=== PATIENT | female | born 1965 | race Caucasian/White ===

== ENCOUNTER 2021-04-26 20:39 | Emergency (ER) | payer OTHER, SELFPAY ==
--- NOTE | ~2021-04-26 | XR_ITS ---
EXAMINATION: XR knee LT 3V EXAM DATE: 04/26/2021 21:14 INDICATION: LT Knee Pain, [place] Snap On Lt Knee, No Known Injury . TECHNIQUE: Three projections of the left knee. There is no prior study for comparison. FINDINGS: No evidence osteochondral defect or joint body in the left knee joint. There are no acute fractures or dislocations identified. There is no subcutaneous gas. The soft tissue is unremarkabl e. There are no radiopaque foreign bodies. There is mild to moderate tricompartmental primary oste oarthritis. IMPRESSION: Mild to moderate left knee osteoarthritis. Reviewed, dictated and finalized at location G.
[2021-04-26 20:43] VITALS: BP 151/97; PULSE 95; RESP 19; TEMP 36.4; O2SAT 97
[2021-04-26] MEDS: MORPHINE SULFATE INJ (*CRX) 10 MG/ML AMP 6 MG IM (22:17)
[2021-04-26] MEDS: ONDANSETRON HCL ODT 4 MG TABLET PO (22:17)
--- NOTE | 2021-04-26 22:20 | ED.EXTPRO ---
HPI - Extremity Problem General Chief complaint: Extremity Problem,Nontraumatic Stated complaint: knee pain x 2 - sees pain mgmt Time Seen by Provider: 04/26/21 21:03 Source: patient Mode of arrival: ambulatory Limitations: no limitations History of Present Illness HPI Narrative: Patient is 55 years old white female been having knee pain bilaterally for over 2 years. Also fibromyalgia. Patient been seen by pain management physician with numerous knee injections. Patient felt a pop distal left knee 5 days ago, been hurting since. Patient denies any fever, chills, nausea, vomiting, fall or injuries. Related Data Home Medications Medication Instructions Recorded Confirmed baclofen mg 04/26/21 hydrocodone-acetaminophen 04/26/21 Allergies Allergy/AdvReac Type Severity Reaction Status Date / Time No Known Allergies Allergy Mild Verified 04/26/21 20:48 Review of Systems Review of Systems: CONSTITUTIONAL: Denies fever, chills, or sweats. EYES: Denies visual changes, redness, or discharge. ENT: Denies rhinorrhea, congestion, sore throat, or otalgia. CARDIOVASCULAR: Denies chest pain, palpitations, or edema. RESPIRATORY: Denies cough or dyspnea. GASTROINTESTINAL: Denies abdominal pain, nausea, vomiting, or diarrhea. GENITOURINARY: Denies dysuria or hematuria. SKIN: Denies rash or itching. MUSCULOSKELETAL: Denies back pain, joint pain, or myalgia. NEUROLOGIC: Denies headache, numbness, or weakness. PSYCHIATRIC: Denies anxiety or depression. Exam Narrative: General appearance: Well-developed, well-nourished Skin: Normal color Vascular: Normal peripheral pulses, normal capillary refill. Musculoskeletal: Knee exam bilaterally showed no swelling, no bruises, no deformity. Left knee showed moderate tenderness at the pes anserine bursa. Neurologic: Alert and oriented ?3, [employer] [employer] [employer] is normal as tested, no gross motor deficit Course Course Emergency Course: Stable Vital Signs Vital signs: Vital Signs Temperature 36.4 C 04/26/21 20:43 Pulse Rate 95 04/26/21 20:43 Respiratory Rate 19 04/26/21 20:43 Blood Pressure 151/97 H 04/26/21 20:43 Pulse Oximetry 97 04/26/21 20:43 Temperature 36.4 C 04/26/21 20:43 Pulse Rate 95 04/26/21 20:43 Respiratory Rate 19 04/26/21 20:43 Blood Pressure 151/97 H 04/26/21 20:43 Pulse Oximetry 97 04/26/21 20:43 MDM - Extremity (Nontraumatic) Imaging Data Radiologist's impression: Impressions Knee X-Ray 04/26/21 21:31 IMPRESSION: Mild to moderate left knee osteoarthritis. Critical Care Time Critical Care Time Critical Care Time: No Discharge Plan Discharge Clinical Impression: Pes anserine bursitis Patient Disposition: Home, Self-Care Condition: Stable Instructions: Antibiotic Form, Knee Bursitis (ED) Additional Instructions: Return if symptoms are worsening , call Dr. Wynne for appointment, take Tylenol as as needed for aches and pain, continue home medications. Ice, rest, elevate, sometimes steroid injection. Prescriptions: New naproxen [Naprosyn] 500 mg tablet 500 mg PO BID PRN (Reason: pain) Qty: 10 RF: 0 No Action hydrocodone-acetaminophen 5-325 mg tablet RF: 0 baclofen 10 mg tablet RF: 0 Follow-up/Referrals: Ramesh,Makenzie Peña APRN [Primary Care Provider] - Kai Davis MD [Physician] - 04/27/21
[2021-04-26 22:51] VITALS: RESP 20; O2SAT 98
== END 2021-04-26 22:52 | disposition home or self-care (01) ==
LOC: ANHED 22:29
PROVIDERS: Emergency Provider Emergency Medicine; PCP Nurse Practitioner Family
DX: M70.52 Other bursitis of knee, left knee (principal); M79.7 Fibromyalgia
CPT/HCPCS: 73562; 96372; 99283; A9270; J2270

== ENCOUNTER 2022-05-03 16:47 | Observation (INO) | payer OTHER, SELFPAY ==
[2022-05-03] VITALS (17 sets, daily range): BP systolic 108–134; BP diastolic 65–92; PULSE 78–81; RESP 13–20; TEMP 35.8–36.6; O2SAT 92–100; BMI 41.9
--- NOTE | ~2022-05-03 | XR_ITS ---
EXAMINATION: XR chest 2V DATE: 05/03/2022 17:39 INDICATION: Weakness TECHNIQUE: AP and lateral views of the chest are obtained. COMPARISON: None available FINDINGS: There are minimal airspace opacities of the left midlung zone. No pleural effusion or pneum othorax. Cardiomegaly is noted. A triple lead cardiac pacemaker of the left chest wall ends with lead s in expected locations. There is mild thoracic spondylosis. IMPRESSION: 1. Minimal airspace opacities of the left midlung zone, consistent with atelectasis versus pneumonia. Reviewed, dictated and finalized at location F. IMPRESSION: 1. Minimal airspace opacities of the left midlung zone, consistent with atelect asis versus pneumonia.
--- NOTE | ~2022-05-03 | NM_ITS ---
EXAMINATION: NM rancho stress w perfusion DATE: 05/04/2022 13:53 INDICATION: Chest pain. Coronary atherosclerosis. TECHNIQUE: Rest images were obtained following intravenous administration of 9.4 mCi Tc99m tetrofosmi n (Myoview). The patient was infused intravenously with Lexiscan (regadenoson). Then, 28.3 mCi Tc99m tetrofosmin (Myoview) was administered intravenously, and stress images were obtained. Data was recon structed into short axis and horizontal and vertical long axis SPECT images. Gated SPECT images were also obtained. COMPARISON: CT abdomen 07/05/2005 FINDINGS: There is no definite reversible or fixed perfusion abnormality to suggest ischemia or infar ction. There is no segmental wall motion abnormality. Left ventricular ejection fraction measures > 70%. IMPRESSION: 1. No definite ischemia or infarct. 2. Normal left ventricular ejection fraction measuring > 70%. Reviewed, dictated and finalized at location A.
--- NOTE | 2022-05-03 16:50 | ECG_ITS ---
Measurements Intervals [place] Rate: 80 P: 167 MA: 142 QRS: -57 QRSD: 167 T: 78 QT: 468 QTc: 541 Interpretive Statements ELECTRONIC ATRIAL PACEMAKER ELECTRONIC VENTRICULAR PACEMAKER BASELINE ARTIFACT- I, II, AVR, AVL NO FURTHER INTERPRETATION IS POSSIBLE ATYPICAL ECG NO PREVIOUS ECG AVAILABLE FOR COMPARISON Electronically Signed On 05-03-2022 21:48:05 CDT by Luis E Sauceda D.O.
--- NOTE | 2022-05-03 17:13 | ED.WEAKNESS ---
HPI - Weakness General Chief complaint: Weakness <Gogo Chaparro PA-C - Last Filed: 05/03/22 20:31> Stated complaint: weakness <Gogo Chaparro PA-C - Last Filed: 05/03/22 20:31> Time Seen by Provider: 05/03/22 16:53 <Gogo Chaparro PA-C - Last Filed: 05/03/22 20:31> History of Present Illness HPI Narrative: Patient is a 56-year-old female with a history of CAD status post stenting, diabetes, hyperlipidemia, hypertension, anxiety and depression, here for evaluation of chest pain earlier today. Patient states that she was at rest eating lunch today when she noticed discomfort in the left side of her chest. She states that the discomfort was not followed by an uneasy sensation, with numbness in the left arm, breathlessness, and intensifying of the pain. She states that the pain felt like a pressure in her chest. She has never experienced pain like this before. She had a stent place in 2019 after she failed a stress test that was done preoperatively for risk stratification at [facility]. Patient states that her symptoms have since improved and she is asymptomatic. This morning she was in her usual state of health and denies any chest pain, shortness of breath, leg swelling, fevers or chills, cough or congestion. <Gogo Chaparro PA-C - Last Filed: 05/03/22 20:31> Related Data Home medications: Home Medications Medication Instructions Recorded Confirmed baclofen 10 mg tablet 5 mg PO TID PRN Spasms 04/26/21 05/03/22 hydrocodone 5 mg-acetaminophen 325 1 tablet PO Q6H PRN Moderate Pain 04/26/21 05/03/22 mg tablet (Scale Score 5-6) atorvastatin 40 mg tablet 40 mg PO HS 05/03/22 05/03/22 clopidogrel 75 mg tablet 75 mg PO DAILY 05/03/22 05/03/22 hydrocodone bitartrate 20 mg 1 mg PO DAILY 05/03/22 05/03/22 tablet,crush resist,extended rel. 24hr ([facility] ER) levothyroxine 137 mcg tablet 137 mcg PO DAILY 05/03/22 05/03/22 (Synthroid) magnesium oxide 400 mg (241.3 mg 400 mg PO DAILY 05/03/22 05/03/22 magnesium) tablet metformin 500 mg tablet 500 mg PO BID 05/03/22 05/03/22 metoprolol tartrate 50 mg tablet 25 mg PO BID 05/03/22 05/03/22 pantoprazole 40 mg tablet,delayed 40 mg PO DAILY 05/03/22 05/03/22 release pregabalin 150 mg capsule 150 mg PO BID 05/03/22 05/03/22 ramipril 2.5 mg capsule 2.5 mg PO DAILY 05/03/22 05/03/22 spironolactone 25 mg tablet 25 mg PO DAILY 05/03/22 05/03/22 tizanidine 4 mg tablet 4 mg PO Q12H PRN Spasms 05/03/22 05/03/22 topiramate 100 mg tablet 100 mg PO BID 05/03/22 05/03/22 trazodone 100 mg tablet 200 mg PO HS 05/03/22 05/03/22 vilazodone 40 mg tablet 40 mg PO DAILY 05/03/22 05/03/22 <Gogo Chaparro PA-C - Last Filed: 05/03/22 20:31> Allergies/Adverse reactions: Allergies Allergy/AdvReac Type Severity Reaction Status Date / Time No Known Allergies Allergy Mild Verified 05/03/22 17:17 <Gogo Chaparro PA-C - Last Filed: 05/03/22 20:31> Review of Systems Review of Systems: Gen.: Denies fevers or chills Eyes: Denies eye pain or visual change ENT: Denies congestion Respiratory: Reports shortness of breath CV: Reports chest pain GI: Denies abdominal pain nausea, emesis or diarrhea denies burning, urgency, frequency or hematuria Musculoskeletal: Denies back pain or muscle pain Neuro: Denies numbness, tingling, weakness or focal weakness Skin: Denies rash Except as documented, all other systems reviewed and negative <Gogo Chaparro PA-C - Last Filed: 05/03/22 20:31> Exam Narrative: APPEARANCE: Well appearing, no pain in distress, well-nourished. Head: Normocephalic and atraumatic. EYES: PERRLA/EOMI, conjunctivae clear NOSE: No nasal drainage EARS: External ear normal in appearance THROAT: Oropharynx is clear. Mucous membranes are moist. NECK: Supple. No adenopathy, no masses. RESPIRATORY: Airway patent, respirations nonlabored. Clear to auscultation bilaterally, no rales, rhonchi, wheezing. CARDIOVA
--- NOTE | 2022-05-03 17:29 | PC.NURSE ---
Call placed to [employer] for pacemaker interrogation.
[2022-05-03 18:27] LABS: Basophils Absolute Auto 0.1 K/mm3 (0.0-0.1); Basophils Percent Auto 1.2 % (0.2-1.2); Eosinophils Absolute Auto 0.8 K/mm3 (0-0.3); Eosinophils Percent Auto 7.9 % (0-4.4); Hematocrit 40.5 % (37.0-47.0); Immature Granulocyte Absolute 0.08 K/mm3 (0.00-0.031); Immature Granulocyte Percent A 0.8 % (0-0.5); Lymphocytes Absolute Auto 2.45 K/mm3 (0.9-3.2); Lymphocytes Percent Auto 25.8 % (18.3-44.2); Mean Corpuscular HGB Conc 29.6 g/dl (32-36); Mean Corpuscular Hemoglobin 22.9 pg (26-34); Mean Corpuscular Volume 77.1 fl (80-100); Mean Platelet Volume 10.3 fl (7.4-10.4); Monocytes Absolute Auto 0.9 K/mm3 (0.1-0.6); Monocytes Percent Auto 9.1 % (2.6-8.5); Neutrophils Absolute Auto 5.3 K/mm3 (1.3-6.7); Neutrophils Percent Auto 55.2 % (45.5-73.1); Platelet Count Result 345 k/mm3 (150-375); Red Blood Count 5.25 M/mm3 (4.2-5.4); Red Cell Distribution Width 18.5 % (11.5-14.5); White Blood Count 9.5 K/mm3 (4.5-10.0)
[2022-05-03 18:39] LABS: Alanine Aminotransferase 22 U/L (6-35); Albumin Level 4.6 g/dL (3.5-5.1); Alkaline Phosphatase 115 U/L (38-126); Anion Gap 7 mmol/L (8-16); Aspartate Amino Transferase 28 U/L (14-36); Bilirubin,Total 0.4 mg/dL (0.2-1.3); Blood Urea Nitrogen 13 mg/dL (7-17); Calcium 9.2 mg/dL (8.4-10.2); Carbon Dioxide 34 mmol/L (22-30); Chloride 93 mmol/L (98-107); Estimated CRCL calculation 73 ml/min; Estimated Glomerular Filt Rate > 60; Glucose 98 mg/dL (65-110); Lipase 74 U/L (23-300); Potassium 3.1 mmol/L (3.4-5.0); Sodium 134 mmol/L (137-145)
[2022-05-03 18:42] LABS: Hypochromasia 1+ (NORMAL); Platelet Estimate Adequate (Adequate); Schistocytes None Seen (NORMAL)
[2022-05-03 18:43] LABS: INR 0.9; Partial Thromboplastin Time 21.5 SECONDS (22.3-36.8); Prothrombin Time 11.6 Seconds (11.1-14.7)
[2022-05-03] MEDS: ASPIRIN 81 MG CHEWABLE TABLET 324 MG PO (18:48)
[2022-05-03 18:50] LABS: Troponin I < 0.012 ng/mL (0.000-0.034)
[2022-05-03 19:16] LABS: Appearance Urine Clear (Clear); Bacteria Urine None Seen /hpf; Bilirubin Urine Negative (Negative); Blood Urine Negative (Negative); Color Urine Yellow (Yellow); Glucose Urine UA Negative (Negative); Ketones Urine Negative (Negative); Leukocyte Esterase Ur Trace LEU/UL (Negative); Nitrate Urine Negative (Negative); Non Pathogenic Casts 0-2; Protein Urine Negative (Negative); RBC Urine 0-2 /hpf (0-2); Specific Grav Ur 1.011 (1.001-1.035); Squamous Epithelial Cell Urine None seen /hpf (Few); Urobilinogen Urine 0.2 mg/dL (<2.0); WBC Urine 0-5 /hpf; pH Urine 6.5 (5.0-9.0)
[2022-05-03 19:23] LABS: Add Urine Microscopic? YES
[2022-05-03 20:35] LABS: SARS-CoV-2 RNA PCR Negative
[2022-05-03 21:03] LABS: Troponin I < 0.012 ng/mL (0.000-0.034)
--- NOTE | 2022-05-03 22:12 | ADMGEN ---
This patient, Anjana Ramos, was admitted to IMU Room 206-01. Patient/family oriented to hospital policies and general routines including ID bracelet, bed and alarms, visiting hours, pain management, procedures, bathroom and other care routines, personal items, smoking policy, room service/diet, and visiting hours. Information on how to activate the Rapid Response Team has been discussed. Patient/Family are encouraged to report perceived risks to care and to ask questions if they do not understand what they are told or what they should do.
[2022-05-04] VITALS (11 sets, daily range): BP systolic 97–131; BP diastolic 61–77; PULSE 62–83; RESP 16–18; TEMP 36.1–36.4; O2SAT 97–100
--- NOTE | 2022-05-04 | EST_ITS ---
Patient Info Name: Anjana Ramos Age: 56 years : 1965 Gender: Female Ht: 65 in Wt: 251 lbs BSA: 2.34 m2 HR: 80 bpm BP: 118 / 86 mmHg Heart Rhythm: Sinus Rhythm Exam Date: 05/04/2022 12:34 PM Exam Location: [facility] Stress Patient Status: Inpatient Admit Date: 05/03/2022 Staff Ordering Physician: Ethel Aldridge MD Attending Provider: Ethel Aldridge MD Exercise Technologist: Kyleigh Morgan CT Exercise Physician: Ha Way MD Exam Type: CA stress rancho w NM Study Info Indications R07.89 - Other chest pain A regadenoson stress test was performed. Summary 1. Stress ECG is uninterpretable for ischemia due to ventricular paced rhythm. 2. Please correlate with nuclear medicine images, reported separately. Protocol: Lexiscan Stress ECG Details Stage: REST Duration (min): 1 min : 15 sec HR (bpm): 80 SBP (mmHg): 118 DBP (mmHg): 86 Stage: REST Duration (min): 14 min : 2 sec HR (bpm): 80 SBP (mmHg): 118 DBP (mmHg): 86 Stage: STAGE 1 Duration (min): 1 min : 0 sec HR (bpm): 84 SBP (mmHg): 118 DBP (mmHg): 86 Stage: RECOVERY Duration (min): 1 min : 0 sec HR (bpm): 86 SBP (mmHg): 138 DBP (mmHg): 69 Stage: RECOVERY Duration (min): 2 min : 0 sec HR (bpm): 85 SBP (mmHg): 138 DBP (mmHg): 69 Stage: RECOVERY Duration (min): 3 min : 0 sec HR (bpm): 82 SBP (mmHg): 110 DBP (mmHg): 69 Stage: RECOVERY Duration (min): 3 min : 2 sec HR (bpm): 82 SBP (mmHg): 110 DBP (mmHg): 69 Rest HR: 80 bpm Peak HR: 88 bpm Rest Sys BP: 118 mmHg Peak Sys BP: 138 mmHg Max Pred HR: 163 bpm % Max Pred HR: 54 % Target HR: 139 bpm Max RPP: 12,144 bpm*mmHg Total Time: 1 min : 0 sec Rest [place] BP: 86 mmHg Peak [place] BP: 69 mmHg Total Dose: 0.4 mg Resting ECG Ventricular pacing. Stress ECG Ventricular paced rhythm. Uninterpretable for ischemia due to paced rhythm. Report Signatures
--- NOTE | 2022-05-04 00:59 | PM.IMHP ---
H&P: HPI History of Present Illness Date/Time: 05/04/22 00:59 Chief Complaint: Chest pain Narrative: Patient is a 56-year-old female with past medical history of diabetes, hyperlipidemia, coronary artery disease status post stenting x1 coming in for substernal chest pain since noon. Patient said that 2 years ago she had a positive stress test for which she underwent cardiac catheterization with placement of 1 stent during that time she also had some unknown arrhythmia for which she had a pacemaker placed she has been doing well since with good exercise tolerance up until lunchtime today. She just finished lunch with her friend when she noted some substernal chest pain radiating to her left side as well as her arm she said it was an uncomfortable feeling with some heaviness associated. Her friend said she was a little bit pale and diaphoretic, prompting visit to the ER. On arrival patient had an EKG done which did not show any acute changes. She also had troponins which were negative. Patient denies any fever, loss of consciousness or syncope. She denies any nausea or vomiting. No abdominal pain, dysuria or diarrhea. She denies any leg swelling. Patient's grappler is from [place] however when ER doctor recommended transfer she refused and said that she would prefer to see a grappler here. Review of Systems Review of Systems: no fever or weight loss no vision changes, no eye discharge no throat pain, no hoarseness, no lymphadenopathy Minimal chest pain, no palpitations no coughing, no wheezing no abdominal pain, no diarrhea, no nausea, no vomiting no dysuria, no vaginal discharge no leg swelling, no edema no suicidal or homicidal ideation PMFSH Social History Social History Smoking status: Former smoker Alcohol intake: never Substance use: never Substance use type: does not use Lack of Transportation: No Lack of Food: Never True Current Housing: I Have Housing Concerned About Future Housing: No Difficulty Paying Gas/Electric Bills: No Difficulty Paying for Meds: No Currently Unemployed: No Education: High School Diploma/GED Difficulty w/ Childcare or Family Care: No Spiritual care concerns: No Meds Home Medications and Allergies Home Medications Medication Instructions Recorded Confirmed Type baclofen 10 mg tablet 5 mg PO TID PRN Spasms 04/26/21 05/03/22 History hydrocodone 5 mg-acetaminophen 325 1 tablet PO Q6H PRN Moderate Pain 04/26/21 05/03/22 History mg tablet (Scale Score 5-6) atorvastatin 40 mg tablet 40 mg PO HS 05/03/22 05/03/22 History clopidogrel 75 mg tablet 75 mg PO DAILY 05/03/22 05/03/22 History hydrocodone bitartrate 20 mg 1 mg PO DAILY 05/03/22 05/03/22 History tablet,crush resist,extended rel. 24hr ([facility] ER) levothyroxine 137 mcg tablet 137 mcg PO DAILY 05/03/22 05/03/22 History (Synthroid) magnesium oxide 400 mg (241.3 mg 400 mg PO DAILY 05/03/22 05/03/22 History magnesium) tablet metformin 500 mg tablet 500 mg PO BID 05/03/22 05/03/22 History metoprolol tartrate 50 mg tablet 25 mg PO BID 05/03/22 05/03/22 History pantoprazole 40 mg tablet,delayed 40 mg PO DAILY 05/03/22 05/03/22 History release pregabalin 150 mg capsule 150 mg PO BID 05/03/22 05/03/22 History ramipril 2.5 mg capsule 2.5 mg PO DAILY 05/03/22 05/03/22 History spironolactone 25 mg tablet 25 mg PO DAILY 05/03/22 05/03/22 History tizanidine 4 mg tablet 4 mg PO Q12H PRN Spasms 05/03/22 05/03/22 History topiramate 100 mg tablet 100 mg PO BID 05/03/22 05/03/22 History trazodone 100 mg tablet 200 mg PO HS 05/03/22 05/03/22 History vilazodone 40 mg tablet 40 mg PO DAILY 05/03/22 05/03/22 History Allergies Allergy/AdvReac Type Severity Reaction Status Date / Time No Known Allergies Allergy Mild Verified 05/03/22 17:17 Vital Signs Vital Signs - 24 hr 05/03/22 17:06 05/03/22 18:48 05/03/22 19:00 Temperature 98 F Pulse
[2022-05-04 01:01] LABS: Troponin I < 0.012 ng/mL (0.000-0.034)
[2022-05-04] MEDS: PREGABALIN (*CRX) 75 MG CAPSULE 150 MG PO ×2 (01:46→14:51)
[2022-05-04] MEDS: traZODone HCL 50 MG TABLET 200 MG PO (01:47)
[2022-05-04] MEDS: TIZANIDINE HCL 4 MG TABLET PO (01:48)
[2022-05-04] MEDS: METOPROLOL TARTRATE 25 MG TABLET PO ×2 (01:49→08:57)
[2022-05-04] MEDS: TOPIRAMATE 100 MG TABLET PO ×2 (01:49→14:51)
[2022-05-04] MEDS: ATORVASTATIN 40 MG TABLET PO (01:49)
[2022-05-04] MEDS: LEVOTHYROXINE SODIUM 25 MCG TABLET PO (05:59)
[2022-05-04] MEDS: LEVOTHYROXINE SODIUM 112 MCG TABLET PO (05:59)
[2022-05-04] MEDS: CLOPIDOGREL BISULFATE 75 MG TABLET PO (08:58)
--- NOTE | 2022-05-04 10:58 | PM.CNCAR ---
Assessment and Plan Assessment and plan (1) Chest pain: Qualifiers: Chest pain type: unspecified Qualified Code(s): R07.9 - Chest pain, unspecified Code(s): R07.9 - Chest pain, unspecified Status: Acute Assessment and Plan: Troponins are negative. EKG with paced rhythm. CXR negative for acute findings. Patient's symptoms resolved without recurrence. Agree with Lexiscan stress testing, which has already been ordered. If stress test is negative, then okay to discharge home from my standpoint. 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 Feldman, after discharge. History of Present Illness History of Present Illness Consult date/time: 05/04/22 10:58 Requesting physician: Ethel Aldridge MD Consult reason: chest pain Reason For Visit: Chest Pain Narrative: We are consulted for chest pain. This is a 56-year-old female who presented to [facility] for chest pain. 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 Feldman with [facility]. She has a history of coronary artery disease s/p PCI in 2019, symptomatic bradycardia s/p Biotronik pacemaker in 2019, diabetes, hyperlipidemia, obesity who presented with an episode of chest pain. Patient states she was at lunch with her friend, and about an hour after lunch, they were still at the restaurant talking. She developed left upper chest pain that lasted for about 20 seconds. [place] a lump in her throat. [place] like her stomach was flopping over. Then had left arm numbness that lasted for about 20 minutes. Patient then return to normal and the symptoms were completely resolved. She has not had recurrence in her symptoms. ER evaluation showed EKG with paced rhythm. Troponins are negative. CXR without acute cardiopulmonary findings. Review of Systems Review of Systems: All systems reviewed & are unremarkable except as noted in HPI and below (HPI) [facility] Social History Social History Smoking status: Former smoker Alcohol intake: never Substance use: never Substance use type: does not use Lack of Transportation: No Lack of Food: Never True Current Housing: I Have Housing Concerned About Future Housing: No Difficulty Paying Gas/Electric Bills: No Difficulty Paying for Meds: No Currently Unemployed: No Education: High School Diploma/GED Difficulty w/ Childcare or Family Care: No Spiritual care concerns: No Comments Past medical history: Coronary artery disease s/p PCI in 2019, symptomatic bradycardia s/p Biotronik pacemaker in 2019, diabetes, hyperlipidemia, obesity Past surgical history: Coronary stent, permanent pacemaker Family history: Reviewed, non contributory Meds Home Medications and Allergies Home Medications Medication Instructions Recorded Confirmed Type baclofen 10 mg tablet 5 mg PO TID PRN Spasms 04/26/21 05/03/22 History hydrocodone 5 mg-acetaminophen 325 1 tablet PO Q6H PRN Moderate Pain 04/26/21 05/03/22 History mg tablet (Scale Score 5-6) atorvastatin 40 mg tablet 40 mg PO HS 05/03/22 05/03/22 History clopidogrel 75 mg tablet 75 mg PO DAILY 05/03/22 05/03/22 History hydrocodone bitartrate 20 mg 1 mg PO DAILY 05/03/22 05/03/22 History tablet,crush resist,extended rel. 24hr ([place] ER) levothyroxine 137 mcg tablet 137 mcg PO DAILY 05/03/22 05/03/22 History (Synthroid) magnesium oxide 400 mg (241.3 mg 400 mg PO DAILY 05/03/22 05/03/22 History magnesium) tablet metformin 500 mg tablet 500 mg PO BID 05/03/22 05/03/22 History metoprolol tartrate 50 mg tablet 25 mg PO BID 05/03/22 05/03/22 History pantoprazole 40 mg tablet,delayed 40 mg PO DAILY 05/03/22 05/03/22 History release pregabalin 150 mg capsule 150 mg PO BID 05/03/22 05/03/22 History ramipril 2.5 mg capsule 2.5 mg PO DAILY 05/03/22 05/03/22 History spironolactone 25 mg tablet 25 mg PO DAILY 05/03/22 05/03/22 History tizanidine 4 mg tablet 4 mg PO Q12H PRN
--- NOTE | 2022-05-04 14:04 | PCCCNOTE ---
On 05/04/22, the student, [Antonietta Terrell], provided care and completed [facility] documentation on this patient. I have reviewed the student's documentation and agree with the findings.
[2022-05-04] MEDS: PANTOPRAZOLE 40 MG TABLET PO (14:51)
[2022-05-04] MEDS: MAGNESIUM OXIDE 400 MG TABLET PO (14:51)
--- NOTE | 2022-05-04 16:57 | PM.DS ---
DS: Admitting Diagnosis Discharge Date 05/04/22 Admitting Diagnosis Chest pain DS: Discharge Diagnosis Discharge Diagnosis (1) Chest pain: Qualifiers: Chest pain type: unspecified Qualified Code(s): R07.9 - Chest pain, unspecified Code(s): R07.9 - Chest pain, unspecified Status: Acute (2) Diabetes: Code(s): E11.9 - Type 2 diabetes mellitus without complications Status: Acute (3) Hypertension: Code(s): I10 - Essential (primary) hypertension Status: Acute (4) Coronary artery disease: Code(s): I25.10 - Atherosclerotic heart disease of [place] coronary artery without angina pectoris Status: Acute DS: Summary Hospital Course Reason for hospitalization: 56yo female with CAD and DM here for chest pain. Please see H&P for details. Hospital Course: Patient with history of coronary artery disease status post stenting, coming in with chest pain.? Initial EKG shows paced rhythm with no acute ST or T-wave changes.? Troponins were negative. Cardiology consulted. Chest x-ray shows minimal airspace opacity in left mid lung zone consistent with atelectasis versus pneumonia. Patient underwent Lexiscan stress test. The stress EKG was uninterpretable for ischemia due to ventricular paced rhythm. Lexiscan showed no definitive ischemia infarct. Her EF was greater than 70%. She describes the pain as lasting few seconds. It was in her left upper chest has a squeezing sensation. Her left arm was heavy. The pain was not pleuritic, palpable or positional. Cardiology felt patient could be discharged home since the stress test was negative. Patient feels well. No recurrence of the chest pain. Patient overall did well to be discharged home on 05/04/2022. Status at Discharge Cognitive/behavioral status at discharge: Stable Time Spent with Patient Time attestation: Total time spent providing and/or coordinating discharge services: 34 minutes Time spent: Greater than 30 minutes Exam Narrative: AF 97.3 131/77 80 18 100% ra Gen - NARD Chest - CTA bilaterally, nml RR CV - RRR S1/S2 Abd - Soft, NT/ND, Positive BS Ext - No pedal edema Neuro - Alert and oriented. Nonfocal exam. Psych - Nml mood and affect Skin - Warm and dry DS: Data Data Completed and Pending Labs on day of discharge: Labs from last 24 hours 05/04/22 05/03/22 05/03/22 00:20 20:33 18:47 WBC RBC Hgb Hct MCV MCH MCHC RDW Plt Count MPV Immature Gran % (Auto) Neut % (Auto) Lymph % (Auto) [place] % (Auto) Eos % (Auto) Baso % (Auto) Lymph # (Auto) [place] # (Auto) Eos # (Auto) Baso # (Auto) Abs Immat Gran (auto) Absolute Neuts (auto) Absolute Nucleated RBC Nucleated RBC % Platelet Estimate Hypochromasia Schistocytes PT INR APTT Sodium Potassium Chloride Carbon Dioxide Anion Gap BUN Creatinine Estim Creat Clear Calc Estimated GFR Glucose Calcium Total Bilirubin AST ALT Alkaline Phosphatase Troponin I < 0.012 < 0.012 Total Protein Albumin Lipase Urine Color Yellow Urine Appearance Clear Urine pH 6.5 Ur Specific [place] 1.011 Urine Protein Negative Urine Glucose (UA) Negative Urine Ketones Negative Ur Blood (Man) Negative Urine Nitrate Negative Urine Bilirubin Negative Urine Urobilinogen 0.2 Leukocyte Esterase Rfl Trace H Urine RBC 0-2 Urine WBC 0-5 Ur Squamous Epith Cells None seen Urine Bacteria None seen Urine Casts 0-2 SARS-CoV-2 RNA (RT-PCR) 05/03/22 05/03/22 05/03/22 18:20 18:20 18:19 WBC RBC Hgb Hct MCV MCH MCHC RDW Plt Count MPV Immature Gran % (Auto) Neut % (Auto) Lymph % (Auto) [place] % (Auto) Eos % (Auto) Baso % (Auto) Lymph # (Auto) [place] # (Auto) Eos # (Auto) Baso #
[2022-05-04 17:25] LABS: Glucose Point of Care 144 mg/dl (65-105)
== END 2022-05-04 17:52 | disposition home or self-care (01) ==
LOC: ANHED 20:31 → ANHIMU 05-04 00:39
PROVIDERS: Emergency Medicine; Admitting Provider Internal Medicine; Emergency Provider Physician Assistant; PCP Nurse Practitioner Family; Visit Provider Internal Medicine
DX: R07.9 Chest pain, unspecified (principal); I25.10 Atherosclerotic heart disease of native coronary artery without angina pectoris; E11.9 Type 2 diabetes mellitus without complications; I10 Essential (primary) hypertension; Z95.0 Presence of cardiac pacemaker; Z20.822 Contact with and (suspected) exposure to COVID-19
CPT/HCPCS: 36415; 71046; 78452; 80053; 81001; 82948; 83690; 84484; 85025; 85610; 85730; 93005; 93017; 99285; A9270; A9502; G0378; G0379; J2785; U0003; U0005

== ENCOUNTER 2022-06-16 00:32 | Day surgery (SDC) | payer OTHER, SELFPAY ==
[2022-06-02 14:32] VITALS: BMI 39.9
[2022-06-16 12:23] VITALS: BP 118/91; PULSE 102; RESP 20; TEMP 36.5; O2SAT 97; BMI 40.0
--- NOTE | 2022-06-16 12:24 | PM.HPGS ---
History of Present Illness History of Present Illness Consent: Risks, benefits, and alternatives have been discussed and questions answered. Patient agrees to proceed with procedure. Chief complaint: neoplasm screening, esophageal thickening Narrative: Anjana Ramos is a 56 year old female was referred for EGD because of abnormal findings on CT scan. Recent CT scan showed a thickening of the esophagus. She has a history of Aranda's esophagus. She denies dysphagia. She is also due for colon cancer screening. Review of Systems Review of Systems: All systems reviewed & are unremarkable except as noted in HPI and below PMFSH Social History Social History Smoking status: Former smoker Alcohol intake: never Substance use: never Substance use type: does not use Lack of Transportation: No Lack of Food: Never True Current Housing: I Have Housing Concerned About Future Housing: No Difficulty Paying Gas/Electric Bills: No Difficulty Paying for Meds: No Currently Unemployed: No Education: High School Diploma/GED Difficulty w/ Childcare or Family Care: No Living arrangements: with family Spiritual care concerns: No Meds Home Medications and Allergies Home Medications Medication Instructions Recorded Confirmed Type atorvastatin 40 mg tablet 40 mg PO HS 05/03/22 06/16/22 History clopidogrel 75 mg tablet 75 mg PO HS 05/03/22 06/16/22 History levothyroxine 137 mcg tablet 137 mcg PO DAILY 05/03/22 06/16/22 History (Synthroid) metformin 500 mg tablet 500 mg PO BID 05/03/22 06/16/22 History metoprolol tartrate 50 mg tablet 50 mg PO DAILY 05/03/22 06/16/22 History pantoprazole 40 mg tablet,delayed 40 mg PO DAILY 05/03/22 06/16/22 History release pregabalin 150 mg capsule 150 mg PO BID 05/03/22 06/16/22 History ramipril 2.5 mg capsule 2.5 mg PO DAILY 05/03/22 06/16/22 History topiramate 100 mg tablet 100 mg PO BID 05/03/22 06/16/22 History trazodone 100 mg tablet 200 mg PO HS 05/03/22 06/16/22 History vilazodone 40 mg tablet 40 mg PO DAILY 05/03/22 06/02/22 History baclofen 10 mg tablet 10 mg PO TID 06/02/22 06/16/22 History chlorthalidone 25 mg tablet 25 mg PO DAILY 06/02/22 06/16/22 History cholecalciferol (vitamin D3) 50 100 mcg PO DAILY 06/02/22 06/16/22 History mcg (2,000 unit) capsule hydrocodone bitartrate 20 mg 20 mg PO DAILY 06/02/22 06/16/22 History tablet,crush resist,extended rel. 24hr ([facility]) Allergies Allergy/AdvReac Type Severity Reaction Status Date / Time adhesive tape Allergy Rash Verified 06/16/22 12:20 Exam Const: General: alert Orientation/consciousness: patient oriented x3 Resp: Auscultation: clear to auscultation bilaterally Cardio: Rhythm: regular rhythm GI: GI Palp: Yes Soft to palpation and No Tenderness to palpation present (GI) Neuro: General: patient oriented x3 Assessment and Plan Assessment and plan (1) Abnormal CT scan, gastrointestinal tract: Code(s): R93.3 - Abnormal findings on diagnostic imaging of other parts of digestive tract Status: Acute Assessment and Plan: EGD with possible biopsy or dilatation or cautery. (2) Colon cancer screening: Code(s): Z12.11 - Encounter for screening for malignant neoplasm of colon Status: Acute Assessment and Plan: Colonoscopy with possible biopsy or polypectomy or cautery or injection of substances.
[2022-06-16] MEDS: LACTATED RINGERS 1,000 ML 150 ML IV CONT (12:28)
--- NOTE | 2022-06-16 12:36 | WPDANESEPPF ---
Anes - Initial Pre Proc Eval Procedure: Operation Date: 06/16/22 13:30 Proposed Procedures p Esophagogastroduodenoscopy & Screening Colonoscopy - Matt Brock MD Date/Time: 06/16/22 12:36 Surgeon: Matt rBock MD Pre Op Diagnosis: neoplasm screening, esophageal thickening Patient Data Age: 56 Gender: F Height: 1.65 m Weight: 109.2 kg Last Vital Signs Temp 97.7 F 06/16/22 12:23 Pulse 102 H 06/16/22 12:23 Resp 20 06/16/22 12:23 BP 118/91 H 06/16/22 12:23 Pulse Ox 97 06/16/22 12:23 O2 Del Method Room Air 06/16/22 12:23 Allergies Allergy/AdvReac Type Severity Reaction Status Date / Time adhesive tape Allergy Rash Verified 06/16/22 12:20 Home Medications Medication Instructions Recorded Confirmed Type atorvastatin 40 mg tablet 40 mg PO HS 05/03/22 06/16/22 History clopidogrel 75 mg tablet 75 mg PO HS 05/03/22 06/16/22 History levothyroxine 137 mcg tablet 137 mcg PO DAILY 05/03/22 06/16/22 History (Synthroid) metformin 500 mg tablet 500 mg PO BID 05/03/22 06/16/22 History metoprolol tartrate 50 mg tablet 50 mg PO DAILY 05/03/22 06/16/22 History pantoprazole 40 mg tablet,delayed 40 mg PO DAILY 05/03/22 06/16/22 History release pregabalin 150 mg capsule 150 mg PO BID 05/03/22 06/16/22 History ramipril 2.5 mg capsule 2.5 mg PO DAILY 05/03/22 06/16/22 History topiramate 100 mg tablet 100 mg PO BID 05/03/22 06/16/22 History trazodone 100 mg tablet 200 mg PO HS 05/03/22 06/16/22 History vilazodone 40 mg tablet 40 mg PO DAILY 05/03/22 06/02/22 History baclofen 10 mg tablet 10 mg PO TID 06/02/22 06/16/22 History chlorthalidone 25 mg tablet 25 mg PO DAILY 06/02/22 06/16/22 History cholecalciferol (vitamin D3) 50 100 mcg PO DAILY 06/02/22 06/16/22 History mcg (2,000 unit) capsule hydrocodone bitartrate 20 mg 20 mg PO DAILY 06/02/22 06/16/22 History tablet,crush resist,extended rel. 24hr ([facility]) Patient hx anesthesia problems: none Family hx anesthesia problems: none Results Review: All pre-operative results and documents have been reviewed as part of the pre-operative evaluation. [facility] Social History Social History Smoking status: Former smoker Alcohol intake: never Substance use: never Substance use type: does not use Lack of Transportation: No Lack of Food: Never True Current Housing: I Have Housing Concerned About Future Housing: No Difficulty Paying Gas/Electric Bills: No Difficulty Paying for Meds: No Currently Unemployed: No Education: High School Diploma/GED Difficulty w/ Childcare or Family Care: No Living arrangements: with family Spiritual care concerns: No Anes - Eval Final PreProcedure Day of Procedure 06/16/22 12:36 Patient weight: morbidly obese Heart: regular rate and rhythm Lungs: clear to auscultation Airway: Mallampati scale class III Neurological: alert and oriented Last oral intake: >/= 8 hours ASA classification: IV Emergent: no Anesthetic plan: proceed Anesthesia type and monitoring: general GIVS and standard monitoring Results Review: All pre-operative results and documents have been reviewed as part of the pre-operative evaluation. Informed Consent: The patient's anesthetic plan and its attendant risks and benefits were discussed with the patient/family/POA. Questions were solicited and answers provided to the satisfaction of the patient/family/POA.
[2022-06-16 12:45] LABS: Glucose Point of Care 104 mg/dl (65-105)
--- NOTE | 2022-06-16 13:30 | SUR.OPER ---
EGD START: 1303; END: 1309. COLONOSCOPY START: 1316; END: 1330.
[2022-06-16 13:33] VITALS: BP 111/67; PULSE 90; RESP 21; O2SAT 97
[2022-06-16 13:43] VITALS: BP 120/73; PULSE 90; RESP 22; O2SAT 94
[2022-06-16 13:53] VITALS: BP 126/83; PULSE 84; RESP 24; O2SAT 96
== END 2022-06-16 14:00 | disposition home or self-care (01) ==
PROVIDERS: PCP Nurse Practitioner Family; Visit Provider Internal Medicine Gastroenterology
PROC: 0DJ08ZZ Inspection of Upper Intestinal Tract, Via Natural or Artificial Opening Endoscopic (ICD-10-PCS; CPT 43235; principal; 2022-06-16 13:30)
DX: Z12.11 Encounter for screening for malignant neoplasm of colon (principal); K64.4 Residual hemorrhoidal skin tags; K57.30 Diverticulosis of large intestine without perforation or abscess without bleeding; K22.70 Barrett's esophagus without dysplasia; K44.9 Diaphragmatic hernia without obstruction or gangrene; Z79.02 Long term (current) use of antithrombotics/antiplatelets; Z79.84 Long term (current) use of oral hypoglycemic drugs; Z87.891 Personal history of nicotine dependence; E66.01 Morbid (severe) obesity due to excess calories; Z68.41 Body mass index [BMI] 40.0-44.9, adult
CPT/HCPCS: 45378; 43239; 82948; 88305; J2704; J7120

== ENCOUNTER 2024-04-04 11:59 | Outpatient (CLI) | payer OTHER, SELFPAY ==
[2024-04-04 12:39] LABS: Basophils Absolute Auto 0.1 K/mm3 (0.0-0.1); Basophils Percent Auto 0.8 % (0.2-1.2); Eosinophils Absolute Auto 0.6 K/mm3 (0-0.3); Eosinophils Percent Auto 6.5 % (0-4.4); Hematocrit 41.5 % (37.0-47.0); Hemoglobin 12.6 g/dL (12.0-15.0); Immature Granulocyte Absolute 0.05 K/mm3 (0.00-0.031); Immature Granulocyte Percent A 0.5 % (0-0.5); Lymphocytes Absolute Auto 2.13 K/mm3 (0.9-3.2); Lymphocytes Percent Auto 23.3 % (18.3-44.2); Mean Corpuscular HGB Conc 30.4 g/dl (32-36); Mean Corpuscular Hemoglobin 26.1 pg (26-34); Mean Corpuscular Volume 85.9 fl (80-100); Mean Platelet Volume 10.5 fl (7.4-10.4); Monocytes Absolute Auto 0.7 K/mm3 (0.1-0.6); Monocytes Percent Auto 7.9 % (2.6-8.5); Neutrophils Absolute Auto 5.6 K/mm3 (1.3-6.7); Platelet Count Result 253 k/mm3 (150-375); Red Blood Count 4.83 M/mm3 (4.2-5.4); Red Cell Distribution Width 15.9 % (11.5-14.5); White Blood Count 9.1 K/mm3 (4.5-10.0)
[2024-04-04 12:53] LABS: Alanine Aminotransferase 23 U/L (6-35); Alkaline Phosphatase 111 U/L (38-126); Anion Gap 8 mmol/L (4-12); Aspartate Amino Transferase 28 U/L (14-36); Bilirubin,Total 0.5 mg/dL (0.2-1.3); Blood Urea Nitrogen 6 mg/dL (7-17); Calcium 9.2 mg/dL (8.4-10.2); Carbon Dioxide 31 mmol/L (22-30); Chloride 103 mmol/L (98-107); Estimated Glomerular Filt Rate > 60; Glucose 96 mg/dL (65-110); Potassium 3.9 mmol/L (3.4-5.0); Sodium 142 mmol/L (137-145)
== END 2024-04-04 12:00 | disposition home or self-care (01) ==
LOC: ANHLAB 12:01
PROVIDERS: PCP Internal Medicine; Visit Provider Internal Medicine Cardiovascular Disease
DX: I10 Essential (primary) hypertension (principal)
CPT/HCPCS: 36415; 80053; 85025

== ENCOUNTER 2024-04-11 14:08 | Outpatient (CLI) | payer OTHER, SELFPAY ==
[2024-04-11 15:22] LABS: Anion Gap 12 mmol/L (4-12); Blood Urea Nitrogen 7 mg/dL (7-17); Calcium 9.4 mg/dL (8.4-10.2); Carbon Dioxide 25 mmol/L (22-30); Chloride 105 mmol/L (98-107); Estimated Glomerular Filt Rate > 60; Glucose 88 mg/dL (65-110); Potassium 3.9 mmol/L (3.4-5.0); Sodium 142 mmol/L (137-145)
--- OUTSIDE RECORDS SUMMARY | 2024-04-11 15:28 | XMS_ITS | Clinical Summary ---
Author Organization [facility] Facility Address [address] [place] [id number] Care Team Providers Care [employer] Name Role Phone Reshma Escalera MD Primary Care Provider Medications magnesium oxide 400 (240 Mg) MG tablet TAKE 1 TABLET BY MOUTH IN THE MORNING AND 1 IN THE EVENING 180 tablet 04/22/2022 Active losartan-hydroC HLOROthiazide (HYZAAR) 50-12.5 MG per tablet TAKE 1/2 (ONE-HALF) TABLET BY MOUTH IN THE MORNING 90 tablet 12/13/2023 Active Social History Tobacco Use Types Packs/Day Years Used Date Smoking Tobacco: Never Alcohol Use Standard Drinks/Week Comments No 0 (1 standard drink = 0.6 oz pur e alcohol) Comments Unknown Sex and Gender Information Value Date Recorded Sex Assigned at Not on file Legal Sex Female 2:50 PM EDT Gender Identity Not on file Sexual Orientation Not on file Last Filed Vital Signs Vital Sign Reading Time Taken Comments Blood Pressure 126/80 07/11/2023 12:42 PM CDT Pulse 68 07/11/2023 12:42 PM CDT Temperature 36.1 C (97 F) 07/11/2023 12:42 PM CDT Respiratory Rate 18 07/11/2023 12:42 PM CDT Oxygen Saturation 99% 07/11/2023 12:42 PM CDT Inhaled Oxygen Concentration - - Weight 103 kg (227 lb) 07/11/2023 12:42 PM CDT Height 165.1 cm (5' 5 ) 06/29/2021 12:31 PM CDT Body Mass Index 37.77 06/29/2021 12:31 PM CDT Plan of Treatment Upcoming Encounters Date Type Department Care Team (Late st Contact Info) Description 07/16/2024 12:30 PM CDT Office Visit [facility], [facility] [address] [facility] [address] [place] [id number] Steven Krishnan DO [address] [facility] [address] [place] [address] Health Maintenance Due Date Last Done Comments Breast Cancer Screening 1965 Pneumococcal Vaccine: Pediat rics (0 to 5 Years) and At-Risk Patients (6 to 64 Years) (1 of 2 - PCV) 1970 Hepatitis B Vaccine (1 of 3 - 19+ 3-dose series) 10/08 Colorectal Cancer Screening: Annual FOBT 2013 Colorectal Cancer Screening: Colonoscopy 2013 Colorectal Cancer Screening: Sigmoidoscopy 2013 Diabetes: Hemoglobin A1C 07/02/2020 Diabetes: Ophthalmology Exam 07/02/2020 Diabetes: Pedal Pulse Checked 07/02/2020 Diabetes: Sensory Foot Exam 07/02/2020 Diabetes: Visual Foot Exam 07/02/2020 Influenza Vaccine (#1) 2023 Insurance [employer] Care Teams [employer] Relationship Specialty Start Date End Date Reshma Escalera MD [address] [place] [id number] PCP - General Internal Medicine 07/11/23
--- OUTSIDE RECORDS SUMMARY | 2024-04-11 15:28 | XMS_ITS | Encounter Summary ---
Author Organization [facility] Healthcare Address [address] [place] [address] Care Team Providers Care Tailor Garment Fitter Name Role Phone Lolly Wilson MD Unavailable Reason for Referral * Cardiology (Routine) - Pending Review Specialty Diagnoses / Procedures Referred By Geronimo clark Referred To Contact Diagnoses Essential hypertension Cardiac pacemaker Procedures Transthoracic Echo (TTE) Complete W Doppler/CF Mayco Casey MD [address] [address] Phone: tel: fax: [facility] Medical Group Cardiology [address] [place] [phone] Phone: tel: fax: Referral ID Status Reason Start Date Expiration Date V isits Requested Visits Authorized [id number] Pending Review 03/18/2024 04/17/2025 1 1 OR BEAUTY SALON MANAGER Reason for Visit * Reason Comments Follow-up Transferring from [facility]. Previously saw RP for consult at 05/04/[address] Encounter Details Date Type Department Care Team (Latest Contact Info) Description 03/18/2024 1:30 PM HAIR OR BEAUTY SALON MANAGER Office Visit [facility] Medical Group Cardiology [address] [place] [phone] Mayco Casey MD [address] [facility] [id number] [place] [address] Pure hypercholesterolemia (Primary Dx); Essential hypertension; Cardiac pacemaker; Severe obesity (HCC); Coronary artery disease involving st[place] river coronary artery of [place] river heart without angina pectoris Social History Tobacco Use Types Packs/Day Years Used Date Smoking Tobacco: Former Cigarettes Q uit: 2018 Smokeless Tobacco: Never Alcohol Use Standard Drinks/Week Comments No 0 (1 standard drink = 0.6 oz pur e alcohol) Comments Unknown Sex and Gender Information Value Date Recorded Sex Assigned at Not on file Legal Sex Female 4:58 PM HAIR OR BEAUTY SALON MANAGER Gender Identity Female 09/23/2020 12:41 PM CDT Sexual Orientation Not on file documented as of this encounter Last Filed Vital Signs Vital Sign Reading Time Taken Comments Blood Pressure 130/74 03/18/2024 1:30 PM HAIR OR BEAUTY SALON MANAGER Pulse 102 03/18/2024 1:30 PM HAIR OR BEAUTY SALON MANAGER Temperature - - Respiratory Rate - - Oxygen Saturation 96% 03/18/2024 1:30 PM HAIR OR BEAUTY SALON MANAGER Inhaled Oxygen Concentration - - Weight 105.6 kg (232 lb 11.2 oz) 03/18/2024 1:30 PM HAIR OR BEAUTY SALON MANAGER Height 165.1 cm (5' 5 ) 03/18/2024 1:30 PM HAIR OR BEAUTY SALON MANAGER Body Mass Index 38.72 03/18/2024 1:30 PM HAIR OR BEAUTY SALON MANAGER documented in this encounter Progress Notes * Mayco Casey MD - 03/18/2024 1:30 PM CST [facility] MEDICAL GROUP CARDIOLOGY DATE OF VISIT: 03/18/2024 CHIEF COMPLAINT Chief Complaint Patient presents with Follow-up Transferring from [facility]. Previously saw RP for consult at 05/04/[address] HPI Anjana Ramos is a 58 y.o. female. She used to follow up with but switching care becauseof change in insurance. Past history of coronary stent in the AV groove, bi V Biotronik pacemaker 2019, hypertension, hyperlipidemia, Kwabena's thyroiditis, sleep apnea not on CPAP. She smoked for 30 years but quit, Last catheterization 2019 patent stent AV groove. Overall she is doing well. Denies chest pain, shortness breath, lower extremity edema, dizziness, syncope, palpitations. She noticed lately that her blood pressures are running high and she takes half of the pill of the losartan-HCTZ. MEDICAL HISTORY Past Medical History: Diagnosis Date Anemia anemia Arthritis Back pain Cardiomyopathy (HCC) Chronic kidney disease abnormal gfr Coronary artery disease Disorder of thyroid Thyroid disease GERD (gastroesophageal reflux disease) Hiatal hernia HX OTHER MEDICAL metabolic syndrome Hyperlipidemia Hyperlipidemia Irregular heartbeat Type 2 diabetes mellitus (HCC) Past Surgical History: Procedure Laterality Date APPENDECTOMY Appendectomy CHOLECYSTECTOMY gallbladder removed FOOT SURGERY Left HYSTERECTOMY Hysterectomy Social History Tobacco Use Smoking status: Former Current packs/day: 0.00 Types: Cigarettes Quit date: 2017 Years since quittin.1 Smokeless tobacco: Never Substance and Sexual Activity Drug use: Not Currently Sexual activity: None Alcohol Use: Not on file Family History Problem Relation Age of Onset Heart disease Mother Heart disease Father Coronary artery disease Other Family history of Coronary artery disease; Diabetes type II Other Family history of Diabetes -Type II; Hyperlipidemia Other Family history of Hyperlipidemia; MEDICATIONS Current Outpatient Medications Medication Sig Dispense Refill acetaminophen (TYLENOL) 325 mg tablet Take 2 tablets (650 mg total) by mouth every 6 (six) hours asneeded for pain 120 tablet 0 atorvastatin (LIPITOR) 40 mg tablet Take 1 tablet (40 mg total) by mouth nightly baclofen (LIORESAL) 10 mg tablet Take 1 tablet (10 mg total) by mouth 3 (three) times a day cholecalciferol (VITAMIN D-3) 2000 unit capsule clopidogreL (PLAVIX) 75 mg tablet Take 1 tablet (75 mg total) by mouth daily dulaglutide (Trulicity) 1.5 mg/0.5 mL pen injector INJECT 1 SYRINGE SUBCUTANEOUSLY ONCE A WEEK HYDROcodone bitartrate (Hysingla ER) 20 mg tablet,oral only,ext.rel.24 hr Take by mouth losartan-hydroCHLOROthiazide (HYZAAR) 50-12.5 mg per tablet Take 1 tablet by mouth daily 0.5 tabletdaily metFORMIN (GLUCOPHAGE) 500 mg tablet Take 1 tablet (500 mg total) by mouth 2 (two) times a day withmeals metoprolol tartrate (LOPRESSOR) 50 mg immediate release tablet Take 1 tablet (50 mg total) by mouth2 (two) times a day naproxen (NAPROSYN) 500 mg tablet TAKE 1 TABLET BY MOUTH TWICE DAILY WITH MEALS 60 tablet 0 OneTouch Delica Plus Lancet 33 gauge misc USE 1 LANCET TO CHECK GLUCOSE TWICE DAILY BEFORE MEALS OneTouch Ultra Test strip USE 1 STRIP TO CHECK GLUCOSE TWICE DAILY BEFORE MEAL(S) pregabalin (LYRICA) 150 mg capsule Take 1 capsule (150 mg total) by mouth 2 (two) times a day topiramate (TOPAMAX) 100 mg tablet Take 1 tablet (100 mg total) by mouth 2 (two) times a day traZODone (DESYREL) 100 mg tablet Take 2 tablets (200 mg total) by mouth nightly vilazodone (Viibryd) 40 mg tablet Take 1 tablet (40 mg total) by mouth daily acyclovir (ZOVIRAX) 800 mg tablet Take 1 tablet 5 times a day by oral route for 10 days. (Patient not taking: Reported on 03/18/2024) cephalexin (KEFLEX) 500 mg capsule Take 1 capsule (500 mg total) by mouth 3 (three) times a day (Patient not taking: Reported on 03/18/2024) cyanocobalamin (Vitamin B-12) 1,000 mcg/mL injection INJECT 1 ML SUBCUTANEOUSLY ONCE A WEEK IN THE MORNING (Patient not taking: Reported on 03/18/2024) estradioL (ESTRACE) 0.01 % (0.1 mg/gram) vaginal cream APPLY 2 GRAMS VAGINALLY ONCE DAILY FOR 1 TO 2 WEEKS THEN 1 GRAM VAGINALLY 1 TO 3 TIMES PER WEEK TREAMENT IS CYCLIC (3 WEEKS ON THEN 1 WEEK OFF) (Patient not taking: Reported on 03/18/2024) fluticasone propionate (FLONASE) 50 mcg/actuation nasal spray [place] 2 sprays every day by intranasal route PRN (Patient not taking: Reported on 03/18/2024) hydrocortisone-pramoxine (ANALPRAM-HC) 2.5-1 % rectal cream INSERT 1 APPLICATION OF CREAM RECTALLY TWICE DAILY AROUND THE CLOCK (Patient not taking: Reported on 03/18/2024) hydrOXYchloroQUINE (PLAQUENIL) 200 mg tablet (Patient not taking: Reported on 03/18/2024) hydrOXYzine (VISTARIL) 25 mg capsule TK 1 C PO TID PRF ANXIETY/INSOMNIA (Patient not taking: Reported on 03/18/2024) magnesium oxide (MAG-OX) 400 mg (241.3 mg elemental magnesium) tablet TAKE 1 TABLET BY MOUTH ONCE DAILY IN THE MORNING AND 1 ONCE DAILY IN THE EVENING (Patient not taking: Reported on 03/18/2024) melatonin 10 mg capsule Take 10 mg by mouth nightly (Patient not taking: Reported on 03/18/2024) metoprolol XL (TOPROL-XL) 50 mg extended release tablet Take 1 tablet (50 mg total) by mouth daily (Patient not taking: Reported on 03/18/2024) spironolactone (ALDACTONE) 25 mg tablet Take 1 tablet (25 mg total) by mouth daily (Patient not taking: Reported on 03/18/2024) thyroid (ARMOUR THYROID) 120 mg tablet Take 1.375 tablets (165 mg total) by mouth daily (Patient not taking: Reported on 03/18/2024) valerian root 100 mg capsule Take 1 tablet by mouth nightly (Patient not taking: Reported on 03/18/2024) No current facility-administered medications for this visit. ALLERGIES Allergies Allergen Reactions Adhesive Unknown Adhesive Tape-Silicones Unknown REVIEW OF SYSTEMS Review of Systems Constitutional: Negative for chills, fever and malaise/fatigue. HENT: Negative for congestion and sore throat. Eyes: Negative for blurred vision and double vision. Cardiovascular: Negative for chest pain, claudication, dyspnea on exertion, leg swelling, near-syncope, orthopnea, palpitations, paroxysmal nocturnal dyspnea and syncope. Respiratory: Positive for snoring. Negative for cough, hemoptysis, shortness of breath, sputum production and wheezing. Endocrine: Negative for cold intolerance and polyuria. Hematologic/Lymphatic: Negative for bleeding problem. Does not bruise/bleed easily. Skin: Negative for itching and rash. Musculoskeletal: Negative for back pain, joint pain and joint swelling. Gastrointestinal: Negative for abdominal pain, diarrhea, nausea and vomiting. Genitourinary: Negative for dysuria, frequency and hematuria. Neurological: Negative for focal weakness, headaches and light-headedness. Psychiatric/Behavioral: Negative for depression. The patient is not nervous/anxious. Allergic/Immunologic: Negative for environmental allergies and hives. PHYSICAL EXAM Vitals BP 130/74 (BP Location: Right arm, Patient Position: Sitting) Pulse 102 Ht 165.1 cm (5' 5 ) Wt 105.6 kg (232 lb 11.2 oz) SpO2 96% BMI 38.72 kg/m?? Body mass index is 38.72 kg/m??. Physical Exam Constitutional: General: She is not in acute distress. Appearance: She is well-developed. HENT: Head: Normocephalic and atraumatic. Right Ear: External ear normal. Left Ear: External ear normal. Eyes: General: No scleral icterus. Left eye: No discharge. Conjunctiva/sclera: Conjunctivae normal. Neck: Thyroid: No thyromegaly. Cardiovascular: Rate and Rhythm: Normal rate and regular rhythm. Heart sounds: Normal heart sounds. No murmur heard. No friction rub. No gallop. Pulmonary: Effort: Pulmonary effort is normal. No respiratory distress. Breath sounds: Normal breath sounds. No wheezing or rales. Chest: Chest wall: No tenderness. Abdominal: General: There is no distension. Palpations: Abdomen is soft. Tenderness: There is no abdominal tenderness. Musculoskeletal: General: No tenderness or deformity. Cervical back: Normal range of motion and neck supple. Right lower leg: No edema. Left lower leg: No edema. Skin: General: Skin is warm. Findings: No erythema or rash. Neurological: Mental Status: She is alert and oriented to person, place, and time. Motor: No abnormal muscle tone. Psychiatric: Mood and Affect: Mood normal. LABS AND OTHER DIAGNOSTIC TESTS Lab Results Component Value Date WBC 10.9 (H) 04/11/2019 HGB 12.8 04/11/2019 HCT 42.7 04/11/2019 MCV 89.0 04/11/2019 Chemistry Component Value Date/Time SODIUM 141 04/12/2019 0448 POTASSIUM 4.0 04/12/2019 0448 CHLORIDE 106 04/12/2019 0448 CO2 24 04/12/2019 0448 BUNSER 11 04/12/2019 0448 CREATININE 0.83 04/12/2019 0448 GLUCOSE 118 04/12/2019 0448 Component Value Date/Time CALCIUM 8.5 04/12/2019 0448 EKG March 18, 2024 sinus rhythm and ventricular pacing ASSESSMENT Diagnoses and all orders for this visit: Pure hypercholesterolemia (Primary) - POCT lipid panel Essential hypertension - Transthoracic Echo (TTE) Complete W Doppler/CF; Future - Comprehensive metabolic panel; Future - CBC with auto differential; Future Cardiac pacemaker - Transthoracic Echo (TTE) Complete W Doppler/CF; Future Severe obesity (HCC) Coronary artery disease involving st[place] coronary artery of [place] heart without angina pectoris PLAN/RECOMMENDATIONS In regards to hypertension, patient stated lately that her blood pressure has been running high. Continue Toprol-XL 50 mg daily, she takes half of the pill of losartan 12.5 mg-HCTZ 50 mg. Instructed the patient take 1 pill daily and we will check basic metabolic panel to be done in 2 weeks after that. In regards to pacemaker, she has a Biotronik Bi V pacemaker with possible underlying left bundle branch block. Arrange for pacemaker interrogation. Check echocardiogram In regards to history of coronary artery stent in the AV groove, continue Plavix and atorvastatin. Check echocardiogram In regards to dyslipidemia, lipid panel done today March 18, 2024 LDL 60, HDL 53 and triglycerides 161. Continue atorvastatin. Follow up in the office in in 3 months. Mayco Casey MD OR BEAUTY SALON MANAGER documented in this encounter Miscellaneous Notes * Addendum Note - Johana Vergara MA - 03/18/2024 1:30 PM CSTAddended by: JOHANA VERGARA on: 04/11/2024 08:23 AM Modules accepted: Orders OR BEAUTY SALON MANAGER documented in this encounter Plan of Treatment Scheduled Orders Name Type Priority Associated Diagnoses Orde r Schedule Transthoracic Echo (TTE) Complete W Doppler/CF Echocardiography Routine Essential hypertension Cardiac pacemaker Expected: 03/18/2024, Expires: 06/15/2025 Comprehensive metabolic panel Lab Routine Essential hypertension Expected: 03/21/2024, Expires: 03/18/2025 CBC with auto differential Lab Routine Essential hypertension Expected: 03/21/2024, Expires: 03/18/2025 documented as of this encounter Procedures Procedure Name Priority Date/Time Associated Diagnosis Comments POCT LIPID PANEL Routine 03/18/2024 2:47 PM HAIR OR BEAUTY SALON MANAGER Pure hypercholesterolemia ELECTROCARDIOGRAM REPORT Routine 03/18/2024 8:22 AM HAIR OR BEAUTY SALON MANAGER Cardiac pacemaker documented in this encounter Results * POCT lipid panel (03/18/2024 2:47 PM HAIR OR BEAUTY SALON MANAGER) Cholesterol, POC 146 mg/dL Comment:GLU = 98 HDL, POC 53 mg/dL Triglycerides, POC 161 mg/dL LDL Cholesterol POC 60 mg/dL Chol/HDL Ratio, POC 1.1 Non-HDL Cholesterol, POC 92 mg/dL Cholesterol Total, POC 146 mg/dL Capillary blood 03/18/2024 2 :47 PM HAIR OR BEAUTY SALON MANAGER us Mayco Casey MD POINT OF CARE TEST O RDERABLES Final Result * Electrocardiogram Report (03/18/2024 8:22 AM HAIR OR BEAUTY SALON MANAGER) us Mayco Casey MD ECG ORDERABLES Yu l Result documented in this encounter Visit Diagnoses Diagnosis Pure hypercholesterolemia- Primary Essential hypertension Unspecified essential hypertension Cardiac pacemaker Cardiac pacemaker in situ Severe obesity (HCC) Morbid obesity Coronary artery disease involving st[place] coronary artery of [place] heart without angina pectoris documented in this encounter Historical Medications * This list may reflect changes made after this encounter. levothyroxine (SYNTHROID) 200 mcg tablet Take 1 tablet (200 mcg total) by mouth supervisor transferring and boxing before breakfast HYDROcodone bitartrate (Hysingla ER) 20 mg tablet,oral only,ext.rel.24 hr Take by mouth losartan-hydroC HLOROthiazide (HYZAAR) 50-12.5 mg per tablet Take 1 tablet by mouth daily 0.5 tablet daily pregabalin (LYRICA) 150 mg capsule Take 1 capsule (150 mg total) by mouth 2 (two) times a day metoprolol tartrate (LOPRESSOR) 50 mg immediate release tablet Take 1 tablet (50 mg total) by mouth 2 (two) times a day dulaglutide (Trulicity) 1.5 mg/0.5 mL pen injector INJECT 1 SYRINGE SUBCUTANEOUSLY ONCE A WEEK added in this encounter Care Teams Tailor Garment Fitter Relationship Specialty Start Date End Date Lolly Wilson MD [address] [place] [address] Consulting Physician Cardiology 04/12/19 documented as of this encounter
--- OUTSIDE RECORDS SUMMARY | 2024-04-11 15:28 | XMS_ITS | Referral Summary ---
Author Organization [facility] MyPermissions Address [address] [place] [address] Care Team Providers Care Entry Examiner Name Role Phone Makenzie Chandler ALAINA-SARA Primary Care Provider [phone] Aris Cowan MD Unavailable [phone] Source Comments [facility],non-owned Affiliates and Associated Physician Practices is amultiple site organization consisting of ambulatory clinics and hospital sitesin [place], [place], [place] and [place]. This disclosure is being madepursuant to the Care Everywhere program and may not contain all information available regarding this patient. Last updated 17.[facility] [employer]issions Allergies No known active allergies Medications * Be aware that medications may not be up to date on this document. Alwaysverify current medications with the patient. Medication Sig Dispensed Refills Start Date End Date Status atorvastatin (LIPITOR) 40 MG tablet Take 40 mg by mouth at bedtime Active clopidogrel (PLAVIX) 75 MG tablet Take 75 mg by mouth once daily Active metFORMIN (GLUCOPHAGE) 500 MG tablet Take 1,000 mg by mouth 2 times daily with morning and evening meal Active pantoprazole EC (PROTONIX) 40 MG tablet Take 40 mg by mouth once daily Active ramipril (ALTACE) 2.5 MG capsule Take 2.5 mg by mouth once daily Active vilazodone (VIIBRYD) 40 MG tablet Take 40 mg by mouth daily with breakfast Active traZODone (DESYREL) 100 MG tablet Take 200 mg by mouth at bedtime Active diphenhydrAMINE-APA P, sleep, 50-1000 MG/30ML Active VALERIAN ROOT PLUS CAPS Active melatonin 10 MG capsule Take 20-30 mg by mouth at bedtime Active baclofen (LIORESAL) 10 MG tablet Take 10 mg by mouth 3 times daily May cause drowsiness. Active thyroid (ARMOUR THYROID) 120 MG tablet Take 165 mg by mouth once daily 105 in AM and 60 mg in PM Active chlorthalidone (HYGROTON) 25 MG tablet Take 25 mg by mouth once daily Active VITAMIN D PO Active MAGNESIUM PO Active HYDROcodone-acetami nophen (NORCO) 5-325 MG tablet 11/17/2020 Active metoprolol tartrate (LOPRESSOR) 50 MG tablet 11/17/2020 Active pregabalin (LYRICA) 150 MG capsuleIndications: Fibromyalgia,Primar y osteoarthritis of both knees Take 1 (one) capsule by mouth 2 times daily as needed (Knee osteoarthritis and fibromyalgia related pain) 60 capsule 05/25/2021 Active Active Problems Problem Noted Date Diagnosed Date Fibromyalgia 05/25/2021 Primary osteoarthritis of both knees 05/25/2021 Social History Tobacco Use Types Packs/Day Years Used Date Smoking Tobacco: Former Cigarettes Q uit: 09/10/2018 Smokeless Tobacco: Never Sex and Gender Information Value Date Recorded Sex Assigned at Not on file Gender Identity Female 05/20/2021 8:55 PM CDT Sexual Orientation Not on file Last Filed Vital Signs Vital Sign Reading Time Taken Comments Blood Pressure 120/80 05/25/2021 3:08 PM CDT Pulse 84 05/25/2021 3:08 PM CDT Temperature 36.1 C (97 F) 05/25/2021 3:08 PM CDT Respiratory Rate 16 05/25/2021 3:08 PM CDT Oxygen Saturation 96% 11/24/2020 11:21 AM CDT Inhaled Oxygen Concentration - - Weight 115.2 kg (254 lb) 05/25/2021 3:08 PM CDT Height 165.1 cm (5' 5 ) 05/25/2021 3:08 PM CDT Body Mass Index 42.27 05/25/2021 3:08 PM CDT Plan of Treatment Not on file Procedures Procedure Name Priority Date/Time Associated Diagnosis Comments COMPREHENSIVE METABOLIC PANEL Routine 10/13/2020 1:17 PM CDT Rheumatoid arthritis, seropositive, multiple sites (HCC) High risk medications (not anticoagulants) long-term use from Last 3 Months or Most Recently Relevant to Health Maintenance Results * COMPREHENSIVE METABOLIC PANEL (10/13/2020 1:17 PM CDT) Glucose 93 65 - 99 mg/dL [facility] INSURANCE BILL BUN 8 6 - 24 mg/dL [facility] INSURANCE BILL Creatinine 0.85 0.57 - 1.00 mg/dL [facility] INSURANCE BILL eGFR by MDRD 77 >59 mL/min/1.7 3 [facility] INSURANCE BILL eGFR by MDRD 89 >59 mL/min/1.7 3 [facility] INSURANCE BILL Comment: [facility] currently reports eGFR in compliance with the current recommendations of the National Kidney Foundation. [facility] will update reporting as new guidelines are published from the NKF-ASN Task force. BUN/Creatinine Ratio 9 9 - 23 [facility] INSURANCE BILL Sodium 141 134 - 144 mmol/L [facility] INSURANCE BILL Potassium 3.7 3.5 - 5.2 mmol/L [facility] INSURANCE BILL Chloride 99 96 - 106 mmol/L [facility] INSURANCE BILL CO2 26 20 - 29 mmol/L [facility] INSURANCE BILL Calcium 9.5 8.7 - 10.2 mg/dL [facility] INSURANCE BILL Protein Total 7.2 6.0 - 8.5 g/dL [facility] INSURANCE BILL Albumin 4.2 3.8 - 4.9 g/dL [facility] INSURANCE BILL Globulin Total 3.0 1.5 - 4.5 g/dL [facility] INSURANCE BILL Albumin/Globulin Ratio 1.4 1.2 - 2.2 [facility] INSURANCE BILL Bilirubin Total <0.2 0.0 - 1.2 mg/dL [facility] INSURANCE BILL Alkaline Phosphatase 120 48 - 121 IU/L [facility] INSURANCE BILL Comment: Effective October 19, 2020 Alkaline Phosphatase reference interval will be changing to: Age Male Female 0 - 5 days 47 - 127 47 - 127 6 - 10 days 29 - 242 29 - 242 11 - 20 days 109 - 357 109 - 357 21 - 30 days 94 - 494 94 - 494 1 - 2 months 149 - 539 149 - 539 3 - 6 months 131 - 452 131 - 452 7 - 11 months 117 - 401 117 - 401 12 months - 6 years 158 - 369 158 - 369 7 - 12 years 150 - 409 150 - 409 13 years 156 - 435 78 - 227 14 years 114 - 375 64 - 161 15 years 88 - 279 56 - 134 16 years 74 - 207 51 - 121 17 years 63 - 161 47 - 113 18 - 20 years 51 - 125 42 - 106 >20 years 44 - 121 44 - 121 AST 31 0 - 40 IU/L [facility] INSURANCE BILL ALT 30 0 - 32 IU/L [facility] INSURANCE BILL Blood BLOOD SPECIMEN / Unknown 10/13/2020 1:17 PM CDT 10/13/2020 Narrative Resulting Agency Comment Lab Testing performed at: [facility] [place] [address] [facility] [id number] Aris Cowan MD LAB - CHEMISTRY OR DERABLES [facility] INSURANCE BILL [address] [place] [address] from Last 3 Months or Most Recently Relevant to Health Maintenance Care Teams Entry Examiner Relationship Specialty Start Date End Date Makenzie Chandler APRN-HIRED HELP [address] [place] [address] [address] [place] [address] PCP - General 11/07/18 Aris Cowan MD [address] [facility] [place] [address] Rheumatology 07/18/19
--- OUTSIDE RECORDS SUMMARY | 2024-04-11 15:28 | XMS_ITS | CONTINUITY OF CARE DOCUMENT ---
Author Name kevan mathur Address Unknown Organization [facility] Address [address] [address] [address] [place] [address] Phone [phone] Care Team Providers Care Cota Name Role Phone Gaston RODGERS, Kamille Morales Unavailable [phone] DIEGO RODGERS, ANTONIO Unavailable Jw Justice MD Unavailable PROBLEMS Condition Status Date Provider Notes Glomerulo nephritis active Nathan temple BiV Pacemaker - Biotronik (MRI safe) active Debi Garcia Shortness of breath (SOB) active Torres Herrera Abnormal electrocardiogram active Sasha colónd LBBB active Tramaine Correa MD Hypokalemia active Tramaine Correa MD Iron deficiency active Tramaine Correa MD Kwabena's thyroiditis active Nathan kumar Tobacco abuse active Tramaine Correa MD Fatigue active Tramaine Correa MD Palpitations active Tramaine Correa MD Hypertension active Tramaine Correa MD Obesity active Tramaine Correa MD Hyperlipidemia active Tramaine Correa MD Back Pain active Tramaine Correa MD CAD S/P RCA SORIN 07/2017 active Nathan kumar Acid reflux active Kamille Feldman MD Anxiety situational active Kamille Feldman MD DM - type 2 active Kamille Feldman MD Joint pain, B/L Knee active Kamille ma MD Preop cardiovasc. examination active Aly Feldman MD Lung nodules active Kamille Feldman MD Sleep apnea active Gulshan Potts MD Cardiology examination active Kamille rosado MD Cold feet active Kamille Feldman MD Diabetes Mellitus, Type II, controlled w/vascular complications active Kamille Feldman MD ENCOUNTERS Date Type Provider Location Encounter Diag nosis 01/18 - 01/29 In-person encounter Office Visit Kamille Feldman MD [facility] Diabetes Mellitus, Type II, controlled w /vascular complications 06/27 - 06/28 In-person encounter Office Visit Kamille Feldman MD [facility] Cardiology examinationCold feet 12/23 - 12/26 In-person encounter Office Visit Kamille Feldman MD [facility] Sleep apnea 09/28 - 10/01 In-person encounter Office Visit Kamille Feldman MD [facility] 05/27 - 05/31 In-person encounter Office Visit Kamille Feldman MD [facility] 03/18 - 03/24 In-person encounter Office Visit Kamille Feldman MD [facility] Lung nodules 09/17 - 09/20 In-person encounter Office Visit Kamille Feldman MD [facility] 03/24 - 03/24 In-person encounter Office Visit Kamille Feldman MD [facility] 12/23 - 12/28 In-person encounter Office Visit Kamille Feldman MD [facility] 06/24 - 06/25 In-person encounter Office Visit Kamille Feldman MD [facility] Preop cardiovasc. examination 11/26 - 12/02 In-person encounter Office Visit Kamille Feldman MD [facility] 08/15 - 08/15 In-person encounter Office Visit Lolly Wilson MD [facility] 07/18 - 07/18 In-person encounter Office Visit Kamille Feldman MD [facility] Joint pain, B/L Knee 05/30 - 05/30 In-person encounter Office Visit Kamille Feldman MD [facility] 04/25 - 04/25 In-person encounter Office Visit Lolly Wilson MD [facility] 04/18 - 04/20 In-person encounter Office Visit Lolly Wilson MD [facility] 03/15 - 03/15 In-person encounter Office Visit Lolly Wilson MD [facility] 02/15 - 02/24 In-person encounter Office Visit Kamille Feldman MD [facility] 12/05 - 12/14 In-person encounter Office Visit Kamille Feldman MD [facility] DM - type 2 05/25 - 05/25 In-person encounter Office Visit Kamille Feldman MD [facility] Anxiety situational 10/25 - 10/25 In-person encounter Office Visit Kamille Feldman MD [facility] Acid reflux 08/23 - 08/23 In-person encounter Office Visit Kamille Feldman MD [facility] 07/25 - 07/25 In-person encounter Office Visit Nitin Fletcher DO [facility] CAD S/P RCA SORIN 07/2017 - 06/30 In-person encounter Office Visit Tramaine Correa MD [facility] LBBBHypokalemiaIron deficiencyHashimoto' s thyroiditisTobacco abuseFatiguePalpitationsHypertensionObesityHyperli pidemiaBack Pain VITAL SIGNS Date Observation Value Provider Body Mass Index (Ratio) 39.99 kg/m2 Moe Copeland NP blood pressure, diastolic 102 mm[Hg] Sharon Barkley blood pressure, systolic 139 mm[Hg] Roxanne Barkley oxygen saturation, oximetry 98 % [facility]min [facility] respiratory rate E&M 12 /min Светлана Leander weight E&M 233 [lb_av] Светлана Leander height E&M 64 [in_i] [facility] blood pressure, cuff size regular An chichi Leander Body Mass Index (Ratio) 38.89 kg/m2 Dejuan Feldman MD blood pressure, diastolic 98 mm[Hg] Sarai nkLog blood pressure, systolic 134 mm[Hg] Danay og blood pressure, cuff size large Ta tyler Arco blood pressure, diastolic 98 mm[Hg] Ta tyler Arco blood pressure, systolic 134 mm[Hg] Tab jasiela Arco oxygen saturation, oximetry 100 % Dipika Arco respiratory rate E&M 12 /min Dipika Arco pulse rate 93 /min Dipika Arco weight E&M 226.6 [lb_av] Dipika Arco height E&M 64 [in_i] Dipika Arco Body Mass Index (Ratio) 41.71 kg/m2 Dejuan Feldman MD blood pressure, diastolic 89 mm[Hg] Li nkLog blood pressure, systolic 119 mm[Hg] Danay og pulse rate 93 /min Rachel Arco blood pressure, cuff size regular Fa [facility] blood pressure, diastolic 89 mm[Hg] Fa [facility] blood pressure, systolic 119 mm[Hg] [facility], [facility] 96 % Rachel Arco respiratory rate E&M 16 /min Rachel M iller weight E&M 243 [lb_av] Rachel Arco height E&M 64 [in_i] Rachel Browne Body Mass Index (Ratio) 41.88 kg/m2 Dejuan Feldman MD blood pressure, diastolic 86 mm[Hg] Li nkLogic blood pressure, systolic 121 mm[Hg] Danay kLogic blood pressure, cuff size regular Ja rret blood pressure, diastolic 86 mm[Hg] Ja rret blood pressure, systolic 121 mm[Hg] Jar ret pulse rate 82 /min Fritz respiratory rate E&M 12 /min Fritz oxygen saturation, oximetry 95 % weight E&M 244 [lb_av] Fritz y height E&M 64 [in_i] Fritz y Body Mass Index (Ratio) 42.05 kg/m2 Kalpana Paredes blood pressure, cuff size large Armando rri Gruenenfelder blood pressure, diastolic 80 mm[Hg] Ke rri Gruenenfelder blood pressure, systolic 124 mm[Hg] Ker ri Marynenfelder oxygen saturation, oximetry 96 % Samantha Edmondson respiratory rate E&M 16 /min Samantha cooperelder pulse rate 81 /min Samantha Marynekandie lder weight E&M 245 [lb_av] Samantha Marynekandie lder height E&M 64 [in_i] Samantha Hernandeznenfe lder pulse rate 80 /min Kamille ma MD blood pressure, diastolic 67 mm[Hg] Sa moiz Feldman MD blood pressure, systolic 109 mm[Hg] Ike Feldman MD Body Mass Index (Ratio) 43.94 kg/m2 Dejuan Feldman MD blood pressure, diastolic 72 mm[Hg] Li nkLogic blood pressure, systolic 116 mm[Hg] Danay kLogic blood pressure, diastolic 72 mm[Hg] Sa ra Duenas blood pressure, systolic 116 mm[Hg] Kayla a Duenas respiratory rate E&M 17 /min Myriam Si ms oxygen saturation, oximetry 90 % Myriam Duenas pulse rate 71 /min Myriam Duenas weight E&M 256 [lb_av] Myriam Duenas blood pressure, cuff size regular Sa ra Duenas height E&M 64 [in_i] Myriam Duenas Body Mass Index (Ratio) 42.74 kg/m2 Dejuan Feldman MD blood pressure, diastolic 75 mm[Hg] Sarai flavioLogbrigitte blood pressure, systolic 140 mm[Hg] Danay Coleogic blood pressure, cuff size regular Breanna Jhaly Adelso blood pressure, diastolic 75 mm[Hg] Breanna MalikJolanta Adelso blood pressure, systolic 140 mm[Hg] Khoa christine Adelso oxygen saturation, oximetry 95 % Jasmeet Darden respiratory rate E&M 16 /min Tanya Darden pulse rate 81 /min Jasmeet gonzalez weight E&M 249 [lb_av] Jasmeet gonzalez height E&M 64 [in_i] Jasmeet gonzalez Body Mass Index (Ratio) 41.71 kg/m2 Dejuan Feldman MD pulse rate 91 /min Gurpreet Hickman respiratory rate E&M 18 /min Gurpreet Hickman oxygen saturation, oximetry 98 % Gurpreet Hickman blood pressure, cuff size regular Tr claude Hickman blood pressure, diastolic 83 mm[Hg] Tr claude Hickman blood pressure, systolic 144 mm[Hg] Sandy Hickman weight E&M 243 [lb_av] Gurpreet Hickman height E&M 64 [in_i] Gurpreet Hickman Body Mass Index (Ratio) 42.15 kg/m2 Dejuan Feldman MD blood pressure, diastolic 84 mm[Hg] Vel Keatingneftali Elliott blood pressure, systolic 124 mm[Hg] Lizzie Banegas Earl oxygen saturation, oximetry 92 % Jocelyne Elliott respiratory rate E&M 16 /min Lux pollo MilesElliott pulse rate 93 /min Jocelyne Espinoza samreen weight E&M 245.6 [lb_av] Jocelyne Miles herlinda height E&M 64 [in_i] Jocelyne Espinoza samreen Body Mass Index (Ratio) 44.28 kg/m2 Dejuan Feldman MD blood pressure, cuff size large Ke rri Macouenenicolas blood pressure, diastolic 98 mm[Hg] Ke rri Macouenenfeldjayme blood pressure, systolic 132 mm[Hg] Emma ri Delvis oxygen saturation, oximetry 98 % Samantha Delvis respiratory rate E&M 16 /min Samantha G юлияenekandielder pulse rate 84 /min Samantha Gruenenfe lder weight E&M 258 [lb_av] Samantha Macouenenfe lder height E&M 64 [in_i] Samantha Gruenenfe lder Body Mass Index (Ratio) 43.08 kg/m2 Jayesh Mota pulse rate 81 /min Stephanie kline respiratory rate E&M 16 /min Stephanie Saleh oxygen saturation, oximetry 94 % Stephanie Saleh blood pressure, cuff size regular Cy alfonso Saleh blood pressure, diastolic 96 mm[Hg] Cy alfonso Saleh blood pressure, systolic 151 mm[Hg] Eleanor ida Saleh weight E&M 251 [lb_av] Stephanieida kline height E&M 64 [in_i] Stephanieida Alfredbel l blood pressure, diastolic 72 mm[Hg] Sa moiz Feldman MD blood pressure, systolic 120 mm[Hg] Ike Feldman MD Body Mass Index (Ratio) 40.50 kg/m2 Jord pollo Nakul blood pressure, cuff size regular Cy alfonso Saleh blood pressure, diastolic 80 mm[Hg] Cy alfonso Saleh blood pressure, systolic 140 mm[Hg] Eleanor ida Saleh oxygen saturation, oximetry 97 % Stephanie Saleh pulse rate 80 /min Stephanie kline respiratory rate E&M 16 /min Stephanie Saleh weight E&M 236 [lb_av] Stephanie Montero l height E&M 64 [in_i] Stephanie Montero l Body Mass Index (Ratio) 40.33 kg/m2 Jord en Nakul pulse rate 130 /min Stephanieida Montero l respiratory rate E&M 18 /min Stephanie Saleh oxygen saturation, oximetry 94 % Stephanie Saleh blood pressure, cuff size regular Cy alfonso Saleh blood pressure, diastolic 82 mm[Hg] Cy sulemana Saleh blood pressure, systolic 130 mm[Hg] Eleanor ida Saleh weight E&M 235 [lb_av] Stephanie Timabel l height E&M 64 [in_i] Stephanie Timabel l Body Mass Index (Ratio) 40.95 kg/m2 Jayesh Mota blood pressure, diastolic 90 mm[Hg] Vel Elliott blood pressure, systolic 137 mm[Hg] Lizzie Elliott oxygen saturation, oximetry 96 % Jocelyne Elliott respiratory rate E&M 20 /min Lux Elliott pulse rate 131 /min Jocelyne jolley weight E&M 238.6 [lb_av] Jocelyne Miles enson height E&M 64 [in_i] Jocelyne Espinoza nsmary Body Mass Index (Ratio) 41.02 kg/m2 Dejuan Feldman MD respiratory rate E&M 18 /min Tonsha Lennon blood pressure, diastolic 88 mm[Hg] To nsha Lennon blood pressure, systolic 116 mm[Hg] Ton [facility] Lennon pulse rate 98 /min Tonsha Lennon oxygen saturation, oximetry 97 % Tonsha Lennon weight E&M 239 [lb_av] Tonsha Lennon height E&M 64 [in_i] Tonsha Lennon Body Mass Index (Ratio) 39.99 kg/m2 Dejuan Feldman MD blood pressure, diastolic 84 mm[Hg] Jayme Garrett blood pressure, systolic 110 mm[Hg] Ly Garrett oxygen saturation, oximetry 98 % Oma Garrett pulse rate 94 /min Oma Hernandez weight E&M 233 [lb_av] Oma Hernandez height E&M 64 [in_i] Oma Hernandez Body Mass Index (Ratio) 38.27 kg/m2 Dejuan Feldman MD blood pressure, diastolic 80 mm[Hg] Ki lleen Morel blood pressure, systolic 110 mm[Hg] Kil venice Morel oxygen saturation, oximetry 98 % Jonn Morel respiratory rate E&M 16 /min Jonn Morel pulse rate 108 /min Jonn Morel weight E&M 223 [lb_av] Jonn Morel height E&M 64 [in_i] Ashuelot Morel Body Mass Index (Ratio) 38.27 kg/m2 Nakul Plurad blood pressure, diastolic 80 mm[Hg] Ki lleen Morel blood pressure, systolic 122 mm[Hg] Lucila millard Morel oxygen saturation, oximetry 98 % Jonn Morel respiratory rate E&M 16 /min Ashuelot Morel pulse rate 92 /min Jonn Morel weight E&M 223 [lb_av] Ashuelot Morel height E&M 64 [in_i] Jonn Morel Body Mass Index (Ratio) 37.24 kg/m2 Nakul Plurad blood pressure, diastolic 70 mm[Hg] Da archana Sera blood pressure, systolic 106 mm[Hg] Dac ia Sera oxygen saturation, oximetry 96 % Carolynn Sera respiratory rate E&M 18 /min Carolynn V oss pulse rate 105 /min Carolynn Sera weight E&M 217 [lb_av] Carolynn Sera height E&M 64 [in_i] Carolynn Sera Body Mass Index (Ratio) 37.83 kg/m2 Susy Fletcher DO blood pressure, diastolic 70 mm[Hg] Kr isty Rumson blood pressure, systolic 110 mm[Hg] Kri sty Doug oxygen saturation, oximetry 98 % Molly Rumson respiratory rate E&M 16 /min Molly Rumson pulse rate 89 /min Molly Rumson weight E&M 220.4 [lb_av] Molly Rumson blood pressure, cuff size regular Micah Camacho height E&M 64 [in_i] Molly Camacho Body Mass Index (Ratio) 37.04 kg/m2 Nakul Menjivar blood pressure, resting Yes Milana Elliott blood pressure, diastolic 87 mm[Hg] Vel Elliott blood pressure, systolic 120 mm[Hg] Lizzie Elliott oxygen saturation, oximetry 98 % Jocelyne Elliott respiratory rate E&M 18 /min Lux Elliott pulse rate 113 /min Jocelyne jolley weight E&M 215.8 [lb_av] Jocelyne pate height E&M 64 [in_i] Jocelyne jolley ALLERGIES Allergy Name Onset Date Reaction Criticality Status TAPE High Criticality active RESULTS Date Observation Value Provider Reference Range Interpretation Location hemoglobin A1C, blood, as % of total hemoglobin 5.9 % Nathan [facility] LDL cholesterol, serum 57 mg/dL [facility] bacteria, urine microscopy Few LinkLogic None seen/Few epithelial cells, urine 0-10 LinkLogic 0 - 10 RBC, Urine 0-2 /hpf LinkLogic 0 - 2 WBC urine on microscopy 6-10 /hpf LinkLogic 0 - 5 Abnormal urinalysis, microscopic examination See below: LinkLogic nitrate, urine Negative LinkLogic Negative urobilinogen, urine, semiquantitative (dipstick) 0.2 LinkLogic 0.2-1.0 bilirubin, urine Negative LinkLogic Negative hemoglobin, urine, by dipstick Negative LinkLogic Negative ketones, urine, by test strip Negative LinkLogic Negative glucose, urine Negative LinkLogic Negative protein, urine, semiquantitative (dipstick) Negative LinkLogic Negative/Tr nirmal leukocyte esterase, urine, by dipstick 1+ LinkLogic Negative Abnormal appearance, urine Clear LinkLogic Clear urine color Yellow LinkLogic Yellow pH, urine, semiquantitative 5.5 LinkLogic 5.0-7.5 specific gravity, body fluid 1.012 LinkLogic 1.005-1.030 coagulation managed by Wilian Sol RN prothrombin time (patient) 11.1 s April Block international normalized ratio (INR) 0.9 April Valorie Normal B-type natriuretic peptide 27.6 pg/mL LinkLogic 0.0-100.0 activated partial thromboplastin time (aPTT) 29 s LinkLogic 24-33 free thyroxine index 2.8 LinkLogic 1.2-4.9 triiodothyronine resin uptake 29 % LinkLogic 24-39 thyroxine, serum, total 9.7 ug/dL LinkLogic 4.5-12.0 thyroid stimulating hormone, serum 5.730 u[IU]/mL LinkLogic 0.450-4.500 High lipoprotein, beta, serum, point, quantitative, calculated 66 mg/dL LinkLogic 0-99 very low density lipoproteins 32 mg/dL LinkLogic 5-40 HDL cholesterol, serum 67 mg/dL LinkLogic >39 triglyceride, serum, random 159 mg/dL LinkLogic 0-149 High cholesterol, serum 165 mg/dL LinkLogic [phone]/01 /11 basophil count, absolute 0.1 x10E3/uL LinkLogic 0.0-0.2 Eosinophil Absolute Count 0.5 X10E3/UL LinkLogic 0.0-0.4 High monocyte count, blood, automated 0.7 X10E3/UL LinkLogic 0.1-0.9 lymphocyte count, blood, automated 2.5 X10E3/UL LinkLogic 0.7-3.1 Absolute Neutrophils 5.5 X10E3/UL LinkLogic 1.4-7.0 basophils as percent of blood leukocytes 1 % LinkLogic Not Estab. eosinophils as percent of blood leukocytes 5 % LinkLogic Not Estab. monocytes as percent of blood leukocytes 7 % LinkLogic Not Estab. lymphocytes as percent of blood leukocytes 27 % LinkLogic Not Estab. neutrophils as percent of blood leukocytes 60 % LinkLogic Not Estab. platelet count 323 X10E3/UL LinkLogic [phone]/01 /11 red blood cell distribution width 15.5 % LinkLogic 11.7-15.4 High mean corpuscular hemoglobin concentration, RBC 32.1 G/DL LinkLogic 31.5-35.7 mean corpuscular hemoglobin, RBC 27.2 pg LinkLogic 26.6-33.0 mean corpuscular volume, RBC 85 fL LinkLogic 79-97 hematocrit, blood 38.0 % LinkLogic 34.0-46.6 hemoglobin, blood 12.2 g/dL LinkLogic 11.1-15.9 erythrocyte (RBC) count 4.49 X10E6/UL LinkLogic 3.77-5.28 leukocyte count, blood 9.3 X10E3/UL LinkLogic 3.4-10.8 alanine aminotransferase (SGPT), serum 20 1/L LinkLogic 0-32 aspartate aminotransferase (SGOT), serum 16 1/L LinkLogic 0-40 alkaline phosphatase, serum 106 1/L LinkLogic 39-117 bilirubin, serum, total 0.2 mg/dL LinkLogic 0.0-1.2 albumin/globulin ratio, serum 1.8 LinkLogic 1.2-2.2 globulin, serum 2.6 LinkLogic 1.5-4.5 albumin, serum 4.6 g/dL LinkLogic 3.5-5.5 protein, total, serum 7.2 g/dL LinkLogic 6.0-8.5 calcium, serum 9.0 mg/dL LinkLogic 8.7-10.2 carbon dioxide, venous blood 22 mmol/L LinkLogic 20-29 chloride, serum 105 mmol/L LinkLogic 96-106 potassium, serum 4.3 mmol/L LinkLogic 3.5-5.2 sodium, serum 143 mmol/L LinkLogic 335-340 7183/01 /11 urea nitrogen/creatinine ratio, serum 9 LinkLogic 9-23 eGFR if 78 mL/min/{1.73_ m2} LinkLogic >59 eGFR if not 67 mL/min/{1.73_ m2} LinkLogic >59 creatinine, serum 0.96 mg/dL LinkLogic 0.57-1.00 urea nitrogen, blood 9 mg/dL LinkLogic 6-24 blood glucose, random 102 mg/dL LinkLogic 65-99 High urine culture Final report LinkLogic Abnormal bacteria, urine microscopy Few LinkLogic None seen/Few epithelial cells, urine 0-10 LinkLogic 0 - 10 RBC, Urine 0-2 /hpf LinkLogic 0 - 2 WBC urine on microscopy >30 /hpf LinkLogic 0 - 5 Abnormal urinalysis, microscopic examination See below: LinkLogic nitrate, urine Negative LinkLogic Negative urobilinogen, urine, semiquantitative (dipstick) 0.2 LinkLogic 0.2-1.0 bilirubin, urine Negative LinkLogic Negative hemoglobin, urine, by dipstick 1+ LinkLogic Negative Abnormal ketones, urine, by test strip Negative LinkLogic Negative glucose, urine Negative LinkLogic Negative protein, urine, semiquantitative (dipstick) Trace LinkLogic Negative/Tr nirmal leukocyte esterase, urine, by dipstick 3+ LinkLogic Negative Abnormal appearance, urine Cloudy LinkLogic Clear Abnormal urine color Yellow LinkLogic Yellow pH, urine, semiquantitative 5.5 LinkLogic 5.0-7.5 specific gravity, body fluid 1.010 LinkLogic 1.005-1.030 urine culture Preliminary report LinkLogic Abnormal microalbumin/creati nine ratio, urine 75.9 MG/G CREAT LinkLogic 0.0-30.0 High microalbumin, random, urine 2.36 mg/dL LinkLogic Units converted. See lab report for original value. creatinine, random, urine 31.1 mg/dL LinkLogic Not Estab. hemoglobin A1C, blood, as % of total hemoglobin 5.7 % LinkLogic 4.8-5.6 High pro brain natriuretic peptide 220 pg/mL LinkLogic 0-249 lipoprotein, beta, serum, point, quantitative, calculated 105 mg/dL LinkLogic 0-99 High very low density lipoproteins 25 mg/dL LinkLogic 5-40 HDL cholesterol, serum 58 mg/dL LinkLogic >39 triglyceride, serum, random 127 mg/dL LinkLogic 0-149 cholesterol, serum 188 mg/dL LinkLogic [phone]/07 /19 alanine aminotransferase (SGPT), serum 15 1/L Link[facility]ic 0-32 aspartate aminotransferase (SGOT), serum 19 1/L Link[facility]ic 0-40 alkaline phosphatase, serum 102 1/L Link[facility]ic 39-117 bilirubin, serum, total 0.3 mg/dL LinkLogic 0.0-1.2 albumin/globulin ratio, serum 1.7 LinkLogic 1.2-2.2 globulin, serum 2.7 LinkLogic 1.5-4.5 albumin, serum 4.6 g/dL LinkLogic 3.5-5.5 protein, total, serum 7.3 g/dL LinkLogic 6.0-8.5 calcium, serum 9.3 mg/dL LinkLogic 8.7-10.2 carbon dioxide, venous blood 20 mmol/L LinkLogic 20-29 chloride, serum 104 mmol/L LinkLogic 96-106 potassium, serum 3.4 mmol/L LinkLogic 3.5-5.2 Low sodium, serum 142 mmol/L LinkLogic [phone]/07 /19 urea nitrogen/creatinine ratio, serum 11 LinkLogic 9-23 eGFR if 59 mL/min/{1.73_ m2} LinkLogic >59 Low eGFR if not 51 mL/min/{1.73_ m2} LinkLogic >59 Low creatinine, serum 1.22 mg/dL LinkLogic 0.57-1.00 High urea nitrogen, blood 13 mg/dL LinkLogic 6-24 blood glucose, random 100 mg/dL LinkLogic 65-99 High prothrombin time (patient) 9.9 s LinkLogic 9.1-12.0 international normalized ratio (INR) 1.0 LinkLogic 0.8-1.2 lipoprotein, beta, serum, point, quantitative, calculated 79 mg/dL LinkLogic 0-99 very low density lipoproteins 35 mg/dL LinkLogic 5-40 HDL cholesterol, serum 54 mg/dL LinkLogic >39 triglyceride, serum, random 176 mg/dL Link[facility]ic 0-149 High cholesterol, serum 168 mg/dL Link[facility] [phone]/06 /20 calcium, serum 9.3 mg/dL LinkLogic 8.7-10.2 carbon dioxide, venous blood 22 mmol/L LinkLogic 20-29 chloride, serum 106 mmol/L LinkLogic 96-106 potassium, serum 4.2 mmol/L LinkLogic 3.5-5.2 sodium, serum 143 mmol/L Link[facility]ic 171-523 2752/06 /20 urea nitrogen/creatinine ratio, serum 13 Link[facility]ic 9-23 eGFR if 65 mL/min/{1.73_ m2} LinkLogic >59 eGFR if not 56 mL/min/{1.73_ m2} LinkLogic >59 Low creatinine, serum 1.13 mg/dL LinkLogic 0.57-1.00 High urea nitrogen, blood 15 mg/dL LinkLogic 6-24 blood glucose, random 101 mg/dL LinkLogic 65-99 High basophil count, absolute 0.1 x10E3/uL LinkLogic 0.0-0.2 Eosinophil Absolute Count 0.4 X10E3/UL LinkLogic 0.0-0.4 monocyte count, blood, automated 0.7 X10E3/UL LinkLogic 0.1-0.9 lymphocyte count, blood, automated 3.1 X10E3/UL LinkLogic 0.7-3.1 Absolute Neutrophils 4.6 X10E3/UL LinkLogic 1.4-7.0 basophils as percent of blood leukocytes 1 % LinkLogic Not Estab. eosinophils as percent of blood leukocytes 5 % LinkLogic Not Estab. monocytes as percent of blood leukocytes 8 % LinkLogic Not Estab. lymphocytes as percent of blood leukocytes 34 % LinkLogic Not Estab. neutrophils as percent of blood leukocytes 52 % LinkLogic Not Estab. platelet count 308 X10E3/UL [facility] [phone]/06 /20 red blood cell distribution width 14.2 % [facility] 12.3-15.4 mean corpuscular hemoglobin concentration, RBC 32.8 G/DL [facility] 31.5-35.7 mean corpuscular hemoglobin, RBC 28.7 pg [facility]Logic 26.6-33.0 mean corpuscular volume, RBC 88 fL LinkLogic 79-97 hematocrit, blood 39.9 % [facility] 34.0-46.6 hemoglobin, blood 13.1 g/dL [facility]ic 11.1-15.9 erythrocyte (RBC) count 4.56 X10E6/UL Link[facility] 3.77-5.28 leukocyte count, blood 8.9 X10E3/UL LinkLog[facility] 3.4-10.8 HISTORY OF MEDICATION USE Medication Status Instructions Dates Provider Indications Com ments atorvastatin 40 mg tablet active TAKE 1 TABLET BY MOUTH EVERY DAY Malena Nalluri ONLINE CONTENT EDITOR clopidogrel 75 mg tablet active TAKE 1 TABLET BY MOUTH EVERY DAY Malena Nalluri ONLINE CONTENT EDITOR chlorthalidone 25 mg tablet completed TAKE 1 TABLET DAILY - Malena Nalluri ONLINE CONTENT EDITOR losartan-hydroch lorothiazide 50-12.5 mg tablet active TAKE 1 TABLET BY MOUTH EVERY DAY Malena Nalluri ONLINE CONTENT EDITOR losartan-hydroch lorothiazide 50-12.5 mg tablet completed - Malena Nalluri ONLINE CONTENT EDITOR Toprol XL 50 mg tablet extended release 24 hr active TAKE 1 TABLET BY MOUTH EVERY DAY Malena Nalluri ONLINE CONTENT EDITOR Toprol XL 50 mg tablet extended release 24 hr completed TAKE 1 TABLET BY MOUTH ONCE DAILY - Malena Nalluri ONLINE CONTENT EDITOR metoprolol tartrate 25 mg tablet completed TAKE ONE FULL TABLET BY MOUTH TWICE A DAY - Kamille Feldman MD pantoprazole 40 mg tablet,delayed release (DR/EC) active Take 1 tablet by mouth once a day Samantha Edmondson magnesium oxide 400 mg magnesium tablet active Take 1 tablet by mouth twice a day Malena Nalluri ONLINE CONTENT EDITOR Linzess 145 mcg capsule active Dipika Browne clopidogrel 75 mg tablet completed Take 1 tablet by mouth once daily - Malena Nalluri ONLINE CONTENT EDITOR losartan-hydroch lorothiazide 50-12.5 mg tablet completed - Marlyn Guru atorvastatin 40 mg tablet completed - Malena Copeland NP clopidogrel 75 mg tablet completed Take 1 tablet by mouth once a day Take 1 tablet by mouth once daily - Isa Higginbotham ramipril 2.5 mg capsule completed Take 1 capsule by mouth once daily - Marlyn Garvey metoprolol tartrate 50 mg tablet completed - Baljit Bergmanvenkata BAJWA Synthroid 137 mcg tablet active Baljit Bergmanvenkata BAJWA topiramate 100 mg tablet active Take 1 tablet by mouth twice a day Baljit Hollis BAJWA Viibryd 40 mg tablet completed - Baljit Hollis BAJWA pregabalin 150 mg capsule completed - Baljit Hollis BAJWA spironolactone 25 mg tablet completed TAKE 1 TABLET DAILY - Baljit Hollis BAJWA pantoprazole 40 mg tablet,delayed release (DR/EC) completed Take 1 tablet by mouth once daily - Samantha Edmondson Lopressor 50 mg tablet completed 1/2 tablet by mouth twice a day - Alvin Henry metoprolol succinate 50 mg tablet extended release 24 hr completed TAKE 1 TABLET BY MOUTH ONCE DAILY AT BEDTIME - Erik Abreu metoprolol succinate 50 mg tablet extended release 24 hr completed TAKE 1 TABLET BY MOUTH EVERY DAY AT BEDTIME - Kamille Feldman MD hydrocodone-acet aminophen 5-325 mg tablet active TAKE ONE TABLET BY MOUTH EVERY 6 HOURS NEEDED Jasmeet Darden clopidogrel 75 mg tablet completed Take 1 tablet by mouth once daily - Dory León pantoprazole 40 mg tablet,delayed release (DR/EC) completed Take 1 tablet by mouth once a day - Erik Abreu pantoprazole 40 mg tablet,delayed release (DR/EC) completed TAKE 1 TABLET BY MOUTH ONCE DAILY DIRECTED - Lisha Forman pantoprazole 40 mg tablet,delayed release (/EC) completed Take 1 tablet by mouth once a day as directed - Mario Chiang chlorthalidone 25 mg tablet completed TAKE 1 TABLET BY MOUTH DAILY - Malena Copeland NP Vitamin D3 50 mcg (2,000 unit) tablet active 1 tablet by mouth once a day Jocelyne Elliott Lyrica 150 mg capsule active Take 1 twice a day Baljit Shafer NP metoprolol tartrate 50 mg tablet completed Take 1 tablet once a day - Stephanie Saleh PERCOCET 5-325 MG ORAL TABLET completed one tablet every 6 hours for pain, do not drive or operate heavy machinery within 24hrs. - Samantha Edmondson melatonin 10 mg capsule active Take 1 capsule every night Stephanie Saleh TYLENOL PM EXTRA STRENGTH 500-25 MG TABS active Take 1 tablet once a day Stephanie Saleh baclofen 10 mg tablet active Take 1 tablet three times a day as needed Stephanie Saleh CITALOPRAM HYDROBROMIDE 10 MG ORAL TABLET completed take 1 tab once a day - Jocelyne Elliott pantoprazole 40 mg tablet,delayed release (/EC) completed Take 1 tablet by mouth once a day - Mario Chiang atorvastatin 40 mg tablet completed Take 1 tablet by mouth once a day - Kamille Feldman MD TOPROL XL 50 MG ORAL TABLET EXTENDED RELEASE 24 HOUR completed One tab daily - Aracely Walsh RN CIPRO 250 MG ORAL TABLET completed one tablet twice daily for 7 days - Stephanie Saleh SPIRONOLACTONE 25 MG ORAL TABLET completed Take 1 tablet by mouth once daily - Jocelyne Elliott SYNTHROID 200 MCG ORAL TABLET completed TAKE 1 TABLET BY MOUTH ONCE DAILY IN THE MORNING - Samantha Edmondson #30, 30 days supply, Prescribed by ERICA GONZÁLES, Filled 01/20/2019 SYNTHROID 25 MCG ORAL TABLET completed TAKE 1 TABLET BY MOUTH ONCE DAILY IN THE MORNING FOR A TOTAL OF 225MCG PER DAY - Samantha Edmondson #30, 30 days supply, Prescribed by ERICA GONZÁLES, Filled 01/31/2019 PEPCID 40 MG ORAL TABLET completed 1 tab daily - Samantha Edmondson tramadol 50 mg tablet completed 4-6 tablet three times a day as needed - Jocelyne Elliott PROTONIX 40 MG ORAL TABLET DELAYED RELEASE completed one tab daily - Debi Golden BACTRIM 400-80 MG ORAL TABLET completed one twice a day - Jonn Morel PANTOPRAZOLE SODIUM 40 MG ORAL TABLET DELAYED RELEASE completed Take 1 tab by mouth daily - Jonn Morel PROTONIX 40 MG ORAL TABLET DELAYED RELEASE completed ONE TAB. DAILY, TAKE IN AM - Milana Stevens RN clopidogrel 75 mg tablet completed Take 1 tablet by mouth once a day - Erik Abreu ramipril 2.5 mg capsule completed Take 1 capsule by mouth once a day - Gricel Benitez METOPROLOL TARTRATE 25 MG ORAL TABLET completed one tab. twice daily - Carolynn Zamora ASPIRIN 325 MG ORAL TABLET completed take one tablet daily - Stephanie Saleh Viibryd 40 mg tablet active 1 tablet once a day Nitin Fletcher DO metformin 1,000 mg tablet active 1 tablet twice a day Jocelyne Elliott TOPAMAX 150 MG ORAL TABLET completed Medicine [facility] [address] [place] [address] ~28 ct - Baljit Shafer NP trazodone 100 mg tablet active 2 tablet once a day Luciano Hull SYNTHROID 175 MCG ORAL TABLET completed ONE TAB. DAILY - Lebron Lennon PRAVASTATIN SODIUM 40 MG ORAL TABLET completed 1 tab once daily - Stephanie Saleh ALPRAZOLAM 2 MG ORAL TABLET completed 1 tab at bedtime - Jocelyne Elliott LISINOPRIL-HYDRO CHLOROTHIAZIDE 20-25 MG ORAL TABLET completed ONE TAB. DAILY - Nitin Fletcher DO OMEPRAZOLE 40 MG ORAL CAPSULE DELAYED RELEASE completed 1 tab twice daily - Milana Stevens RN FUROSEMIDE 40 MG ORAL TABLET completed one tablet per day - Oma Garrett POTASSIUM CHLORIDE DEREK ER 10 MEQ ORAL TABLET EXTENDED RELEASE completed ONE TAB. DAILY - Molly Camacho SOCIAL HISTORY Date Observation Value Provider smoking status Never smoker Malena kitchen NP smoking status Never smoker Kamille rosado MD social history reviewed E&M revi ewed - no changes required Kamille Feldman MD social history E&M S moking History: Millicent chapman has never smoked. Kamille Feldman MD smoking status Never smoker Rachel Browne social history reviewed E&M revi ewed - no changes required Kamille Feldman MD social history E&M S moking History: Millicent chapman is a former smoker. Baljit Shafer NP smoking, year quit 2017 Kamille Feldman MD number of years as a smoker 25 a Kamille Feldman MD smoking history, tot al pack/day 0.5 Kamille Feldman MD cigarette use yes Kamille carrillo MD smoking status Former smoker Kamille barton MD social history reviewed E&M revi ewed - no changes required Kamille Feldman MD social history reviewed E&M revi ewed - no changes required Kamille Feldman MD social history reviewed E&M revi ewed - no changes required Kamille Feldman MD social history E&M S moking History: Millicent chapman is a former smoker. Kamille Feldman MD smoking status Former smoker Kamille barton MD social history reviewed E&M revi ewed - no changes required Kamille Feldman MD social history E&M S moking History: Millicent chapman is a former smoker. Kamille Feldman MD social history reviewed E&M revi ewed - no changes required Kamille Feldman MD cigarette use yes Trynett Edward s smoking status Former smoker Tryotto Edwa rds smoking status Former smoker Kamille barton MD social history E&M S moking History: Millicent chapman is a former smoker. Kamille Feldman MD social history reviewed E&M revi ewed - no changes required Kamille Feldman MD smoking, year quit 2017 Jocelyne Elliott number of years as a smoker 25 a Jocelyne Elliott smoking history, tot al pack/day 0.5 Jocelyne Elliott cigarette use yes Jocelyne Miles on smoking status Former smoker Kamille barton MD social history E&M S moking History: Millicent chapman is a former smoker. Kamille Feldman MD social history reviewed E&M revi ewed - no changes required Kamille Feldman MD smoking, year quit 2017 Samantha cruz number of years as a smoker 25 a Samantha Edmondson smoking history, tot al pack/day 0.5 Samantha Edmondson cigarette use yes Samantha llanos social history reviewed E&M revi ewed - no changes required Alexis Nakul smoking, year quit 2018 Stephanie Jeannie soares number of years as a smoker 25 a Stephanie Saleh smoking history, tot al pack/day 0.5 Stephanie Saleh cigarette use yes Stephanie Alfredjess carter smoking status Former smoker Stephanie Alfred arsh smoking, year quit 2017 Kamille Feldman MD number of years as a smoker 25 a Kamille Feldman MD smoking history, tot al pack/day 0.5 Kamille Feldman MD cigarette use yes Kamille carrillo MD smoking status Former smoker Kamille barton MD social history E&M S moking History: Millicent chapman is a former smoker. Kamille Feldman MD social history reviewed E&M revi ewed - no changes required Kamille Feldman MD social history E&M S moking History: Millicent chapman is a former smoker. Kamille Feldman MD smoking, year quit 2017 Kamille Feldman MD number of years as a smoker 25 a Kamille Feldman MD smoking history, tot al pack/day 0.5 Kamille Feldman MD cigarette use yes Kamille carrillo MD smoking status Former smoker Kamille barton MD social history reviewed E&M revi ewed - no changes required Kamille Feldman MD number of grandchildren Kamille Feldman MD social history reviewed E&M revi ewed - no changes required Alexis Nakul smoking, year quit 2017 Stephanie Jeannie soares number of years as a smoker 25 a Stephanie Delfino smoking history, tot al pack/day 0.5 Stephanie Saleh cigarette use yes Stephanie Castano emma smoking status Former smoker Stephanie caban social history reviewed E&M revi ewed - no changes required Alexis Mota smoking, year quit 2018 Stephanie soares number of years as a smoker 25 a Stephanie Saleh smoking history, tot al pack/day 0.5 Stephanie Saleh cigarette use yes Stephanie Castano emma smoking status Former smoker Stephanie Alfred caban number of grandchildren Lolly Wilson MD [facility] social history reviewed E&M revi ewed - no changes required lAexis Mota smoking, year quit 2018 Jocelyne Elliott number of years as a smoker 25 a Jocelyne Elliott smoking history, tot al pack/day 0.5 Jocelyne Elliott cigarette use yes Jocelyne pate smoking status Former smoker Jocelyne Trent smoking, year quit 2017 Kamille Feldman MD number of years as a smoker 25 a Kamille Feldman MD smoking history, tot al pack/day 0.5 Kamille Feldman MD cigarette use yes Kamille carrillo MD smoking status Former smoker Kamille barton MD social history E&M Smoking Histo ry: Millicent chapman is a former smoker. Kamille Feldman MD social history reviewed E&M revi ewed - no changes required Kamille Feldman MD social history E&M S moking History: Millicent chapman is a former smoker. Kamille Feldman MD smoking, year quit 2018 Oma Calix number of years as a smoker 25 a Oma Garrett smoking history, tot al pack/day 0.5 Oma Aponte-David cigarette use yes Oma Aponte -David smoking status Former smoker Oma Reza on-David social history reviewed E&M revi ewed - no changes required Omaelena Garrett social history reviewed E&M revi ewed - no changes required Kamille Feldman MD social history E&M S moking History: Millicent chapman is a former smoker. Kamille Feldman MD smoking, year quit 2017 Jonn I ngram number of years as a smoker 25 a Jonn Morel smoking history, tot al pack/day 0.5 Jonn Morel cigarette use yes Jonn Morel smoking status Former smoker Jonn Andersen am quit smoking, stage quit Kamille Feldman MD social history reviewed E&M revi ewed - no changes required Kamille Feldman MD social history E&M S moking History: Millicent chapman is a former smoker. Kamille Feldman MD smoking, year quit 2017 Jonn I ngram number of years as a smoker 25 a Jonn Morel smoking history, tot al pack/day 0.5 Ashuelot Morel cigarette use yes Jonn Morel smoking status Former smoker Jonn Andersen am number of grandchildren Kamille Feldman MD Nakul Plurad social history E&M S moking History: Millicent chapman is a former smoker. Kamille Feldman MD social history reviewed E&M revi ewed - no changes required Kamille Feldman MD smoking, year quit 2018 Carolynn Elmo s number of years as a smoker 25 a Carolynn Sera smoking history, tot al pack/day 0.5 Carolynn Sera cigarette use yes Carolynn Sera smoking status Former smoker Carolynn Sera smoking/tobacco cess ation, patient education and counseling yes Molly Camacho number of years as a smoker 25 a Molly Camacho smoking history, tot al pack/day 0.5 Molly Camacho cigarette use yes Molly Camacho smoking status Current every day smoker Nico Camacho social history reviewed E&M revi ewed - no changes required Tramaine Correa MD social history E&M Smoking Histo ry: P atient currently smokes every day. P atient has been counseled to quit. Tramaine Correa MD smoking/tobacco cess ation, patient education and counseling yes Tramaine Correa MD number of years as a smoker 25 a Jocelyne Elliott smoking history, tot al pack/day 0.5 Tramaine Correa MD cigarette use yes Jocelyne pate smoking status Current every day smoker Whitney Jenni Elliott FUNCTIONAL STATUS Date Observation Value Provider HRA, CV Assess/Plan, Angina (inactive) Management Plan continue current therapy Malena Copeland NP HRA, CV Assess/Plan, Angina (inactive) Management Plan continue current therapy Kamille Feldman MD HRA, CV Assess/Plan, Angina (inactive) Management Plan continue current therapy Baljit Shafer NP HRA, CV Assess/Plan, Angina (inactive) Management Plan continue current therapy Kamille Feldman MD HRA, CV Assess/Plan, Angina (inactive) Management Plan continue current therapy Kamille Feldman MD HRA, CV Assess/Plan, Angina (inactive) Management Plan continue current therapy Kamille Feldman MD HRA, CV Assess/Plan, Angina (inactive) Management Plan continue current therapy Kamille Feldman MD HRA, CV Assess/Plan, Angina (inactive) Management Plan continue current therapy Kamille Feldman MD HRA, CV Assess/Plan, Angina (inactive) Management Plan continue current therapy Kamille Feldman MD HRA, CV Assess/Plan, Angina (inactive) Management Plan continue current therapy Alexis Nakul HRA, CV Assess/Plan, Angina (inactive) Management Plan continue current therapy Kamille Feldman MD HRA, CV Assess/Plan, Angina (inactive) Management Plan continue current therapy Kamille Feldman MD FAMILY HISTORY Family Member Condition Father Family History of Hy pertension: Father Family History of Di abetes: Father Family History of Co ronary Artery Disease: Mother Family History of Co ronary Artery Disease: INSURANCE PROVIDERS Payer name Policy type / Coverage type [place] [employer] party ID [employer] [employer] Medicaid [id number] ADVANCE DIRECTIVES Name Date DISCUSSED - NO DECISION MADE TREATMENT PLAN Date Name Performer [id number],S, n onsmoker Kamille Feldman MD [id number],S,OPHELIA Feldman MD [id number],C, S ees Gogo Jasso, lung nodules decreased in size. Kamille Feldman MD [id number],C, H er updated medication list for this problem includes: Chlorthalidone 25 Mg Tablet (Chlorthalidone) ..... Take 1 tablet by mouth daily Ramipril 2.5 Mg Capsule (Ramipril) ..... Take 1 capsule by mouth once daily Lopressor 50 Mg Tablet (Metoprolol tartrate) ..... 1/2 tablet by mouth twice a day BP today: 119/89 P rior BP: 121/86 (09/28/2022) & #13;Prior 10 Yr Risk Heart Disease: Not enough information (04/26/2019) Labs Reviewed: C reat: 0.96 (02/16/2019) C hol: 165 (02/16/2019) HDL: 67 (02/16/2019) LDL: 57 (04/23/2019) Kamille Feldman MD [id number],C, s /p BIV pacer,, pacer check 07/14. Have her f/u with Steve in so she can potentially get cleared for orthopedic procedure. C oronary angiogram: 1. Left main trunk was large, widely patent, appeared to be grossly normal. 2 . LAD is a large size vessel. It has a high rising small first diagonal and a small second diagonal. 3rd d iagonal is a medium size vessel. This has roughly a 50% stenosis. When compared to prior a ngiogram, it is grossly unchanged. The second diagonal has a 30% stenosis, which is grossly u nchanged. The LAD wraps around to the apex and provides flow to the apex. 3 . The left circumflex is a nondominant vessel with a large AV groove extending to a large obtuse m arginal 1 and then continues on, has roughly a 30% stenosis and then bifurcates into a medium-sized O M2 and OM3, which is smallish, all of which appear to be widely patent otherwise. 4 . The right coronary artery is a dominant vessel. The AV groove has a stent. The stent is noted to be w idely patent without evidence of in-stent restenosis. The PDA and the PLV branches are medium size a nd are noted to be patent. S elective injection of bilateral renals was performed in the setting of systemic hypertension as well as s hortness of breath symptoms. This demonstrated single renal artery to each kidney. Each renal artery w as selectively injected with a JR4 catheter. There was no evidence of renal artery stenosis noted b ilaterally. L eft ventriculogram was performed. Ejection fraction is estimated roughly 45% to 50%. This appears to b e roughly the same as what was noted on the prior left ventriculogram from the prior catheterization. 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 Take 1 capsule by mouth once daily Metformin 1,000 Mg Tablet (Metformin) ..... 1 tablet twice a day Kamille Feldman MD [id number],C, C oronary angiogram: 1 . Left main trunk was large, widely patent, appeared to be grossly normal. 2 . LAD is a large size vessel. It has a high rising small first diagonal and a small second diagonal. 3rd d iagonal is a medium size vessel. This has roughly a 50% stenosis. When compared to prior a ngiogram, it is grossly unchanged. The second diagonal has a 30% stenosis, which is grossly u nchanged. The LAD wraps around to the apex and provides flow to the apex. 3 . The left circumflex is a nondominant vessel with a large AV groove extending to a large obtuse m arginal 1 and then continues on, has roughly a 30% stenosis and then bifurcates into a medium-sized O M2 and OM3, which is smallish, all of which appear to be widely patent otherwise. 4. The right coronary artery is a dominant vessel. The AV groove has a stent. The stent is noted to be w idely patent without evidence of in-stent restenosis. The PDA and the PLV branches are medium size a nd are noted to be patent. Kamille Feldman MD [id number],C,S evere obstrucfive sleep apnea-hypopnea syndrome, AHI = 34, worse in supine sleep and worst in R EM sleep, with oxygen desaturation. Severe obstructive sleep apnea-hypopnea syndrome may s till be an unde estimate due to reduced supine and REM sleep in this study. O2 sat dropped down to 79%, she will either need titration study or autopap Kamille Feldman MD [id number],C, B iV CRTP Biotronik. MRI Compatible S evere MISAEL Kamille Feldman MD [id number],S,N o HNH on recent blood work, will give her ascript Kamille Feldman MD [id number],C,H ypothroid TSH is high. needs her thyroid adjusted. COncerned also with Sleep apnea H as mild MISAEL from prior test, will repeat and see if it has gotten worse Kmaille Feldman MD [id number],C, C oronary angiogram: 1 . Left main trunk was large, widely patent, appeared to be grossly normal. 2 . LAD is a large size vessel. It has a high rising small first diagonal and a small second diagonal. 3rd d iagonal is a medium size vessel. This has roughly a 50% stenosis. When compared to prior a ngiogram, it is grossly unchanged. The second diagonal has a 30% stenosis, which is grossly u nchanged. The LAD wraps around to the apex and provides flow to the apex. 3 . The left circumflex is a nondominant vessel with a large AV groove extending to a large obtuse m arginal 1 and then continues on, has roughly a 30% stenosis and then bifurcates into a medium-sized O M2 and OM3, which is smallish, all of which appear to be widely patent otherwise. 4. The right coronary artery is a dominant vessel. The AV groove has a stent. The stent is noted to be w idely patent without evidence of in-stent restenosis. The PDA and the PLV branches are medium size a nd are noted to be patent. Kamille Feldman MD [id number],C, H er updated medication list for this problem includes: Atorvastatin 40 Mg Tablet (Atorvastatin) ..... Take 1 tablet by mouth once a day Kamille Feldman MD [id number],C, A T/AF Dewy Rose: 0.0% % Pacing: RA - 53.0% RV - 98.0% LV - 100.0% B attery 50% Kamille Feldman MD [id number],C, s /p BIV pacer,, pacer check 07/14. Have her f/u with [facility] in so she can potentially get cleared for orthopedic procedure. C oronary angiogram: 1. Left main trunk was large, widely patent, appeared to be grossly normal. 2 . LAD is a large size vessel. It has a high rising small first diagonal and a small second diagonal. 3rd d iagonal is a medium size vessel. This has roughly a 50% stenosis. When compared to prior a ngiogram, it is grossly unchanged. The second diagonal has a 30% stenosis, which is grossly u nchanged. The LAD wraps around to the apex and provides flow to the apex. 3 . The left circumflex is a nondominant vessel with a large AV groove extending to a large obtuse m arginal 1 and then continues on, has roughly a 30% stenosis and then bifurcates into a medium-sized O M2 and OM3, which is smallish, all of which appear to be widely patent otherwise. 4 . The right coronary artery is a dominant vessel. The AV groove has a stent. The stent is noted to be w idely patent without evidence of in-stent restenosis. The PDA and the PLV branches are medium size a nd are noted to be patent. S elective injection of bilateral renals was performed in the setting of systemic hypertension as well as s hortness of breath symptoms. This demonstrated single renal artery to each kidney. Each renal artery w as selectively injected with a JR4 catheter. There was no evidence of renal artery stenosis noted b ilaterally. L eft ventriculogram was performed. Ejection fraction is estimated roughly 45% to 50%. This appears to b e roughly the same as what was noted on the prior left ventriculogram from the prior catheterization. Kamille Feldman MD [id number],C,S DENISSE FIGUEROA HER ORTHO DOC N EED TO GET A REPEAT EVAL FOR KNEE PAIN LEFT > RIGHT N EEDS REPEAT IMAGING TO DETERIMINE IF THERE IS WORSENING OF THE JOINT PROMPTING SURGERY AT THIS TIME Baljit Shafer NP [id number],C, T he following medications were removed from the medication list: Metoprolol Tartrate 50 Mg Tablet (Metoprolol tartrate) Spironolactone 25 Mg Tablet (Spironolactone) ..... Take 1 tablet daily Her updated medication list for this problem includes: Chlorthalidone 25 Mg Tablet (Chlorthalidone) ..... Take 1 tablet by mouth daily Ramipril 2.5 Mg Capsule (Ramipril) ..... Take 1 capsule by mouth once daily Lopressor 50 Mg Tablet (Metoprolol tartrate) ..... 1/2 tablet by mouth twice a day BP today: 124/80 P rior BP: 109/67 (03/18/2022) Prior 10 Yr Risk Heart Disease: Not enough information (04/26/2019) Labs Reviewed: C reat: 0.96 (02/16/2019) C hol: 165 (02/16/2019) HDL: 67 (02/16/2019) LDL: 57 (04/23/2019) Baljit Shafer NP [id number],C,L ast A1c 6.1 H er updated medication list for this problem includes: Ramipril 2.5 Mg Capsule (Ramipril) ..... Take 1 capsule by mouth once daily Metformin 1,000 Mg Tablet (Metformin) ..... 1 tablet twice a day Baljit Shafer ONLINE CONTENT EDITOR [id number],C,A T/AF Dewy Rose: 0.0% % Pacing: RA - 53.0% RV - 98.0% LV - 100.0% B attery 50% Baljit Shafer ONLINE CONTENT EDITOR [id number],C, S ees Gogo Jasso, lung nodules decreased in size. Baljit Shafer ONLINE CONTENT EDITOR [id number],W, s /p BIV pacer,, pacer check 07/14. Have her f/u with Steve in so she can potentially get cleared for orthopedic procedure. C oronary angiogram: 1. Left main trunk was large, widely patent, appeared to be grossly normal. 2 . LAD is a large size vessel. It has a high rising small first diagonal and a small second diagonal. 3rd d iagonal is a medium size vessel. This has roughly a 50% stenosis. When compared to prior a ngiogram, it is grossly unchanged. The second diagonal has a 30% stenosis, which is grossly u nchanged. The LAD wraps around to the apex and provides flow to the apex. 3 . The left circumflex is a nondominant vessel with a large AV groove extending to a large obtuse m arginal 1 and then continues on, has roughly a 30% stenosis and then bifurcates into a medium-sized O M2 and OM3, which is smallish, all of which appear to be widely patent otherwise. 4 . The right coronary artery is a dominant vessel. The AV groove has a stent. The stent is noted to be w idely patent without evidence of in-stent restenosis. The PDA and the PLV branches are medium size a nd are noted to be patent. S elective injection of bilateral renals was performed in the setting of systemic hypertension as well as s hortness of breath symptoms. This demonstrated single renal artery to each kidney. Each renal artery w as selectively injected with a JR4 catheter. There was no evidence of renal artery stenosis noted b ilaterally. L eft ventriculogram was performed. Ejection fraction is estimated roughly 45% to 50%. This appears to b e roughly the same as what was noted on the prior left ventriculogram from the prior catheterization. Kamille Feldman MD [id number],C, B P today: 109/67 P rior BP: 116/72 (09/17/2021) Prior 10 Yr Risk Heart Disease: Not enough information (04/26/2019) Labs Reviewed: C reat: 0.96 (02/16/2019) C hol: 165 (02/16/2019) HDL: 67 (02/16/2019) LDL: 57 (04/23/2019) Her updated medication list for this problem includes: Ramipril 2.5 Mg Capsule (Ramipril) ..... Take 1 capsule by mouth once daily Metoprolol Tartrate 50 Mg Tablet (Metoprolol tartrate) Spironolactone 25 Mg Tablet (Spironolactone) Lopressor 50 Mg Tablet (Metoprolol tartrate) ..... 1/2 tablet by mouth twice a day Chlorthalidone 25 Mg Tablet (Chlorthalidone) ..... 1 tablet once a day Kamille Feldman MD [id number],C, C oronary angiogram: 1 . Left main trunk was large, widely patent, appeared to be grossly normal. 2 . LAD is a large size vessel. It has a high rising small first diagonal and a small second diagonal. 3rd d iagonal is a medium size vessel. This has roughly a 50% stenosis. When compared to prior a ngiogram, it is grossly unchanged. The second diagonal has a 30% stenosis, which is grossly u nchanged. The LAD wraps around to the apex and provides flow to the apex. 3 . The left circumflex is a nondominant vessel with a large AV groove extending to a large obtuse m arginal 1 and then continues on, has roughly a 30% stenosis and then bifurcates into a medium-sized O M2 and OM3, which is smallish, all of which appear to be widely patent otherwise. 4. The right coronary artery is a dominant vessel. The AV groove has a stent. The stent is noted to be w idely patent without evidence of in-stent restenosis. The PDA and the PLV branches are medium size a nd are noted to be patent. Kamille Feldman MD [id number],BS denisse endorcin H er updated medication list for this problem includes: Ramipril 2.5 Mg Oral Capsule (Ramipril) ..... Take 1 capsule by mouth once daily Metformin Hcl 1000 Mg Oral Tablet (Metformin hcl) ..... 1 tab twice daily Kamille Feldman MD [id number],C,S denisse Jasso, currently working up for lung nodules Kamille Feldman MD [id number],C, M RI compatible. She is planning on getting MRI of head, should be fine Kamille Feldmna MD [id number],C, s /p BIV pacer,, pacer check 07/14. Have her f/u with [facility] in so she can potentially get cleared for orthopedic procedure. C oronary angiogram: 1. Left main trunk was large, widely patent, appeared to be grossly normal. 2 . LAD is a large size vessel. It has a high rising small first diagonal and a small second diagonal. 3rd d iagonal is a medium size vessel. This has roughly a 50% stenosis. When compared to prior a ngiogram, it is grossly unchanged. The second diagonal has a 30% stenosis, which is grossly u nchanged. The LAD wraps around to the apex and provides flow to the apex. 3 . The left circumflex is a nondominant vessel with a large AV groove extending to a large obtuse m arginal 1 and then continues on, has roughly a 30% stenosis and then bifurcates into a medium-sized O M2 and OM3, which is smallish, all of which appear to be widely patent otherwise. 4 . The right coronary artery is a dominant vessel. The AV groove has a stent. The stent is noted to be w idely patent without evidence of in-stent restenosis. The PDA and the PLV branches are medium size a nd are noted to be patent. S elective injection of bilateral renals was performed in the setting of systemic hypertension as well as s hortness of breath symptoms. This demonstrated single renal artery to each kidney. Each renal artery w as selectively injected with a JR4 catheter. There was no evidence of renal artery stenosis noted b ilaterally. L eft ventriculogram was performed. Ejection fraction is estimated roughly 45% to 50%. This appears to b e roughly the same as what was noted on the prior left ventriculogram from the prior catheterization. Kamille Feldman MD [id number],C, B P today: 144/83 P rior BP: 124/84 (06/24/2020) Prior 10 Yr Risk Heart Disease: Not enough information (04/26/2019) Labs Reviewed: C reat: 0.96 (02/16/2019) C hol: 165 (02/16/2019) HDL: 67 (02/16/2019) LDL: 57 (04/23/2019) Kamille Feldman MD [id number],C, C oronary angiogram: 1 . Left main trunk was large, widely patent, appeared to be grossly normal. 2 . LAD is a large size vessel. It has a high rising small first diagonal and a small second diagonal. 3rd d iagonal is a medium size vessel. This has roughly a 50% stenosis. When compared to prior a ngiogram, it is grossly unchanged. The second diagonal has a 30% stenosis, which is grossly u nchanged. The LAD wraps around to the apex and provides flow to the apex. 3 . The left circumflex is a nondominant vessel with a large AV groove extending to a large obtuse m arginal 1 and then continues on, has roughly a 30% stenosis and then bifurcates into a medium-sized O M2 and OM3, which is smallish, all of which appear to be widely patent otherwise. 4. The right coronary artery is a dominant vessel. The AV groove has a stent. The stent is noted to be w idely patent without evidence of in-stent restenosis. The PDA and the PLV branches are medium size a nd are noted to be patent. Kamille Feldman MD [id number],C, o k to receive pain managment Kamille Feldman MD [id number],C,S ees Dr. Wray in pain clinic. Sees Dr. Olson in [place] S he is unable to ambulate, can't exercise. Had knee pain/ Needs to be treated in order to ambulate for cardiac health. Can't do rehab and hence this procedure may be a medical necessity. Kamille Feldman MD [id number],C, M RI compatible. She is planning on getting MRI of head, should be fine Kamille Feldman MD [id number],S,A lso on metoprolol 50 once daily H er updated medication list for this problem includes: Clopidogrel 75mg Tab (Clopidogrel bisulfate) ..... Take 1 tablet by mouth once daily Ramipril 2.5mg Cap (Ramipril) ..... Take 1 capsule by mouth once daily Aspirin 325 Mg Oral Tablet (Aspirin) ..... Take one tablet daily Kamille Feldman MD [id number],C, s /p BIV pacer,, pacer check 07/14. Have her f/u with Steve in so she can potentially get cleared for orthopedic procedure. C oronary angiogram: 1. Left main trunk was large, widely patent, appeared to be grossly normal. 2 . LAD is a large size vessel. It has a high rising small first diagonal and a small second diagonal. 3rd d iagonal is a medium size vessel. This has roughly a 50% stenosis. When compared to prior a ngiogram, it is grossly unchanged. The second diagonal has a 30% stenosis, which is grossly u nchanged. The LAD wraps around to the apex and provides flow to the apex. 3 . The left circumflex is a nondominant vessel with a large AV groove extending to a large obtuse m arginal 1 and then continues on, has roughly a 30% stenosis and then bifurcates into a medium-sized O M2 and OM3, which is smallish, all of which appear to be widely patent otherwise. 4 . The right coronary artery is a dominant vessel. The AV groove has a stent. The stent is noted to be w idely patent without evidence of in-stent restenosis. The PDA and the PLV branches are medium size a nd are noted to be patent. S elective injection of bilateral renals was performed in the setting of systemic hypertension as well as s hortness of breath symptoms. This demonstrated single renal artery to each kidney. Each renal artery w as selectively injected with a JR4 catheter. There was no evidence of renal artery stenosis noted b ilaterally. L eft ventriculogram was performed. Ejection fraction is estimated roughly 45% to 50%. This appears to b e roughly the same as what was noted on the prior left ventriculogram from the prior catheterization. 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 Left main trunk was large, widely patent, appeared to be grossly normal. 2 . LAD is a large size vessel. It has a high rising small first diagonal and a small second diagonal. 3rd d iagonal is a medium size vessel. This has roughly a 50% stenosis. When compared to prior a ngiogram, it is grossly unchanged. The second diagonal has a 30% stenosis, which is grossly u nchanged. The LAD wraps around to the apex and provides flow to the apex. 3 . The left circumflex is a nondominant vessel with a large AV groove extending to a large obtuse m arginal 1 and then continues on, has roughly a 30% stenosis and then bifurcates into a medium-sized O M2 and OM3, which is smallish, all of which appear to be widely patent otherwise. 4. The right coronary artery is a dominant vessel. The AV groove has a stent. The stent is noted to be w idely patent without evidence of in-stent restenosis. The PDA and the PLV branches are medium size a nd are noted to be patent. Kamille Feldman MD [id number],C, M RI compatible. She is planning on getting MRI of head, should be fine Kamille Feldman MD [id number],C, B iV CRTP Biotronik. MRI Compatible Kamille Feldman MD [id number],C, B P today: 144/83 P rior BP: 124/84 (06/24/2020) Prior 10 Yr Risk Heart Disease: Not enough information (04/26/2019) Labs Reviewed: C reat: 0.96 (02/16/2019) C hol: 165 (02/16/2019) HDL: 67 (02/16/2019) LDL: 57 (04/23/2019) Kamille Feldman MD [id number],S, H er updated medication list for this problem includes: Protonix 40 Mg Oral Tablet Delayed Release (Pantoprazole sodium) ..... One tab daily Kamille Feldman MD [id number],S,C oronary angiogram: 1 . Left main trunk was large, widely patent, appeared to be grossly normal. 2 . LAD is a large size vessel. It has a high rising small first diagonal and a small second diagonal. 3rd d iagonal is a medium size vessel. This has roughly a 50% stenosis. When compared to prior a ngiogram, it is grossly unchanged. The second diagonal has a 30% stenosis, which is grossly u nchanged. The LAD wraps around to the apex and provides flow to the apex. 3 . The left circumflex is a nondominant vessel with a large AV groove extending to a large obtuse m arginal 1 and then continues on, has roughly a 30% stenosis and then bifurcates into a medium-sized O M2 and OM3, which is smallish, all of which appear to be widely patent otherwise. 4 . The right coronary artery is a dominant vessel. The AV groove has a stent. The stent is noted to be w idely patent without evidence of in-stent restenosis. The PDA and the PLV branches are medium size a nd are noted to be patent. Kamille Feldman MD [id number],S, M RI compatible. She is planning on getting MRI of head, should be fine Kamille Feldman MD [id number],S, B iV CRTP Biotronik. MRI Compatible Kamille Feldman MD Cardiology:Quit years ago Sharon Copeland NP Cardiology:Follows w [facility] educational program assistant Malena Copeland NP Cardiology:Denies SOB Malena jacinto NP Cardiology: S denisse Jasso, lung nodules decreased in size d oenst follow with lung doc anymore Malena Copeland NP Cardiology:A1c 6% Her updated medication list for this problem includes: Losartan-hydrochlorothiazide 50-12.5 Mg Tablet (Losartan-hydrochlorothiazide) ..... 1/2 once a day please confirm if pt is taking, she says she is not but it was picked up in dec 30. rxd by dr deanne Hewitt 5 Mg Tablet (Dapagliflozin propanediol) Metformin 1,000 Mg Tablet (Metformin) ..... 1 tablet twice a day This visit has been a part of the consistent, comprehensive, and ongoing management of the chronic medical condition(s) listed above for the patient. Malena Copeland NP Cardiology:Normal de vice function R A 20%, RV 100%, LV 100% N oa fib This visit has been a part of the consistent, comprehensive, and ongoing management of the chronic medical condition(s) listed above for the patient. Malena oCpeland NP Cardiology: C oronary angiogram: 1 . Left main trunk was large, widely patent, appeared to be grossly normal. 2 . LAD is a large size vessel. It has a high rising small first diagonal and a small second diagonal. 3rd d iagonal is a medium size vessel. This has roughly a 50% stenosis. When compared to prior a ngiogram, it is grossly unchanged. The second diagonal has a 30% stenosis, which is grossly u nchanged. The LAD wraps around to the apex and provides flow to the apex. 3 . The left circumflex is a nondominant vessel with a large AV groove extending to a large obtuse marginal 1 and then continues on, has roughly a 30% stenosis and then bifurcates into a medium-sized O M2 and OM3, which is smallish, all of which appear to be widely patent otherwise. 4 . The right coronary artery is a dominant vessel. The AV groove has a stent. The stent is noted to be w idely patent without evidence of in-stent restenosis. The PDA and the PLV branches are medium size a nd are noted to be patent. January S table with no angina This visit has been a part of the consistent, comprehensive, and ongoing management of the chronic medical condition(s) listed above for the patient. Malena Copeland NP Cardiology:CHOL: 165 (02/16/2019) LDL: 57 (04/23/2019) HDL: 67 (02/16/2019) T (02/16/2019) Her updated medication list for this problem includes: Atorvastatin 40 Mg Tablet (Atorvastatin) This visit has been a part of the consistent, comprehensive, and ongoing management of the chronic medical condition(s) listed above for the patient. Malena Copeland NP Cardiology: B P today: 139/102 P rior BP: 134/98 (06/28/2023) Prior 10 Yr Risk Heart Disease: Not enough information (04/26/2019) Labs Reviewed: C reat: 0.96 (02/16/2019) Chol: 165 (02/16/2019) HDL: 67 (02/16/2019) LDL: 57 (04/23/2019) T (02/16/2019) Better controlled at home T his visit has been a part of the consistent, comprehensive, and ongoing management of the chronic medical condition(s) listed above for the patient. Malena Copeland NP Cardiology:doesn't u se CPAP This visit has been a part of the consistent, comprehensive, and ongoing management of the chronic medical condition(s) listed above for the patient. Malena Graykylee BAJWA Cardiology: S DENISSE FIGUEROA HER ORTHO DOC N EED TO GET A REPEAT EVAL FOR KNEE PAIN LEFT > RIGHT N EEDS REPEAT IMAGING TO DETERIMINE IF THERE IS WORSENING OF THE JOINT PROMPTING SURGERY AT THIS TIME June 28, 2023 h as leg discomfrot and cold ness in the left leg Kamille Feldman MD Cardiology:paced on ekg today Sa moiz Feldman MD Cardiology: s /p BIV pacer,, pacer check 07/14. Have her f/u with [facility] in so she can potentially get cleared for orthopedic procedure. C oronary angiogram: 1 . Left main trunk was large, widely patent, appeared to be grossly normal. 2 . LAD is a large size vessel. It has a high rising small first diagonal and a small second diagonal. 3rd d iagonal is a medium size vessel. This has roughly a 50% stenosis. When compared to prior a ngiogram, it is grossly unchanged. The second diagonal has a 30% stenosis, which is grossly u nchanged. The LAD wraps around to the apex and provides flow to the apex. 3 . The left circumflex is a nondominant vessel with a large AV groove extending to a large obtuse m arginal 1 and then continues on, has roughly a 30% stenosis and then bifurcates into a medium-sized O M2 and OM3, which is smallish, all of which appear to be widely patent otherwise. 4 . The right coronary artery is a dominant vessel. The AV groove has a stent. The stent is noted to be w idely patent without evidence of in-stent restenosis. The PDA and the PLV branches are medium size a nd are noted to be patent. S elective injection of bilateral renals was performed in the setting of systemic hypertension as well as s hortness of breath symptoms. This demonstrated single renal artery to each kidney. Each renal artery w as selectively injected with a JR4 catheter. There was no evidence of renal artery stenosis noted b ilaterally. L eft ventriculogram was performed. Ejection fraction is estimated roughly 45% to 50%. This appears to b e roughly the same as what was noted on the prior left ventriculogram from the prior catheterization. Kamille Feldman MD Cardiology:CONCLUSIO NS: 1 . Technically difficult study due to cardiac arrhythmia. Abnormal septal motion consistent with Left Bundle Branch Block. M ild global left ventricular systolic hypokinesis. There is akinesis in the inferior wall. Left ventricular dyssynchrony is present. L eft ventricular ejection fraction is measured at 45 %. 2 . Normal right ventricular size. Normal right ventricular systolic function. 3 . There is trace physiologic mitral valve regurgitation. 4 . There is trace physiologic tricuspid valve regurgitation. E lectronically signed by Kamille Feldman MD on 05/02/2019 at 11:44 AM Summary 1 . Abnormal myocardial perfusion imaging after vasodilator stress with Regadenoson. 2 . Preserved left ventricular systolic function with a calculated ejection fraction of 54%. Apical aikinesis and inferior wall hypokinesis 3 . Myocardial scintigraphy demonstrates inferior wall ischemia. . ................................................. .................Kamille Feldman MD January 07, 2019 8:48 AM Kamille Feldman MD Cardiology: S evere obstrucfive sleep apnea-hypopnea syndrome, AHI = 34, worse in supine sleep and worst in R EM sleep, with oxygen desaturation. Severe obstructive sleep apnea-hypopnea syndrome may s till be an unde estimate due to reduced supine and REM sleep in this study. O2 sat dropped down to 79%, she will either need titration study or autopap June 28, 2023 d oesnotwanttodo cpap does not want to hav eanything on her face Kamille Feldman MD Cardiology: n aguilamoemma Feldman MD Cardiology:STABLE Kamille carrillo MD Cardiology: S denisse Jasso, lung nodules decreased in size. Kamille Feldman MD Cardiology: H er updated medication list for this problem includes: Chlorthalidone 25 Mg Tablet (Chlorthalidone) ..... Take 1 tablet by mouth daily Ramipril 2.5 Mg Capsule (Ramipril) ..... Take 1 capsule by mouth once daily Lopressor 50 Mg Tablet (Metoprolol tartrate) ..... 1/2 tablet by mouth twice a day BP today: 119/89 P rior BP: 121/86 (09/28/2022) Prior 10 Yr Risk Heart Disease: Not enough information (04/26/2019) Labs Reviewed: C reat: 0.96 (02/16/2019) C hol: 165 (02/16/2019) HDL: 67 (02/16/2019) LDL: 57 (04/23/2019) Kamille Feldman MD Cardiology: s /p BIV pacer,, pacer check 07/14. Have her f/u with Steve in so she can potentially get cleared for orthopedic procedure. C oronary angiogram: 1 . Left main trunk was large, widely patent, appeared to be grossly normal. 2 . LAD is a large size vessel. It has a high rising small first diagonal and a small second diagonal. 3rd d iagonal is a medium size vessel. This has roughly a 50% stenosis. When compared to prior a ngiogram, it is grossly unchanged. The second diagonal has a 30% stenosis, which is grossly u nchanged. The LAD wraps around to the apex and provides flow to the apex. 3 . The left circumflex is a nondominant vessel with a large AV groove extending to a large obtuse m arginal 1 and then continues on, has roughly a 30% stenosis and then bifurcates into a medium-sized O M2 and OM3, which is smallish, all of which appear to be widely patent otherwise. 4 . The right coronary artery is a dominant vessel. The AV groove has a stent. The stent is noted to be w idely patent without evidence of in-stent restenosis. The PDA and the PLV branches are medium size a nd are noted to be patent. S elective injection of bilateral renals was performed in the setting of systemic hypertension as well as s hortness of breath symptoms. This demonstrated single renal artery to each kidney. Each renal artery w as selectively injected with a JR4 catheter. There was no evidence of renal artery stenosis noted b ilaterally. L eft ventriculogram was performed. Ejection fraction is estimated roughly 45% to 50%. This appears to b e roughly the same as what was noted on the prior left ventriculogram from the prior catheterization. 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 Take 1 capsule by mouth once daily Metformin 1,000 Mg Tablet (Metformin) ..... 1 tablet twice a day Kamille Feldman MD Cardiology: C oronary angiogram: 1 . Left main trunk was large, widely patent, appeared to be grossly normal. 2 . LAD is a large size vessel. It has a high rising small first diagonal and a small second diagonal. 3rd d iagonal is a medium size vessel. This has roughly a 50% stenosis. When compared to prior a ngiogram, it is grossly unchanged. The second diagonal has a 30% stenosis, which is grossly u nchanged. The LAD wraps around to the apex and provides flow to the apex. 3 . The left circumflex is a nondominant vessel with a large AV groove extending to a large obtuse marginal 1 and then continues on, has roughly a 30% stenosis and then bifurcates into a medium-sized O M2 and OM3, which is smallish, all of which appear to be widely patent otherwise. 4 . The right coronary artery is a dominant vessel. The AV groove has a stent. The stent is noted to be w idely patent without evidence of in-stent restenosis. The PDA and the PLV branches are medium size a nd are noted to be patent. Kamille Feldman MD Cardiology:Severe ob strucfive sleep apnea-hypopnea syndrome, AHI = 34, worse in supine sleep and worst in R EM sleep, with oxygen desaturation. Severe obstructive sleep apnea-hypopnea syndrome may still be an unde estimate due to reduced supine and REM sleep in this study. O2 sat dropped down to 79%, she will either need titration study or autopap Kamille Feldman MD Cardiology: B iV CRTP Biotronik. MRI Compatible S yaima MISAEL Kamille Feldman MD Cardiology:No HNH on recent blood work, will give her ascript Kamille Feldman MD Cardiology:Hypothroi d TSH is high. needs her thyroid adjusted. COncerned also with Sleep apnea H as mild MISAEL from prior test, will repeat and see if it has gotten worse Kamille Feldman MD Cardiology: C oronary angiogram: 1 . Left main trunk was large, widely patent, appeared to be grossly normal. 2 . LAD is a large size vessel. It has a high rising small first diagonal and a small second diagonal. 3rd d iagonal is a medium size vessel. This has roughly a 50% stenosis. When compared to prior a ngiogram, it is grossly unchanged. The second diagonal has a 30% stenosis, which is grossly u nchanged. The LAD wraps around to the apex and provides flow to the apex. 3 . The left circumflex is a nondominant vessel with a large AV groove extending to a large obtuse marginal 1 and then continues on, has roughly a 30% stenosis and then bifurcates into a medium-sized O M2 and OM3, which is smallish, all of which appear to be widely patent otherwise. 4 . The right coronary artery is a dominant vessel. The AV groove has a stent. The stent is noted to be w idely patent without evidence of in-stent restenosis. The PDA and the PLV branches are medium size a nd are noted to be patent. Kamille Feldman MD Cardiology: H er updated medication list for this problem includes: Atorvastatin 40 Mg Tablet (Atorvastatin) ..... Take 1 tablet by mouth once a day Kamille Feldman MD Cardiology: A T/AF Dewy Rose: 0.0% % Pacing: RA - 53.0% RV - 98.0% LV - 100.0% B attery 50% Kamille Feldman MD Cardiology: s /p BIV pacer,, pacer check 07/14. Have her f/u with Steve in so she can potentially get cleared for orthopedic procedure. C oronary angiogram: 1 . Left main trunk was large, widely patent, appeared to be grossly normal. 2 . LAD is a large size vessel. It has a high rising small first diagonal and a small second diagonal. 3rd d iagonal is a medium size vessel. This has roughly a 50% stenosis. When compared to prior a ngiogram, it is grossly unchanged. The second diagonal has a 30% stenosis, which is grossly u nchanged. The LAD wraps around to the apex and provides flow to the apex. 3 . The left circumflex is a nondominant vessel with a large AV groove extending to a large obtuse m arginal 1 and then continues on, has roughly a 30% stenosis and then bifurcates into a medium-sized O M2 and OM3, which is smallish, all of which appear to be widely patent otherwise. 4 . The right coronary artery is a dominant vessel. The AV groove has a stent. The stent is noted to be w idely patent without evidence of in-stent restenosis. The PDA and the PLV branches are medium size a nd are noted to be patent. S elective injection of bilateral renals was performed in the setting of systemic hypertension as well as s hortness of breath symptoms. This demonstrated single renal artery to each kidney. Each renal artery w as selectively injected with a JR4 catheter. There was no evidence of renal artery stenosis noted b ilaterally. L eft ventriculogram was performed. Ejection fraction is estimated roughly 45% to 50%. This appears to b e roughly the same as what was noted on the prior left ventriculogram from the prior catheterization. Kamille Feldman MD Cardiology:SEES MARTHA FIERRO HER ORTHO DOC N EED TO GET A REPEAT EVAL FOR KNEE PAIN LEFT > RIGHT N EEDS REPEAT IMAGING TO DETERIMINE IF THERE IS WORSENING OF THE JOINT PROMPTING SURGERY AT THIS TIME Baljit Shafer NP Cardiology: T he following medications were removed from the medication list: Metoprolol Tartrate 50 Mg Tablet (Metoprolol tartrate) Spironolactone 25 Mg Tablet (Spironolactone) ..... Take 1 tablet daily Her updated medication list for this problem includes: Chlorthalidone 25 Mg Tablet (Chlorthalidone) ..... Take 1 tablet by mouth daily Ramipril 2.5 Mg Capsule (Ramipril) ..... Take 1 capsule by mouth once daily Lopressor 50 Mg Tablet (Metoprolol tartrate) ..... 1/2 tablet by mouth twice a day BP today: 124/80 P rior BP: 109/67 (03/18/2022) & #13;Prior 10 Yr Risk Heart Disease: Not enough information (04/26/2019) Labs Reviewed: C reat: 0.96 (02/16/2019) C hol: 165 (02/16/2019) HDL: 67 (02/16/2019) LDL: 57 (04/23/2019) Baljit Mondragonimtiaz BAJWA Cardiology:Last A1c 6.1 H er updated medication list for this problem includes: Ramipril 2.5 Mg Capsule (Ramipril) ..... Take 1 capsule by mouth once daily Metformin 1,000 Mg Tablet (Metformin) ..... 1 tablet twice a day Baljit Mondragonimtiaz BAJWA Cardiology:AT/AF Bur den: 0.0% % Pacing: RA - 53.0% RV - 98.0% LV - 100.0% B attery 50% Baljit Mondragonimtiaz BAJWA Cardiology: S ees Gogo Jasso, lung nodules decreased in size. Baljit Mondragonimtiaz BAJWA Cardiology: s /p BIV pacer,, pacer check 07/14. Have her f/u with Steve in -10/2019 so she can potentially get cleared for orthopedic procedure. C oronary angiogram: 1 . Left main trunk was large, widely patent, appeared to be grossly normal. 2 . LAD is a large size vessel. It has a high rising small first diagonal and a small second diagonal. 3rd d iagonal is a medium size vessel. This has roughly a 50% stenosis. When compared to prior a ngiogram, it is grossly unchanged. The second diagonal has a 30% stenosis, which is grossly u nchanged. The LAD wraps around to the apex and provides flow to the apex. 3 . The left circumflex is a nondominant vessel with a large AV groove extending to a large obtuse m arginal 1 and then continues on, has roughly a 30% stenosis and then bifurcates into a medium-sized O M2 and OM3, which is smallish, all of which appear to be widely patent otherwise. 4 . The right coronary artery is a dominant vessel. The AV groove has a stent. The stent is noted to be w idely patent without evidence of in-stent restenosis. The PDA and the PLV branches are medium size a nd are noted to be patent. S elective injection of bilateral renals was performed in the setting of systemic hypertension as well as s hortness of breath symptoms. This demonstrated single renal artery to each kidney. Each renal artery w as selectively injected with a JR4 catheter. There was no evidence of renal artery stenosis noted b ilaterally. L eft ventriculogram was performed. Ejection fraction is estimated roughly 45% to 50%. This appears to b e roughly the same as what was noted on the prior left ventriculogram from the prior catheterization. Kamille Feldman MD Cardiology: B P today: 109/67 P rior BP: 116/72 (09/17/2021) Prior 10 Yr Risk Heart Disease: Not enough information (04/26/2019) Labs Reviewed: C reat: 0.96 (02/16/2019) Chol: 165 (02/16/2019) HDL: 67 (02/16/2019) LDL: 57 (04/23/2019) Her updated medication list for this problem includes: Ramipril 2.5 Mg Capsule (Ramipril) ..... Take 1 capsule by mouth once daily Metoprolol Tartrate 50 Mg Tablet (Metoprolol tartrate) Spironolactone 25 Mg Tablet (Spironolactone) Lopressor 50 Mg Tablet (Metoprolol tartrate) ..... 1/2 tablet by mouth twice a day Chlorthalidone 25 Mg Tablet (Chlorthalidone) ..... 1 tablet once a day Kamille Feldman MD Cardiology: C oronary angiogram: 1 . Left main trunk was large, widely patent, appeared to be grossly normal. 2 . LAD is a large size vessel. It has a high rising small first diagonal and a small second diagonal. 3rd d iagonal is a medium size vessel. This has roughly a 50% stenosis. When compared to prior a ngiogram, it is grossly unchanged. The second diagonal has a 30% stenosis, which is grossly u nchanged. The LAD wraps around to the apex and provides flow to the apex. 3 . The left circumflex is a nondominant vessel with a large AV groove extending to a large obtuse marginal 1 and then continues on, has roughly a 30% stenosis and then bifurcates into a medium-sized O M2 and OM3, which is smallish, all of which appear to be widely patent otherwise. 4 . The right coronary artery is a dominant vessel. The AV groove has a stent. The stent is noted to be w idely patent without evidence of in-stent restenosis. The PDA and the PLV branches are medium size a nd are noted to be patent. Kamille Feldman MD Cardiology:Yael hutchinson rcin H er updated medication list for this problem includes: Ramipril 2.5 Mg Oral Capsule (Ramipril) ..... Take 1 capsule by mouth once daily Metformin Hcl 1000 Mg Oral Tablet (Metformin hcl) ..... 1 tab twice daily Kamille Feldman MD Cardiology:Yael Courtney, currently working up for lung nodules Kamille Feldman MD Cardiology: Whitney KITCHEN compatible. She is planning on getting MRI of head, should be fine Kamille Feldman MD Cardiology: s /p BIV pacer,, pacer check 07/14. Have her f/u with [facility] in so she can potentially get cleared for orthopedic procedure. C oronary angiogram: 1 . Left main trunk was large, widely patent, appeared to be grossly normal. 2 . LAD is a large size vessel. It has a high rising small first diagonal and a small second diagonal. 3rd d iagonal is a medium size vessel. This has roughly a 50% stenosis. When compared to prior a ngiogram, it is grossly unchanged. The second diagonal has a 30% stenosis, which is grossly u nchanged. The LAD wraps around to the apex and provides flow to the apex. 3 . The left circumflex is a nondominant vessel with a large AV groove extending to a large obtuse m arginal 1 and then continues on, has roughly a 30% stenosis and then bifurcates into a medium-sized O M2 and OM3, which is smallish, all of which appear to be widely patent otherwise. 4 . The right coronary artery is a dominant vessel. The AV groove has a stent. The stent is noted to be w idely patent without evidence of in-stent restenosis. The PDA and the PLV branches are medium size a nd are noted to be patent. S elective injection of bilateral renals was performed in the setting of systemic hypertension as well as s hortness of breath symptoms. This demonstrated single renal artery to each kidney. Each renal artery w as selectively injected with a JR4 catheter. There was no evidence of renal artery stenosis noted b ilaterally. L eft ventriculogram was performed. Ejection fraction is estimated roughly 45% to 50%. This appears to b e roughly the same as what was noted on the prior left ventriculogram from the prior catheterization. Kamille Feldman MD Cardiology: B P today: 144/83 P rior BP: 124/84 (06/24/2020) Prior 10 Yr Risk Heart Disease: Not enough information (04/26/2019) Labs Reviewed: C reat: 0.96 (02/16/2019) C hol: 165 (02/16/2019) HDL: 67 (02/16/2019) LDL: 57 (04/23/2019) Kamille Feldman MD Cardiology: C oronary angiogram: 1 . Left main trunk was large, widely patent, appeared to be grossly normal. 2 . LAD is a large size vessel. It has a high rising small first diagonal and a small second diagonal. 3rd d iagonal is a medium size vessel. This has roughly a 50% stenosis. When compared to prior a ngiogram, it is grossly unchanged. The second diagonal has a 30% stenosis, which is grossly u nchanged. The LAD wraps around to the apex and provides flow to the apex. 3 . The left circumflex is a nondominant vessel with a large AV groove extending to a large obtuse marginal 1 and then continues on, has roughly a 30% stenosis and then bifurcates into a medium-sized O M2 and OM3, which is smallish, all of which appear to be widely patent otherwise. 4 . The right coronary artery is a dominant vessel. The AV groove has a stent. The stent is noted to be w idely patent without evidence of in-stent restenosis. The PDA and the PLV branches are medium size a nd are noted to be patent. Kamille Feldman MD Cardiology: o k to receive pain managment Kamille Feldman MD Cardiology:Sees Dr. Wray in pain clinic. Sees Dr. Olson in [place] S he is unable to ambulate, can't exercise. Had knee pain/ Needs to be treated in order to ambulate for cardiac health. Can't do rehab and hence this procedure may be a medical necessity. Kamille Feldman MD Cardiology: M RI compatible. She is planning on getting MRI of head, should be fine Kamille Feldman MD Cardiology:Also on m etoprolol 50 once daily H er updated medication list for this problem includes: Clopidogrel 75mg Tab (Clopidogrel bisulfate) ..... Take 1 tablet by mouth once daily Ramipril 2.5mg Cap (Ramipril) ..... Take 1 capsule by mouth once daily Aspirin 325 Mg Oral Tablet (Aspirin) ..... Take one tablet daily Kamille Feldman MD Cardiology: s /p BIV pacer,, pacer check 07/14. Have her f/u with Steve in so she can potentially get cleared for orthopedic procedure. C oronary angiogram: 1 . Left main trunk was large, widely patent, appeared to be grossly normal. 2 . LAD is a large size vessel. It has a high rising small first diagonal and a small second diagonal. 3rd d iagonal is a medium size vessel. This has roughly a 50% stenosis. When compared to prior a ngiogram, it is grossly unchanged. The second diagonal has a 30% stenosis, which is grossly u nchanged. The LAD wraps around to the apex and provides flow to the apex. 3 . The left circumflex is a nondominant vessel with a large AV groove extending to a large obtuse m arginal 1 and then continues on, has roughly a 30% stenosis and then bifurcates into a medium-sized O M2 and OM3, which is smallish, all of which appear to be widely patent otherwise. 4 . The right coronary artery is a dominant vessel. The AV groove has a stent. The stent is noted to be w idely patent without evidence of in-stent restenosis. The PDA and the PLV branches are medium size a nd are noted to be patent. S elective injection of bilateral renals was performed in the setting of systemic hypertension as well as s hortness of breath symptoms. This demonstrated single renal artery to each kidney. Each renal artery w as selectively injected with a JR4 catheter. There was no evidence of renal artery stenosis noted b ilaterally. L eft ventriculogram was performed. Ejection fraction is estimated roughly 45% to 50%. This appears to b e roughly the same as what was noted on the prior left ventriculogram from the prior catheterization. Kamille Feldman MD Cardiology:nonsmoker Kamille mtz MD Cardiology:Sees endo crinologist has had issues since having COVID Kamille Feldman MD Cardiology: C oronary angiogram: 1 . Left main trunk was large, widely patent, appeared to be grossly normal. 2 . LAD is a large size vessel. It has a high rising small first diagonal and a small second diagonal. 3rd d iagonal is a medium size vessel. This has roughly a 50% stenosis. When compared to prior a ngiogram, it is grossly unchanged. The second diagonal has a 30% stenosis, which is grossly u nchanged. The LAD wraps around to the apex and provides flow to the apex. 3 . The left circumflex is a nondominant vessel with a large AV groove extending to a large obtuse marginal 1 and then continues on, has roughly a 30% stenosis and then bifurcates into a medium-sized O M2 and OM3, which is smallish, all of which appear to be widely patent otherwise. 4 . The right coronary artery is a dominant vessel. The AV groove has a stent. The stent is noted to be w idely patent without evidence of in-stent restenosis. The PDA and the PLV branches are medium size a nd are noted to be patent. Kamille Feldman MD Cardiology: M RI compatible. She is planning on getting MRI of head, should be fine Kamille Feldman MD Cardiology: B iV CRTP Biotronik. MRI Compatible Kamille Feldman MD Cardiology: B P today: 144/83 P rior BP: 124/84 (06/24/2020) Prior 10 Yr Risk Heart Disease: Not enough information (04/26/2019) Labs Reviewed: C reat: 0.96 (02/16/2019) C hol: 165 (02/16/2019) HDL: 67 (02/16/2019) LDL: 57 (04/23/2019) Kamille Feldman MD Cardiology: H er updated medication list for this problem includes: Protonix 40 Mg Oral Tablet Delayed Release (Pantoprazole sodium) ..... One tab daily Kamille Feldman MD Cardiology:Coronary angiogram: 1 . Left main trunk was large, widely patent, appeared to be grossly normal. 2 . LAD is a large size vessel. It has a high rising small first diagonal and a small second diagonal. 3rd d iagonal is a medium size vessel. This has roughly a 50% stenosis. When compared to prior a ngiogram, it is grossly unchanged. The second diagonal has a 30% stenosis, which is grossly u nchanged. The LAD wraps around to the apex and provides flow to the apex. 3 . The left circumflex is a nondominant vessel with a large AV groove extending to a large obtuse m arginal 1 and then continues on, has roughly a 30% stenosis and then bifurcates into a medium-sized O M2 and OM3, which is smallish, all of which appear to be widely patent otherwise. 4 . The right coronary artery is a dominant vessel. The AV groove has a stent. The stent is noted to be w idely patent without evidence of in-stent restenosis. The PDA and the PLV branches are medium size a nd are noted to be patent. Kamille Feldman MD Cardiology: M RI compatible. She is planning on getting MRI of head, should be fine Kamille Feldman MD Cardiology: B iV CRTP Biotronik. MRI Compatible Kamille Feldman MD Cardiology:ok to receive colonos copy Kamille Feldman MD Cardiology:after adj usting thyroid medications, symptoms have improved Kamille Feldman MD Cardiology: T he following medications were removed from the medication list: Spironolactone 25 Mg Oral Tablet (Spironolactone) ..... Take 1 tablet by mouth once daily Her updated medication list for this problem includes: Chlorthalidone 25 Mg Oral Tablet (Chlorthalidone) ..... 1 tab once daily Metoprolol Tartrate 50 Mg Oral Tablet (Metoprolol tartrate) ..... Take one tab once a day Ramipril 2.5 Mg Oral Capsule (Ramipril) ..... Take 1 capsule by mouth once daily Kamille Feldman MD Cardiology: H er updated medication list for this problem includes: Ramipril 2.5 Mg Oral Capsule (Ramipril) ..... Take 1 capsule by mouth once daily Metformin Hcl 1000 Mg Oral Tablet (Metformin hcl) ..... 1 tab twice daily Kamille Feldman MD Cardiology: H ypothyroid, TSH in 150s, will be getting Amour Thyroid for supplementation instead of synthroid. I beleive that many of her current sx such as fatigue and weaknes are most likely related to this Kamille Feldman MD Cardiology: M IMTIAZ compatible. She is planning on getting MRI of head, should be fine Kamille Feldman MD Cardiology: s /p BIV pacer,, pacer check 07/14. Have her f/u with [facility] in so she can potentially get cleared for orthopedic procedure. C oronary angiogram: 1 . Left main trunk was large, widely patent, appeared to be grossly normal. 2 . LAD is a large size vessel. It has a high rising small first diagonal and a small second diagonal. 3rd d iagonal is a medium size vessel. This has roughly a 50% stenosis. When compared to prior a ngiogram, it is grossly unchanged. The second diagonal has a 30% stenosis, which is grossly u nchanged. The LAD wraps around to the apex and provides flow to the apex. 3 . The left circumflex is a nondominant vessel with a large AV groove extending to a large obtuse m arginal 1 and then continues on, has roughly a 30% stenosis and then bifurcates into a medium-sized O M2 and OM3, which is smallish, all of which appear to be widely patent otherwise. 4 . The right coronary artery is a dominant vessel. The AV groove has a stent. The stent is noted to be w idely patent without evidence of in-stent restenosis. The PDA and the PLV branches are medium size a nd are noted to be patent. S elective injection of bilateral renals was performed in the setting of systemic hypertension as well as s hortness of breath symptoms. This demonstrated single renal artery to each kidney. Each renal artery w as selectively injected with a JR4 catheter. There was no evidence of renal artery stenosis noted b ilaterally. L eft ventriculogram was performed. Ejection fraction is estimated roughly 45% to 50%. This appears to b e roughly the same as what was noted on the prior left ventriculogram from the prior catheterization. Kamille Feldman MD Cardiology Follow up :A1c was 6.6 H er updated medication list for this problem includes: Ramipril 2.5 Mg Oral Capsule (Ramipril) ..... Take 1 capsule by mouth once daily Metformin Hcl 500 Mg Oral Tablet (Metformin hcl) ..... 250-500 mg as needed Kamille Feldman MD Cardiology Follow up : s /p BIV pacer,, pacer check 07/14. Have her f/u with Steve in so she can potentially get cleared for orthopedic procedure. C oronary angiogram: 1. Left main trunk was large, widely patent, appeared to be grossly normal. 2 . LAD is a large size vessel. It has a high rising small first diagonal and a small second diagonal. 3rd d iagonal is a medium size vessel. This has roughly a 50% stenosis. When compared to prior a ngiogram, it is grossly unchanged. The second diagonal has a 30% stenosis, which is grossly u nchanged. The LAD wraps around to the apex and provides flow to the apex. 3 . The left circumflex is a nondominant vessel with a large AV groove extending to a large obtuse m arginal 1 and then continues on, has roughly a 30% stenosis and then bifurcates into a medium-sized O M2 and OM3, which is smallish, all of which appear to be widely patent otherwise. 4 . The right coronary artery is a dominant vessel. The AV groove has a stent. The stent is noted to be w idely patent without evidence of in-stent restenosis. The PDA and the PLV branches are medium size a nd are noted to be patent. Selective injection of bilateral renals was performed in the setting of systemic hypertension as well as s hortness of breath symptoms. This demonstrated single renal artery to each kidney. Each renal artery w as selectively injected with a JR4 catheter. There was no evidence of renal artery stenosis noted b ilaterally. L eft ventriculogram was performed. Ejection fraction is estimated roughly 45% to 50%. This appears to b e roughly the same as what was noted on the prior left ventriculogram from the prior catheterization. Kamille Feldman MD Cardiology Follow up : H er updated medication list for this problem includes: Metoprolol Tartrate 50 Mg Oral Tablet (Metoprolol tartrate) ..... Take one tab once a day Clopidogrel 75mg Tab (Clopidogrel bisulfate) ..... Take 1 tablet by mouth once daily Ramipril 2.5 Mg Oral Capsule (Ramipril) ..... Take 1 capsule by mouth once daily Kamille Feldman MD Cardiology Follow up :BiV CRTP Biotronik. MRI Compatible Kamille Feldman MD Cardiology Follow up :Hypothyroid, TSH in 150s, will be getting Amour Thyroid for supplementation instead of synthroid. I beleive that many of her current sx such as fatigue and weaknes are most likely related to this Kamille Feldman MD Cardiology Follow up :MRI compatible. She is planning on getting MRI of head, should be fine Kamille Feldman MD Cardiology follow up : H er updated medication list for this problem includes: Metoprolol Tartrate 50 Mg Oral Tablet (Metoprolol tartrate) ..... Take one tab once a day Clopidogrel 75mg Tab (Clopidogrel bisulfate) ..... Take 1 tablet by mouth once daily Ramipril 2.5 Mg Oral Capsule (Ramipril) ..... 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 Take one tab once a day Aldactone 25 Mg Oral Tablet (Spironolactone) ..... One tab. daily Ramipril 2.5 Mg Oral Capsule (Ramipril) ..... Take 1 capsule by mouth once daily Alexispollo Mota TeleHealth: Her updated medication list for this problem includes: Metoprolol Tartrate 50 Mg Oral Tablet (Metoprolol tartrate) ..... One tab. twice daily, all other medications reviewed Aldactone 25 Mg Oral Tablet (Spironolactone) ..... One tab. daily Ramipril 2.5mg Cap (Ramipril) ..... Take 1 capsule by mouth once daily Aspirin 325 Mg Oral Tablet (Aspirin) ..... Take one tablet daily Kamille Feldman MD TeleHealth: W Ill get cardiac cath done., check labs first. The risks and benefits of the procedure, including but not limited the risk of heart attack, , stroke, bleeding, kidney failure, and loss of limb as well as the alternative of continued medical therapy, stress testing or bypass surgery were discussed with the patient and any present family members and the patient wishes to proceed with cardiac cath and stenting. The patient and family had opportunity to discuss this with us. Written material including informed consent was given out. Barbara vasquez 1 . Abnormal myocardial imaging after vasodilator stress with Regadenoson. 2 . There is a partially reversible defect involving the inferior wall consistent with infarct with deidre-infarct ischemia. Wall motion is normal in these segments, and the finding may be due to potential artifact from nearby bowel. 3 . Normal left ventricular systolic function with a calculated ejection fraction of 69%. D ES RCA. Coronary angiogram: 1 . Left main trunk was large, widely patent, appeared to be grossly normal. 2 . LAD is a large size vessel. It has a high rising small first diagonal and a small second diagonal. 3rd d iagonal is a medium size vessel. This has roughly a 50% stenosis. When compared to prior a ngiogram, it is grossly unchanged. The second diagonal has a 30% stenosis, which is grossly unchanged. The LAD wraps around to the apex and provides flow to the apex. 3 . The left circumflex is a nondominant vessel with a large AV groove extending to a large obtuse m arginal 1 and then continues on, has roughly a 30% stenosis and then bifurcates into a medium-sized O M2 and OM3, which is smallish, all of which appear to be widely patent otherwise. 4 . The right coronary artery is a dominant vessel. The AV groove has a stent. The stent is noted to be w idely patent without evidence of in-stent restenosis. The PDA and the PLV branches are medium size a nd are noted to be patent. Kamille Feldman MD TeleHealth: H er updated medication list for this problem includes: Atorvastatin Calcium 40 Mg Oral Tablet (Atorvastatin calcium) ..... Take 1 tab daily Kamille Feldman MD TeleHealth: s /p BIV pacer,, pacer check 07/14. Have her f/u with Alvinabhishek in so she can potentially get cleared for orthopedic procedure. C oronary angiogram: 1 . Left main trunk was large, widely patent, appeared to be grossly normal. 2 . LAD is a large size vessel. It has a high rising small first diagonal and a small second diagonal. 3rd d iagonal is a medium size vessel. This has roughly a 50% stenosis. When compared to prior a ngiogram, it is grossly unchanged. The second diagonal has a 30% stenosis, which is grossly u nchanged. The LAD wraps around to the apex and provides flow to the apex. 3 . The left circumflex is a nondominant vessel with a large AV groove extending to a large obtuse m arginal 1 and then continues on, has roughly a 30% stenosis and then bifurcates into a medium-sized O M2 and OM3, which is smallish, all of which appear to be widely patent otherwise. 4 . The right coronary artery is a dominant vessel. The AV groove has a stent. The stent is noted to be w idely patent without evidence of in-stent restenosis. The PDA and the PLV branches are medium size a nd are noted to be patent. S elective injection of bilateral renals was performed in the setting of systemic hypertension as well as s hortness of breath symptoms. This demonstrated single renal artery to each kidney. Each renal artery w as selectively injected with a JR4 catheter. There was no evidence of renal artery stenosis noted b ilaterally. L eft ventriculogram was performed. Ejection fraction is estimated roughly 45% to 50%. This appears to b e roughly the same as what was noted on the prior left ventriculogram from the prior catheterization. Kamille Feldman MD TeleHealth: R ecommend pain specialists. Try heating pad Kamille Feldman MD TeleHealth: H er updated medication list for this problem includes: Protonix 40 Mg Oral Tablet Delayed Release (Pantoprazole sodium) ..... One tab daily Kamille Feldman MD TeleHealth Kamille Feldman MD TeleHealth:s/p BIV p acer C oronary angiogram: 1 . Left main trunk was large, widely patent, appeared to be grossly normal. 2 . LAD is a large size vessel. It has a high rising small first diagonal and a small second diagonal. 3rd d iagonal is a medium size vessel. This has roughly a 50% stenosis. When compared to prior a ngiogram, it is grossly unchanged. The second diagonal has a 30% stenosis, which is grossly u nchanged. The LAD wraps around to the apex and provides flow to the apex. 3 . The left circumflex is a nondominant vessel with a large AV groove extending to a large obtuse m arginal 1 and then continues on, has roughly a 30% stenosis and then bifurcates into a medium-sized O M2 and OM3, which is smallish, all of which appear to be widely patent otherwise. 4 . The right coronary artery is a dominant vessel. The AV groove has a stent. The stent is noted to be w idely patent without evidence of in-stent restenosis. The PDA and the PLV branches are medium size a nd are noted to be patent. S elective injection of bilateral renals was performed in the setting of systemic hypertension as well as s hortness of breath symptoms. This demonstrated single renal artery to each kidney. Each renal artery w as selectively injected with a JR4 catheter. There was no evidence of renal artery stenosis noted b ilaterally. L eft ventriculogram was performed. Ejection fraction is estimated roughly 45% to 50%. This appears to b e roughly the same as what was noted on the prior left ventriculogram from the prior catheterization. Kamille Feldman MD TeleHealth:Improved overall. Less SOB at rest. Says incision has healed well. Kamille Feldman MD TeleHealth: W Ill get cardiac cath done., check labs first. The risks and benefits of the procedure, including but not limited the risk of heart attack, , stroke, bleeding, kidney failure, and loss of limb as well as the alternative of continued medical therapy, stress testing or bypass surgery were discussed with the patient and any present family members and the patient wishes to proceed with cardiac cath and stenting. The patient and family had opportunity to discuss this with us. Written material including informed consent was given out. Barbara vasquez 1 . Abnormal myocardial imaging after vasodilator stress with Regadenoson. 2 . There is a partially reversible defect involving the inferior wall consistent with infarct with deidre-infarct ischemia. Wall motion is normal in these segments, and the finding may be due to potential artifact from nearby bowel. 3 . Normal left ventricular systolic function with a calculated ejection fraction of 69%. D ES RCA. Coronary angiogram: 1 . Left main trunk was large, widely patent, appeared to be grossly normal. 2 . LAD is a large size vessel. It has a high rising small first diagonal and a small second diagonal. 3rd d iagonal is a medium size vessel. This has roughly a 50% stenosis. When compared to prior a ngiogram, it is grossly unchanged. The second diagonal has a 30% stenosis, which is grossly unchanged. The LAD wraps around to the apex and provides flow to the apex. 3 . The left circumflex is a nondominant vessel with a large AV groove extending to a large obtuse m arginal 1 and then continues on, has roughly a 30% stenosis and then bifurcates into a medium-sized O M2 and OM3, which is smallish, all of which appear to be widely patent otherwise. 4 . The right coronary artery is a dominant vessel. The AV groove has a stent. The stent is noted to be w idely patent without evidence of in-stent restenosis. The PDA and the PLV branches are medium size a nd are noted to be patent. Kamille Feldman MD Electrophysiology fo llow up :NORMAL DEVICE FUNCTION W ELL HEALING SCAR [facility] Electrophysiology ho spital follow up : B P today: 130/82 P rior BP: 137/90 (03/15/2019) Labs Reviewed: C reat: 0.96 (02/16/2019) C hol: 165 (02/16/2019) HDL: 67 (02/16/2019) Her updated medication list for this problem includes: Metoprolol Tartrate 50 Mg Oral Tablet (Metoprolol tartrate) ..... One tab. twice daily, all other medications reviewed Aldactone 25 Mg Oral Tablet (Spironolactone) ..... One tab. daily Ramipril 2.5mg Cap (Ramipril) ..... Take 1 capsule by mouth once daily Aspirin 325 Mg Oral Tablet (Aspirin) ..... Take one tablet daily [facility] Electrophysiology [facility] w up [facility] Electrophysiology ho spital follow up : H er updated medication list for this problem includes: Metoprolol Tartrate 50 Mg Oral Tablet (Metoprolol tartrate) ..... One tab. twice daily, all other medications reviewed Aldactone 25 Mg Oral Tablet (Spironolactone) ..... One tab. daily Ramipril 2.5mg Cap (Ramipril) ..... Take 1 capsule by mouth once daily Aspirin 325 Mg Oral Tablet (Aspirin) ..... Take one tablet daily [facility] Electrophysiology ho spital follow up :NORMAL device function w ell healing scar p t anxious causing SOB [facility] Electrophysiology: H er updated medication list for this problem includes: Clopidogrel 75mg Tab (Clopidogrel bisulfate) ..... Take 1 tablet by mouth once daily Ramipril 2.5mg Cap (Ramipril) ..... Take 1 capsule by mouth once daily Aspirin 325 Mg Oral Tablet (Aspirin) ..... Take one tablet daily [facility] Electrophysiology [facility] Electrophysiology: H er updated medication list for this problem includes: Aldactone 25 Mg Oral Tablet (Spironolactone) ..... One tab. daily Ramipril 2.5mg Cap (Ramipril) ..... Take 1 capsule by mouth once daily Aspirin 325 Mg Oral Tablet (Aspirin) ..... Take one tablet daily Alexis Mota Electrophysiology:Se wendy SOB and fatigue. LBBB present severe LV disynchrony D iscussed need for biv pacemaker implantation. Pt agrees with this plan n o need for ICD E cho from today reviewed EF 45% Alexis Mota Cardiology: B P today: 116/88 P rior BP: 110/84 (12/05/2018) Labs Reviewed: C reat: 1.22 (08/24/2017) C hol: 188 (08/24/2017) HDL: 58 (08/24/2017) Kamille Feldman MD Cardiology:Thyroid issues, sees educational program assistant Kamille Feldman MD Cardiology:WIll get cardiac cath done., check labs first. The risks and benefits of the procedure, including but not limited the risk of heart attack, , stroke, bleeding, kidney failure, and loss of limb as well as the alternative of continued medical therapy, stress testing or bypass surgery were discussed with the patient and any present family members and the patient wishes to proceed with cardiac cath and stenting. The patient and family had opportunity to discuss this with us. Written material including informed consent was given out. Barbara vasquez 1 . Abnormal myocardial imaging after vasodilator stress with Regadenoson. 2 . There is a partially reversible defect involving the inferior wall consistent with infarct with deidre-infarct ischemia. Wall motion is normal in these segments, and the finding may be due to potential artifact from nearby bowel. 3 . Normal left ventricular systolic function with a calculated ejection fraction of 69%. D ES RCA. Kamille Feldman MD Cardiology: D ES RCA, 4x12. DAPT 12 mo. Needed until 07/28/18. P t had complaints of fatigue. EKG at PCP's office showed a new LBBB. February 15, 2019 E cho EF 20%. Start aldactone 25 q day, check labs. Have her see SK, suspect BIV ICD. f/u in 1 mo. Have to be concerned about kidney issues. Kamille Feldman MD Cardiology:Sees endo . Most likely has diabetic nephropathy. Sees Krishnan. Kamille Feldman MD Cardiology: D ES RCA, 4x12. DAPT 12 mo. Needed until 07/28/18. P t had complaints of fatigue. EKG at PCP's office showed a new LBBB. Kamille Feldman MD Cardiology:Summary 1 . Abnormal myocardial imaging after vasodilator stress with Regadenoson. 2 . There is a partially reversible defect involving the inferior wall consistent with infarct with deidre-infarct ischemia. Wall motion is normal in these segments, and the finding may be due to potential artifact from nearby bowel. 3 . Normal left ventricular systolic function with a calculated ejection fraction of 69%. D ES RCA. Kamille Feldman MD Cardiology:Echo 2018 Conclusions: 1 . Technically difficult study due to frequent PVC`s. Normal left ventricular size. Normal left v entricular wall thickness. Unable to determine diastolic function due to cardiac arrhythmia. Normal E /E` 9.7. Left ventricular ejection fraction is estimated at 60 %. 2 . No significant valvular abnormalities. Kamille Feldman MD Cardiology: H er updated medication list for this problem includes: Altace 2.5 Mg Oral Capsule (Ramipril) ..... One tab. daily Aspirin 325 Mg Oral Tablet (Aspirin) ..... Take one tablet daily Furosemide 40 Mg Oral Tablet (Furosemide) ..... One tablet per day BP today: 110/80 P rior BP: 122/80 (10/25/2017) Labs Reviewed: C reat: 1.22 (08/24/2017) C hol: 188 (08/24/2017) HDL: 58 (08/24/2017) Kamille Feldman MD Cardiology: R ecommend pain specialists. Kamille Feldman MD Cardiology: D ES RCA, 4x12. DAPT 12 mo. Needed until 07/28/18. P t had complaints of fatigue. EKG at PCP's office showed a new LBBB. Kamille Feldman MD Cardiology: H er updated medication list for this problem includes: Protonix 40 Mg Oral Tablet Delayed Release (Pantoprazole sodium) ..... One tab daily Kamille Feldman MD Cardiology Kamille Feldman MD Cardiology: H er updated medication list for this problem includes: Plavix 75 Mg Oral Tablet (Clopidogrel bisulfate) ..... Take one tablet daily Altace 2.5 Mg Oral Capsule (Ramipril) ..... One tab. daily Aspirin 325 Mg Oral Tablet (Aspirin) ..... Take one tablet daily Orders: E KG ([id number]) Kamille Feldman MD Cardiology: H er updated medication list for this problem includes: Synthroid 175 Mcg Oral Tablet (Levothyroxine sodium) ..... One tab. daily Kamille Feldman MD Cardiology:Has been on Xanax for ~20 years and stopped abruptly by PCP. Pt. is having withdrawal symptoms. Has tried substituting alcohol and minor margharitas and noticed these have not helped with her anxiety symptoms. Needs to be reevaluated and assessed. S chris 2012 when , she has been more dependent. Kamille Feldman MD Cardiology: H er updated medication list for this problem includes: Altace 2.5 Mg Oral Capsule (Ramipril) ..... One tab. daily Aspirin 325 Mg Oral Tablet (Aspirin) ..... Take one tablet daily Furosemide 40 Mg Oral Tablet (Furosemide) ..... One tablet per day BP today: 122/80 P rior BP: 106/70 (08/23/2017) Labs Reviewed: C reat: 1.22 (08/24/2017) C hol: 188 (08/24/2017) HDL: 58 (08/24/2017) Kamille Feldman MD Cardiology:Quit smoking July 8. Kamille Feldman MD Cardiology:SORIN RCA, 4x12. DAPT 12 mo. Needed until 07/28/18. P t had complaints of fatigue. EKG at PCP's office showed a new LBBB. Kamille Feldman MD Cardiology: H er updated medication list for this problem includes: Pravastatin Sodium 40 Mg Oral Tablet (Pravastatin sodium) ..... 1 tab once daily Kamille Feldman MD Cardiology:Currently on Pepcid. T he following medications were removed from the medication list: Pantoprazole Sodium 40 Mg Oral Tablet Delayed Release (Pantoprazole sodium) ..... Take 1 tab by mouth daily Kamille Feldman MD Cardiology:Seeing th yroid specialist. H er updated medication list for this problem includes: Synthroid 175 Mcg Oral Tablet (Levothyroxine sodium) ..... One tab. daily Kamille Feldman MD Cardiology hospital follow up:Recommend pain specialists. Kamille Feldman MD Cardiology hospital follow up:Check lipid and LFTs H er updated medication list for this problem includes: Pravastatin Sodium 40 Mg Oral Tablet (Pravastatin sodium) ..... 1 tab once daily Kamille Feldman MD Cardiology hospital follow up Sa moiz Feldman MD Cardiology hospital follow up:DE S RCA. Kamille Fledman MD Cardiology: H er updated medication list for this problem includes: Pravastatin Sodium 40 Mg Oral Tablet (Pravastatin sodium) ..... 1 tab once daily Nitin Fletcher DO Cardiology: P t had complaints of fatigue. EKG at PCP's office showed a new LBBB. Nitin Fletcher DO Cardiology:has risk factors for cad (age, metabolic syndrome, htn, hld, famliy hx, smoker) inferior ischemia rec cath as she continues to have symptoms. will start baby aspirin. start low dose bb. no strenuous activity. Nitin Fletcher DO Cardiology:Her updat ed medication list for this problem includes: Pravastatin Sodium 40 Mg Oral Tablet (Pravastatin sodium) ..... 1 tab once daily Nathan Menjivar Cardiology:BP today: 120/87 Her updated medication list for this problem includes: Lisinopril-hydrochlorothiazide 20-25 Mg Oral Tablet (Lisinopril-hydrochlorothiazide) ..... One tab. daily Furosemide 20 Mg Oral Tablet (Furosemide) ..... One tab once daily Nathan Menjivar Cardiology:She has l ow ferritin without anemia. She states colonoscopy was normal and she does not have excessive bleedings. Nathan Menjivar Cardiology:Pt had co mplaints of fatigue. EKG at PCP's office showed a new LBBB. No chest pain or SOB. Will obtain regadenosine myoview and echo. Nathan Menjivar Date Name Complete Echo Pacemaker Check MAGNESIUM TSH, free T4, total T3 HEMOGLOBIN A1c LIPID PANEL COMPREHENSIVE METABO LIC PANEL, W/EGFR Arterial Duplex Bi-L ower EX Venous Doppler Bilat eral LE - Reflux Sleep Study Titratio n CRP, high sensitivit y HEMOGLOBIN A1c LIPID PANEL COMPREHENSIVE METABO LIC PANEL, W/EGFR EKG Sleep Study - split night Sleep Study Lipoprotein (a) CRP, high sensitivit y IRON AND TOTAL IRON BINDING CAPACITY FERRITIN CBC (INCLUDES DIFF/P LT) Sleep Study Home Complete Echo BASIC METABOLIC PANE L W/EGFR COMPREHENSIVE METABO LIC PANEL, W/EGFR Other Test THYROID PANEL WITH T SH, 3RD GENERATION X-Ray, Chest - Routi ne CBC (INCLUDES DIFF/P LT) COMPREHENSIVE METABO LIC PANEL W/EGFR PARTIAL THROMBOPLAST IN TIME, ACTIVATED URINALYSIS, COMPLETE W/REFLEX TO CULTURE Pacemaker Bi-V - SLH V PARTIAL THROMBOPLAST IN TIME, ACTIVATED LIPID PANEL CBC (INCLUDES DIFF/P LT) B TYPE NATRIURETIC P EPTIDE (BNP) THYROID PANEL WITH T SH, 3RD GENERATION COMPREHENSIVE METABO LIC PANEL, W/EGFR Cardiac Cath - L/R - GC Complete Echo Stress Regadenoson Complete Echo UA, complete w/refle x to culture URINALYSIS, RANDOM, MICROALB/CREATININE HEMOGLOBIN A1c BASIC METABOLIC PANE L W/EGFR PROBNP, N TERMINAL COMPREHENSIVE METABO LIC PANEL, W/EGFR LIPID PANEL Sleep Study Home Carotid Duplex Bilat eral Sleep Study Home PROTHROMBIN TIME WIT H INR CBC (INCLUDES DIFF/P LT) LIPID PANEL BASIC METABOLIC PANE L W/EGFR STR - Adenosine Complete Echo HISTORY OF PROCEDURES Procedure Date Procedure Name Provider Procedure Notes S tatus Complex e/m visit add on Kamille Feldman MD completed EKG Kamille Feldman MD compl eted EKG Kamille Feldman MD compl eted EKG Kamille Feldman MD compl eted EKG Kamille Feldman MD compl eted EKG Kamille Feldman MD compl eted EKG Kamille Feldman MD compl eted EKG Kamille Feldman MD compl eted Schedule Pacer Check Kamille Feldman MD schedu le at next OV completed EKG Kamille Feldman MD compl eted EKG Kamille Feldman MD compl eted EKG Lolly Wilson MD comp leted Protime Lolly Wilson MD comp leted EKG Lolly Wilson MD comp leted FVC / MVV - 17030 Lolly Wilson MD completed FRC - 29724 Lolly Wilson MD com pleted SpO2 w/o 6min walk/titration Lolly Wilson MD completed DLCO - [id number] Lolly Wilson MD co mpleted Schedule Followup Kamille Feldman MD TO SEE DR. WILSON completed EKG Lebron Lennon completed Regadenoson, 4 units Bartolome Ellis MD completed Cardiolite, 2 units Bartolome Ellis MD completed SPECT Images Bartolome Ellis MD comple mayito Stress EKG Bartolome Ellis MD complete d EKG Kamille Feldman MD compl eted EKG Kamille Feldman MD compl eted EKG Kamille Feldman MD compl eted Ultrasound, retroperitoneal, complete Kamille Feldman MD completed EKG Kamille Feldman MD compl eted EKG Nitin ray DO completed Stress EKG Asher Zafar MD completed Regadenoson, 4 units Asher Zafar MD completed Cardiolite, 2 units Asher Zafar MD completed SPECT Images Asher Zafar MD completed EKG Tramaine Correa MD completed
--- OUTSIDE RECORDS SUMMARY | 2024-04-11 15:28 | XMS_ITS | Encounter Summary ---
Author Organization [facility] Healthcare Address [address] [place] [address] Care Team Providers Care Silver Recovery Operator Name Role Phone Lolly Wilson MD Unavailable Encounter Details Date Type Department Care Team (Late st Contact Info) Description 04/02/2024 Telephone [facility] Cardiology [address] [place] [address] Mayco Casey MD [address] [place] [id number] Social History Tobacco Use Types Packs/Day Years Used Date Smoking Tobacco: Former Cigarettes Q uit: 2018 Smokeless Tobacco: Never Alcohol Use Standard Drinks/Week Comments No 0 (1 standard drink = 0.6 oz pur e alcohol) Comments Unknown Sex and Gender Information Value Date Recorded Sex Assigned at Not on file Legal Sex Female 4:58 PM EDGE BLACKER Gender Identity Female 09/23/2020 12:41 PM CDT Sexual Orientation Not on file documented as of this encounter Miscellaneous Notes * Telephone Encounter - Mayco Casey MD - 04/02/2024 12:54 PM EDGE BLACKER Thank you for letting me know. Will follow-up on the results BLACKER * Telephone Encounter - Roselia Barlow RN - 04/02/2024 12:47 PM EDGE BLACKER MOHIT Spoke with pt, she was planning to go get her labs drawn today at [facility] but she was trying to verify that they took her insurance first. She has a call out to them and is waiting to hear back and then she will go. Advised pt to callback if she needs an order sent to a different lab-she appreciated the call. BLACKER * Telephone Encounter - Mayco Casey MD - 04/02/2024 12:14 PM EDGE BLACKER Hello, This patient is supposed to get blood work done. I saw this patient March 18 and I ordered bloodwork to be done in 2 weeks. Can you please call the patient and follow up on the lab results. Thankyou BLACKER documented in this encounter Plan of Treatment Not on file documented as of this encounter Visit Diagnoses Not on filedocumented in this encounter Care Teams Silver Recovery Operator Relationship Specialty Start Date End Date Lolly Wilson MD [address] [place] [address] Consulting Physician Cardiology 04/12/19 documented as of this encounter
--- OUTSIDE RECORDS SUMMARY | 2024-04-11 15:28 | XMS_ITS | Clinical Summary ---
Author Organization [facility] Rashi Owens Address [address] [place] [address] Care Team Providers Care Drum Drier Name Role Phone Provider, Abstract Primary Care Provider Unavail able Allergies Active Allergy Reactions Criticality Noted Date Comments Pregabalin Anaphylaxis High 04/11/2019 Tongue swelling Medications diphenhydrAMIN E-acetaminophe n (Tylenol PM Extra Strength) 25-500 mg Tablet Take by mouth. 0 Active acetaminophen (TYLENOL) 325 mg tablet Take 650 mg by mouth. 0 Active acyclovir (ZOVIRAX) 800 mg tablet acyclovir 800 mg tablet TK 1 T PO 5 TIMES PER DAY FOR 7 DAYS Active atorvastatin (LIPITOR) 40 mg tablet atorvastatin 40 mg tablet 0 Active baclofen (LIORESAL) 10 mg tablet baclofen 10 mg tablet TAKE 1 2 TO 1 (ONE HALF TO ONE) TABLET BY MOUTH THREE TIMES DAILY NEEDED 0 Active cephALEXin (KEFLEX) 500 mg capsule cephalexin 500 mg capsule TAKE 1 CAPSULE BY MOUTH THREE TIMES DAILY Active chlorthalidone (HYGROTON) 25 mg tablet chlorthalidone 25 mg tablet Active Cholecalcifero l, Vitamin D3, 50 mcg (2,000 unit) Capsule Vitamin D3 50 mcg (2,000 unit) capsule Take 1 capsule every day by oral route in the morning for 90 days. Active thyroid, pork, (ARMOUR THYROID) 90 mg tablet Take 90 mg by mouth daily. Active thyroid, pork, (ARMOUR THYROID) 60 mg tablet Take 60 mg by mouth daily. Active vilazodone (Viibryd) 40 mg Tablet Take 40 mg by mouth daily. Active Active Problems Problem Noted Date Diagnosed Date Iron deficiency anemia 05/12/2020 Family History Medical History Relation Name Comments Diabetes Daughter Anemia Father Diabetes Father Heart Disease Father Heart Disease Mother Relation Name Status Comments Daughter Alive Father Alive Mother Social History Tobacco Use Types Packs/Day Years Used Date Smoking Tobacco: Never Smokeless Tobacco: Never Alcohol Use Standard Drinks/Week Comments Never 0 (1 standard drink = 0.6 oz pur e alcohol) Comments No Sex and Gender Information Value Date Recorded Sex Assigned at Not on file Legal Sex Female 12:50 PM SUPERINTENDENT TRACK Gender Identity Not on file Sexual Orientation Not on file Last Filed Vital Signs Vital Sign Reading Time Taken Comments Blood Pressure 105/76 05/12/2020 3:12 PM CDT Pulse 91 05/12/2020 3:12 PM CDT Temperature 36.8 C (98.3 F) 05/12/2020 3:12 PM CDT Respiratory Rate - - Oxygen Saturation 96% 05/12/2020 3:12 PM CDT Inhaled Oxygen Concentration - - Weight 110.7 kg (244 lb 1.6 oz) 05/12/2020 3:12 PM CDT Height 165.1 cm (5' 5 ) 05/12/2020 3:12 PM CDT Body Mass Index 40.62 05/12/2020 3:12 PM CDT Plan of Treatment Health Maintenance Due Date Last Done Comments DIABETES ANNUAL FOOT EXAM 1982 DIABETES ANNUAL RETINAL EXAM 1982 DIABETES HBA1C Q 6 MONTHS 1982 DIABETES MICROALBUMIN ANNUAL SCREEN 1982 LDL CHOLESTEROL ANNUAL 1982 DTAP/TDAP/TD VACCINES (1 - Tdap) 10/09/1983 HEPATITIS B VACCINES (1 of 3 - 19+ 3-dose series) 03/1983 CERVICAL CANCER SCREENING 1994 BREAST CANCER SCREENING 2004 COLORECTAL SCREENING 2009 Colorectal Cancer Screening 2009 FIT-DNA Q 3 years 2009 FIT/FOBT Q 1 year 2009 Flex Sig/CT Colonography Q 5 years 2009 ZOSTER VACCINE (1 of 2) 2014 INFLUENZA VACCINE (#1) 2023 Care Teams Drum Drier Relationship Specialty Start Date End Date Provider, Abstract NO ADDRESS ON FILE PCP - General 05/12/20
--- OUTSIDE RECORDS SUMMARY | 2024-04-11 15:28 | XMS_ITS | Clinical Summary ---
Author Organization [facility] Address [address] [place] [address] Phone Care Team Providers Care Rug Touch Up Painter Name Role Phone GENARO ASAD-MIKELERIKA Unavailable [phone] VIDA TSANG Primary Care Provider [phone] Reason for Visit and Chief Complaint The Chief Complaint is: 3 month follow up Plan of Treatment Pending Tests Order Diagnosis Results Due Ordering P rovider Pain Management CPT - Epidural Steroid Inj Transforaminal, Lumbar or Sacral 1st level Radiculopathy, lumbar region 08/17/23 TJ SIDHU DIRECTOR PHARMACOLOGY-FPA, MUSIC PROFESSOR-BC Last Documented On 4 1:55PM ; [facility] Pain Management CPT - Joints and Bursa Inj Major joint/bursa injection w/ U/S Osteoarthritis of knee, unspecified 08/17/23 TJ SIDHU DIRECTOR PHARMACOLOGY-FPA, MUSIC PROFESSOR-BC Last Documented On 4 9:43AM ; [facility] Education and Decision Aids were provided during visit for: Pill Count: HYSINGLA Last Documented On 4 1:49PM ; [facility] Assessments Includes: Assessments from this encounter Findings - [M17.11 - Unilateral primary osteoarthritis, right knee] Localized osteoarthritis of right knee - Last Documented On 07/18/2023 2:55PM ; [facility] - [M17.12 - Unilateral primary osteoarthritis, left knee] Localized osteoarthritis of left knee - Last Documented On 07/18/2023 2:55PM ; [facility] - [M46.1 - Sacroiliitis, not elsewhere classified] Sacroiliitis - Last Documented On 07/18/2023 2:55PM ; [facility] - [M47.816 - Spondylosis without myelopathy or radiculopathy, lumbar region] Lumbar spondylosis without myelopathy or radiculopathy - Last Documented On 07/18/2023 2:55PM ; [facility] - [M48.07 - Spinal stenosis, lumbosacral region] Lumbosacral spinal stenosis - Last Documented On 07/18/2023 2:55PM ; [facility] - [M79.18 - Myalgia, other site] Myalgia - Last Documented On 07/18/2023 2:55PM ; [facility] - [G89.4 - Chronic pain syndrome] Chronic pain syndrome - Last Documented On 07/18/2023 2:55PM ; [facility] - [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] 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 - Last Documented On 07/18/2023 2:55PM ; [facility] Instructions Includes: Instructions from this encounter Education and Decision Aids were provided during visit for: Pill Count: HYSINGLA Last Documented On 4 1:49PM ; [facility] Medical Equipment - Implanted Devices Includes: Current Devices No Medical Equipment Recorded Medications Includes: Medications discussed during this encounter and other current Medications Discontinued / Stopped on this date SIA RAYO on 06/01/2023 Valium 2 MG Oral Tablet Provider: ANDREY DEVIBC Diagnosis: Last Documented On 4 2:30PM By TJ STOVALL ; [facility] New / Renewed during this visit SIA RAYO on 07/18/2023 Hysingla ER 20 MG Oral Tablet ER 24 Hour Abuse-Deterrent Provider: SIA RAYO 30 day supply: 30 tablet, 0 refills 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, lumbar region One tablet daily Pharmacy: [facility] [address], [address] - Last Documented On 4 2:34PM By TJ STOVALL ; [facility] Current Medications (continue as prescribed) Baclofen 10 MG Oral Tablet 07/12/2023 Provider: SIA SCHMITT Diagnosis: Spinal stenosis, lumbosacral region TAKE 1/2 TO 1 (ONE-HALF TO O NE) TABLET BY MOUTH THREE TIMES DAILY NEEDED Last Documented On 4 2:34PM By TJ STOVALL ; [facility] Synthroid 200 MCG Oral Tablet 12/07/2022 Provider: Diagnosis: Last Documented On 4 2:34PM By TJ STOVALL ; [facility] Trulicity 1.5 MG/0.5ML Subcutaneous Solution Pen-injec tor 11/28/2022 Provider: Diagnosis: Last Documented On 4 2:34PM By TJ STOVALL ; [facility] Vitamin D3 50 MCG (1999 [place]) Oral Capsule 08/24/2021 Provider: Diagnosis: Last Documented On 2 10:55AM By TJ STOVALL ; [facility] Valerian Root 450 MG Oral Capsule 08/24/2021 Provide r: Diagnosis: Last Documented On 2 10:55AM By TJ STOVALL ; [facility] Tylenol PM Extra Strength 500-25 MG Oral Tablet 2021 Provider: Diagnosis: Last Documented On 2 10:55AM By TJ STOVALL ; [facility] Melatonin 10 MG Oral Capsule 08/24/2021 Provider : Diagnosis: Last Documented On 2 10:55AM By TJ STOVALL ; [facility] Vilazodone HCl 40 MG Oral Tablet 08/18/2021 Provider : Diagnosis: Last Documented On 2 10:55AM By TJ STOVALL ; [facility] Pregabalin 150 MG Oral Capsule 08/18/2021 Provider: Diagnosis: Last Documented On 2 10:55AM By TJ STOVALL ; [facility] Metoprolol Tartrate 50 MG Oral Tablet 08/04/2021 Pro vider: Diagnosis: Last Documented On 2 10:55AM [facility] ; [facility] Magnesium Oxide 400 (240 Mg) MG Oral Tablet 07/27/2021 Provider: Diagnosis: Last Documented On 2 10:55AM By TJ PASTORMIKEL ; [facility] Chlorthalidone 25 MG Oral Tablet 06/07/2021 Provider : Diagnosis: Last Documented On 2 10:55AM By TJ SIDHU MUSIC PROFESSORMIKEL ; [facility] One Touch Ultra 2 Device 07/05/2018 Provider: Diagnosis: Last Documented On 2 10:55AM By [facility]HU [facility] one touch ultra strips Topical Strip 07/05/2018 Prov ider: Diagnosis: Last Documented On 2 10:55AM By TJ SIDHU [facility] ; [facility] Topiramate 100MG Oral Tablet 07/05/2018 Provider: Diagnosis: Last Documented On 2 10:55AM By TJ FITCHMIKEL ; [facility] traZODone HCl 100MG Oral Tablet 07/05/2018 Provider: Diagnosis: 2 @ night Last Documented On 2 10:55AM By TJ SIDHU [facility] ; [facility] Pantoprazole Sodium 40MG Oral Tablet Delayed Release 0 07/05/2018 Provider: Diagnosis: Last Documented On 2 10:55AM By TJ SIDHU [facility] ; [facility] metFORMIN HCl 500MG Oral Tablet 07/05/2018 Provider: Diagnosis: Last Documented On 2 10:55AM By TJ SIDHU [facility] ; [facility] Atorvastatin Calcium 40MG Oral Tablet 07/05/2018 Pro vider: Diagnosis: Last Documented On 2 10:55AM By TJ SIDHU [facility] ; [facility] Clopidogrel Bisulfate 75MG Oral Tablet 07/05/2018 Pr ovider: Diagnosis: Last Documented On 2 10:55AM By TJ SIDHU [facility] ; [facility] Past Medications on file tiZANidine HCl 2 MG Oral Tablet 04/14/2022 - 05/14/2022 Provider: ERIKA LAM ANP- Diagnosis: Myalgia, other s ite 1-2 bid prn Last Documented On 04/14/2022 1:51PM By JERICA Starks LPN ; [facility] Medications Administered Includes: Administered Medications from this encounter No Administered Medications Recorded Vital Signs Includes: Vital Signs from this encounter Vital Name 07/18/2023 01:54P Blood Pressure Sitting R 114/72 BP Cuff Size Large Pulse Rate-Sitting (bpm) 91 Temp-Temporal 96.9 Height (in) 65 Weight (lb) 225 Body Mass Index 37.4 Body Surface Area 2.1 Pain Level 6 Oxygen Saturation (%) 95 Last Documented: On 07/18/2023 1:56PM ; [facility] Results Includes: Results discussed during this encounter No Results Recorded For Specified Dates History of Present Illness Includes: History of Present Illness from this encounter MIREYA MEYERS is a 57 year old female. - Allergy list reviewed - Problem list reviewed - Medication reconciliation performed - Medication list reviewed with patient - Prescription Drug Monitoring Program website checked. 06/20/2023 - How much of the medication are you taking a day? ONCE A DAY - Last dose of medication? LAST NIGHT - Last drug screen appropriate 04/19/2023 Discussion: Patient of NINAIban: Here for FU after CT lumbar spine which showed likely spinal stenosis at L4-5 and DDD at L5-S1. A MRI could not be done because of a pacemaker. She is having back pain that goes down both legs in a L4 and L5 dermatomal pattern with numbness and tingling when she stands for very long. No loss of bowel or bladder control. She has a hard time standing upright. She has to lean on a cart when in stores. She can stand maybe 15 minutes before she has to sit down. She has had epidural steroid injections in the past that were helpful. Her last one was almost 5 years ago and provided at least 50% relief for at least 6 months. She also had lumbar ablation that was helpful 2 years ago. Since she is having radicular symptoms currently, I would recommend epidural injection at this time. If this takes care of her radicular symptoms then we can consider repeating ablation if needed. PT has never been helpful and made her pain worse. She attempts her home stretches and exercises when she can but they are painful for her. Her condition is complicated by Fibro. Also having a lot of knee pain. Previously Euflexxa was very beneficial for her giving her at least 80% pain relief for 4 months then over the last 3 months pain has started to slowly return. She had at least 50% improvement for at least 6 months. Knee ablation may be helpful but limited by insurance. Steroid injection for knees not helpful. Past note: Patient presents in follow up. She suffers from chronic pain. Knee pain has been more severe. She has a pending CT scan just recently approved. I encouraged her to call and schedule this with facility. MRI could not be done r/t pacemaker. She reports levothyroxine dosage has been increased and she notes feeling a little better in regards myalgia and overall pain. She had labs done by national investigative producer including rheumatologic labs, which were abnormal. She is being referred to a speech language pathologist prn, but this has been difficult. Past note: Patient presents in follow up for multiple complaints. She reports not doing well overall. Complains of pain everywhere; her knees, low back, hips and myalgia. History of fibromyalgia that does not appear to be well controlled. She is also anxious regarding recent pulmonary nodules found on imaging. Statistical Financial Analyst has not been seen, has f/u soon. She had thought labs were off at one point. She questions going back to short acting medication. She doesn't feel hysingla and tizanidine are working. However, she didn't feel hydrocodone 5/325mg tid was working well either. I question if she experienced a degree of energy from short acting medication that made her feel somewhat better than current medication. With everything she has going on, I don't recommend changing medication at this time. I don't believe med changes will make a difference. She is anxious and we need to get fibromyalgia symptoms controlled. Also need to ensure thyroid levels are appropriate. This has been an issue in the past. She continues home exercises for the back and knees. Left knee has bee swelling when she is on it for any amount of time. It feels unstable at times. We discussed an MRI, but she would like to hold off or now. We will go back to baclofen as she felt it was more effective and didn't cause her blood pressure to bottom out and leave her at current dose of hysingla. Past note: Patient presents in follow up for medication. She was switched to tizanidine in place of baclofen. She does not feel this is helpful and would like to change this medication. Patient complains of constant stiffness. She has also learned of lung nodules since last seen. She is undergoing more testing and seeing a machine turner. Her knee pain is increased some, but tolerable at this point. These were completed December 22, 2021 90% relief and improved mobility. Hydrocodone 5/325mg is not helping as much, not lasting. Her polyarthralgia and back pain still limit her. We discussed switching to a long acting medication. We will prescribe hysingla at lowest dose, 20mg. This is a 5 mg increase in dosage. Morphine ER is not appropriate, no dosage available to accommodate current dosage. Amendment: Patient was prescribed duloxetine June- July 2021. This was discontinued due somnolence and she describes exacerbation of thyroid symptoms. She is currently taking pregabalin, vyybrid and trazadone. Nsaids avoided due to cardiac risks. Past note: Here for routine follow up and medication refills. She has been a little frustrated lately due to some new findings/other health concerns. She seems a bit overwhelmed and down today. She states she just lost a 7 year relationship due to all of her health issues. The Hydrocodone continues to offer her good relief of her pain so she maintain function levels. She is frustrated because she always has to use a wheelchair for any extended periods where she has to walk or stand such as grocery shopping. She is too young for knee replacements she tells me. She was interested in a pain pump but we are likely limited by insurance on this. She reports an increase in muscle stiffness and spasms. Much of this is likely due to her extremely sedentary lifestyle and lack of exercise. She would likely benefit from some intensive therapy but in the past this has always increased her pain. She has been on Baclofen for awhile so we can consider changing this to see if it helps with her muscle symptoms. The only other muscle relaxer she has tried that I can see from previous notes is Cyclobenzaprine. She stopped this due to dizziness and somnolence. She would like to try this. She still feels like she is benefitting from the lumbar ablation and the Euflexxa injections. Aleve helps but she is supposed to avoid NSAIDs due to her CAD and she is on Plavix. I warned her about the increased risks of NSAID use in this setting and she verbalizes understanding. She states she only takes it on days when she knows she has to go out and do something. Past note: Patient is a follow up after a series of three Euflexxa injections for bilateral knee pain related to osteoarthritis. She reports 90% overall symptom relief. She is able to walk further with less pain. There is a degree of polyarthralgia and low back pain. She does feel the RF ablation is still helping. Patient in on hydrocodone as needed. This provides good symptom relief and allows her to maintain function levels. She does not need a refill at this time. She will follow up in office within the next month related to chronic opioid therapy. Past note: Patient presents in follow up to bilateral L3, L4, L5 radiofrequency ablation done 3-4 weeks ago. She reports 80-90% relief ongoing. She would be more active, but the knee pain is limiting her ability to do much of anything. She has continued home exercises on the knees as tolerated, but often this is too painful. She attempted about a year ago, but stopped due to pain. Viscosupplementation injections provided 60-70% relief and definite improved mobility. Overall, she was functioning about 80% better for the past 6 months. A series of 3 Euflexxa injections were done in April/May 2021. She failed steroid injections. She is on chronic opioid therapy. She is trying to avoid total knee replacement and is likely not a candidate due to bmi and degree of OA. Recommend repeating Euflexxa injections at this time. Addendum: Patient has attempted therapy multiple times in the past for chronic knee, but stopped due to increased knee pain as well as increased pain related to fibromyalgia. She does not utilize nsaids due to anticoagulant therapy. Tylenol used as needed, in additional to hydrocodone. Ice used as tolerated. She is having some increased myalgia likely related to thyroid. She reports hypothyroidism, level about 29, about 4 weeks ago. She had medication slightly adjusted, but still is not feeling better. She is being tested for Cushings' disease. FIRST VISIT: Patient presents in follow-up for chronic pain, specifically ongoing low back pain. This has progressively worsened for years. Pain is limiting her ability to perform simple ADL's. She is not sleeping well. Pain is axial in nature and worsens with flexion/extension, standing and walking. She gets short term relief with medication and rest. She has attempted physical therapy multiple times for low back complaints, but this has caused more pain and and mobility each time. I do not recommend further therapy at this point. She does mild lumbar stretches as tolerated. We have obtained cardiac clearance to proceed with lumbar procedures. Knee pain is still doing relatively well following Visco supplementation completed in May. She continues hydrocodone as needed with benefit. This does allow her to do simple activities with a degree of less pain. We discussed a series of medial branch blocks with progression to RF ablation to treat symptoms related to facet arthropathy. She is willing to proceed at this time. Imaging: All relevant imaging available was personally reviewed with the patient today with the following tests and results noted: MRI L spine 08/13/2018: mild to moderate facet joint disease, worse at L3-4 and L4-5. Mild bilateral neural foraminal stenosis at L4-5 with mild central canal stenosis. At L5-S1 moderate left neural foraminal stenosis and mild central canal stenosis. X-ray L spine 06/13/2016: lumbar DDD and facet arthropathy. Bilateral SI joint degenerative changes. MRI Brain : Posterior fossa unremakable. Partially empty sella. Brainstem and craniocervical junction unremarkable. No evidence of cerebral infarction. No hydrocephalus. Mild thickening of right frontal, both posteiro ethmoid air celss and both maxillary sinuses. Normal arterial flow. C spine MRI 08/05/20: Multilevel cervical spondylosis with disc bulging. Multilevel facet hypertrophy. T spine MRI 08/05/20: Multilevel disc bulges, most advanced at T7-8 with mild canal stenosis. MIld multilevel bilateral facet arthropathy. L spine MRI 08/05/20: Multilevel spondylosis and facet osteoarthropathy, greatest and moderate to severe at L3-S1 resulting in mild, bilateral L4-5 and L5-S1 neuroforaminal stenosis. Xray L Knee 04/26/21 Mild to moderate tricompartmental osteoarthritis Xray Knees Bilat 08/25/2020 Tricompartnental degenerative changes of both knees, greatest in the medial compartments CT Left knee 07/18/22: Severe medial compartment osteoarthritis with tricompartmental residual. Social History Description Last Updated Smoking status : Never smoker 01/16/2019 Last Documented On 4 1:49PM ; [facility] Procedures and Surgical History Includes: Procedures from this encounter Procedures Code Diagnosis Performing Provider Service Location Service Date CLINIC VISIT [id number] 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 myelopathy or radiculopathy, lumbar region, Spinal stenosis, lumbosacral region, Bilateral primary osteoarthritis of knee TJ HICKSLP DIRECTOR PHARMACOLOGY-FPA, MUSIC PROFESSOR-BC [facility] 07/18/2023 Last Documented On 4 4:02PM ; [facility] use of tobacco assessment performed 1000F Last Documented On 4 1:49PM ; [facility] review of medications documented 1160F Last Documented On 4 1:49PM ; [facility] assessment of suicide risk performed Last Documented On 4 1:49PM ; [facility] screening for adult depression: impressi on and score five Last Documented On 4 1:49PM ; [facility] standardized depression screening: posit fernando for symptoms Last Documented On 4 1:49PM ; [facility] SOAPP-R: total score 12 Last Documented On 4 1:49PM ; [facility] Surgical History Last Updated Prior surgery Pacemaker 10/28/2021 Last Documented On 4 1:49PM ; [facility] Medical History Includes: Medical History addressed during this encounter Description Last Updated Denies a fear of falling. 04/19/2023 Last Documented On 4 1:49PM ; [facility] Has had no fall in the last 12 months. 0 04/19/2023 Last Documented On 4 1:49PM ; [facility] Reviewed and Unchanged 04/23/2019 Last Documented On 4 1:49PM ; [facility] Currently wearing eyeglasses 07/05/2018 Last Documented On 4 1:49PM ; [facility] Wearing contact lenses 07/05/2018 Last Documented On 4 1:49PM ; [facility] History of arthritis 07/05/2018 Last Documented On 4 1:49PM ; [facility] History of diabetes mellitus 07/05/2018 Last Documented On 4 1:49PM ; [facility] History of hypertension 07/05/2018 Last Documented On 4 1:49PM ; [facility] Reported cardiovascular symptoms 019 Last Documented On 4 1:49PM ; [facility] Family History Includes: Family History addressed during this encounter No Family History Recorded Review of Systems Includes: Review of Systems from this encounter Systemic: No systemic symptoms other than noted, no fever, and no chills. Head: No head symptoms other then noted. Neck: No neck pain. Cardiovascular: No chest pain or discomfort. Pulmonary: No dyspnea. Gastrointestinal: No constipation. Endocrine: No endocrine symptoms other than noted. Hematologic: No easy bleeding and no tendency for easy bruising. Musculoskeletal: Lower back pain, hip joint pain, knee pain,, hip joint stiffness, and lower leg pain. Neurological: No fainting passing out with needles or medical procedures, no motor disturbances, and no sensory disturbances. Psychological: No psychological symptoms other than noted, no anxiety, and no depression. Skin: No skin symptoms other than noted and no rash. Mental Status Includes: Mental Status from this encounter Description No anxiety Functional Status Includes: Functional Status from this encounter No Functional Status Recorded Physical Exam Includes: Physical Exam from this encounter Allergies Includes: Active Allergies Substance Type Reaction Onset Date Resolved Date Statu s Surgical Tape Allergy Skin Rashes / Eruption of skin 05/12 Active Last Documented On 4 1:54PM ; [facility] Encounters Encounter Provider Location Date Check-In Time Check-Out Time Diagnosis PAIN MANAGEMENT FOLLOW UP TJ SIDHU DIRECTOR PHARMACOLOGY-FPA, MUSIC PROFESSOR-BC [facility] 07/18/19 24 1:20PM 2:39PM Chronic Pain Syndrome,Sacroil iitis,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 Region,Spinal Stenosis Lumbosacral,Oste oarthritis Localized Knee Right,Osteoarthr itis Localized Knee Left,Myalgia,Khari g Term Use of Opiate Analgesic Insurance Includes: Active Insurance Policies Plan Name Member ID Group # Subscriber Relationship Effect fernando Dates 1 - [facility] [id number] ADRIANA MEYERS Self Clinical Notes Includes: Clinical Notes from this encounter * Progress note Date Encounter Last Documented by 07/18/2023 PAIN MANAGEMENT FOLLOW UP Last d ocumented on 07/18/2023; 2:55 PM, TJ SIDHU DIRECTOR PHARMACOLOGY-FPA, MUSIC PROFESSOR-BC; [facility] Chief Complaint The Chief Complaint is: 3 month follow up. History of Present Illness ADRIANA MEYERS is a 57 year old female. - Allergy list reviewed - Problem list reviewed - Medication reconciliation performed - Medication list reviewed with patient - Prescription Drug Monitoring Program website checked. 06/20/2023 - How much of the medication are you taking a day? ONCE A DAY - Last dose of medication? LAST NIGHT - Last drug screen appropriate 04/19/2023 Discussion: Patient of Ernie: Here for FU after CT lumbar spine which showed likely spinal stenosis at L4-5 and DDD at L5-S1. A MRI could not be done because of a pacemaker. She is having back pain that goes down both legs in a L4 and L5 dermatomal pattern with numbness and tingling when she stands for very long. No loss of bowel or bladder control. She has a hard time standing upright. She has to lean on a cart when in stores. She can stand maybe 15 minutes before she has to sit down. She has had epidural steroid injections in the past that were helpful. Her last one was almost 5 years ago and provided at least 50% relief for at least 6 months. She also had lumbar ablation that was helpful 2 years ago. Since she is having radicular symptoms currently, I would recommend epidural injection at this time. If this takes care of her radicular symptoms then we can consider repeating ablation if needed. PT has never been helpful and made her pain worse. She attempts her home stretches and exercises when she can but they are painful for her. Her condition is complicated by Fibro. Also having a lot of knee pain. Previously Euflexxa was very beneficial for her giving her at least 80% pain relief for 4 months then over the last 3 months pain has started to slowly return. She had at least 50% improvement for at least 6 months. Knee ablation may be helpful but limited by insurance. Steroid injection for knees not helpful. Past note: Patient presents in follow up. She suffers from chronic pain. Knee pain has been more severe. She has a pending CT scan just recently approved. I encouraged her to call and schedule this with facility. MRI could not be done r/t pacemaker. She reports levothyroxine dosage has been increased and she notes feeling a little better in regards myalgia and overall pain. She had labs done by national investigative producer including rheumatologic labs, which were abnormal. She is being referred to a speech language pathologist prn, but this has been difficult. Past note: Patient presents in follow up for multiple complaints. She reports not doing well overall. Complains of pain everywhere; her knees, low back, hips and myalgia. History of fibromyalgia that does not appear to be well controlled. She is also anxious regarding recent pulmonary nodules found on imaging. Statistical Financial Analyst has not been seen, has f/u soon. She had thought labs were off at one point. She questions going back to short acting medication. She doesn't feel hysingla and tizanidine are working. However, she didn't feel hydrocodone 5/325mg tid was working well either. I question if she experienced a degree of energy from short acting medication that made her feel somewhat better than current medication. With everything she has going on, I don't recommend changing medication at this time. I don't believe med changes will make a difference. She is anxious and we need to get fibromyalgia symptoms controlled. Also need to ensure thyroid levels are appropriate. This has been an issue in the past. She continues home exercises for the back and knees. Left knee has bee swelling when she is on it for any amount of time. It feels unstable at times. We discussed an MRI, but she would like to hold off or now. We will go back to baclofen as she felt it was more effective and didn't cause her blood pressure to bottom out and leave her at current dose of hysingla. Past note: Patient presents in follow up for medication. She was switched to tizanidine in place of baclofen. She does not feel this is helpful and would like to change this medication. Patient complains of constant stiffness. She has also learned of lung nodules since last seen. She is undergoing more testing and seeing a machine turner. Her knee pain is increased some, but tolerable at this point. These were completed December 22, 2021 90% relief and improved mobility. Hydrocodone 5/325mg is not helping as much, not lasting. Her polyarthralgia and back pain still limit her. We discussed switching to a long acting medication. We will prescribe hysingla at lowest dose, 20mg. This is a 5 mg increase in dosage. Morphine ER is not appropriate, no dosage available to accommodate current dosage. Amendment: Patient was prescribed duloxetine June- July 2021. This was discontinued due somnolence and she describes exacerbation of thyroid symptoms. She is currently taking pregabalin, vyybrid and trazadone. Nsaids avoided due to cardiac risks. Past note: Here for routine follow up and medication refills. She has been a little frustrated lately due to some new findings/other health concerns. She seems a bit overwhelmed and down today. She states she just lost a 7 year relationship due to all of her health issues. The Hydrocodone continues to offer her good relief of her pain so she maintain function levels. She is frustrated because she always has to use a wheelchair for any extended periods where she has to walk or stand such as grocery shopping. She is too young for knee replacements she tells me. She was interested in a pain pump but we are likely limited by insurance on this. She reports an increase in muscle stiffness and spasms. Much of this is likely due to her extremely sedentary lifestyle and lack of exercise. She would likely benefit from some intensive therapy but in the past this has always increased her pain. She has been on Baclofen for awhile so we can consider changing this to see if it helps with her muscle symptoms. The only other muscle relaxer she has tried that I can see from previous notes is Cyclobenzaprine. She stopped this due to dizziness and somnolence. She would like to try this. She still feels like she is benefitting from the lumbar ablation and the Euflexxa injections. Fabiola helps but she is supposed to avoid NSAIDs due to her CAD and she is on Plavix. I warned her about the increased risks of NSAID use in this setting and she verbalizes understanding. She states she only takes it on days when she knows she has to go out and do something. Past note: Patient is a follow up after a series of three Euflexxa injections for bilateral knee pain related to osteoarthritis. She reports 90% overall symptom relief. She is able to walk further with less pain. There is a degree of polyarthralgia and low back pain. She does feel the RF ablation is still helping. Patient in on hydrocodone as needed. This provides good symptom relief and allows her to maintain function levels. She does not need a refill at this time. She will follow up in office within the next month related to chronic opioid therapy. Past note: Patient presents in follow up to bilateral L3, L4, L5 radiofrequency ablation done 3-4 weeks ago. She reports 80-90% relief ongoing. She would be more active, but the knee pain is limiting her ability to do much of anything. She has continued home exercises on the knees as tolerated, but often this is too painful. She attempted about a year ago, but stopped due to pain. Viscosupplementation injections provided 60-70% relief and definite improved mobility. Overall, she was functioning about 80% better for the past 6 months. A series of 3 Euflexxa injections were done in April/May 2021. She failed steroid injections. She is on chronic opioid therapy. She is trying to avoid total knee replacement and is likely not a candidate due to bmi and degree of OA. Recommend repeating Euflexxa injections at this time. Addendum: Patient has attempted therapy multiple times in the past for chronic knee, but stopped due to increased knee pain as well as increased pain related to fibromyalgia. She does not utilize nsaids due to anticoagulant therapy. Tylenol used as needed, in additional to hydrocodone. Ice used as tolerated. She is having some increased myalgia likely related to thyroid. She reports hypothyroidism, level about 29, about 4 weeks ago. She had medication slightly adjusted, but still is not feeling better. She is being tested for Cushings' disease. FIRST VISIT: Patient presents in follow-up for chronic pain, specifically ongoing low back pain. This has progressively worsened for years. Pain is limiting her ability to perform simple ADL's. She is not sleeping well. Pain is axial in nature and worsens with flexion/extension, standing and walking. She gets short term relief with medication and rest. She has attempted physical therapy multiple times for low back complaints, but this has caused more pain and and mobility each time. I do not recommend further therapy at this point. She does mild lumbar stretches as tolerated. We have obtained cardiac clearance to proceed with lumbar procedures. Knee pain is still doing relatively well following Visco supplementation completed in May. She continues hydrocodone as needed with benefit. This does allow her to do simple activities with a degree of less pain. We discussed a series of medial branch blocks with progression to RF ablation to treat symptoms related to facet arthropathy. She is willing to proceed at this time. Imaging: All relevant imaging available was personally reviewed with the patient today with the following tests and results noted: MRI L spine 08/13/2018: mild to moderate facet joint disease, worse at L3-4 and L4-5. Mild bilateral neural foraminal stenosis at L4-5 with mild central canal stenosis. At L5-S1 moderate left neural foraminal stenosis and mild central canal stenosis. X-ray L spine 06/13/2016: lumbar DDD and facet arthropathy. Bilateral SI joint degenerative changes. MRI Brain : Posterior fossa unremakable. Partially empty sella. Brainstem and craniocervical junction unremarkable. No evidence of cerebral infarction. No hydrocephalus. Mild thickening of right frontal, both posteiro ethmoid air celss and both maxillary sinuses. Normal arterial flow. C spine MRI 08/05/20: Multilevel cervical spondylosis with disc bulging. Multilevel facet hypertrophy. T spine MRI 08/05/20: Multilevel disc bulges, most advanced at T7-8 with mild canal stenosis. MIld multilevel bilateral facet arthropathy. L spine MRI 08/05/20: Multilevel spondylosis and facet osteoarthropathy, greatest and moderate to severe at L3-S1 resulting in mild, bilateral L4-5 and L5-S1 neuroforaminal stenosis. Xray L Knee 04/26/21 Mild to moderate tricompartmental osteoarthritis Xray Knees Bilat 08/25/2020 Tricompartnental degenerative changes of both knees, greatest in the medial compartments CT Left knee 07/18/22: Severe medial compartment osteoarthritis with tricompartmental residual. Current Medication - Atorvastatin Calcium 40MG Oral Tablet 40 MG One tablet daily 0 days, 0 refills - Baclofen 10 MG Oral Tablet TAKE 1/2 TO 1 (ONE-HALF TO ONE) TABLET BY MOUTH THREE TIMES DAILY NEEDED, 30 days, 0 refills - Chlorthalidone 25 MG Oral Tablet One tablet daily 90 days, 0 refills - Clopidogrel Bisulfate 75MG Oral Tablet 75 MG One tablet daily 0 days, 0 refills - [facility] Melatonin 10 MG Oral Capsule One tablet at bed time 0 days, 0 refills - Hysingla ER 20 MG Oral Tablet ER 24 Hour Abuse-Deterrent One tablet daily, 30 days, 0 refills - Magnesium Oxide 400 (240 Mg) MG Oral Tablet One tablet daily 30 days, 0 refills - metFORMIN HCl 500MG Oral Tablet 500 MG as needed 0 days, 0 refills - Metoprolol Tartrate 50 MG Oral Tablet One tablet daily 90 days, 0 refills - One Touch Ultra 2 Device 0 days, 0 refills - one touch ultra strips Topical Strip 0 days, 0 refills - Pantoprazole Sodium 40MG Oral Tablet Delayed Release 40 MG One tablet daily 0 days, 0 refills - Pregabalin 150 MG Oral Capsule One tablet twice a day 90 days, 0 refills - Synthroid 200 MCG Oral Tablet One tablet daily 90 days, 0 refills - Topiramate 100MG Oral Tablet 100 MG One tablet twice a day 0 days, 0 refills - traZODone HCl 100MG Oral Tablet 100 MG as directed 2 @ night, 0 days, 0 refills - Trulicity 1.5 MG/0.5ML Subcutaneous Solution Pen-injector as directed 84 days, 0 refills - Tylenol PM Extra Strength 500-25 MG Oral Tablet One tablet at bed time 0 days, 0 refills - Valerian Root 450 MG Oral Capsule One tablet at bed time 0 days, 0 refills - Vilazodone HCl 40 MG Oral Tablet One tablet daily 30 days, 0 refills - Vitamin D3 50 MCG (2000 UT) Oral Capsule One tablet three times a day 0 days, 0 refills Past Medical/Surgical History Reported: Medical: Currently wearing eyeglasses, currently wearing contact lenses, and cardiovascular symptoms. Surgical / Procedural: Prior surgery Pacemaker. Physical Trauma: Has had no fall in the last 12 months. and Denies a fear of falling. Diagnoses: Systemic hypertension. Diabetes mellitus. Arthritis Reviewed and Unchanged. Social History Tobacco use: Smoking status: Never smoker. Allergies - Surgical Tape Reaction: Skin Rashes / Eruption of skin Review Of Systems Systemic: No systemic symptoms other than noted, no fever, and no chills. Head: No head symptoms other then noted. Neck: No neck pain. Cardiovascular: No chest pain or discomfort. Pulmonary: No dyspnea. Gastrointestinal: No constipation. Endocrine: No endocrine symptoms other than noted. Hematologic: No easy bleeding and no tendency for easy bruising. Musculoskeletal: Lower back pain, hip joint pain, knee pain,, hip joint stiffness, and lower leg pain. Neurological: No fainting passing out with needles or medical procedures, no motor disturbances, and no sensory disturbances. Psychological: No psychological symptoms other than noted, no anxiety, and no depression. Skin: No skin symptoms other than noted and no rash. Physical Findings - Vitals taken 07/18/2023 01:54 pm BP-Sitting R 114/72 mmHg BP Cuff Size Large Pulse Rate-Sitting 91 bpm Temp-Temporal 96.9 F Height 65 in Weight 225 lbs Body Mass Index 37.4 kg/m2 Body Surface Area 2.1 m2 Pain Level 6 Pain Level Note Lumbar and BLT knee Oxygen Saturation 95 % Musculoskeletal System: General/bilateral: Musculoskeletal Scales: Value Lumbar oswestry score 56 Psychiatric: Psychiatric: Value PHQ9 score: 5 Constitutional: Well developed. Well nourished. In no acute distress. HEENT: NC/AT. Anicteric. Clear Conjunctiva. PERRLA. MM's pink/moist. No lesions of nasal mucosa. CVS: No peripheral edema. Peripheral pulses palpable in all extremities. Spine/MSK: Mild tenderness mid to lower lumbar facet joints. Decrease lumbar range of motion in all planes. Multiple positive trigger points. Negative facet loading bilaterally. Negative SLR bilaterally. Tenderness bilateral knee joint, mild on lft Gait: Mildly antalgic and somewhat stiff gait. No steppage gait. Neuro: Awake. Alert. Oriented x3. DTR's intact in all extremities. Psych: No apparent distress. Mood normal. Affect normal. No pain behaviors. Skin: No rash. Normal pigmentation. Normal temperature Tests Educational Testing: Questionnaires PHQ-9: Value SOAPP-R: total score 12 Assessment - [M17.11 - Unilateral primary osteoarthritis, right knee] Localized osteoarthritis of right knee - [M17.12 - Unilateral primary osteoarthritis, left knee] Localized osteoarthritis of left knee - [M46.1 - Sacroiliitis, not elsewhere classified] Sacroiliitis - [M47.816 - Spondylosis without myelopathy or radiculopathy, lumbar region] Lumbar spondylosis without myelopathy or radiculopathy - [M48.07 - Spinal stenosis, lumbosacral region] Lumbosacral spinal stenosis - [M79.18 - Myalgia, other site] Myalgia - [G89.4 - Chronic pain syndrome] Chronic pain syndrome - [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 Reports improvement in pain. Patient is able to maintain function levels with use of medication management. Reports no adverse side effects. Patient advised of risks and benefits of medication- including tolerance, dependence, addiction, constipation, itching, allergic reactions, sedation, impairment, respiratory depression or failure, development of hyperalgesia Patient was instructed on taking medication correctly; storing medication securely; disposing of medication properly and to never share medication. Continue current medication. Continue HEP as tolerated. Schedule to repeat Euflexxa injections. Schedule lumbar epidural. F/U w/ [facility] after procedures. Plan StartCited - Osteoarthritis of knee, unspecified Pain Management CPT/Joints and Bursa Inj: Major joint/bursa injection w/ U/S Instructions: consent for series of 3 euflexxa injections to bilateral knees under ultrasound guidance EndCited StartCited - Radiculopathy, lumbar region Pain Management CPT/Epidural Steroid Inj: Transforaminal, Lumbar or Sacral 1st level Instructions: bilateral L4-5 transforaminal epidural steroid injection under fluoro EndCited StartCited - 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 myelopathy or radiculopathy, lumbar region Hysingla ER 20 MG tablet One tablet daily, 30 days, 0 refills EndCited Practice Management Use of tobacco assessment performed Review of medications documented; Standardized depression screening: positive for symptoms and for adult impression and score five; [24393] Established outpatient, medically appropriate H&P, moderate level decision making, 30+ minutes. Results of this interaction were communicated directly to the patient's referring and/or primary care provider. All imaging studies and test results discussed in the above document were personally reviewed and evaluated by the performing provider. For all patients on acute or chronic opioids, ongoing need for opioid analgesia is assessed at each visit with consideration of discontinuation or wean to lowest effective dose when possible and appropriate. Contents of this document have been edited for correctness, but may be subject to typographical or forest law and policy professor errors. Verify all diagnoses, medications, dosages, and patient instructions with patient and/or the originator of this document. Care Team - ASAD ROLDAN- - Pain Management Health Reminders - Assess BMI satisfied 07/18/2023. - Assess Tobacco Use satisfied 07/18/2023. - Depression Screening satisfied 07/18/2023. - Follow up plan for Depression Screening satisfied 07/18/2023. User Defined 7 Moderate risk
--- OUTSIDE RECORDS SUMMARY | 2024-04-11 15:28 | XMS_ITS | Patient Health Record ---
Author Organization [facility] Address [address] [place] [address] Care Team Providers Care Pulp Grinder And Blender Name Role Phone Charles Saleh Primary Care Provider [phone] [employer] Rabia Unavailable [phone] Allergies No Known Allergies Reason For Referral Reason Help with disability paperwork (please see notes). Diagnosis 1 MDD (major depressiv e disorder), recurrent episode, moderate (F33.1) Diagnosis 2 JOSR (generalized anx iety disorder) (F41.1) Diagnosis 3 Fibromyalgia (M79.7) Referral Organization [facility] Referring Provider First Name Charles Referring Provider Last Name Delfino Referring Provider Speciality Psychiatry Referred Provider Specialty [facility] General Notes Charles Saleh 07:55:31 PM > Client's father a few months ago and client very overwhelmed. She lived with him and has never filed disability for herself despite multitude of medical problems causing her to not be able to work. She was power of regulatory attorney for her father but he did not list her on deed to house or have a will and she does not know what to do. I suggested her file for disability given her limited income and illnesses but she needs guidance. I wasn't sure about the other issues with her father aside from directing her to senior paralegal. Any help or resources for her would be much appreciated. Clinical Notes [facility] [place] 11/07/2023 01:32:25 PM >HN contacted client to discuss the referral for disability paperwork. Client stated that Nov 15 at 1pm would be a good time to work on the paperwork over the phone. HN needs to get the paperwork printed, and a release for disability signed to work on the paperwork with the client., Naya Venegas 11/10/2023 08:31:49 AM >HN called the client and left a VM inquiring if the client received the release that was mailed to the client on the Nov. Waiting on client to return the call.Theo Kristina L 11/14/2023 10:31:10 AM >Client called HN VM after hours and explained she has too much going on at home and with the recent passing of her father to take on another major task right now. She was really grateful for the offer, but at this time she would like to cancel the appointment. HN closing the referral out. See TE encounter that accompanied this referral for extra supporting documentation. Referral Priority Routine Medications Medication SIG (Take, Route, Frequency, Duration) Notes Start Date End Date Status traZODone HCl 100 MG 2 tablet at bedtime Orally Once a day for 90 days Routine refills. Active Viibryd 40 MG 1 tablet with food Orally Once a day for 90 days Routine refills. Active metFORMIN HCl 1000 MG 1 tablet with a meal Orally Once a day Active Trulicity 4.5 MG/0.5ML as directed Subcutaneous Active Pregabalin 150 MG 1 capsule Twice a da y for 90 days Routine refills. 02/27/2024 Active Synthroid 200 MCG 1 tablet in the morning on an empty stomach Orally Once a day for 30 days Active HYDROcodone-Acetamin ophen 5-325 MG 1 tablet as needed Orally every 6 hrs Active Topiramate 100 MG 1 tablet Orally Twic e a day for 90 days Routine refills. Active Social History Tobacco Use: Social History Observation Description Date Details (start date - stop date) Former Smoker NA - NA Sex Assigned At : Social History Observation Description Sex Assigned At Female Dont use, Tobacco Use/Smoking Question Answer Notes Are you a nonsmoker Tobacco Control (Standard) Question Answer Notes Tobacco use: Former smoker Problems Problem Type SNOMED Code ICD Code Onset Dates Problem Status W/U Status Risk Notes Problem Fibromyalgia (755303750) Fibromyalgia (M79.7) Active confirmed Problem Generalized anxiety disorder (50859272) JOSR (generalized anxiety disorder) (F41.1) Active confirmed Problem Moderate recurrent major depression (07407989) MDD (major depressive disorder), recurrent episode, moderate (F33.1) Active confirmed Encounters Encounter Location Date Provider Diagnosis [address] [place] [address] 04/12/2023 Charles Saleh JOSR (generalized anxiety disorder) F41.1 ; MDD (major depressive disorder), recurrent episode, moderate F33.1 and Fibromyalgia M79.[address] [address] 05/10/2023 Charles Saleh Fibromyalgia M79.7 ; MDD (major depressive disorder), recurrent episode, moderate F33.1 and JOSR (generalized anxiety disorder) F41.[address] [place] [address] 08/07/2023 Charles Saleh JOSR (generalized anxiety disorder) F41.1 ; MDD (major depressive disorder), recurrent episode, moderate F33.1 and Fibromyalgia M79.[address] [address] 10/18/2023 Charles Saleh MDD (major depressive disorder), recurrent episode, moderate F33.1 ; Fibromyalgia M79.7 and JOSR (generalized anxiety disorder) F41.[address] [place] [address] 11/01/2023 Charles Saleh MDD (major depressive disorder), recurrent episode, moderate F33.1 ; JOSR (generalized anxiety disorder) F41.1 and Fibromyalgia M79.[address] [place] [address] 12/04/2023 Charles Saleh JOSR (generalized anxiety disorder) F41.1 ; MDD (major depressive disorder), recurrent episode, moderate F33.1 and Fibromyalgia M79.[address] [place] [address] 01/01/2024 Charles Saleh MDD (major depressive disorder), recurrent episode, moderate F33.1 ; JOSR (generalized anxiety disorder) F41.1 and Fibromyalgia M79.[address] [place] [address] 02/27/2024 Charles Saleh MDD (major depressive disorder), recurrent episode, moderate F33.1 ; JOSR (generalized anxiety disorder) F41.1 and Fibromyalgia M79.[address] [place] [address] 07/24/2023 Charles Saleh MDD (major depressive disorder), recurrent episode, moderate F33.1 [facility] [address] [place] [address] 11/07/2023 Rabia Rowley Assessments Encounter Date Diagnosis (ICD Code) Assessment Notes Treatment Notes Treatment Clinical Notes Section Notes 04/12/2023 JOSR (generalized anxiety disorder) (ICD-10 - F41.1) Client offered therapy but does not want to engage at this point (did for 2 years in past with little help). Discussed possible addition of very low dose SGA (possibly 2 mg of Abilify or 10 mg of Latuda) for anger/irritabi lity in future if does not improve with time. Client is already on Lyrica (maxed out at 300 mg daily total) and topamax daily. Discussed different coping mechanisms for anger/stress. 04/12/2023 MDD (major depressive disorder), recurrent episode, moderate (ICD-10 - F33.1) Client offered therapy but does not want to engage at this point (did for 2 years in past with little help). Discussed possible addition of very low dose SGA (possibly 2 mg of Abilify or 10 mg of Latuda) for anger/irritabi lity in future if does not improve with time. Client is already on Lyrica (maxed out at 300 mg daily total) and topamax daily. Discussed different coping mechanisms for anger/stress. 05/10/2023 Fibromyalgia (ICD-10 - M79.7) 08/07/2023 JOSR (generalized anxiety disorder) (ICD-10 - F41.1) Client stable and doing well, no changes to treatment plan needed at this time. 08/07/2023 MDD (major depressive disorder), recurrent episode, moderate (ICD-10 - F33.1) Client stable and doing well, no changes to treatment plan needed at this time. 05/10/2023 MDD (major depressive disorder), recurrent episode, moderate (ICD-10 - F33.1) 07/24/2023 MDD (major depressive disorder), recurrent episode, moderate (ICD-10 - F33.1) 10/18/2023 MDD (major depressive disorder), recurrent episode, moderate (ICD-10 - F33.1) Client referred to health navigation for help with signing up for disability and other guidance in relation to current situation. Discussed with client problem solving strategies in relation to her current issues. Will f/u in 2 weeks to reassess how she is doing. 11/01/2023 MDD (major depressive disorder), recurrent episode, moderate (ICD-10 - F33.1) Client doing better after breaking problems into steps and starting work on her father's estate. 12/04/2023 JOSR (generalized anxiety disorder) (ICD-10 - F41.1) 12/04/2023 MDD (major depressive disorder), recurrent episode, moderate (ICD-10 - F33.1) 01/01/2024 MDD (major depressive disorder), recurrent episode, moderate (ICD-10 - F33.1) 02/27/2024 MDD (major depressive disorder), recurrent episode, moderate (ICD-10 - F33.1) Client c/o increase in appetite and weight gain. Discussed [facility] program offered by [employer] and how it can be tailored even if client has mobility limitations and what the program entails. Client declines at this time but states she will think about it. She does not want changes to her treatment plan at this time. 02/27/2024 JOSR (generalized anxiety disorder) (ICD-10 - F41.1) Client c/o increase in appetite and weight gain. Discussed [facility] program offered by [facility] and how it can be tailored even if client has mobility limitations and what the program entails. Client declines at this time but states she will think about it. She does not want changes to her treatment plan at this time. 11/01/2023 JOSR (generalized anxiety disorder) (ICD-10 - F41.1) Client doing better after breaking problems into steps and starting work on her father's estate. 01/01/2024 JOSR (generalized anxiety disorder) (ICD-10 - F41.1) 12/04/2023 Fibromyalgia (ICD-10 - M79.7) 08/07/2023 Fibromyalgia (ICD-10 - M79.7) Client stable and doing well, no changes to treatment plan needed at this time. 10/18/2023 Fibromyalgia (ICD-10 - M79.7) Client referred to health navigation for help with signing up for disability and other guidance in relation to current situation. Discussed with client problem solving strategies in relation to her current issues. Will f/u in 2 weeks to reassess how she is doing. 05/10/2023 JOSR (generalized anxiety disorder) (ICD-10 - F41.1) 04/12/2023 Fibromyalgia (ICD-10 - M79.7) Client offered therapy but does not want to engage at this point (did for 2 years in past with little help). Discussed possible addition of very low dose SGA (possibly 2 mg of Abilify or 10 mg of Latuda) for anger/irritabi lity in future if does not improve with time. Client is already on Lyrica (maxed out at 300 mg daily total) and topamax daily. Discussed different coping mechanisms for anger/stress. 10/18/2023 JOSR (generalized anxiety disorder) (ICD-10 - F41.1) Client referred to health navigation for help with signing up for disability and other guidance in relation to current situation. Discussed with client problem solving strategies in relation to her current issues. Will f/u in 2 weeks to reassess how she is doing. 11/01/2023 Fibromyalgia (ICD-10 - M79.7) Client doing better after breaking problems into steps and starting work on her father's estate. 01/01/2024 Fibromyalgia (ICD-10 - M79.7) 02/27/2024 Fibromyalgia (ICD-10 - M79.7) Client c/o increase in appetite and weight gain. Discussed [facility] program offered by [facility] and how it can be tailored even if client has mobility limitations and what the program entails. Client declines at this time but states she will think about it. She does not want changes to her treatment plan at this time. [place]12[place]2023 [place] additionally on hysingla ER and baclofen. Client aware to stagger dose sedative medications for safety to lessen respiratory depression and verbalizes understanding regarding this. Discussed sleep hygiene and caffeine intake with encouragement to limit electronic devices an hour before bed and to limit caffeine after 3:00pm. Exercise benefits for mood and health discussed. Psychoeducation regarding psychiatric illness provided. Client was educated about risks and benefits of medication, alternatives to medication, off label uses of medication, suicidal ideation with SSRIs, self-administratio n and compliance with medication along with how to safely store medication. Verbal informed consent obtained. Client agrees to return sooner if symptoms worsen or if suicidal or homicidal ideations occur. Client has the phone number to the 24-hour crisis line at [facility]. Questions addressed. Client verbalized understanding of all information and is agreeable to treatment plan. Client offered therapy but does not want to engage at this point (did for 2 years in past with little help). Discussed possible addition of very low dose SGA (possibly 2 mg of Abilify or 10 mg of Latuda) for anger/irritabi lity in future if does not improve with time. Client is already on Lyrica (maxed out at 300 mg daily total) and topamax daily. Discussed different coping mechanisms for anger/stress. 05/10/2023 [place]. Client is on hysingla ER and Baclofen per pain management. Knows to stagger dose these apart from Lyrica for safety to limit sedation. Discussed sleep hygiene and caffeine intake with encouragement to limit electronic devices an hour before bed and to limit caffeine after 3:00pm. Exercise benefits for mood and health discussed. Psychoeducation regarding psychiatric illness provided. Client was educated about risks and benefits of medication, alternatives to medication, off label uses of medication, suicidal ideation with SSRIs, self-administratio n and compliance with medication along with how to safely store medication. Verbal informed consent obtained. Client agrees to return sooner if symptoms worsen or if suicidal or homicidal ideations occur. Client has the phone number to the 24-hour crisis line at [facility]. Questions addressed. Client verbalized understanding of all information and is agreeable to treatment plan. 08/07/2023 [place] issues [place]. Discussed sleep hygiene and caffeine intake with encouragement to limit electronic devices an hour before bed and to limit caffeine after 3:00pm. Exercise benefits for mood and health discussed. Psychoeducation regarding psychiatric illness provided. Client was educated about risks and benefits of medication, alternatives to medication, off label uses of medication, suicidal ideation with SSRIs, self-administratio n and compliance with medication along with how to safely store medication. Verbal informed consent obtained. Client agrees to return sooner if symptoms worsen or if suicidal or homicidal ideations occur. Client has the phone number to the 24-hour crisis line at [facility]. Questions addressed. Client verbalized understanding of all information and is agreeable to treatment plan. Client stable and doing well, no changes to treatment plan needed at this time. 10/18/2023 [place]. Discussed sleep hygiene and caffeine intake with encouragement to limit electronic devices an hour before bed and to limit caffeine after 3:00pm. Exercise benefits for mood and health discussed. Psychoeducation regarding psychiatric illness provided. Client was educated about risks and benefits of medication, alternatives to medication, off label uses of medication, suicidal ideation with SSRIs, self-administratio n and compliance with medication along with how to safely store medication. Verbal informed consent obtained. Client agrees to return sooner if symptoms worsen or if suicidal or homicidal ideations occur. Client has the phone number to the 24-hour crisis line at [facility]. Questions addressed. Client verbalized understanding of all information and is agreeable to treatment plan. Client referred to health navigation for help with signing up for disability and other guidance in relation to current situation. Discussed with client problem solving strategies in relation to her current issues. Will f/u in 2 weeks to reassess how she is doing. 11/01/2023 [place] issues [place]. Discussed sleep hygiene and caffeine intake with encouragement to limit electronic devices an hour before bed and to limit caffeine after 3:00pm. Exercise benefits for mood and health discussed. Psychoeducation regarding psychiatric illness provided. Client was educated about risks and benefits of medication, alternatives to medication, off label uses of medication, suicidal ideation with SSRIs, self-administratio n and compliance with medication along with how to safely store medication. Verbal informed consent obtained. Client agrees to return sooner if symptoms worsen or if suicidal or homicidal ideations occur. Client has the phone number to the 24-hour crisis line at [facility]. Questions addressed. Client verbalized understanding of all information and is agreeable to treatment plan. Client doing better after breaking problems into steps and starting work on her father's estate. 12/04/2023 [place]. Client is on baclofen and hydrocodone for pain management per other providers. Discussed sleep hygiene and caffeine intake with encouragement to limit electronic devices an hour before bed and to limit caffeine after 3:00pm. Exercise benefits for mood and health discussed. Psychoeducation regarding psychiatric illness provided. Client was educated about risks and benefits of medication, alternatives to medication, off label uses of medication, suicidal ideation with SSRIs, self-administratio n and compliance with medication along with how to safely store medication. Verbal informed consent obtained. Client agrees to return sooner if symptoms worsen or if suicidal or homicidal ideations occur. Client has the phone number to the 24-hour crisis line at [facility]. Questions addressed. Client verbalized understanding of all information and is agreeable to treatment plan. 01/01/2024 [place] issues noted. Discussed sleep hygiene and caffeine intake with encouragement to limit electronic devices an hour before bed and to limit caffeine after 3:00pm. Exercise benefits for mood and health discussed. Psychoeducation regarding psychiatric illness provided. Client was educated about risks and benefits of medication, alternatives to medication, off label uses of medication, suicidal ideation with SSRIs, self-administratio n and compliance with medication along with how to safely store medication. Verbal informed consent obtained. Client agrees to return sooner if symptoms worsen or if suicidal or homicidal ideations occur. Client has the phone number to the 24-hour crisis line at [facility]. Questions addressed. Client verbalized understanding of all information and is agreeable to treatment plan. 02/27/2024 [place] issues noted. Discussed sleep hygiene and caffeine intake with encouragement to limit electronic devices an hour before bed and to limit caffeine after 3:00pm. Exercise benefits for mood and health discussed. Psychoeducation regarding psychiatric illness provided. Client was educated about risks and benefits of medication, alternatives to medication, off label uses of medication, suicidal ideation with SSRIs, self-administratio n and compliance with medication along with how to safely store medication. Verbal informed consent obtained. Client agrees to return sooner if symptoms worsen or if suicidal or homicidal ideations occur. Client has the phone number to the 24-hour crisis line at [facility]. Questions addressed. Client verbalized understanding of all information and is agreeable to treatment plan. Client c/o increase in appetite and weight gain. Discussed [facility] program offered by [facility] and how it can be tailored even if client has mobility limitations and what the program entails. Client declines at this time but states she will think about it. She does not want changes to her treatment plan at this time. Plan Of Treatment No Information Insurance Providers Payer Name Payer Address Payer Phone Subscriber Number Group Number Insured Name Patient Relationship to Insured Coverage Start Date Coverage End Date [employer] [address] [place] [address] [id number] Anjana Ramos Self - patient is the insured 1 [employer] [address] [place] [address] [id number] Rachel Anjana Self - patient is the insured 1 Medical (General) History Medical History History ICD Code hashimotos lupus artritis DM HLD CAD Surgical History Surgery Date(Month/Year) hysterectomy appendectomy gall bladder removal left foot surgery with pins KNEE INJECTIONS 2021
--- OUTSIDE RECORDS SUMMARY | 2024-04-11 15:28 | XMS_ITS | Continuity of Care Document ---
Author Organization [facility] Address [address] [address] [place] [address] Phone Care Team Providers Care Real Estate Sales Associate Name Role Phone Bailey OD, Huy Unavailable Unavailable Procedures Procedure Date Office/outpatient Visit, Est Eye Exam Established Pt Advance Directives Directive Yes / No Effective Date File Name No Information Encounters Encounter Description Practice Location Reason(s) For Visit Diagnoses Date Provider Providers Copied on Encounter Office/outpat ient Visit, Est [facility], [id number] [place] [address] [address], [place], [place], [id number], tel:[phone] [facility] No Information Sep- 7-200 8 Bailey OD Huy. [address] , [address], [place], [place], [facility] [place], [place]. tel:[phone] [facility], [address] [place] [address] [address], [place], [place], [id number], tel:[phone] [facility] No Information Sep-1 0-200 8 Bailey OD Huy. [address] [facility] [address] , [address], [place], [address], [place]. tel:[phone] Family History Family Member Type Diagnosis Age [...]
--- OUTSIDE RECORDS SUMMARY | 2024-04-11 15:28 | XMS_ITS | Encounter Summary ---
Author Organization [facility] Address [address] [place] [address] Care Team Providers Care Engineering Technical Analyst Name Role Phone Hugo Tovar MD Primary Care Provider [phone] Lolly Wilson MD Unavailable Makenzie Chandler NP Primary Care Provider [phone] Encounter Details Date Type Department Care Team (Late st Contact Info) Description 08/04/2020 Telephone [facility] Radiology [address] [place] [address] Greta Hawkins NP [address] [place] [id number] Social History Tobacco Use Types Packs/Day Years Used Date Smoking Tobacco: Former Cigarettes Q uit: 2018 Smokeless Tobacco: Never Alcohol Use Standard Drinks/Week Comments No 0 (1 standard drink = 0.6 oz pur e alcohol) Comments Unknown Sex and Gender Information Value Date Recorded Sex Assigned at Not on file Legal Sex Female 4:58 PM 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 Gender Identity Female 09/23/2020 12:41 PM CDT Sexual Orientation Not on file documented as of this encounter Plan of Treatment Not on file documented as of this encounter Visit Diagnoses Not on filedocumented in this encounter Care Teams Engineering Technical Analyst Relationship Specialty Start Date End Date Hugo Tovar MD [address] [place] [address] PCP - General 04/11/19 08/04/20 Makenzie Chandler NP [address] [place] [address] PCP - General 08/05/20 03/03/23 Lolly Wilson MD [address] [place] [address] Consulting Physician Cardiology 04/12/19 documented as of this encounter
--- OUTSIDE RECORDS SUMMARY | 2024-04-11 15:28 | XMS_ITS | Patient Health Summary ---
Author Organization [facility] Address [address] [address] Care Team Providers Care Partridge Farmer Name Role Phone Makenzie Chandler ALAINA-SARA Primary Care Provider [phone] Aris Cowan MD Unavailable [phone] Note from [facility],non-owned Affiliates and Associated Physician Practices is amultiple site organization consisting of ambulatory clinics and hospital sitesin [place], [place], [place] and [place]. This disclosure is being madepursuant to the Care Everywhere program and may not contain all information available regarding this patient. Last updated 17.[facility] Allergies No known active allergies* Pregabalin(Anaphylaxis) -High Criticality,Inactive Medications * Be aware that medications may not be up to date on this document. Alwaysverify current medications with the patient. * atorvastatin (LIPITOR) 40 MG tablet Take 40 mg by mouth at bedtime * clopidogrel (PLAVIX) 75 MG tablet Take 75 mg by mouth once daily * metFORMIN (GLUCOPHAGE) 500 MG tablet Take 1,000 mg by mouth 2 times daily with morning and evening meal * pantoprazole EC (PROTONIX) 40 MG tablet Take 40 mg by mouth once daily * ramipril (ALTACE) 2.5 MG capsule Take 2.5 mg by mouth once daily * vilazodone (VIIBRYD) 40 MG tablet Take 40 mg by mouth daily with breakfast * traZODone (DESYREL) 100 MG tablet Take 200 mg by mouth at bedtime * diphenhydrAMINE-APAP, sleep, 50-1000 MG/30ML * VALERIAN ROOT PLUS CAPS * melatonin 10 MG capsule Take 20-30 mg by mouth at bedtime * baclofen (LIORESAL) 10 MG tablet Take 10 mg by mouth 3 times daily May cause drowsiness. * thyroid (ARMOUR THYROID) 120 MG tablet Take 165 mg by mouth once daily 105 in AM and 60 mg in PM * chlorthalidone (HYGROTON) 25 MG tablet Take 25 mg by mouth once daily * VITAMIN D PO * MAGNESIUM PO * HYDROcodone-acetaminophen (NORCO) 5-325 MG tablet(Started 11/17/2020) * metoprolol tartrate (LOPRESSOR) 50 MG tablet(Started 11/17/2020) * pregabalin (LYRICA) 150 MG capsule(Started 05/25/2021) Take 1 (one) capsule by mouth 2 times daily as needed (Knee osteoarthritis and fibromyalgia relatedpain) Active Problems Problem Noted Date Diagnosed Date [...] Mass Index 42.27 05/25/2021 3:08 PM CDT Procedures * ERYTHROCYTE SEDIMENTATION RATE(Performed 10/13/2020) Performed for Rheumatoid arthritis, seropositive, multiple sites (HCC), High risk medications (not anticoagulants) long-term use * C-REACTIVE PROTEIN(Performed 10/13/2020) Performed for Rheumatoid arthritis, seropositive, multiple sites (HCC), High risk medications (not anticoagulants) long-term use * COMPREHENSIVE METABOLIC PANEL(Performed 10/13/2020) Performed for Rheumatoid arthritis, seropositive, multiple sites (HCC), High risk medications (not anticoagulants) long-term use * CBC W AUTO DIFFERENTIAL(Performed 10/13/2020) Performed for Rheumatoid arthritis, seropositive, multiple sites (HCC), High risk medications (not anticoagulants) long-term use * LAB(Performed 09/04/2020) * CYCLIC CITRUL PEPTIDE ANTIBODY IGG/IGA (CCP)(Performed 08/26/2020) Performed for Polyarthralgia, Bilateral hand pain * RHEUMATOID FACTOR BLOOD QUANTITATIVE(Performed 08/26/2020) Performed for Polyarthralgia, Bilateral hand pain * ERYTHROCYTE SEDIMENTATION RATE(Performed 08/26/2020) Performed for Polyarthralgia, Bilateral hand pain * C-REACTIVE PROTEIN(Performed 08/26/2020) Performed for Polyarthralgia, Bilateral hand pain * LAB(Performed 04/01/2020) * ARIE STAINING PATTERNS REFLEXED(Performed 12/11/2018) Performed for Positive MIR (antinuclear antibody), Polyarthralgia, Myalgia * URINALYSIS MICROSCOPIC ONLY REFLEXED(Performed 12/11/2018) Performed for Positive MIR (antinuclear antibody), Polyarthralgia, Myalgia * PROTEIN CREATININE RATIO URINE RANDOM PNL(Performed 12/11/2018) Performed for Positive MIR (antinuclear antibody), Polyarthralgia, Myalgia * URINALYSIS W/MICROSCOPIC NO CULTURE(Performed 12/11/2018) Performed for Positive MIR (antinuclear antibody), Polyarthralgia, Myalgia * VITAMIN D 25-HYDROXY(Performed 12/11/2018) Performed for Positive MIR (antinuclear antibody), Polyarthralgia, Myalgia * CK BLOOD(Performed 12/11/2018) Performed for Positive MIR (antinuclear antibody), Polyarthralgia, Myalgia * MIR BLOOD SCREEN W/REFLEX TITER(Performed 12/11/2018) Performed for Positive MIR (antinuclear antibody), Polyarthralgia, Myalgia * COMPLEMENT C3 C4 PANEL(Performed 12/11/2018) Performed for Positive MIR (antinuclear antibody), Polyarthralgia, Myalgia * MIR PANEL COMPREHENSIVE(Performed 12/11/2018) Performed for Positive MIR (antinuclear antibody), Polyarthralgia, Myalgia * CYCLIC CITRUL PEPTIDE ANTIBODY IGG/IGA (CCP)(Performed 12/11/2018) Performed for Positive MIR (antinuclear antibody), Polyarthralgia, Myalgia * RHEUMATOID FACTOR BLOOD QUANTITATIVE(Performed 12/11/2018) Performed for Positive MIR (antinuclear antibody), Polyarthralgia, Myalgia * ERYTHROCYTE SEDIMENTATION RATE(Performed 12/11/2018) Performed for Positive MIR (antinuclear antibody), Polyarthralgia, Myalgia Results * C-REACTIVE PROTEIN (10/13/2020 1:17 PM CDT) Only the most recent of2 resultswithin the time period is included. C-Reactive Protein 8 0 - 10 mg/L [facility] INSURANCE BILL Blood BLOOD SPECIMEN / Unknown 10/13/2020 1:17 PM CDT 10/13/2020 Narrative Resulting Agency Comment Lab Testing performed at: [address] [id number] Aris Cowan MD LAB - CHEMISTRY OR DERABLES Performing Organization Address [facility] de Phone Number [facility] INSURANCE BILL [address] [place] [address] * ERYTHROCYTE SEDIMENTATION RATE (10/13/2020 1:17 PM CDT) Only the most recent of3 resultswithin the time period is included. Pathologist [facility] Erythrocyte Sedimentation Rate Westergren 19 0 - 40 mm/hr [facility] INSURANCE BILL Blood BLOOD SPECIMEN / Unknown 10/13/2020 1:17 PM CDT 10/13/2020 Narrative Resulting Agency Comment Lab Testing performed at: [address] [id number] Aris Cowan MD LAB - HEMATOLOGY O RDERABLES Performing Organization Address [facility] Co de Phone Number [employer] INSURANCE BILL [address] [place] [address] * (ABNORMAL) CBC WITH DIFFERENTIAL (10/13/2020 1:17 PM CDT) Pathologist [facility] WBC 9.3 3.4 - 10.8 x10E3/uL [facility] INSURANCE BILL RBC 4.75 3.77 - 5.28 x10E6/uL [facility] INSURANCE BILL Hemoglobin 12.3 11.1 - 15.9 g/dL [facility] INSURANCE BILL Hematocrit 38.4 34.0 - 46.6 % [facility] INSURANCE BILL MCV 81 79 - 97 fL [facility] INSURANCE BILL MCH 25.9(L) 26.6 - 33.0 pg [facility] INSURANCE BILL MCHC 32.0 31.5 - 35.7 g/dL [facility] INSURANCE BILL RDW 16.7(H) 11.7 - 15.4 % [facility] INSURANCE BILL Platelet Count 351 150 - 450 x10E3/uL [facility] INSURANCE BILL Granulocytes % 57 Not Estab. % [facility] INSURANCE BILL Lymphocytes % 28 Not Estab. % [facility] INSURANCE BILL Monocytes % 8 Not Estab. % [facility] INSURANCE BILL Eosinophils % 6 Not Estab. % [facility] INSURANCE BILL Basophils % 1 Not Estab. % [facility] INSURANCE BILL Immature Cells NOT NEEDED [facility] INSURANCE BILL Comment:Ancillary determined the test is not needed. Granulocytes Absolute 5.4 1.4 - 7.0 x10E3/uL [facility] INSURANCE BILL Lymphocytes Absolute 2.6 0.7 - 3.1 x10E3/uL [facility] INSURANCE BILL Monocytes Absolute 0.7 0.1 - 0.9 x10E3/uL [facility] INSURANCE BILL Eosinophils Absolute 0.6(H) 0.0 - 0.4 x10E3/uL [facility] INSURANCE BILL Basophils Absolute 0.1 0.0 - 0.2 x10E3/uL [facility] INSURANCE BILL Immature Granulocytes 0 Not Estab. % [facility] INSURANCE BILL Immature Granulocytes Absolute 0.0 0.0 - 0.1 x10E3/uL [facility] INSURANCE BILL nRBC NOT NEEDED [facility] INSURANCE BILL Comment:Ancillary determined the test is not needed. Comment Hematology NOT NEEDED [facility] INSURANCE BILL Comment:Ancillary determined the test is not needed. Blood BLOOD SPECIMEN / Unknown 10/13/2020 1:17 PM CDT 10/13/2020 Narrative Resulting Agency Comment Lab Testing performed at: [facility] [id number] Aris Cowan MD LAB - HEMATOLOGY O RDERABLES [facility] INSURANCE BILL [address] [place] [address] * COMPREHENSIVE METABOLIC PANEL (10/13/2020 1:17 PM [...] Resulting Agency Comment Lab Testing performed at: [facility] [place] [address] [id number] Aris Cowan MD LAB - CHEMISTRY OR DERABLES Performing Organization Address [facility] Co de Phone Number [facility] [address] [place] [address] * LAB (09/04/2020) Only the most recent of2 resultswithin the time period is included. Aris Cowan MD SCANNING ONLY * CYCLIC CITRUL PEPTIDE ANTIBODY IGG/IGA (CCP) (08/26/2020 1:53 PM CDT) Only the most recent of2 resultswithin the time period is included. CCP Antibodies IgG/IgA 6 0 - 19 units [facility] INSURANCE BILL Comment: Negative <20 Weak positive 20 - 39 Moderate positive 40 - 59 Strong positive >59 Blood BLOOD SPECIMEN / Unknown 08/26/2020 1:53 PM CDT 08/26/2020 Narrative Resulting Agency Comment Lab Testing performed at: [address] [id number] Aris Cowan MD LAB - SEROLOGY ORD ERABLES Performing Organization Address [facility] Co de Phone Number [facility] INSURANCE BILL [address] [place] [address] * (ABNORMAL) RHEUMATOID FACTOR BLOOD QUANTITATIVE (08/26/2020 1:53 PM CDT) Only the most recent of2 resultswithin the time period is included. Pathologist [facility] Rheumatoid Factor 61.2(H) 0.0 - 13.9 IU/mL [facility] INSURANCE BILL Blood BLOOD SPECIMEN / Unknown 08/26/2020 1:53 PM CDT 08/26/2020 Narrative Resulting Agency Comment Lab Testing performed at: [facility] [address] [id number] Aris Cowan MD LAB - CHEMISTRY OR DERABLES Performing Organization Address City/[facility] Co de Phone Number [facility] INSURANCE BILL [address] [place] [address] * URINALYSIS MICROSCOPIC ONLY REFLEXED (12/11/2018 11:38 AM RETAIL CUSTOMER SERVICE SPECIALIST) [facility] WBC UA 0-5 0 - 5 /hpf [facility] INSURANCE BILL RBC UA 0-2 0 - 2 /hpf [facility] INSURANCE BILL Epithelial Cells (non renal) 0-10 0 - 10 /hpf [facility] INSURANCE BILL Epithelial Cells (renal) NOT NEEDED [facility] INSURANCE BILL Comment:Ancillary determined the test is not needed. Casts ua NOT NEEDED [facility] INSURANCE BILL Comment:Ancillary determined the test is not needed. Casts UA NOT NEEDED [facility] INSURANCE BILL Comment:Ancillary determined the test is not needed. Crystals UA NOT NEEDED [facility] INSURANCE BILL Comment:Ancillary determined the test is not needed. Crystals UA NOT NEEDED [facility] INSURANCE BILL Comment:Ancillary determined the test is not needed. Mucus UA Present Not Estab. [facility] INSURANCE BILL Bacteria UA Few None seen/Few [facility] INSURANCE BILL Yeast UA NOT NEEDED [facility] INSURANCE BILL Comment:Ancillary determined the test is not needed. Trichomonas UA NOT NEEDED [facility] INSURANCE BILL Comment:Ancillary determined the test is not needed. Comment Urine NOT NEEDED [facility] INSURANCE BILL Comment: FASTING Ancillary determined the test is not needed. 12/11/2018 11:3 8 AM RETAIL CUSTOMER SERVICE SPECIALIST 12/11/2018 Narrative Resulting Agency Comment Lab Testing performed at: [facility] [address] [place] [phone] Aris Cowan MD LAB - URINALYSIS O RDERABLES Performing Organization Address [facility] de Phone Number [facility] INSURANCE BILL [address] [place] [address] * (ABNORMAL) URINALYSIS W/MICROSCOPIC NO CULTURE (12/11/2018 11:38 AM RETAIL CUSTOMER SERVICE SPECIALIST) Pathologist [facility] Specific Showell UA 1.015 1.005 - 1.030 [facility] INSURANCE BILL pH UA 5.5 5.0 - 7.5 [facility] INSURANCE BILL Color UA Yellow Yellow [facility] INSURANCE BILL Appearance Clear Clear [facility] INSURANCE BILL Leukocyte UA 1+(A) Negative [facility] INSURANCE BILL Protein UA Negative Negative/Tra ce [facility] INSURANCE BILL Glucose UA Negative Negative [facility] INSURANCE BILL Ketone UA Negative Negative [facility] INSURANCE BILL Occult Blood Urine Negative Negative [facility] INSURANCE BILL Bilirubin UA Negative Negative [facility] INSURANCE BILL Urobilinogen 0.2 0.2 - 1.0 mg/dL [facility] INSURANCE BILL Nitrite UA Negative Negative [facility] INSURANCE BILL Microscopic Examination Urine See below: [facility] INSURANCE BILL Comment: Microscopic was indicated and was performed. FASTING Microscopic Examination Urine NOT NEEDED [facility] INSURANCE BILL Comment: FASTING Ancillary determined the test is not needed. Urine URINE SPECIMEN OBTAINED BY CLEAN CATCH PROCEDURE / Unknown 12/11/2018 11:38 AM RETAIL CUSTOMER SERVICE SPECIALIST 12/11/2018 Narrative Resulting Agency Comment Lab Testing performed at: [address] [id number] Aris Cowan MD LAB - URINALYSIS O RDERABLES Performing Organization Address [facility] Co de Phone Number [facility] INSURANCE BILL [address] [place] [address] * ARIE STAINING PATTERNS REFLEXED (12/11/2018 11:38 AM RETAIL CUSTOMER SERVICE SPECIALIST) Homogeneous Pattern 1:80 [facility] INSURANCE BILL Nucleolar Pattern NOT NEEDED [facility] INSURANCE BILL Comment:Ancillary determined the test is not needed. Speckled Pattern NOT NEEDED [facility] INSURANCE BILL Comment:Ancillary determined the test is not needed. Centromere Pattern NOT NEEDED [facility] INSURANCE BILL Comment:Ancillary determined the test is not needed. Spindle Apparatus Pattern NOT NEEDED [facility] INSURANCE BILL Comment:Ancillary determined the test is not needed. Nuclear Membrane Pattern NOT NEEDED [facility] INSURANCE BILL Comment:Ancillary determined the test is not needed. Midbody Pattern NOT NEEDED [facility] INSURANCE BILL Comment:Ancillary determined the test is not needed. Nuclear Dot Pattern NOT NEEDED [facility] INSURANCE BILL Comment:Ancillary determined the test is not needed. PCNA Pattern NOT NEEDED [facility] INSURANCE BILL Comment:Ancillary determined the test is not needed. Centriole Pattern NOT NEEDED [facility] INSURANCE BILL Comment:Ancillary determined the test is not needed. Note [facility] INSURANCE BILL Comment: A positive MIR result may occur in healthy individuals (low titer) or be associated with a variety of diseases. See interpretation chart which is not all inclusive: . Pattern Antigen Detected Suggested Disease Association Homogeneous DNA(ds,ss), SLE - High titers Nucleosomes, Histones Drug-induced SLE Speckled Sm, GANG HEAD SAW OPERATOR, SCL-70, SLE,MCTD,PSS (diffuse form), SS-A/SS-B Sjogrens Nucleolar SCL-70, PM-1/SCL High titers Scleroderma, PM/DM Centromere Centromere PSS (limited form) w/Crest syndrome variable Nuclear Dot [id number] Primary Biliary Cirrhosis Nuclear GP210, Primary Biliary Cirrhosis Membrane erik A,B,C FASTING 12/11/2018 11:3 8 AM RETAIL CUSTOMER SERVICE SPECIALIST 12/11/2018 Narrative Resulting Agency Comment Lab Testing performed at: [facility] [address] [id number] Aris Cowan MD LAB - PATHOLOGY/NOHEMI KOHLI ORDERABLES [facility] INSURANCE BILL [address] [place] [address] * MIR PANEL COMPREHENSIVE (12/11/2018 11:38 AM RETAIL CUSTOMER SERVICE SPECIALIST) Anti-dsDNA Quantitative <1 0 - 9 IU/mL [facility] INSURANCE BILL Comment: Negative <5 Equivocal 5 - 9 Positive >9 GANG HEAD SAW OPERATOR Antibody 0.5 0.0 - 0.9 AI [facility] INSURANCE BILL Stevens (ASIM) Antibody <0.2 0.0 - 0.9 AI [facility] INSURANCE BILL Antiscleroderma-70 Antibody <0.2 0.0 - 0.9 AI [facility] INSURANCE BILL Sjogren's Antibodies (SSA) <0.2 0.0 - 0.9 AI [facility] INSURANCE BILL Sjogren's Antibodies (SSB) <0.2 0.0 - 0.9 AI [facility] INSURANCE BILL Antichromatin Antibodies <0.2 0.0 - 0.9 AI [facility] INSURANCE BILL Jeanine-1 Antibody <0.2 0.0 - 0.9 AI [facility] INSURANCE BILL Centromere B Antibody <0.2 0.0 - 0.9 AI [facility] INSURANCE BILL See Below [facility] INSURANCE BILL Comment: Autoantibody Disease Association Condition Frequency --------- Antinuclear Antibody, SLE, mixed connective Direct (MIR-D) tissue diseases --------- dsDNA SLE 40 - 60% --------- Chromatin Drug induced SLE 90% SLE 48 - 97% --------- SSA (Ro) SLE 25 - 35% Sjogren's Syndrome 40 - 70% Lupus 100% --------- SSB (La) SLE 10% Sjogren's Syndrome 30% --------- Sm (anti-Stevens) SLE 15 - 30% --------- GANG HEAD SAW OPERATOR Mixed Connective Tissue Disease 95% (U1 nRNP, SLE 30 - 50% anti-ribonucleoprotein) Polymyositis and/or Dermatomyositis 20% --------- Scl-70 (antiDNA Scleroderma (diffuse) 20 - 35% topoisomerase) Crest 13% --------- Jeanine-1 Polymyositis and/or Dermatomyositis 20 - 40% --------- Centromere B Scleroderma - Crest variant 80% FASTING Blood BLOOD SPECIMEN / Unknown 12/11/2018 11:38 AM RETAIL CUSTOMER SERVICE SPECIALIST 12/11/2018 Narrative Resulting Agency Comment Lab Testing performed at: [facility] [address] [id number] Aris Cowan MD LAB - SEROLOGY ORD ERABLES [facility] INSURANCE BILL [address] [place] [address] * (ABNORMAL) MIR BLOOD SCREEN W/REFLEX TITER (12/11/2018 11:38 AM RETAIL CUSTOMER SERVICE SPECIALIST) MIR Positive(A ) [facility] INSURANCE BILL Comment: Negative <1:80 Borderline 1:80 Positive >1:80 FASTING Blood BLOOD SPECIMEN / Unknown 12/11/2018 11:38 AM RETAIL CUSTOMER SERVICE SPECIALIST 12/11/2018 Narrative Resulting Agency Comment [facility] performed [facility]: [facility] [address] [facility] [address] [facility] [facility] [id number] Aris Cowan MD LAB - CHEMISTRY OR DERABLES Performing Organization Address [facility] de Phone Number [facility] [address] [place] [address] * (ABNORMAL) VITAMIN D 25-HYDROXY (12/11/2018 11:38 AM RETAIL CUSTOMER SERVICE SPECIALIST) Vitamin D, 25 Hydroxy 27.6(L) 30.0 - 100.0 ng/mL [facility] INSURANCE BILL Comment: Vitamin D deficiency has been defined by the [place] of Medicine and an Endocrine Society practice guideline as a level of serum 25-OH vitamin D less than 20 ng/mL (1,2). The Endocrine Society went on to further define vitamin D insufficiency as a level between 21 and 29 ng/mL (2). 1. IOM ([place] of Medicine). 2010. Dietary reference intakes for calcium and D. [place]: The National Academies Press. 2. Hakan MF, Carlos GARRISON, Ladarius MCMAHAN, et al. Evaluation, treatment, and prevention of vitamin D deficiency: an Endocrine Society clinical practice guideline. JCEM. 2010; 96(7):1911-30. FASTING Blood BLOOD SPECIMEN / Unknown 12/11/2018 11:38 AM RETAIL CUSTOMER SERVICE SPECIALIST 12/11/2018 Narrative Resulting Agency Comment Lab Testing performed at: [address] [id number] Aris Cowan MD LAB - CHEMISTRY OR DERABLES Performing Organization Address [facility] de Phone Number [facility] INSURANCE BILL [address] [place] [address] * PROTEIN CREATININE RATIO URINE RANDOM PNL (12/11/2018 11:38 AM RETAIL CUSTOMER SERVICE SPECIALIST) Creatinine Urine 116.7 Not Estab. mg/dL [facility] INSURANCE BILL Protein Urine 9.9 Not Estab. mg/dL [facility] INSURANCE BILL Protein/Creatin ine Ratio 85 0 - 200 mg/g creat [facility] INSURANCE BILL Comment:FASTING Urine URINE SPECIMEN OBTAINED BY CLEAN CATCH PROCEDURE / Unknown 12/11/2018 11:38 AM RETAIL CUSTOMER SERVICE SPECIALIST 12/11/2018 Narrative Resulting Agency Comment Lab Testing performed at: [facility] [address] [facility] [phone] Aris Cowan MD LAB - URINE CHEMIS TRY ORDERABLES Performing Organization Address [facility] Co de Phone Number [facility] INSURANCE BILL [address] [place] [address] * CK BLOOD (12/11/2018 11:38 AM RETAIL CUSTOMER SERVICE SPECIALIST) CK 74 24 - 173 U/L [facility] INSURANCE BILL Comment:FASTING Blood BLOOD SPECIMEN / Unknown 12/11/2018 11:38 AM RETAIL CUSTOMER SERVICE SPECIALIST 12/11/2018 Narrative Resulting Agency Comment Lab Testing performed at: [address] [id number] Aris Cowan MD LAB - CHEMISTRY OR DERABLES Performing Organization Address [facility] Co de Phone Number [facility] INSURANCE BILL [address] [place] [address] * COMPLEMENT C3 C4 PANEL (12/11/2018 11:38 AM RETAIL CUSTOMER SERVICE SPECIALIST) Complement C3 148 82 - 167 mg/dL [facility] INSURANCE BILL Complement C4 38 14 - 44 mg/dL [facility] INSURANCE BILL Comment:FASTING Blood BLOOD SPECIMEN / Unknown 12/11/2018 11:38 AM RETAIL CUSTOMER SERVICE SPECIALIST 12/11/2018 Narrative Resulting Agency Comment Lab Testing performed at: [facility] [address] [place] [id number] Aris Cowan MD LAB - CHEMISTRY OR DERABLES Performing Organization Address [facility] Co de Phone Number [facility] INSURANCE BILL [address] [place] [address] Care Teams Partridge Farmer Relationship Specialty Start Date End Date Makenzie Chandler APRN-SARA [address] [phone] PCP - General 11/07/18 Aris Cowan MD [address] [place] [phone] Rheumatology 07/18/19
--- OUTSIDE RECORDS SUMMARY | 2024-04-11 15:28 | XMS_ITS ---
Author Organization [facility] Address [address] [place] [address] Phone Care Team Providers Care Crts Name Role Phone GENARO ANP-BC, ERIKA Morales Unavailable [phone] VIDA TSANG Primary Care Provider [phone] Plan of Treatment Pending Tests Order Diagnosis Results Due Ordering P rovider Pain Management CPT - Epidural Steroid Inj Transforaminal, Lumbar or Sacral 1st level Radiculopathy, lumbar region 08/17/23 TJ 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, SENIOR TEST ANALYST-BC Last Documented On 4 1:55PM ; [facility] Pain Management CPT - Joints and Bursa Inj Major joint/bursa injection w/ U/S Osteoarthritis of knee, unspecified 08/17/23 TJ 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, SENIOR TEST ANALYST-BC Last Documented On 4 9:43AM ; [facility] Referrals To Diagnosis Pain Management [facility] - [address] [place] [address] - Radiculopathy, lumbar region Note: consent for bilateral L4-5 transforaminal epidural Last Documented On 9 6:58AM ; [facility] Pain Management [facility] - [address] [place] [address] - Radiculopathy, lumbar region Note: consent for bilateral L4-5 transforaminal epidural Last Documented On 9 11:33AM ; [facility] Neurosurgeon [facility] - [facility] [place] [address] Radiculopathy, lumbar region Last Documented On 1 8:30AM ; [facility] Pain Management [facility] - [address] [place] [address] - Other spondylosis with radiculopathy, lumbar region Note: consent for bilateral L4-5 transforaminal epidural Last Documented On 0 2:08PM ; [facility] Pain Management [address] [address] - Bilateral primary osteoarthritis of knee Note: consent for series of 3 euflexxa injections bilateral knees under ultrasound guidance*see last office visit note for approval Last Documented On 2 10:39AM ; [facility] Pain Management [address] [address] - 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 myelopathy or radiculopathy, lumbar region Note: Consent for bilateral L3, L4, L5 medial branch block Last Documented On 2 2:09PM ; [facility] Pain Management [address] [address] - 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 myelopathy or radiculopathy, lumbar region Note: consent for bilateral L3,L4, L5 medial branch blocks Last Documented On 2 4:37PM ; [facility] Pain Management [address] [address] - 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 myelopathy or radiculopathy, lumbar region Note: Consent for#1 right L3 , L4, L5 radiofrequency ablation#2 left L3, L4, L5 radiofrequency ablation Last Documented On 2 3:57PM ; [facility] Pain Management [address] [address] - Unilateral primary osteoarthritis, right knee Note: consent for series of 3 Euflexxa injections bilateral knees Last Documented On 2 9:04AM ; [facility] Orthopedic [facility] - [address] [place] [address] Unilateral primary osteoarthritis, left knee Last Documented On 3 8:27AM ; [facility] Instructions to patient Intervention and counseling on cessation of tobacco use : Patient recieved smoking cessation handout Last Documented On 0 1:32PM ; [facility] Education and Decision Aids were provided during visit for: Pill Count: HYSINGLA Last Documented On 4 1:49PM ; [facility] Pill Count: HYSINGLA Last Documented On 4 1:10PM ; [facility] Pill Count: Patient did not bring pain medication to appointment for pill count, per policy. Advised in order to continue to safely prescribe opioids, medication must be brought to each appointment Last Documented On 4 1:19PM ; [facility] Pill Count: three HYSINGLA Last Documented On 3 1:08PM ; [facility] Pill Count: three HYSINGLA Last Documented On 3 1:09PM ; [facility] Pill Count: HYSINGLA Last Documented On 3 1:16PM ; [facility] Pill Count: Patient did not bring pain medication to appointment for pill count, per policy. Advised in order to continue to safely prescribe opioids, medication must be brought to each appointment Last Documented On 3 1:16PM ; [facility] Pill Count: 0 HYSINGLA-PT IS OUT OF MEDICATION Last Documented On 3 1:12PM ; [facility] Pill Count: twelve HYSINGLA Last Documented On 3 1:16PM ; [facility] Pill Count: five HYDROCODONE Last Documented On 3 3:13PM ; [facility] Pill Count: 0 HYDROCODONE Last Documented On 3 2:19PM ; [facility] Pill Count: one HYDROCODONE Last Documented On 2 3:48PM ; [facility] Pill Count: HYDROCODONE Last Documented On 2 10:19AM ; [facility] Pill Count: Patient did not bring pain medication to appointment for pill count, per policy. Advised in order to continue to safely prescribe opioids, medication must be brought to each appointment Last Documented On 2 10:25AM ; [facility] Pill Count: 83 HYDROCODONE Last Documented On 2 10:46AM ; [facility] Pill Count: HYDROCODONE Last Documented On 2 3:26PM ; [facility] Pill Count: five HYDROCODONE Last Documented On 2 10:02AM ; [facility] Pill Count: HYDROCODONE Last Documented On 2 1:26PM ; [facility] Pill Count: Patient did not bring pain medication to appointment for pill count, per policy. Advised in order to continue to safely prescribe opioids, medication must be brought to each appointment. PT IS OUT OF MEDICATION Last Documented On 2 1:26PM ; [facility] Pill Count: 55 HYDROCODONE Last Documented On 2 1:34PM ; [facility] Pill Count: 18 Appropriate Last Documented On 1 1:15PM ; [facility] Pill Count: 50 TRAMADOL Last Documented On 1 1:23PM ; [facility] Pill Count: 42 Appropriate Last Documented On 1 1:44PM ; [facility] Pill Count: 24 Appropriate Last Documented On 1 1:16PM ; [facility] Pill Count: Patient did not bring pain medication to appointment for pill count, per policy. Advised in order to continue to safely prescribe opioids, medication must be brought to each appointment Last Documented On 1 1:30PM ; [facility] Pill Count: two Appropriate Last Documented On 1 5:35PM ; [facility] Pill Count: 48 Appropriate Last Documented On 0 2:50PM ; [facility] Pill Count: 0 Last Documented On 0 1:10PM ; [facility] Pill Count: ten Appropriate Last Documented On 0 4:12PM ; [facility] Pill Count: Patient did not bring pain medication to appointment for pill count, per policy. Advised in order to continue to safely prescribe opioids, medication must be brought to each appointment Last Documented On 0 2:28PM ; [facility] Assessments Includes: Assessments for all patient encounters Findings Encounter Date Chronic pain syndrome PAIN MANAGEMENT FO LLOW UP with TJ Hodges THEA WIND OPERATIONS MANAGER-FPA, SENIOR TEST ANALYST-BC 07/18/2023 Last Documented On 4 2:55PM ; [facility] Localized osteoarthritis of left knee PA IN MANAGEMENT FOLLOW UP with TJ Hodges THEA WIND OPERATIONS MANAGER-FPA, SENIOR TEST ANALYST-BC 07/18/2023 Last Documented On 4 2:55PM ; [facility] Localized osteoarthritis of right knee P AIN MANAGEMENT FOLLOW UP with TJ Hodges THEA WIND OPERATIONS MANAGER-FPA, SENIOR TEST ANALYST-BC 07/18/2023 Last Documented On 4 2:55PM ; [facility] terminal computer operator use 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 PAIN M ANAGEMENT FOLLOW UP with TJ Hodges THEA WIND OPERATIONS MANAGER-FPA, SENIOR TEST ANALYST-BC 07/18/2023 Last Documented On 4 2:55PM ; [facility] Lumbar spondylosis without m yelopathy or radiculopathy PAIN MANAGEMENT FOLLOW UP with TJ Hodges THEA WIND OPERATIONS MANAGER-FPA, SENIOR TEST ANALYST-BC 07/18/2023 Last Documented On 4 2:55PM ; [facility] Lumbosacral spinal stenosis PAIN MANAGEM ENT FOLLOW UP with TJ Carroll THEA WIND OPERATIONS MANAGER-FPA, SENIOR TEST ANALYST-BC 07/18/2023 Last Documented On 4 2:55PM ; [facility] Myalgia PAIN MANAGEMENT FOLLOW UP with Whitney ANABELA Carroll HICKSLP WIND OPERATIONS MANAGER-FPA, SENIOR TEST ANALYST-BC 07/18/2023 Last Documented On 4 2:55PM ; [facility] Sacroiliitis PAIN MANAGEMENT FOLL OW UP with TJ Carroll THEA WIND OPERATIONS MANAGER-FPA, SENIOR TEST ANALYST-BC 07/18/2023 Last Documented On 4 2:55PM ; [facility] Lumbar stenosis with neuroge samia claudication * PHONE CALL with ERIKA KAMARA-MIKEL 06/05/2023 Last Documented On 4 11:22AM ; [facility] Chronic pain syndrome PAIN MANAGEMENT FO LLOW UP with ERIKA KAMARA-MIKEL 04/19/2023 Last Documented On 4 1:01PM ; [facility] Localized osteoarthritis of left knee PA IN MANAGEMENT FOLLOW UP with ERIKA L GENARO ANP-BC 04/19/2023 Last Documented On 4 1:01PM ; [facility] Localized osteoarthritis of right knee P AIN MANAGEMENT FOLLOW UP with ERIKA L GENAOR ANP-BC 04/19/2023 Last Documented On 4 1:01PM ; [facility] terminal computer operator use 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 PAIN M ANAGEMENT FOLLOW UP with ERIKA L GENARO ANP-BC 04/19/2023 Last Documented On 4 1:01PM ; [facility] Lumbar spondylosis without m yelopathy or radiculopathy PAIN MANAGEMENT FOLLOW UP with ERIKA L GENARO ANP-BC 04/19/2023 Last Documented On 4 1:01PM ; [facility] Lumbosacral spinal stenosis PAIN MANAGEM ENT FOLLOW UP with ERIKA L GENARO ANP-BC 04/19/2023 Last Documented On 4 1:01PM ; [facility] Myalgia PAIN MANAGEMENT FOLLOW UP with T KADIE L GENARO ANP-BC 04/19/2023 Last Documented On 4 1:01PM ; [facility] Sacroiliitis PAIN MANAGEMENT FOLLOW UP with T KADIE L GENARO ANP-BC 04/19/2023 Last Documented On 4 1:01PM ; [facility] Chronic pain syndrome PAIN MANAGEMENT FO LLOW UP with ERIKA L GENARO ANP-BC 01/19/2023 Last Documented On 3 1:38PM ; [facility] Localized osteoarthritis of left knee PA IN MANAGEMENT FOLLOW UP with ERIKA L GENARO ANP-BC 01/19/2023 Last Documented On 3 1:38PM ; [facility] Localized osteoarthritis of right knee P AIN MANAGEMENT FOLLOW UP with ERIKA L GENARO ANP-BC 01/19/2023 Last Documented On 3 1:38PM ; [facility] terminal computer operator use 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 PAIN M ANAGEMENT FOLLOW UP with ERIKA L GENARO ANP-BC 01/19/2023 Last Documented On 3 1:38PM ; [facility] Lumbar spondylosis without m yelopathy or radiculopathy PAIN MANAGEMENT FOLLOW UP with ERIKA L GENARO ANP-BC 01/19/2023 Last Documented On 3 1:38PM ; [facility] Lumbosacral spinal stenosis PAIN MANAGEM ENT FOLLOW UP with ERIKA L GENARO ANP-BC 01/19/2023 Last Documented On 3 1:38PM ; [facility] Myalgia PAIN MANAGEMENT FOLLOW UP with T KADIE L GENARO ANP-BC 01/19/2023 Last Documented On 3 1:38PM ; [facility] Sacroiliitis PAIN MANAGEMENT FOLLOW UP with T KADIE L GENARO ANP-BC 01/19/2023 Last Documented On 3 1:38PM ; [facility] Arthralgia of the left knee/patella/tibia/fibula INJECTION with NANDINI AWAN MD 01/04/2023 Last Documented On 3 1:09PM ; [facility] Arthralgia of the right knee/patella/tibia/fibula INJECTION with NANDINI AWAN MD 01/04/2023 Last Documented On 3 1:09PM ; [facility] Osteoarthritis of both knees INJECTION with WILL LESLI AWAN MD 01/04/2023 Last Documented On 3 1:09PM ; [facility] Arthralgia of the left knee/patella/tibia/fibula INJECTION with NANDINI AWAN MD 12/28/2022 Last Documented On 3 6:18PM ; [facility] Arthralgia of the right knee/patella/tibia/fibula INJECTION with NANDINI AWAN MD 12/28/2022 Last Documented On 3 6:18PM ; [facility] Osteoarthritis of both knees INJECTION with WILL LESLI AWAN MD 12/28/2022 Last Documented On 3 6:18PM ; [facility] Arthralgia of the left knee/patella/tibia/fibula INJECTION with NANDINI AWAN MD 12/21/2022 Last Documented On 3 5:31PM ; [facility] Arthralgia of the right knee/patella/tibia/fibula INJECTION with NANDINI AWAN MD 12/21/2022 Last Documented On 3 5:31PM ; [facility] Osteoarthritis of both knees INJECTION with SUNITA AWAN MD 12/21/2022 Last Documented On 3 5:31PM ; [facility] Chronic pain syndrome * PHONE CALL with ERIKA L GENARO [facility] 12/07/2022 Last Documented On 3 3:36PM ; [facility] Localized osteoarthritis of left knee * PHONE CALL with ERIKA L GENARO [facility] 12/07/2022 Last Documented On 3 3:36PM ; [facility] Localized osteoarthritis of right knee * PHONE CALL with ERIKA L GENARO [facility] 12/07/2022 Last Documented On 3 3:36PM ; [facility] terminal computer operator use 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 * PHON E CALL with ERIKA L GENARO [facility] 12/07/2022 Last Documented On 3 3:36PM ; [facility] Myalgia * PHONE CALL with ERIKA L BLEVI NS [facility] 12/07/2022 Last Documented On 3 3:36PM ; [facility] Chronic pain syndrome PAIN MANAGEMENT FO LLOW UP with ERIKA L GENARO [facility] 10/19/2022 Last Documented On 3 2:27PM ; [facility] Localized osteoarthritis of left knee PA IN MANAGEMENT FOLLOW UP with ERIKA L GENARO [facility] 10/19/2022 Last Documented On 3 2:27PM ; [facility] Localized osteoarthritis of right knee P AIN MANAGEMENT FOLLOW UP with ERIKA L GENARO [facility] 10/19/2022 Last Documented On 3 2:27PM ; [facility] terminal computer operator use 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 PAIN M ANAGEMENT FOLLOW UP with ERIKA L GENARO [facility] 10/19/2022 Last Documented On 3 2:27PM ; [facility] Lumbar spondylosis without m yelopathy or radiculopathy PAIN MANAGEMENT FOLLOW UP with ERIKA L GENARO [facility] 10/19/2022 Last Documented On 3 2:27PM ; [facility] Lumbosacral spinal stenosis PAIN MANAGEM ENT FOLLOW UP with ERIKA L GENARO [facility] 10/19/2022 Last Documented On 3 2:27PM ; [facility] Myalgia PAIN MANAGEMENT FOLLOW UP with T KADIE L GENARO [facility] 10/19/2022 Last Documented On 3 2:27PM ; [facility] Sacroiliitis PAIN MANAGEMENT FOLLOW UP with T KADIE L GENARO [facility] 10/19/2022 Last Documented On 3 2:27PM ; [facility] Chronic pain syndrome PAIN MANAGEMENT FO LLOW UP with ERIKA L GENARO [facility] 08/04/2022 Last Documented On 3 1:34PM ; [facility] Localized osteoarthritis of left knee PA IN MANAGEMENT FOLLOW UP with ERIKA L GENARO [facility] 08/04/2022 Last Documented On 3 1:34PM ; [facility] Localized osteoarthritis of right knee P AIN MANAGEMENT FOLLOW UP with ERIKA L GENARO [facility] 08/04/2022 Last Documented On 3 1:34PM ; [facility] jail use 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 PAIN M ANAGEMENT FOLLOW UP with ERIKA L GENARO [facility] 08/04/2022 Last Documented On 3 1:34PM ; [facility] Lumbar spondylosis without m yelopathy or radiculopathy PAIN MANAGEMENT FOLLOW UP with ERIKA L GENARO [facility] 08/04/2022 Last Documented On 3 1:34PM ; [facility] Lumbosacral spinal stenosis PAIN MANAGEM ENT FOLLOW UP with ERIKA L GENARO [facility] 08/04/2022 Last Documented On 3 1:34PM ; [facility] Myalgia PAIN MANAGEMENT FOLLOW UP with T KADIE L GENARO [facility] 08/04/2022 Last Documented On 3 1:34PM ; [facility] Sacroiliitis PAIN MANAGEMENT FOLLOW UP with T KADIE L GENARO ANP-BC 08/04/2022 Last Documented On 3 1:34PM ; [facility] Chronic pain syndrome PAIN MANAGEMENT FO LLOW UP with ERIKA L GENARO ANP-BC 06/23/2022 Last Documented On 3 1:36PM ; [facility] Localized osteoarthritis of left knee PA IN MANAGEMENT FOLLOW UP with ERIKA L GENARO ANP-BC 06/23/2022 Last Documented On 3 1:36PM ; [facility] Localized osteoarthritis of right knee P AIN MANAGEMENT FOLLOW UP with ERIKA L GENARO ANP-BC 06/23/2022 Last Documented On 3 1:36PM ; [facility] jail use 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 PAIN M ANAGEMENT FOLLOW UP with ERIKA L GENARO ANP- 06/23/2022 Last Documented On 3 1:36PM ; [facility] Lumbar spondylosis without m yelopathy or radiculopathy PAIN MANAGEMENT FOLLOW UP with ERIKA L GENARO ANP- 06/23/2022 Last Documented On 3 1:36PM ; [facility] Lumbosacral spinal stenosis PAIN MANAGEM ENT FOLLOW UP with ERIKA L GENARO ANP- 06/23/2022 Last Documented On 3 1:36PM ; [facility] Myalgia PAIN MANAGEMENT FOLLOW UP with T KADIE L GENARO ANP-BC 06/23/2022 Last Documented On 3 1:36PM ; [facility] Sacroiliitis PAIN MANAGEMENT FOLLOW UP with T KADIE L GENARO ANP- 06/23/2022 Last Documented On 3 1:36PM ; [facility] Chronic pain syndrome * PHONE CALL with ERIKA L GENARO ANP-BC 06/14/2022 Last Documented On 3 4:55PM ; [facility] Localized osteoarthritis of left knee * PHONE CALL with ERIKA L GENARO ANP- 06/14/2022 Last Documented On 3 4:55PM ; [facility] Localized osteoarthritis of right knee * PHONE CALL with ERIKA Morales GENARO [facility] 06/14/2022 Last Documented On 3 4:55PM ; [facility] jail use 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 * PHON E CALL with ERIKA L GENARO [facility] 06/14/2022 Last Documented On 3 4:55PM ; [facility] Lumbar spondylosis without m yelopathy or radiculopathy * PHONE CALL with ERIKA L GENARO [facility] 06/14/2022 Last Documented On 3 4:55PM ; [facility] Lumbosacral spinal stenosis * PHONE CALL with TONYA JERDUNG Carmen HAWKINS [facility] 06/14/2022 Last Documented On 3 4:55PM ; [facility] Myalgia * PHONE CALL with ERIKA L ONOFREVI AMARJIT [facility] 06/14/2022 Last Documented On 3 4:55PM ; [facility] Sacroiliitis * PHONE CALL with ERIKA L BLEVI NS [facility] 06/14/2022 Last Documented On 3 4:55PM ; [facility] LEFT KNEE PAIN * PHONE CALL with ERIKA L BLEVI NS [facility] 05/17/2022 Last Documented On 3 1:13PM ; [facility] Chronic pain syndrome PAIN MANAGEMENT FO LLOW UP with ERIKA L GENARO [facility] 05/12/2022 Last Documented On 3 4:25PM ; [facility] Localized osteoarthritis of left knee PA IN MANAGEMENT FOLLOW UP with ERIKA L GENARO [facility] 05/12/2022 Last Documented On 3 4:25PM ; [facility] Localized osteoarthritis of right knee P AIN MANAGEMENT FOLLOW UP with ERIKA L GENARO [facility] 05/12/2022 Last Documented On 3 4:25PM ; [facility] jail use 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 PAIN M ANAGEMENT FOLLOW UP with ERIKA L GENARO [facility] 05/12/2022 Last Documented On 3 4:25PM ; [facility] Lumbar spondylosis without m yelopathy or radiculopathy PAIN MANAGEMENT FOLLOW UP with ERIKA L GENARO ANP-BC 05/12/2022 Last Documented On 3 4:25PM ; [facility] Lumbosacral spinal stenosis PAIN MANAGEM ENT FOLLOW UP with ERIKA L GENARO ANP-BC 05/12/2022 Last Documented On 3 4:25PM ; [facility] Myalgia PAIN MANAGEMENT FOLLOW UP with T KADIE L GENARO ANP-BC 05/12/2022 Last Documented On 3 4:25PM ; [facility] Sacroiliitis PAIN MANAGEMENT FOLLOW UP with T KADIE L GENARO ANP-BC 05/12/2022 Last Documented On 3 4:25PM ; [facility] Chronic pain syndrome PAIN MANAGEMENT FO LLOW UP with ERIKA L GENARO ANP-BC 04/13/2022 Last Documented On 3 4:54PM ; [facility] Localized osteoarthritis of left knee PA IN MANAGEMENT FOLLOW UP with ERIKA L GENARO ANP-BC 04/13/2022 Last Documented On 3 4:54PM ; [facility] Localized osteoarthritis of right knee P AIN MANAGEMENT FOLLOW UP with ERIKA L GENARO ANP-BC 04/13/2022 Last Documented On 3 4:54PM ; [facility] terminal computer operator use 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 PAIN M ANAGEMENT FOLLOW UP with ERIKA L GENARO ANP-BC 04/13/2022 Last Documented On 3 4:54PM ; [facility] Lumbar spondylosis without m yelopathy or radiculopathy PAIN MANAGEMENT FOLLOW UP with ERIKA L GENARO ANP-BC 04/13/2022 Last Documented On 3 4:54PM ; [facility] Lumbosacral spinal stenosis PAIN MANAGEM ENT FOLLOW UP with ERIKA L GENARO ANP-BC 04/13/2022 Last Documented On 3 4:54PM ; [facility] Myalgia PAIN MANAGEMENT FOLLOW UP with T KADIE L GENARO ANP-BC 04/13/2022 Last Documented On 3 4:54PM ; [facility] Sacroiliitis PAIN MANAGEMENT FOLLOW UP with Patrick HAWKINS ANP-BC 04/13/2022 Last Documented On 3 4:54PM ; [facility] Chronic pain syndrome PAIN MANAGEMENT FO LLOW UP with TJ 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, SENIOR TEST ANALYST-BC 02/15/2022 Last Documented On 3 6:21PM ; [facility] Localized osteoarthritis of left knee PA IN MANAGEMENT FOLLOW UP with TJ Carroll THEA WIND OPERATIONS MANAGER-FPA, SENIOR TEST ANALYST-BC 02/15/2022 Last Documented On 3 6:21PM ; [facility] Localized osteoarthritis of right knee P AIN MANAGEMENT FOLLOW UP with TJ Carroll THEA WIND OPERATIONS MANAGER-FPA, SENIOR TEST ANALYST-BC 02/15/2022 Last Documented On 3 6:21PM ; [facility] jail use 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 PAIN M ANAGEMENT FOLLOW UP with TJ Carroll THEA WIND OPERATIONS MANAGER-FPA, SENIOR TEST ANALYST-BC 02/15/2022 Last Documented On 3 6:21PM ; [facility] Lumbar spondylosis without m yelopathy or radiculopathy PAIN MANAGEMENT FOLLOW UP with TJ Carroll THEA WIND OPERATIONS MANAGER-FPA, SENIOR TEST ANALYST-BC 02/15/2022 Last Documented On 3 6:21PM ; [facility] Lumbosacral spinal stenosis PAIN MANAGEM ENT FOLLOW UP with TJ 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, SENIOR TEST ANALYST-BC 02/15/2022 Last Documented On 3 6:21PM ; [facility] Myalgia PAIN MANAGEMENT FOLLOW UP with Whitney ANABELA Carroll 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, SENIOR TEST ANALYST-BC 02/15/2022 Last Documented On 3 6:21PM ; [facility] Sacroiliitis PAIN MANAGEMENT FOLL OW UP with TJ 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, SENIOR TEST ANALYST-BC 02/15/2022 Last Documented On 3 6:21PM ; [facility] Chronic pain syndrome TELEHEALTH with ERIKA DE LA O ANP- 01/12/2022 Last Documented On 2 11:05AM ; [facility] Localized osteoarthritis of left knee TE LEHEALTH with ERIKA L GENARO ANP-BC 01/12/2022 Last Documented On 2 11:05AM ; [facility] Localized osteoarthritis of right knee T ELEHEALTH with ERIKA L GENARO ANP-BC 01/12/2022 Last Documented On 2 11:05AM ; [facility] jail use 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 TELEHEALTH wit h ERIKA L GENARO ANP-BC 01/12/2022 Last Documented On 2 11:05AM ; [facility] Lumbar spondylosis without m yelopathy or radiculopathy TELEHEALTH with ERIKA L GENARO ANP-BC 01/12/2022 Last Documented On 2 11:05AM ; [facility] Lumbosacral spinal stenosis TELEHEALTH with TAMM IE L GENARO ANP-BC 01/12/2022 Last Documented On 2 11:05AM ; [facility] Myalgia TELEHEALTH with ERIKA L GENARO ANP-BC 01/12/2022 Last Documented On 2 11:05AM ; [facility] Sacroiliitis TELEHEALTH with ERIKA L GENARO ANP-BC 01/12/2022 Last Documented On 2 11:05AM ; [facility] Arthralgia of the left knee/patella/tibia/fibula INJECTION with NANDINI AWAN MD 12/22/2021 Last Documented On 2 4:42PM ; [facility] Arthralgia of the right knee/patella/tibia/fibula INJECTION with NANDINI AWAN MD 12/22/2021 Last Documented On 2 4:42PM ; [facility] Osteoarthritis of both knees INJECTION with SUNITA AWAN MD 12/22/2021 Last Documented On 2 4:42PM ; [facility] Arthralgia of the left knee/patella/tibia/fibula INJECTION with NANDINI AWAN MD 12/15/2021 Last Documented On 2 1:22PM ; [facility] Arthralgia of the right knee/patella/tibia/fibula INJECTION with NANDINI AWAN MD 12/15/2021 Last Documented On 2 1:22PM ; [facility] Osteoarthritis of both knees INJECTION with WILL LESLI AWAN MD 12/15/2021 Last Documented On 2 1:22PM ; [facility] Arthralgia of the left knee/patella/tibia/fibula INJECTION with NANDINI AWAN MD 12/08/2021 Last Documented On 2 5:27PM ; [facility] Arthralgia of the right knee/patella/tibia/fibula INJECTION with NANDINI AWAN MD 12/08/2021 Last Documented On 2 5:27PM ; [facility] Osteoarthritis of both knees INJECTION with WILL LESLI AWAN MD 12/08/2021 Last Documented On 2 5:27PM ; [facility] Chronic pain syndrome PAIN MANAGEMENT FO LLOW UP with ERIKA L GENARO ANP-BC 11/11/2021 Last Documented On 2 1:10PM ; [facility] Localized osteoarthritis of left knee PA IN MANAGEMENT FOLLOW UP with ERIKA L GENARO ANP-BC 11/11/2021 Last Documented On 2 1:10PM ; [facility] Localized osteoarthritis of right knee P AIN MANAGEMENT FOLLOW UP with ERIKA L GENARO ANP-BC 11/11/2021 Last Documented On 2 1:10PM ; [facility] jail use 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 PAIN M ANAGEMENT FOLLOW UP with ERIKA L GENARO ANP-BC 11/11/2021 Last Documented On 2 1:10PM ; [facility] Lumbar spondylosis without m yelopathy or radiculopathy PAIN MANAGEMENT FOLLOW UP with ERIKA L GENARO ANP-BC 11/11/2021 Last Documented On 2 1:10PM ; [facility] Lumbosacral spinal stenosis PAIN MANAGEM ENT FOLLOW UP with ERIKA L GENARO ANP-BC 11/11/2021 Last Documented On 2 1:10PM ; [facility] Myalgia PAIN MANAGEMENT FOLLOW UP with T KADIE L GENARO ANP-BC 11/11/2021 Last Documented On 2 1:10PM ; [facility] Sacroiliitis PAIN MANAGEMENT FOLLOW UP with Patrick HAWKINS ANP-BC 11/11/2021 Last Documented On 2 1:10PM ; [facility] [Z01.818 - Encounter for ot er preprocedural examination] visit for: preoperative exam PAIN MANAGEMENT FOLLOW UP with TJ Carroll THEA WIND OPERATIONS MANAGER-FPA, SENIOR TEST ANALYST-BC 10/28/2021 Last Documented On 2 10:56AM ; [facility] Chronic pain syndrome PAIN MANAGEMENT FO LLOW UP with TJ Carroll THEA WIND OPERATIONS MANAGER-FPA, SENIOR TEST ANALYST-BC 10/28/2021 Last Documented On 2 10:56AM ; [facility] Localized osteoarthritis of left knee PA IN MANAGEMENT FOLLOW UP with TJ Carroll THEA WIND OPERATIONS MANAGER-FPA, SENIOR TEST ANALYST-BC 10/28/2021 Last Documented On 2 10:56AM ; [facility] Localized osteoarthritis of right knee P AIN MANAGEMENT FOLLOW UP with TJ Hodges THEA WIND OPERATIONS MANAGER-FPA, SENIOR TEST ANALYST-BC 10/28/2021 Last Documented On 2 10:56AM ; [facility] jail use 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 PAIN M ANAGEMENT FOLLOW UP with TJ Carroll THEA WIND OPERATIONS MANAGER-FPA, SENIOR TEST ANALYST-BC 10/28/2021 Last Documented On 2 10:56AM ; [facility] Lumbar spondylosis without m yelopathy or radiculopathy PAIN MANAGEMENT FOLLOW UP with TJ Carroll THEA WIND OPERATIONS MANAGER-FPA, SENIOR TEST ANALYST-BC 10/28/2021 Last Documented On 2 10:56AM ; [facility] Lumbosacral spinal stenosis PAIN MANAGEM ENT FOLLOW UP with TJ Carroll THEA WIND OPERATIONS MANAGER-FPA, SENIOR TEST ANALYST-BC 10/28/2021 Last Documented On 2 10:56AM ; [facility] Myalgia PAIN MANAGEMENT FOLLOW UP with Whitney Hodges THEA WIND OPERATIONS MANAGER-FPA, SENIOR TEST ANALYST-BC 10/28/2021 Last Documented On 2 10:56AM ; [facility] Sacroiliitis PAIN MANAGEMENT FOLL OW UP with TJ HICKSLP WIND OPERATIONS MANAGER-FPA, SENIOR TEST ANALYST-BC 10/28/2021 Last Documented On 2 10:56AM ; [facility] Chronic pain syndrome TELEHEALTH with ERIKA L B JAYLYN [facility] 10/15/2021 Last Documented On 2 11:27AM ; [facility] Localized osteoarthritis of left knee TE LEHEALTH with ERIKA L GENARO [facility] 10/15/2021 Last Documented On 2 11:27AM ; [facility] Localized osteoarthritis of right knee T ELEHEALTH with ERIKA L GENARO [facility] 10/15/2021 Last Documented On 2 11:27AM ; [facility] terminal computer operator use 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 TELEHEALTH wit h ERIKA L GENARO [facility] 10/15/2021 Last Documented On 2 11:27AM ; [facility] Lumbar spondylosis without m yelopathy or radiculopathy TELEHEALTH with ERIKA L GENARO [facility] 10/15/2021 Last Documented On 2 11:27AM ; [facility] Lumbosacral spinal stenosis TELEHEALTH with TAMM IE L GENARO [facility] 10/15/2021 Last Documented On 2 11:27AM ; [facility] Myalgia TELEHEALTH with ERIKA L GENARO [facility] 10/15/2021 Last Documented On 2 11:27AM ; [facility] Sacroiliitis TELEHEALTH with ERIKA L GENARO [facility] 10/15/2021 Last Documented On 2 11:27AM ; [facility] Chronic pain syndrome TELEHEALTH with ERIKA L B JAYLYN [facility] 09/22/2021 Last Documented On 2 4:12PM ; [facility] Localized osteoarthritis of left knee TE LEHEALTH with ERIKA L GENARO [facility] 09/22/2021 Last Documented On 2 4:12PM ; [facility] Localized osteoarthritis of right knee T ELEHEALTH with ERIKA L GENARO [facility] 09/22/2021 Last Documented On 2 4:12PM ; [facility] jail use 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 TELEHEALTH wit h ERIKA L GENARO ANP- 09/22/2021 Last Documented On 2 4:12PM ; [facility] Lumbar spondylosis without m yelopathy or radiculopathy TELEHEALTH with ERIKA L GENARO ANP-BC 09/22/2021 Last Documented On 2 4:12PM ; [facility] Lumbosacral spinal stenosis TELEHEALTH with TAMM IE L GENARO ANP-BC 09/22/2021 Last Documented On 2 4:12PM ; [facility] Myalgia TELEHEALTH with ERIKA L GENARO ANP- 09/22/2021 Last Documented On 2 4:12PM ; [facility] Sacroiliitis TELEHEALTH with ERIKA L GENARO ANP-BC 09/22/2021 Last Documented On 2 4:12PM ; [facility] Chronic pain syndrome PAIN MANAGEMENT FO LLOW UP with ERIKA L GENARO ANP-BC 08/24/2021 Last Documented On 2 4:01PM ; [facility] Localized osteoarthritis of left knee PA IN MANAGEMENT FOLLOW UP with ERIKA L GENARO ANP-BC 08/24/2021 Last Documented On 2 4:01PM ; [facility] Localized osteoarthritis of right knee P AIN MANAGEMENT FOLLOW UP with ERIKA L GENARO ANP- 08/24/2021 Last Documented On 2 4:01PM ; [facility] jail use 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 PAIN M ANAGEMENT FOLLOW UP with ERIKA L GENARO ANP-BC 08/24/2021 Last Documented On 2 4:01PM ; [facility] Lumbar spondylosis without m yelopathy or radiculopathy PAIN MANAGEMENT FOLLOW UP with ERIKA L GENARO ANP-BC 08/24/2021 Last Documented On 2 4:01PM ; [facility] Lumbosacral spinal stenosis PAIN MANAGEM ENT FOLLOW UP with ERIKA L GENARO ANP-BC 08/24/2021 Last Documented On 2 4:01PM ; [facility] Myalgia PAIN MANAGEMENT FOLLOW UP with T KADIE L GENARO ANP-BC 08/24/2021 Last Documented On 2 4:01PM ; [facility] Sacroiliitis PAIN MANAGEMENT FOLLOW UP with T KADIE L GENARO ANP-BC 08/24/2021 Last Documented On 2 4:01PM ; [facility] Chronic pain syndrome TELEHEALTH with ERIKA L B JAYLYN ANP-BC 08/11/2021 Last Documented On 2 10:36AM ; [facility] Localized osteoarthritis of knee TELEHEALTH with ERIKA L GENARO ANP-BC 08/11/2021 Last Documented On 2 10:36AM ; [facility] Localized osteoarthritis of left knee TE LEHEALTH with ERIKA L GENARO ANP-BC 08/11/2021 Last Documented On 2 10:36AM ; [facility] Localized osteoarthritis of right knee T ELEHEALTH with ERIKA L GENARO ANP-BC 08/11/2021 Last Documented On 2 10:36AM ; [facility] jail use 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 TELEHEALTH wit h ERIKA L GENARO ANP-BC 08/11/2021 Last Documented On 2 10:36AM ; [facility] Lumbar spondylosis with radiculopathy TE LEHEALTH with ERIKA L GENARO ANP-BC 08/11/2021 Last Documented On 2 10:36AM ; [facility] Lumbosacral spinal stenosis TELEHEALTH with TAMM IE L GENARO ANP-BC 08/11/2021 Last Documented On 2 10:36AM ; [facility] Myalgia TELEHEALTH with ERIKA L GENARO ANP-BC 08/11/2021 Last Documented On 2 10:36AM ; [facility] Sacroiliitis TELEHEALTH with ERIKA L GENARO ANP-BC 08/11/2021 Last Documented On 2 10:36AM ; [facility] Chronic pain syndrome PAIN MANAGEMENT FO LLOW UP with ERIKA L GENARO ANP-BC 06/15/2021 Last Documented On 2 1:43PM ; [facility] Localized osteoarthritis of knee PAIN MA NAGEMENT FOLLOW UP with ERIKA L GENARO ANP- 06/15/2021 Last Documented On 2 1:43PM ; [facility] Localized osteoarthritis of left knee PA IN MANAGEMENT FOLLOW UP with ERIKA L GENARO ANP-BC 06/15/2021 Last Documented On 2 1:43PM ; [facility] Localized osteoarthritis of right knee P AIN MANAGEMENT FOLLOW UP with ERIKA L GENARO [facility] 06/15/2021 Last Documented On 2 1:43PM ; [facility] jail use 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 PAIN M ANAGEMENT FOLLOW UP with ERIKA L GENARO [facility] 06/15/2021 Last Documented On 2 1:43PM ; [facility] Lumbar spondylosis with radiculopathy PA IN MANAGEMENT FOLLOW UP with ERIKA L GENARO [facility] 06/15/2021 Last Documented On 2 1:43PM ; [facility] Lumbosacral spinal stenosis PAIN MANAGEM ENT FOLLOW UP with ERIKA L GENARO [facility] 06/15/2021 Last Documented On 2 1:43PM ; [facility] Myalgia PAIN MANAGEMENT FOLLOW UP with T KADIE L GENARO [facility] 06/15/2021 Last Documented On 2 1:43PM ; [facility] Sacroiliitis PAIN MANAGEMENT FOLLOW UP with T KADIE L GENARO [facility] 06/15/2021 Last Documented On 2 1:43PM ; [facility] Arthralgia of the left knee/patella/tibia/fibula INJECTION with NANDINI AWAN MD 05/26/2021 Last Documented On 2 3:39PM ; [facility] Arthralgia of the right knee/patella/tibia/fibula INJECTION with NANDINI AWAN MD 05/26/2021 Last Documented On 2 3:39PM ; [facility] Osteoarthritis of both knees INJECTION with SUNITA AWAN MD 05/26/2021 Last Documented On 2 3:39PM ; [facility] Arthralgia of the left knee/patella/tibia/fibula INJECTION with NANDINI AWAN MD 05/12/2021 Last Documented On 2 4:40PM ; [facility] Arthralgia of the right knee/patella/tibia/fibula INJECTION with NANDINI AWAN MD 05/12/2021 Last Documented On 2 4:40PM ; [facility] Osteoarthritis of both knees INJECTION with SUNITA AWAN MD 05/12/2021 Last Documented On 2 4:40PM ; [facility] Arthralgia of the left knee/patella/tibia/fibula INJECTION with NANDINI AWAN MD 05/05/2021 Last Documented On 2 7:31AM ; [facility] Arthralgia of the right knee/patella/tibia/fibula INJECTION with NANDINI AWAN MD 05/05/2021 Last Documented On 2 7:31AM ; [facility] Osteoarthritis of both knees INJECTION with SUNITA AWAN MD 05/05/2021 Last Documented On 2 7:31AM ; [facility] Chronic pain syndrome PAIN MANAGEMENT FO LLOW UP with ERIKA L GENARO ANP-BC 04/28/2021 Last Documented On 2 2:11PM ; [facility] Localized osteoarthritis of knee PAIN MA NAGEMENT FOLLOW UP with ERIKA L GENARO ANP-BC 04/28/2021 Last Documented On 2 2:11PM ; [facility] Localized osteoarthritis of left knee PA IN MANAGEMENT FOLLOW UP with ERIKA L GENARO ANP-BC 04/28/2021 Last Documented On 2 2:11PM ; [facility] Localized osteoarthritis of right knee P AIN MANAGEMENT FOLLOW UP with ERIKA L GENARO ANP-BC 04/28/2021 Last Documented On 2 2:11PM ; [facility] terminal computer operator use 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 PAIN M ANAGEMENT FOLLOW UP with ERIKA L GENARO ANP-BC 04/28/2021 Last Documented On 2 2:11PM ; [facility] Lumbar spondylosis with radiculopathy PA IN MANAGEMENT FOLLOW UP with ERIKA L GENARO ANP-BC 04/28/2021 Last Documented On 2 2:11PM ; [facility] Lumbosacral spinal stenosis PAIN MANAGEM ENT FOLLOW UP with ERIKA L GENARO ANP-BC 04/28/2021 Last Documented On 2 2:11PM ; [facility] Myalgia PAIN MANAGEMENT FOLLOW UP with T KADIE L GENARO ANP-BC 04/28/2021 Last Documented On 2 2:11PM ; [facility] Sacroiliitis PAIN MANAGEMENT FOLLOW UP with T KADIE L GENARO ANP-BC 04/28/2021 Last Documented On 2 2:11PM ; [facility] Chronic pain syndrome PAIN MANAGEMENT FO LLOW UP with ERIKA L GENARO ANP-BC 03/16/2021 Last Documented On 2 4:14PM ; [facility] Localized osteoarthritis of knee PAIN MA NAGEMENT FOLLOW UP with ERIKA L GENARO ANP-BC 03/16/2021 Last Documented On 2 4:14PM ; [facility] Localized osteoarthritis of left knee PA IN MANAGEMENT FOLLOW UP with ERIKA L GENARO ANP-BC 03/16/2021 Last Documented On 2 4:14PM ; [facility] Localized osteoarthritis of right knee P AIN MANAGEMENT FOLLOW UP with ERIKA L GENARO ANP-BC 03/16/2021 Last Documented On 2 4:14PM ; [facility] terminal computer operator use 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 PAIN M ANAGEMENT FOLLOW UP with ERIKA L GENARO ANP-BC 03/16/2021 Last Documented On 2 4:14PM ; [facility] Lumbar spondylosis with radiculopathy PA IN MANAGEMENT FOLLOW UP with ERIKA L GENARO ANP-BC 03/16/2021 Last Documented On 2 4:14PM ; [facility] Lumbosacral spinal stenosis PAIN MANAGEM ENT FOLLOW UP with ERIKA L GENARO ANP-BC 03/16/2021 Last Documented On 2 4:14PM ; [facility] Myalgia PAIN MANAGEMENT FOLLOW UP with T KADIE L GENARO ANP- 03/16/2021 Last Documented On 2 4:14PM ; [facility] Sacroiliitis PAIN MANAGEMENT FOLLOW UP with T KADIE L GENARO ANP-BC 03/16/2021 Last Documented On 2 4:14PM ; [facility] Chronic pain syndrome TELEHEALTH with ERIKA L B JAYLYN ANP-BC 02/24/2021 Last Documented On 2 1:29PM ; [facility] Localized osteoarthritis of knee TELEHEALTH with ERIKA L GENARO ANP- 02/24/2021 Last Documented On 2 1:29PM ; [facility] Localized osteoarthritis of left knee TE LEHEALTH with ERIKA L GENARO ANP-BC 02/24/2021 Last Documented On 2 1:29PM ; [facility] Localized osteoarthritis of right knee T ELEHEALTH with ERIKA L GENARO [facility]- 02/24/2021 Last Documented On 2 1:29PM ; [facility] terminal computer operator use 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 TELEHEALTH wit h ERIKA L GENARO ANP- 02/24/2021 Last Documented On 2 1:29PM ; [facility] Lumbar spondylosis with radiculopathy TE LEHEALTH with ERIKA L GENARO [facility] 02/24/2021 Last Documented On 2 1:29PM ; [facility] Lumbosacral spinal stenosis TELEHEALTH with TAMM IE L GENARO ANP- 02/24/2021 Last Documented On 2 1:29PM ; [facility] Myalgia TELEHEALTH with ERIKA L GENARO ANP- 02/24/2021 Last Documented On 2 1:29PM ; [facility] Sacroiliitis TELEHEALTH with ERIKA L GENARO ANP-BC 02/24/2021 Last Documented On 2 1:29PM ; [facility] Chronic pain syndrome PAIN MANAGEMENT FO LLOW UP with ERIKA L GENARO ANP-BC 11/26/2020 Last Documented On 1 2:59PM ; [facility] Localized osteoarthritis of knee PAIN MA NAGEMENT FOLLOW UP with ERIKA L GENARO ANP-BC 11/26/2020 Last Documented On 1 2:59PM ; [facility] Localized osteoarthritis of left knee PA IN MANAGEMENT FOLLOW UP with ERIKA L GENARO ANP-BC 11/26/2020 Last Documented On 1 2:59PM ; [facility] Localized osteoarthritis of right knee P AIN MANAGEMENT FOLLOW UP with ERIKA L GENARO ANP-BC 11/26/2020 Last Documented On 1 2:59PM ; [facility] terminal computer operator use 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 PAIN M ANAGEMENT FOLLOW UP with ERIKA L GENARO ANP-BC 11/26/2020 Last Documented On 1 2:59PM ; [facility] Lumbar spondylosis with radiculopathy PA IN MANAGEMENT FOLLOW UP with ERIKA L GENARO ANP-BC 11/26/2020 Last Documented On 1 2:59PM ; [facility] Lumbosacral spinal stenosis PAIN MANAGEM ENT FOLLOW UP with ERIKA L GENARO ANP-BC 11/26/2020 Last Documented On 1 2:59PM ; [facility] Myalgia PAIN MANAGEMENT FOLLOW UP with T KADIE L GENARO ANP-BC 11/26/2020 Last Documented On 1 2:59PM ; [facility] Sacroiliitis PAIN MANAGEMENT FOLLOW UP with T KADIE L GENARO ANP-BC 11/26/2020 Last Documented On 1 2:59PM ; [facility] Chronic pain syndrome PAIN MANAGEMENT FO LLOW UP with ERIKA L GENARO ANP-BC 11/11/2020 Last Documented On 1 5:51PM ; [facility] Localized osteoarthritis of knee PAIN MA NAGEMENT FOLLOW UP with ERIKA L GENARO ANP-BC 11/11/2020 Last Documented On 1 5:51PM ; [facility] Localized osteoarthritis of left knee PA IN MANAGEMENT FOLLOW UP with ERIKA L GENARO ANP-BC 11/11/2020 Last Documented On 1 5:51PM ; [facility] Localized osteoarthritis of right knee P AIN MANAGEMENT FOLLOW UP with ERIKA L GENARO ANP-BC 11/11/2020 Last Documented On 1 5:51PM ; [facility] jail use 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 PAIN M ANAGEMENT FOLLOW UP with ERIKA L GENARO ANP-BC 11/11/2020 Last Documented On 1 5:51PM ; [facility] Lumbar spondylosis with radiculopathy PA IN MANAGEMENT FOLLOW UP with ERIKA L GENARO ANP-BC 11/11/2020 Last Documented On 1 5:51PM ; [facility] Lumbosacral spinal stenosis PAIN MANAGEM ENT FOLLOW UP with ERIKA L GENARO ANP-BC 11/11/2020 Last Documented On 1 5:51PM ; [facility] Myalgia PAIN MANAGEMENT FOLLOW UP with T KADIE L GENARO ANP-BC 11/11/2020 Last Documented On 1 5:51PM ; [facility] Sacroiliitis PAIN MANAGEMENT FOLLOW UP with T KADIE L GENARO ANP-BC 11/11/2020 Last Documented On 1 5:51PM ; [facility] Chronic pain syndrome PAIN MANAGEMENT FO LLOW UP with ERIKA L GENARO ANP-BC 09/15/2020 Last Documented On 1 8:12AM ; [facility] Localized osteoarthritis of knee PAIN MA NAGEMENT FOLLOW UP with ERIKA L GENARO ANP-BC 09/15/2020 Last Documented On 1 8:12AM ; [facility] Localized osteoarthritis of left knee PA IN MANAGEMENT FOLLOW UP with ERIKA L GENARO ANP-BC 09/15/2020 Last Documented On 1 8:12AM ; [facility] Localized osteoarthritis of right knee P AIN MANAGEMENT FOLLOW UP with ERIKA L GENARO ANP-BC 09/15/2020 Last Documented On 1 8:12AM ; [facility] terminal computer operator use 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 PAIN M ANAGEMENT FOLLOW UP with ERIKA L GENARO ANP-BC 09/15/2020 Last Documented On 1 8:12AM ; [facility] Lumbar spondylosis with radiculopathy PA IN MANAGEMENT FOLLOW UP with ERIKA L GENARO ANP-BC 09/15/2020 Last Documented On 1 8:12AM ; [facility] Lumbosacral spinal stenosis PAIN MANAGEM ENT FOLLOW UP with ERIKA L GENARO ANP-BC 09/15/2020 Last Documented On 1 8:12AM ; [facility] Myalgia PAIN MANAGEMENT FOLLOW UP with T KADIE L GENARO ANP-BC 09/15/2020 Last Documented On 1 8:12AM ; [facility] Sacroiliitis PAIN MANAGEMENT FOLLOW UP with T KADIE L GENARO ANP-BC 09/15/2020 Last Documented On 1 8:12AM ; [facility] Chronic pain syndrome PAIN MANAGEMENT FO LLOW UP with ERIKA L GENARO ANP-BC 08/19/2020 Last Documented On 1 8:56AM ; [facility] Localized osteoarthritis of knee PAIN MA NAGEMENT FOLLOW UP with ERIKA L GENARO ANP-BC 08/19/2020 Last Documented On 1 8:56AM ; [facility] Localized osteoarthritis of left knee PA IN MANAGEMENT FOLLOW UP with ERIKA L GENARO ANP-BC 08/19/2020 Last Documented On 1 8:56AM ; [facility] Localized osteoarthritis of right knee P AIN MANAGEMENT FOLLOW UP with ERIKA L GENARO ANP-BC 08/19/2020 Last Documented On 1 8:56AM ; [facility] terminal computer operator use 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 PAIN M ANAGEMENT FOLLOW UP with ERIKA L GENARO ANP-BC 08/19/2020 Last Documented On 1 8:56AM ; [facility] Lumbar spondylosis with radiculopathy PA IN MANAGEMENT FOLLOW UP with ERIKA L GENARO ANP-BC 08/19/2020 Last Documented On 1 8:56AM ; [facility] Lumbosacral spinal stenosis PAIN MANAGEM ENT FOLLOW UP with ERIKA L GENARO ANP-BC 08/19/2020 Last Documented On 1 8:56AM ; [facility] Myalgia PAIN MANAGEMENT FOLLOW UP with T KADIE L GENARO ANP- 08/19/2020 Last Documented On 1 8:56AM ; [facility] Sacroiliitis PAIN MANAGEMENT FOLLOW UP with T KADIE L GENARO ANP- 08/19/2020 Last Documented On 1 8:56AM ; [facility] Chronic pain syndrome PAIN MANAGEMENT FO LLOW UP with ERIKA L GENARO [facility] 06/17/2020 Last Documented On 1 3:01PM ; [facility] terminal computer operator use 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 PAIN M ANAGEMENT FOLLOW UP with ERIKA L GENARO [facility] 06/17/2020 Last Documented On 1 3:01PM ; [facility] Lumbar spondylosis with radiculopathy PA IN MANAGEMENT FOLLOW UP with ERIKA L GENARO [facility] 06/17/2020 Last Documented On 1 3:01PM ; [facility] Lumbosacral spinal stenosis PAIN MANAGEM ENT FOLLOW UP with ERIKA L GENARO [facility] 06/17/2020 Last Documented On 1 3:01PM ; [facility] Myalgia PAIN MANAGEMENT FOLLOW UP with T KADIE L GENARO [facility] 06/17/2020 Last Documented On 1 3:01PM ; [facility] Sacroiliitis PAIN MANAGEMENT FOLLOW UP with T KADIE L GENARO [facility] 06/17/2020 Last Documented On 1 3:01PM ; [facility] Chronic pain syndrome TELEHEALTH with ERIKA Carmen DE LA O [facility] 03/24/2020 Last Documented On 1 5:38PM ; [facility] jail use 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 TELEHEALTH wit h ERIKA L GENARO [facility] 03/24/2020 Last Documented On 1 5:38PM ; [facility] Lumbar spondylosis with radiculopathy TE LEHEALTH with ERIKA L GENARO [facility] 03/24/2020 Last Documented On 1 5:38PM ; [facility] Lumbosacral spinal stenosis TELEHEALTH with TAMM IE L GENARO [facility]- 03/24/2020 Last Documented On 1 5:38PM ; [facility] Myalgia TELEHEALTH with ERIKA L GENARO [facility]- 03/24/2020 Last Documented On 1 5:38PM ; [facility]2020 Last Documented On 1 5:38PM ; [facility] Ataxic gait PAIN MANAGEMENT FOLLOW UP with T KADIE L GENARO [facility] 12/18/2019 Last Documented On 0 9:38AM ; [facility] Chronic pain syndrome PAIN MANAGEMENT FO LLOW UP with ERIKA L GENARO [facility]- 12/18/2019 Last Documented On 0 9:38AM ; [facility] jail use 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 PAIN M ANAGEMENT FOLLOW UP with ERIKA L GENARO [facility] 12/18/2019 Last Documented On 0 9:38AM ; [facility] Lumbar spondylosis with radiculopathy PA IN MANAGEMENT FOLLOW UP with ERIKA L GENARO [facility]- 12/18/2019 Last Documented On 0 9:38AM ; [facility] Lumbosacral spinal stenosis PAIN MANAGEM ENT FOLLOW UP with ERIKA L GENARO [facility] 12/18/2019 Last Documented On 0 9:38AM ; [facility] Myalgia PAIN MANAGEMENT FOLLOW UP with T KADIE L GENARO [facility]- 12/18/2019 Last Documented On 0 9:38AM ; [facility] Sacroiliitis PAIN MANAGEMENT FOLLOW UP with T KADIE L GENARO [facility]- 12/18/2019 Last Documented On 0 9:38AM ; [facility] Chronic pain syndrome PAIN MANAGEMENT FO LLOW UP with ERIKA L GENARO [facility]- 09/26/2019 Last Documented On 0 4:30PM ; [facility] jail use 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 PAIN M ANAGEMENT FOLLOW UP with ERIKA L GENARO [facility]- 09/26/2019 Last Documented On 0 4:30PM ; [facility] Lumbar spondylosis with radiculopathy PA IN MANAGEMENT FOLLOW UP with ERIKA L GENARO [facility]- 09/26/2019 Last Documented On 0 4:30PM ; [facility] Lumbosacral spinal stenosis PAIN MANAGEM ENT FOLLOW UP with ERIKA L GENARO [facility]- 09/26/2019 Last Documented On 0 4:30PM ; [facility] Myalgia PAIN MANAGEMENT FOLLOW UP with T AKDIE L GENARO [facility]- 09/26/2019 Last Documented On 0 4:30PM ; [facility] Sacroiliitis PAIN MANAGEMENT FOLLOW UP with T KADIE L GENARO [facility]- 09/26/2019 Last Documented On 0 4:30PM ; [facility] Chronic pain syndrome PAIN MANAGEMENT FO LLOW UP with ERIKA L GENARO [facility] 07/24/2019 Last Documented On 0 4:12PM ; [facility] terminal computer operator use 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 PAIN M ANAGEMENT FOLLOW UP with ERIAK L GENARO ANP- 07/24/2019 Last Documented On 0 4:12PM ; [facility] Lumbar spondylosis with radiculopathy PA IN MANAGEMENT FOLLOW UP with ERIKA L EGNARO AN[facility]- 07/24/2019 Last Documented On 0 4:12PM ; [facility] Lumbosacral spinal stenosis PAIN MANAGEM [facility]NT [facility] 07/[facility] Last Documented On 0 4:12PM ; [facility] Myalgia PAIN MANAGEMENT FOLLOW UP with T KADIE L GENARO [facility]- 07/24/2019 Last Documented On 0 4:12PM ; [facility] Sacroiliitis PAIN MANAGEMENT FOLLOW UP with T KADIE L GENARO [facility] 07/24/2019 Last Documented On 0 4:12PM ; [facility] Chronic pain syndrome PAIN MANAGEMENT FO LLOW UP with ERIKA L GENARO [facility] 04/23/2019 Last Documented On 0 8:09AM ; [facility] jail use 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 PAIN M ANAGEMENT FOLLOW UP with ERIKA L GENARO [facility] 04/23/2019 Last Documented On 0 8:09AM ; [facility] Lumbar spondylosis with radiculopathy PA IN MANAGEMENT FOLLOW UP with ERIKA L GENARO [facility] 04/23/2019 Last Documented On 0 8:09AM ; [facility] Lumbosacral spinal stenosis PAIN MANAGEM ENT FOLLOW UP with ERIKA L GENARO [facility] 04/23/2019 Last Documented On 0 8:09AM ; [facility] Myalgia PAIN MANAGEMENT FOLLOW UP with T KADIE L GENARO [facility] 04/23/2019 Last Documented On 0 8:09AM ; [facility] Sacroiliitis PAIN MANAGEMENT FOLLOW UP with T KADIE L GENARO [facility] 04/23/2019 Last Documented On 0 8:09AM ; [facility] Chronic pain syndrome PAIN MANAGEMENT FO LLOW UP with ERIKA L GENARO ANP- 01/16/2019 Last Documented On 9 1:15PM ; [facility] terminal computer operator use 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 PAIN M ANAGEMENT FOLLOW UP with ERIKA L GENARO ANP- 01/16/2019 Last Documented On 9 1:15PM ; [facility] Lumbar spondylosis with radiculopathy PA IN MANAGEMENT FOLLOW UP with ERIKA L GENARO ANP- 01/16/2019 Last Documented On 9 1:15PM ; [facility] Lumbosacral spinal stenosis PAIN MANAGEM ENT FOLLOW UP with ERIKA L GENARO [facility] 01/16/2019 Last Documented On 9 1:15PM ; [facility] Myalgia PAIN MANAGEMENT FOLLOW UP with T KADIE L GENARO [facility] 01/16/2019 Last Documented On 9 1:15PM ; [facility] Sacroiliitis PAIN MANAGEMENT FOLLOW UP with T KADIE L GENARO ANP- 01/16/2019 Last Documented On 9 1:15PM ; [facility] Lumbar spondylosis with radiculopathy * PHONE CALL with ERIKA L GENARO [facility] 12/14/2018 Last Documented On 9 12:06PM ; [facility] Chronic pain syndrome PAIN MANAGEMENT FO LLOW UP with ERIKA L GENARO [facility] 11/16/2018 Last Documented On 9 4:18PM ; [facility] Lumbar spondylosis with radiculopathy PA IN MANAGEMENT FOLLOW UP with ERIKA L GENARO [facility] 11/16/2018 Last Documented On 9 4:18PM ; [facility] Lumbosacral spinal stenosis PAIN MANAGEM ENT FOLLOW UP with ERIKA L GENARO [facility] 11/16/2018 Last Documented On 9 4:18PM ; [facility] Myalgia PAIN MANAGEMENT FOLLOW UP with T KADIE L GENARO [facility] 11/16/2018 Last Documented On 9 4:18PM ; [facility] Sacroiliitis PAIN MANAGEMENT FOLLOW UP with T KADIE L GENARO [facility] 11/16/2018 Last Documented On 9 4:18PM ; [facility] Chronic pain syndrome PAIN MANAGEMENT FO LLOW UP with ERIKA L GENARO [facility] 11/06/2018 Last Documented On 9 11:38AM ; [facility] Lumbar radiculopathy PAIN MANAGEMENT FOL LOW UP with ERIKA L GENARO [facility] 11/06/2018 Last Documented On 9 11:38AM ; [facility] Lumbar spondylosis with radiculopathy PA IN MANAGEMENT FOLLOW UP with ERIKA L GENARO [facility] 11/06/2018 Last Documented On 9 11:38AM ; [facility] Lumbosacral spinal stenosis PAIN MANAGEM ENT FOLLOW UP with ERIKA L GENARO [facility] 11/06/2018 Last Documented On 9 11:38AM ; [facility] Myalgia PAIN MANAGEMENT FOLLOW UP with T KADIE L GENARO [facility] 11/06/2018 Last Documented On 9 11:38AM ; [facility] Sacroiliitis PAIN MANAGEMENT FOLLOW UP with T KADIE L GENARO [facility] 11/06/2018 Last Documented On 9 11:38AM ; [facility] Chronic pain syndrome PAIN MANAGEMENT FO LLOW UP with ERIKA L GENARO [facility] 10/04/2018 Last Documented On 9 3:09PM ; [facility] Lumbar radiculopathy PAIN MANAGEMENT FOL LOW UP with ERIKA L GENARO [facility] 10/04/2018 Last Documented On 9 3:09PM ; [facility] Lumbar spondylosis with radiculopathy PA IN MANAGEMENT FOLLOW UP with ERIKA L GENARO [facility] 10/04/2018 Last Documented On 9 3:09PM ; [facility] Lumbosacral spinal stenosis PAIN MANAGEM ENT FOLLOW UP with ERIKA L GENARO [facility] 10/04/2018 Last Documented On 9 3:09PM ; [facility] Myalgia PAIN MANAGEMENT FOLLOW UP with T KADIE L GENARO [facility] 10/04/2018 Last Documented On 9 3:09PM ; [facility] Sacroiliitis PAIN MANAGEMENT FOLLOW UP with T KADIE L GENARO [facility] 10/04/2018 Last Documented On 9 3:09PM ; [facility] Chronic pain syndrome PAIN MANAGEMENT FO LLOW UP with ERIKA L GENARO [facility] 08/23/2018 Last Documented On 9 1:58PM ; [facility] Lumbar radiculopathy PAIN MANAGEMENT FOL LOW UP with ERIKA L GENARO [facility] 08/23/2018 Last Documented On 9 1:58PM ; [facility] Lumbar spondylosis with radiculopathy PA IN MANAGEMENT FOLLOW UP with ERIKA L GENARO [facility] 08/23/2018 Last Documented On 9 1:58PM ; [facility] Lumbosacral spinal stenosis PAIN MANAGEM ENT FOLLOW UP with ERIKA L GENARO [facility] 08/23/2018 Last Documented On 9 1:58PM ; [facility] Myalgia PAIN MANAGEMENT FOLLOW UP with T KADIE L GENARO ANP- 08/23/2018 Last Documented On 9 1:58PM ; [facility] Myalgia PAIN MANAGEMENT FOLLOW UP with T KADIE L GENARO [facility] 08/23/2018 Last Documented On 9 1:58PM ; [facility] Sacroiliitis PAIN MANAGEMENT FOLLOW UP with T KADIE L GENARO ANP- 08/23/2018 Last Documented On 9 1:58PM ; [facility] Chronic pain syndrome PAIN MANAGEMENT FO LLOW UP with ERKIA L GENARO [facility]- 08/02/2018 Last Documented On 9 3:51PM ; [facility] Lumbar radiculopathy PAIN MANAGEMENT FOL LOW UP with ERIKA L GENARO [facility]- 08/02/2018 Last Documented On 9 3:51PM ; [facility] Myalgia PAIN MANAGEMENT FOLLOW UP with T KADIE L GENARO [facility] 08/02/2018 Last Documented On 9 3:51PM ; [facility] Myalgia PAIN MANAGEMENT FOLLOW UP with T KADEI L GENARO [facility]- 08/02/2018 Last Documented On 9 3:51PM ; [facility] Sacroiliitis PAIN MANAGEMENT FOLLOW UP with T KADIE L GENARO [facility]- 08/02/2018 Last Documented On 9 3:51PM ; [facility] Chronic pain syndrome PAIN MANAGEMENT NE W CONSULT with ERIKA L GENARO [facility]- 07/05/2018 Last Documented On 9 10:21AM ; [facility] Lumbar radiculopathy PAIN MANAGEMENT NEW CONSULT with ERIKA L GENARO ANP- 07/05/2018 Last Documented On 9 10:21AM ; [facility] Myalgia PAIN MANAGEMENT NEW CONSULT with ERIKA L GENARO ANP- 07/05/2018 Last Documented On 9 10:21AM ; [facility] Myalgia PAIN MANAGEMENT NEW CONSULT with ERIKA L GENARO [facility] 07/05/2018 Last Documented On 9 10:21AM ; [facility] Sacroiliitis PAIN MANAGEMENT NEW CONSULT with ERIKA CHRISTENSEN 07/05/2018 Last Documented On 9 10:21AM ; [facility] Instructions Includes: Instructions for all patient encounters Instructions to patient Intervention and counseling on cessation of tobacco use : Patient recieved smoking cessation handout Last Documented On 0 1:32PM ; [facility] Education and Decision Aids were provided during visit for: Pill Count: HYSINGLA Last Documented On 4 1:49PM ; [facility] Pill Count: HYSINGLA Last Documented On 4 1:10PM ; [facility] Pill Count: Patient did not bring pain medication to appointment for pill count, per policy. Advised in order to continue to safely prescribe opioids, medication must be brought to each appointment Last Documented On 4 1:19PM ; [facility] Pill Count: three HYSINGLA Last Documented On 3 1:08PM ; [facility] Pill Count: three HYSINGLA Last Documented On 3 1:09PM ; [facility] Pill Count: HYSINGLA Last Documented On 3 1:16PM ; [facility] Pill Count: Patient did not bring pain medication to appointment for pill count, per policy. Advised in order to continue to safely prescribe opioids, medication must be brought to each appointment Last Documented On 3 1:16PM ; [facility] Pill Count: 0 HYSINGLA-PT IS OUT OF MEDICATION Last Documented On 3 1:12PM ; [facility] Pill Count: twelve HYSINGLA Last Documented On 3 1:16PM ; [facility] Pill Count: five HYDROCODONE Last Documented On 3 3:13PM ; [facility] Pill Count: 0 HYDROCODONE Last Documented On 3 2:19PM ; [facility] Pill Count: one HYDROCODONE Last Documented On 2 3:48PM ; [facility] Pill Count: HYDROCODONE Last Documented On 2 10:19AM ; [facility] Pill Count: Patient did not bring pain medication to appointment for pill count, per policy. Advised in order to continue to safely prescribe opioids, medication must be brought to each appointment Last Documented On 2 10:25AM ; [facility] Pill Count: 83 HYDROCODONE Last Documented On 2 10:46AM ; [facility] Pill Count: HYDROCODONE Last Documented On 2 3:26PM ; [facility] Pill Count: five HYDROCODONE Last Documented On 2 10:02AM ; [facility] Pill Count: HYDROCODONE Last Documented On 2 1:26PM ; [facility] Pill Count: Patient did not bring pain medication to appointment for pill count, per policy. Advised in order to continue to safely prescribe opioids, medication must be brought to each appointment. PT IS OUT OF MEDICATION Last Documented On 2 1:26PM ; [facility] Pill Count: 55 HYDROCODONE Last Documented On 2 1:34PM ; [facility] Pill Count: 18 Appropriate Last Documented On 1 1:15PM ; [facility] Pill Count: 50 TRAMADOL Last Documented On 1 1:23PM ; [facility] Pill Count: 42 Appropriate Last Documented On 1 1:44PM ; [facility] Pill Count: 24 Appropriate Last Documented On 1 1:16PM ; [facility] Pill Count: Patient did not bring pain medication to appointment for pill count, per policy. Advised in order to continue to safely prescribe opioids, medication must be brought to each appointment Last Documented On 1 1:30PM ; [facility] Pill Count: two Appropriate Last Documented On 1 5:35PM ; [facility] Pill Count: 48 Appropriate Last Documented On 0 2:50PM ; [facility] Pill Count: 0 Last Documented On 0 1:10PM ; [facility] Pill Count: ten Appropriate Last Documented On 0 4:12PM ; [facility] Pill Count: Patient did not bring pain medication to appointment for pill count, per policy. 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, lumbar region One tablet daily Last Documented On 4 2:34PM By TJ STOVALL ; [facility] Baclofen 10 MG Oral Tablet 07/12/2023 Provider: SIA SCHMITT Diagnosis: Spinal stenosis, lumbosacral region TAKE 1/2 TO 1 (ONE-HALF TO O NE) TABLET BY MOUTH THREE TIMES DAILY NEEDED Last Documented On 4 2:34PM By TJ STOVALL ; [facility] Synthroid 200 MCG Oral Tablet 12/07/2022 Provider: Diagnosis: Last Documented On 4 2:34PM By JT STOVALL ; [facility] Trulicity 1.5 MG/0.5ML Subcutaneous Solution Pen-injec tor 11/28/2022 Provider: Diagnosis: Last Documented On 4 2:34PM By TJ STOVALL ; [facility] Vitamin D3 50 MCG (2000 UT) Oral Capsule 08/24/2021 Provider: Diagnosis: Last Documented On 2 10:55AM By TJ STOVALL ; [facility] Valerian Root 450 MG Oral Capsule 08/24/2021 Provide r: Diagnosis: Last Documented On 2 10:55AM By TJ STOVALL ; [facility] Tylenol PM Extra Strength 500-25 MG Oral Tablet 2021 Provider: Diagnosis: Last Documented On 2 10:55AM By TJ STOVALL ; [facility] Melatonin 10 MG Oral Capsule 08/24/2021 Provider : Diagnosis: Last Documented On 2 10:55AM By TJ STOVALL ; [facility] Vilazodone HCl 40 MG Oral Tablet 08/18/2021 Provider : Diagnosis: Last Documented On 2 10:55AM By TJ FITCHMIKEL ; [facility] Pregabalin 150 MG Oral Capsule 08/18/2021 Provider: Diagnosis: Last Documented On 2 10:55AM By TJ SIDHU [facility] ; [facility] Metoprolol Tartrate 50 MG Oral Tablet 08/04/2021 Pro vider: Diagnosis: Last Documented On 2 10:55AM By TJ SIDHU [facility] ; [facility] Magnesium Oxide 400 (240 Mg) MG Oral Tablet 07/27/2021 Provider: Diagnosis: Last Documented On 2 10:55AM By TJ SIDHU [facility] ; [facility] Chlorthalidone 25 MG Oral Tablet 06/07/2021 Provider : Diagnosis: Last Documented On 2 10:55AM By TJ SIDHU [facility] ; [facility] One Touch Ultra 2 Device 07/05/2018 Provider: Diagnosis: Last Documented On 2 10:55AM By TJ SIDHU [facility] ; [facility] one touch ultra strips Topical Strip 07/05/2018 Prov ider: Diagnosis: Last Documented On 2 10:55AM By TJ SIDHU [facility] ; [facility] Topiramate 100MG Oral Tablet 07/05/2018 Provider: Diagnosis: Last Documented On 2 10:55AM [facility] ; [facility] traZODone HCl 100MG Oral Tablet 07/05/2018 Provider: Diagnosis: 2 @ night Last Documented On 2 10:55AM By TJ SIDHU [facility] ; [facility] Pantoprazole Sodium 40MG Oral Tablet Delayed Release 0 07/05/2018 Provider: Diagnosis: Last Documented On 2 10:55AM By TJ SIDHU [facility] ; [facility] metFORMIN HCl 500MG Oral Tablet 07/05/2018 Provider: Diagnosis: Last Documented On 2 10:55AM By TJ SIDHU [facility] ; [facility] Atorvastatin Calcium 40MG Oral Tablet 07/05/2018 Pro vider: Diagnosis: Last Documented On 2 10:55AM By TJ STOVALL ; [facility] Clopidogrel Bisulfate 75MG Oral Tablet 07/05/2018 Pr ovider: Diagnosis: Last Documented On 2 10:55AM By TJ STOVALL ; [facility] Past Medications on file Hysingla ER 20 MG Oral Tablet ER 24 Hour Abuse-Deterrent 06/20/2023 - 07/18/2023 Provider: ERIKA CHRISTENSEN 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, lumbar region One tablet daily Last Documented On 4 2:34PM By TJ STOVALL ; [facility] Valium 2 MG Oral Tablet 06/01/2023 - 07/18/2023 Provid er: DAWIT SCHMITT-MIKEL Diagnosis: take about 1 hour before MRI Last Documented On 4 2:30PM By TJ STOVALL ; [facility] Valium 2 MG Oral Tablet 05/31/2023 - 05/31/2023 Provid er: DAWIT SCHMITT-MIKEL Diagnosis: take about 1 hour before MRI Last Documented On 4 2:35PM By TJ STOVALL ; [facility] Hysingla ER 20 MG Oral Tablet ER 24 Hour Abuse-Deterrent 05/22/2023 - 06/20/2023 Provider: ERIKA CHRISTENSEN 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, lumbar region One tablet daily Last Documented On 4 4:22PM By ERIKA CHRISTENSEN ; [facility] Hysingla ER 20 MG Oral Tablet ER 24 Hour Abuse-Deterrent 04/19/2023 - 05/19/2023 Provider: ERIKA CHRISTENSEN 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, lumbar region One tablet dailystart 04/21 Last Documented On 4 2:38PM By ERIKA RUFF ; [facility] Baclofen 10 MG Oral Tablet 04/19/2023 - 07/12/2023 Provider: ERIKA CHRISTENSEN Diagnosis: Spinal stenosis, lumbosacral region TAKE 1/2 TO 1 (ONE-HALF TO O NE) TABLET BY MOUTH THREE TIMES DAILY NEEDED Last Documented On 4 11:27AM By TJ SIDHU [facility] ; [facility] Hysingla ER 20 MG Oral Tablet ER 24 Hour Abuse-Deterrent 03/21/2023 - 04/19/2023 Provider: ERIKA CHRISTENSEN 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, lumbar region One tablet dailystart 03/23 Last Documented On 4 1:45PM By ERIKA CHRISTENSEN ; [facility] Baclofen 10 MG Oral Tablet 03/16/2023 - 04/19/2023 Provider: ERIKA CHRISTENSEN Diagnosis: Spinal stenosis, lumbosacral region TAKE 1/2 TO 1 (ONE-HALF TO O NE) TABLET BY MOUTH THREE TIMES DAILY NEEDED Last Documented On 4 1:45PM By ERIKA CHRISTENSEN ; [facility] Baclofen 10 MG Oral Tablet 02/20/2023 - 03/16/2023 Provider: ERIKA CHRISTENSEN Diagnosis: Spinal stenosis, lumbosacral region TAKE 1/2 TO 1 (ONE-HALF TO O NE) TABLET BY MOUTH THREE TIMES DAILY NEEDED Last Documented On 4 4:05PM By ERIKA CHRISTENSEN ; [facility] Hysingla ER 20 MG Oral Tablet ER 24 Hour Abuse-Deterrent 02/17/2023 - 03/21/2023 Provider: ERIKA CHRISTENSEN 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, lumbar region One tablet dailyStart dosage 02/21 Last Documented On 4 12:45PM By ERIKA CHRISTENSEN ; [facility] Hysingla ER 20 MG Oral Tablet ER 24 Hour Abuse-Deterrent 01/19/2023 - 02/17/2023 Provider: ERIKA CHRISTENSEN 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, lumbar region One tablet dailyStart dosage 01/21 Last Documented On 4 11:39AM By ERIKA CHRISTENSEN ; [facility] Naproxen 500 MG Oral Tablet 01/10/2023 - 04/19/2023 Pr ovider: FREEMAN DEL VALLE MD Diagnosis: Last Documented On 04/19/2023 1:18PM By Cathleen GERARD ; [facility] Hysingla ER 20 MG Oral Tablet ER 24 Hour Abuse-Deterrent 12/21/2022 - 01/19/2023 Provider: ERIKA CHRISTENSEN 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, lumbar region One tablet dailyStart dosage 12/22 Last Documented On 3 1:37PM By ERIKA CHRISTENSEN ; [facility] GROUP Baclofen 10 MG Oral Tablet 11/22/2022 - 02/20/2023 Provider: ERIKA CHRISTENSEN Diagnosis: Spinal stenosis, lumbosacral region TAKE 1/2 TO 1 (ONE-HALF TO O NE) TABLET BY MOUTH THREE TIMES DAILY NEEDED Last Documented On 4 8:42AM By ERIKA CHRISTENSEN ; [facility] Hysingla ER 20 MG Oral Tablet ER 24 Hour Abuse-Deterrent 11/22/2022 - 12/20/2022 Provider: ERIKA CHRISTENSEN 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, lumbar region One tablet daily Last Documented On 3 3:32PM By ERIKA CHRISTENSEN ; [facility] Hysingla ER 20 MG Oral Tablet ER 24 Hour Abuse-Deterrent 10/19/2022 - 11/21/2022 Provider: ERIKA CHRISTENSEN 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, lumbar region One tablet daily Last Documented On 3 10:43AM By ERIKA CHRISTENSEN ; [facility] Farxiga 5 MG Oral Tablet 10/19/2022 - 04/19/2023 Provi arvin: Diagnosis: Last Documented On 04/19/2023 1:18PM By Cathleen GERARD ; [facility] Hysingla ER 20 MG Oral Tablet ER 24 Hour Abuse-Deterrent 09/21/2022 - 10/19/2022 Provider: ERIKA CHRISTENSEN 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, lumbar region One tablet daily Last Documented On 3 2:27PM By ERIKA CHRISTENSEN ; [facility] Baclofen 10 MG Oral Tablet 08/29/2022 - 11/22/2022 Provider: ERIKA CHRISTENSEN Diagnosis: Spinal stenosis, lumbosacral region TAKE 1/2 TO 1 (ONE-HALF TO O NE) TABLET BY MOUTH THREE TIMES DAILY NEEDED Last Documented On 3 1:14PM By ERIKA CHRISTENSEN ; [facility] Hysingla ER 20 MG Oral Tablet ER 24 Hour Abuse-Deterrent 08/22/2022 - 09/19/2022 Provider: ERIKA CHRISTENSEN 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, lumbar region One tablet daily Last Documented On 3 3:31PM By ERIKA CHRISTENSEN ; [facility] Baclofen 10 MG Oral Tablet 08/01/2022 - 08/29/2022 Provider: ERIKA CHRISTENSEN Diagnosis: Spinal stenosis, lumbosacral region TAKE 1/2 TO 1 (ONE-HALF TO O NE) TABLET BY MOUTH THREE TIMES DAILY NEEDED Last Documented On 3 11:28AM By ERIKA CHRISTENSEN ; [facility] Hysingla ER 20 MG Oral Tablet ER 24 Hour Abuse-Deterrent 07/22/2022 - 08/22/2022 Provider: ERIKA CHRISTENSEN 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, lumbar region One tablet daily Last Documented On 3 3:23PM By ERIKA CHRISTENSEN ; [facility] Hysingla ER 20 MG Oral Tablet ER 24 Hour Abuse-Deterrent 06/23/2022 - 07/21/2022 Provider: ERIKA CHRISTENSEN 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, lumbar region One tablet daily Last Documented On 3 10:25AM By ERIKA CHRISTENSEN ; [facility] Synthroid 150 MCG Oral Tablet 06/08/2022 - 01/19/2023 Provider: Diagnosis: Last Documented On 01/19/2023 1:14PM By Cathleen GERARD ; [facility] Hysingla ER 20 MG Oral Tablet ER 24 Hour Abuse-Deterrent 05/23/2022 - 06/23/2022 Provider: ERIKA CHRISTENSEN 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, lumbar region One tablet dailystart 05/25 Last Documented On 3 1:35PM By ERIKA CHRISTENSEN ; [facility] Baclofen 10 MG Oral Tablet 05/12/2022 - 08/01/2022 Provider: ERIKA CHRISTENSEN Diagnosis: Spinal stenosis, lumbosacral region TAKE 1/2 TO 1 (ONE-HALF TO O NE) TABLET BY MOUTH THREE TIMES DAILY NEEDED Last Documented On 3 2:30PM By ERIKA CHRISTENSEN ; [facility] HYDROcodone-Acetaminophen 5- 325 MG Oral Tablet 04/19/2022 - 05/12/2022 Provider: ERIKA CHRISTENSEN 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, lumbar region 1 po q 6 hours prn / max 3 per day Last Documented On 05/12/2022 1:17PM By Cathleen GERARD ; [facility] HYDROcodone-Acetaminophen 5- 325 MG Oral Tablet 04/15/2022 - 04/19/2022 Provider: TJ 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, ANDREYBC 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, lumbar region 1 po q 6 hours prn / max 3 per day Last Documented On 3 5:30PM By ERIKA CHRISTENSEN ; [facility] tiZANidine HCl 2 MG Oral Tablet 04/14/2022 - 05/14/2022 Provider: ERIKA CHRISTENSEN Diagnosis: Myalgia, other s ite 1-2 bid prn Last Documented On 04/14/2022 1:51PM By JERICA Starks LPN ; [facility] Hysingla ER 20 MG Oral Tablet ER 24 Hour Abuse-Deterrent 04/13/2022 - 05/23/2022 Provider: ERIKA CHRISTENSEN 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, lumbar region One tablet daily Last Documented On 3 2:43PM By ERIKA CHRISTENSEN ; [facility] HYDROcodone-Acetaminophen 5- 325 MG Oral Tablet 03/17/2022 - 04/15/2022 Provider: SIA RAYO 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, lumbar region 1 po q 6 hours prn / max 3 per day Last Documented On 3 2:58PM By TJ STOVALL ; [facility] tiZANidine HCl 2 MG Oral Tablet 03/17/2022 - 04/13/2022 Provider: SIA RAYO Diagnosis: Myalgia, other s ite 1 tablet three times daily a s needed for muscle stiffness and spasm Last Documented On 3 3:51PM By ERIKA CHRISTENSEN ; [facility] HYDROcodone-Acetaminophen 5- 325 MG Oral Tablet 02/15/2022 - 03/16/2022 Provider: SIA RAYO 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, lumbar region 1 po q 6 hours prn / max 3 per day Last Documented On 3 4:15PM By TJ STOVALL ; [facility] tiZANidine HCl 2 MG Oral Tablet 02/15/2022 - 03/17/2022 Provider: TJ SIDHU APRN-FPADAWIT-BC Diagnosis: Myalgia, other s ite 1 tablet three times daily a s needed for muscle stiffness and spasm Last Documented On 3 5:59PM By TJ FITCHP- ; [facility] HYDROcodone-Acetaminophen 5- 325 MG Oral Tablet 01/06/2022 - 02/15/2022 Provider: ERIKA CHRISTENSEN 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, lumbar region 1 po q 6 hours prn / max 3 per day Last Documented On 3 2:58PM By TJ FITCHP- ; [facility] HYDROcodone-Acetaminophen 5- 325 MG Oral Tablet 12/09/2021 - 01/06/2022 Provider: ERIKA CHRISTENSEN 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, lumbar region 1 po q 6 hours prn / max 3 per day Last Documented On 2 11:46AM By ERIKA CHRISTENSEN ; [facility] HYDROcodone-Acetaminophen 5- 325 MG Oral Tablet 11/11/2021 - 12/09/2021 Provider: ERIKA CHRISTENSEN 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, lumbar region 1 po q 6 hours prn / max 3 per day Last Documented On 2 2:15PM By ERIKA CHRISTENSEN ; [facility] Baclofen 10 MG Oral Tablet 11/02/2021 - 05/12/2022 Provider: ERIKA CHRISTENSEN Diagnosis: Spinal stenosis, lumbosacral region TAKE 1/2 TO 1 (ONE-HALF TO O NE) TABLET BY MOUTH THREE TIMES DAILY NEEDED Last Documented On 3 1:48PM By ERIKA CHRISTENSEN ; [facility] Synthroid 137 MCG Oral Tablet 10/26/2021 - 06/23/2022 Provider: Diagnosis: Last Documented On 06/23/2022 1:13PM By Cathleen GERARD ; [facility] HYDROcodone-Acetaminophen 5- 325 MG Oral Tablet 10/12/2021 - 11/11/2021 Provider: ERIKA CHRISTENSEN Diagnosis: Other spondylosi s with radiculopathy, lumbar region 1 po q 6 hours prn / max 3 per day Last Documented On 2 4:15PM By ERIKA CHRISTENSEN ; [facility] HYDROcodone-Acetaminophen 5- 325 MG Oral Tablet 09/09/2021 - 10/12/2021 Provider: ERIKA CHRISTENSEN Diagnosis: Other spondylosi s with radiculopathy, lumbar region 1 po q 6 hours prn / max 3 per day Last Documented On 2 9:29AM By ERIKA CHRISTENSEN ; [facility] Spironolactone 50 MG Oral Tablet 08/13/2021 - 01/20/20 Provider: Diagnosis: 1/2 TABLET ONCE A DAY Last Documented On 01/19/2023 1:13PM By Cathleen GERARD ; [facility] HYDROcodone-Acetaminophen 5- 325 MG Oral Tablet 08/11/2021 - 09/09/2021 Provider: ERIKA CHRISTENSEN Diagnosis: Other spondylosi s with radiculopathy, lumbar region 1 po q 6 hours prn / max 3 per day Last Documented On 2 2:44PM By ERIKA CHRISTENSEN ; [facility] Baclofen 10 MG Oral Tablet 08/11/2021 - 11/02/2021 Provider: ERIKA CHRISTENSEN Diagnosis: Spinal stenosis, lumbosacral region TAKE 1/2 TO 1 (ONE-HALF TO O NE) TABLET BY MOUTH THREE TIMES DAILY NEEDED Last Documented On 2 9:35PM By ERIKA CHRISTENSEN ; [facility] Synthroid 125 MCG Oral Tablet 08/04/2021 - 10/28/2021 Provider: Diagnosis: Last Documented On 2 10:26AM By Toshia GERARD ; [facility] HYDROcodone-Acetaminophen 5- 325 MG Oral Tablet 07/13/2021 - 08/11/2021 Provider: ERIKA CHRISTENSEN Diagnosis: Other spondylosi s with radiculopathy, lumbar region 1 po q 6 hours prn / max 3 per day Last Documented On 2 10:11AM By ERIKA CHRISTENSEN ; [facility] Baclofen 10 MG Oral Tablet 06/24/2021 - 08/24/2021 Pro vider: ERIKA CHRISTENSEN Diagnosis: TAKE 1/2 TO 1 (ONE-HALF TO O NE) TABLET BY MOUTH THREE TIMES DAILY NEEDED Last Documented On 08/24/2021 3:47PM By Cathleen GERARD ; [facility] HYDROcodone-Acetaminophen 5- 325 MG Oral Tablet 06/14/2021 - 07/13/2021 Provider: ERIKA CHRISTENSEN Diagnosis: Other spondylosi s with radiculopathy, lumbar region 1 po q 6 hours prn / max 3 per day Last Documented On 2 2:21PM By ERIKA CHRISTENSEN ; [facility] Baclofen 10 MG Oral Tablet 06/08/2021 - 06/24/2021 Pro vider: ERIKA CHRISTENSEN Diagnosis: TAKE 1/2 TO 1 (ONE-HALF TO O NE) TABLET BY MOUTH THREE TIMES DAILY NEEDED Last Documented On 2 4:53PM By ERIKA CHRISTENSEN ; [facility] Baclofen 10 MG Oral Tablet 05/16/2021 - 06/08/2021 Pro vider: ERIKA CHRISTENSEN Diagnosis: TAKE 1/2 TO 1 (ONE-HALF TO O NE) TABLET BY MOUTH THREE TIMES DAILY NEEDED Last Documented On 2 7:37AM By ERIKA CHRISTENSEN ; [facility] HYDROcodone-Acetaminophen 5- 325 MG Oral Tablet 05/13/2021 - 06/14/2021 Provider: ERIKA CHRISTENSEN Diagnosis: Other spondylosi s with radiculopathy, lumbar region 1 po q 6 hours prn / max 3 per day Last Documented On 2 4:19PM By ERIKA CHRISTENSEN ; [facility] tiZANidine HCl 4 MG Oral Tablet 04/28/2021 - 08/24/2021 Provider: ERIKA CHRISTENSEN Diagnosis: Other spondylosi s with radiculopathy, lumbar region 1/2 to 1 bid prn- d/c baclofen Last Documented On 08/24/2021 3:48PM By Cathleen GERARD ; [facility] HYDROcodone-Acetaminophen 5- 325 MG Oral Tablet 04/13/2021 - 05/13/2021 Provider: ERIKA CHRISTENSEN Diagnosis: Other spondylosi s with radiculopathy, lumbar region 1 po q 6 hours prn / max 3 per day Last Documented On 2 5:05PM By ERIKA CHRISTENSEN ; [facility] Baclofen 10 MG Oral Tablet 04/09/2021 - 08/11/2021 Provider: ERIKA CHRISTENSEN Diagnosis: Spinal stenosis, lumbosacral region TAKE 1/2 TO 1 (ONE-HALF TO O NE) TABLET BY MOUTH THREE TIMES DAILY NEEDED Last Documented On 2 10:13AM By ERIKA CHRISTENSEN ; [facility] HYDROcodone-Acetaminophen 5- 325 MG Oral Tablet 03/18/2021 - 04/13/2021 Provider: ERIKA CHRISTENSEN Diagnosis: Other spondylosi s with radiculopathy, lumbar region 1 po q 6 hours prn / max 3 per day Last Documented On 2 2:53PM By ERIKA CHRISTENSEN ; [facility] HYDROcodone-Acetaminophen 5- 325 MG Oral Tablet 02/24/2021 - 03/16/2021 Provider: ERIKA CHRISTENSEN Diagnosis: Other spondylosi s with radiculopathy, lumbar region 1 po q 6 hours prn / max 3 per day Last Documented On 2 10:43AM By ERIKA CHRISTENSEN ; [facility] Baclofen 10 MG Oral Tablet 02/23/2021 - 04/09/2021 Provider: ERIKA CHRISTENSEN Diagnosis: Spinal stenosis, lumbosacral region TAKE 1/2 TO 1 (ONE-HALF TO O NE) TABLET BY MOUTH THREE TIMES DAILY NEEDED Last Documented On 2 12:23PM By ERIKA CHRISTENSEN ; [facility] HYDROcodone-Acetaminophen 5- 325 MG Oral Tablet 01/27/2021 - 02/24/2021 Provider: ERIKA CHRISTENSEN Diagnosis: 1 po q 6 hours prn / max 3 per day Last Documented On 2 1:29PM By ERIKA CHRISTENSEN ; [facility] HYDROcodone-Acetaminophen 5- 325 MG Oral Tablet 12/30/2020 - 01/27/2021 Provider: ERIKA CHRISTENSEN Diagnosis: 1 po q 6 hours prn / max 3 per day Last Documented On 1 2:04PM By ERIKA CHRISTENSEN ; [facility] Baclofen 10 MG Oral Tablet 12/18/2020 - 02/23/2021 Provider: NANDINI Coker Diagnosis: Spinal stenosis, lumbosacral region TAKE 1/2 TO 1 (ONE-HALF TO O NE) TABLET BY MOUTH THREE TIMES DAILY NEEDED Last Documented On 2 8:23AM By ERIKA CHRISTENSEN ; [facility] HYDROcodone-Acetaminophen 5- 325 MG Oral Tablet 11/26/2020 - 12/30/2020 Provider: ERIKA CHRISTENSEN Diagnosis: 1 po q 6 hours prn / max 3 per day Last Documented On 1 3:51PM By ERIKA CHRISTENSEN ; [facility] HYDROcodone-Acetaminophen 5- 325 MG Oral Tablet 11/11/2020 - 11/26/2020 Provider: ERIKA CHRISTENSEN Diagnosis: Other spondylosi s with radiculopathy, lumbar region 1 po q 6 hours prn / max 3 per day Last Documented On 1 1:35PM By ERIKA CHRISTENSEN ; [facility] Baclofen 10 MG Oral Tablet 10/22/2020 - 12/18/2020 Provider: ERIKA CHRISTENSEN Diagnosis: Spinal stenosis, lumbosacral region TAKE 1/2 TO 1 (ONE-HALF TO O NE) TABLET BY MOUTH THREE TIMES DAILY NEEDED Last Documented On 12/18/2020 11:06AM By Nandini Awan MD ; [facility] traMADol HCl 50 MG Oral Tablet 10/19/2020 - 11/26/2020 Provider: ERIKA CHRISTENSEN Diagnosis: 1-2 po TID prn Last Documented On 11/26/2020 1:14PM By Monica GERARD ; [facility] traMADol HCl 50 MG Oral Tablet 09/22/2020 - 10/19/2020 Provider: ERIKA CHRISTENSEN Diagnosis: Other spondylosi s, lumbar region 1-2 po TID prn Last Documented On 1 2:40PM By ERIKA CHRISTENSEN ; [facility] Methotrexate 2.5 MG Oral Tablet 09/15/2020 - Provider: Diagnosis: Last Documented On 11/11/2020 1:23PM By Cathleen GERARD ; [facility] Baclofen 10 MG Oral Tablet 08/26/2020 - 10/22/2020 Provider: ERIKA CHRISTENSEN Diagnosis: Spinal stenosis, lumbosacral region TAKE 1/2 TO 1 (ONE-HALF TO O NE) TABLET BY MOUTH THREE TIMES DAILY NEEDED Last Documented On 1 5:40PM By ERIKA CHRISTENSEN ; [facility] traMADol HCl 50 MG Oral Tablet 08/19/2020 - 09/22/2020 Provider: ERIKA CHRISTENSEN Diagnosis: 1-2 po TID prn Last Documented On 1 4:41PM By ERIKA CHRISTENSEN ; [facility] [place] Thyroid 60 MG Oral Tablet 08/19/2020 - 08/25/19 Provider: Diagnosis: Last Documented On 08/24/2021 3:49PM By Cathleen GERARD ; [facility] [place] Thyroid 15 MG Oral Tablet 08/19/2020 - 08/25/19 Provider: Diagnosis: Last Documented On 08/24/2021 3:49PM By Cathleen GERARD ; [facility] traMADol HCl 50 MG Oral Tablet 07/21/2020 - 08/19/2020 Provider: ERIKA CHRISTENSEN Diagnosis: Spinal stenosis, lumbosacral region 1-2 po TID prnfill 07/24 Last Documented On 1 1:47PM By ERIKA CHRISTENSEN ; [facility] Baclofen 10 MG Oral Tablet 06/18/2020 - 08/26/2020 Provider: ERIKA CHRISTENSEN Diagnosis: Spinal stenosis, lumbosacral region TAKE 1/2 TO 1 (ONE-HALF TO O NE) TABLET BY MOUTH THREE TIMES DAILY NEEDED Last Documented On 1 3:26PM By ERIKA CHRISTENSEN ; [facility] traMADol HCl 50 MG Oral Tablet 06/17/2020 - 07/20/2020 Provider: ERIKA CHRISTENSEN Diagnosis: Spinal stenosis, lumbosacral region 1-2 po TID prnfill 06/24 Last Documented On 1 9:02AM By ERIKA CHRISTENSEN ; [facility] Baclofen 10 MG Oral Tablet 06/01/2020 - 06/18/2020 Provider: ERIKA CHRISTENSEN Diagnosis: Spinal stenosis, lumbosacral region TAKE 1/2 TO 1 (ONE-HALF TO O NE) TABLET BY MOUTH THREE TIMES DAILY NEEDED Last Documented On 1 4:56PM By ERIKA CHRISTENSEN ; [facility] traMADol HCl 50 MG Oral Tablet 05/25/2020 - 06/17/2020 Provider: ERIKA CHRISTENSEN Diagnosis: Spinal stenosis, lumbosacral region 1-2 po TID prnfill 05/26 Last Documented On 1 2:59PM By ERIKA CHRISTENSEN ; [facility] traMADol HCl 50 MG Oral Tablet 04/21/2020 - 05/25/2020 Provider: ERIKA CHRISTENSEN Diagnosis: Spinal stenosis, lumbosacral region 1-2 po TID prnfill 04/23 Last Documented On 1 1:05PM By ERIKA CHRISTENSEN ; [facility] Baclofen 10 MG Oral Tablet 03/24/2020 - 06/01/2020 Provider: ERIKA CHRISTENSEN Diagnosis: Spinal stenosis, lumbosacral region 1/2 to 1 TID prn Last Documented On 1 2:41PM By ERIKA CHRISTENSEN ; [facility] traMADol HCl 50 MG Oral Tablet 03/24/2020 - 04/20/2020 Provider: ERIKA CHRISTENSEN Diagnosis: Spinal stenosis, lumbosacral region 1-2 po TID prnfill when due Last Documented On 1 11:27AM By ERIKA CHRISTENSEN ; [facility] traMADol HCl 50 MG Oral Tablet 02/21/2020 - 03/24/2020 Provider: ERIKA CHRISTENSEN Diagnosis: Spinal stenosis, lumbosacral region 1-2 po TID prnfill when due Last Documented On 1 5:37PM By ERIKA CHRISTENSEN ; [facility] traMADol HCl 50 MG Oral Tablet 01/22/2020 - 02/21/2020 Provider: ERIKA CHRISTENSEN Diagnosis: Spinal stenosis, lumbosacral region 1-2 po TID prnfill when due Last Documented On 1 12:19PM By ERIKA CHRISTENSEN ; [facility] Baclofen 10 MG Oral Tablet 12/24/2019 - 03/24/2020 Provider: ERIKA CHRISTENSEN Diagnosis: Spinal stenosis, lumbosacral region 1/2 to 1 TID prn Last Documented On 1 5:38PM By ERIKA CHRISTENSEN ; [facility] traMADol HCl 50 MG Oral Tablet 12/24/2019 - 01/22/2020 Provider: ERIKA CHRISTENSEN Diagnosis: Spinal stenosis, lumbosacral region 1-2 po TID prnfill when due Last Documented On 0 3:11PM By ERIKA CHRISTENSEN ; [facility] [place] Thyroid 30 MG Oral Tablet 12/18/2019 - 08/20/19 Provider: Diagnosis: Last Documented On 08/19/2020 1:20PM By Monica GERARD ; [facility] [place] Thyroid 90 MG Oral Tablet 12/18/2019 - 08/25/19 22 Provider: Diagnosis: Last Documented On 08/24/2021 3:49PM By Cathleen GERARD ; [facility] traMADol HCl 50 MG Oral Tablet 11/25/2019 - 12/24/2019 Provider: ERIKA CHRISTENSEN Diagnosis: Spinal stenosis, lumbosacral region 1-2 po TID prnfill when due Last Documented On 0 3:24PM By ERIKA CHRISTENSEN ; [facility] traMADol HCl 50 MG Oral Tablet 10/23/2019 - 11/25/2019 Provider: ERIKA CHRISTENSEN Diagnosis: Spinal stenosis, lumbosacral region 1-2 po TID prnfill when due Last Documented On 0 3:16PM By ERIKA CHRISTENSEN ; [facility] Baclofen 10 MG Oral Tablet 09/26/2019 - 12/24/2019 Provider: ERIKA CHRISTENSEN Diagnosis: Spinal stenosis, lumbosacral region 1/2 to 1 TID prn Last Documented On 0 3:25PM By ERIKA CHRISTENSEN ; [facility] traMADol HCl 50 MG Oral Tablet 09/26/2019 - 10/22/2019 Provider: ERIKA CHRISTENSEN Diagnosis: Spinal stenosis, lumbosacral region 1-2 po TID prn Last Documented On 0 8:39AM By ERIKA CHRISTENSEN ; [facility] Lyrica 75 MG Oral Capsule 09/26/2019 - 08/24/2021 Prov ider: Diagnosis: Last Documented On 08/24/2021 3:49PM By Cathleen GERARD ; [facility] traMADol HCl 50 MG Oral Tablet 08/22/2019 - 09/26/2019 Provider: ERIKA CHRISTENSEN Diagnosis: Spinal stenosis, lumbosacral region 1-2 po TID prn Last Documented On 0 4:29PM By ERIKA CHRISTENSEN ; [facility] Baclofen 10 MG Oral Tablet 07/24/2019 - 09/26/2019 Provider: ERIKA CHRISTENSEN Diagnosis: Spinal stenosis, lumbosacral region 1/2 to 1 TID prn Last Documented On 0 4:30PM By ERIKA CHRISTENSEN ; [facility] traMADol HCl 50 MG Oral Tablet 07/24/2019 - 08/21/2019 Provider: ERIKA CHRISTENSEN Diagnosis: Spinal stenosis, lumbosacral region 1-2 po TID prn Last Documented On 0 2:20PM By ERIKA CHRISTENSEN ; [facility] traMADol HCl 50 MG Oral Tablet 06/26/2019 - 07/24/2019 Provider: ERIKA CHRISTENSEN Diagnosis: Spinal stenosis, lumbosacral region 1-2 po TID prn Last Documented On 0 2:18PM By ERIKA CHRISTENSEN ; [facility] Baclofen 10 MG Oral Tablet 06/07/2019 - 07/24/2019 Pro vider: ERIKA CHRISTENSEN Diagnosis: 1/2 to 1 TID prn Last Documented On 0 2:18PM By ERIKA CHRISTENSEN ; [facility] traMADol HCl 50 MG Oral Tablet 05/28/2019 - 06/26/2019 Provider: ERIKA CHRISTENSEN Diagnosis: Spinal stenosis, lumbosacral region 1-2 po TID prn Last Documented On 0 3:07PM By ERIKA CHRISTENSEN ; [facility] Baclofen 10 MG Oral Tablet 05/08/2019 - 06/07/2019 Pro vider: ERIKA CHRISTENSEN Diagnosis: 1/2 to 1 TID prn Last Documented On 0 7:49AM By ERIKA CHRISTENSEN ; [facility] traMADol HCl 50 MG Oral Tablet 05/01/2019 - 05/28/2019 Provider: ERIKA CHRISTENSEN Diagnosis: Spinal stenosis, lumbosacral region 1-2 po TID prn Last Documented On 0 2:30PM By ERIKA CHRISTESNEN ; [facility] Baclofen 10 MG Oral Tablet 04/24/2019 - 05/08/2019 Pro vider: ERIKA CHRISTENSEN Diagnosis: 1/2 to 1 TID prn Last Documented On 0 8:26AM By ERIKA CHRISTENSEN ; [facility] Lopressor 50 MG Oral Tablet 04/23/2019 - 08/24/2021 Pr ovider: Diagnosis: Last Documented On 08/24/2021 3:50PM By Cathleen Jay Beverly ; [facility] Citalopram Hydrobromide 10 MG Oral Tablet 04/23/2019 - 08/19/2020 Provider: Diagnosis: Last Documented On 08/19/2020 1:18PM By Monica Castillo Beevrly ; [facility] traMADol HCl 50 MG Oral Tablet 04/16/2019 - 04/23/2019 Provider: ERIKA CHRISTENSEN Diagnosis: Spinal stenosis, lumbosacral region 1-2 po TID prnto fill 04/18/19 Last Documented On 0 8:08AM By ERIKA CHRISTENSEN ; [facility] traMADol HCl 50 MG Oral Tablet 03/20/2019 - 04/15/2019 Provider: ERIKA CHRISTENSEN Diagnosis: Spinal stenosis, lumbosacral region 1-2 po TID prn Last Documented On 0 3:44PM By ERIKA CHRISTENSEN ; [facility] traMADol HCl 50 MG Oral Tablet 02/18/2019 - 03/20/2019 Provider: ERIKA CHRISTENSEN Diagnosis: Spinal stenosis, lumbosacral region 1-2 po TID prn Last Documented On 0 5:09PM By ERIKA CHRISTENSEN ; [facility] traMADol HCl 50 MG Oral Tablet 01/16/2019 - 02/18/2019 Provider: ERIKA CHRISTENSEN Diagnosis: Spinal stenosis, lumbosacral region 1-2 po TID prnto fill 01/19/19 Last Documented On 0 4:45PM By ERIKA CHRISTENSEN ; [facility] traMADol HCl 50 MG Oral Tablet 12/18/2018 - 01/16/2019 Provider: ERIKA RUFFBC Diagnosis: Radiculopathy, l umbar region 1-2 po TID prnto fill 12/21/18 Last Documented On 9 10:48AM By ERIKA KAMARA- ; [facility] traMADol HCl 50 MG Oral Tablet 11/20/2018 - 12/18/2018 Provider: ERIKA RUFFBC Diagnosis: Radiculopathy, l umbar region 1-2 po TID prn Last Documented On 9 11:51AM By ERIKA KAMARA- ; [facility] traMADol HCl 50 MG Oral Tablet 11/06/2018 - 11/20/2018 Provider: ERIKA RUFFBC Diagnosis: Radiculopathy, l umbar region 1-2 po TID prn Last Documented On 9 2:00PM By ERIKA KAMARA- ; [facility] Cyclobenzaprine HCl 10 MG Oral Tablet 11/06/2018 - 01/16/2019 Provider: ERIKA RFUFBC Diagnosis: Radiculopathy, lumbar region as directed take 1/2- 1 PO TID PRN Last Documented On 9 10:16AM By Lacey GERARD ; [facility] traMADol HCl 50 MG Oral Tablet 10/18/2018 - 11/06/2018 Provider: ERIKA RUFFBC Diagnosis: Radiculopathy, l umbar region as directed 1 po TID prn pain Last Documented On 9 11:35AM By ERIKA KAMARA- ; [facility] traMADol HCl 50MG Oral Tablet 09/20/2018 - 10/18/2018 Provider: ERIKA KAMARA-BC Diagnosis: Radiculopathy, l umbar region as directed 1 po TID prn pain Last Documented On 9 10:31AM By ERIKA KAMARA- ; [facility] traMADol HCl 50MG Oral Tablet 08/23/2018 - 09/17/2018 Provider: ERIKA KAMARA-BC Diagnosis: Radiculopathy, l umbar region as directed 1 po TID prn pain Last Documented On 9 4:47PM By ERIKA CHRISTENSEN ; [facility] traMADol HCl 50MG Oral Tablet 08/23/2018 - 10/04/2018 Provider: ERIKA CHRISTENSEN Diagnosis: Radiculopathy, l umbar region 1 po TID prn Last Documented On 9 3:05PM By ERIKA CHRISTENSEN ; [facility] traMADol HCl 50MG Oral Tablet 08/08/2018 - 08/23/2018 Provider: ERIKA CHRISTENSEN Diagnosis: TAKE 1 TABLET BY MOUTH THREE TIMES DAILY NEED ED Last Documented On 9 1:56PM By ERIKA CHRISTENSEN ; [facility] ALPRAZolam 0.25MG Oral Tablet 08/06/2018 - 09/15/2020 Provider: Diagnosis: Last Documented On 09/15/2020 1:38PM By Monica GERARD ; [facility] traMADol HCl 50MG Oral Tablet 08/02/2018 - 08/02/2018 Provider: ERIKA CHRISTENSEN Diagnosis: Chronic pain syn drome 1 po TID prn Last Documented On 9 3:46PM By ERIKA CHRISTENSEN ; [facility] traMADol HCl 50MG Oral Tablet 08/02/2018 - 08/08/2018 Provider: ERIKA CHRISTENSEN Diagnosis: TAKE 1 TABLET BY MOUTH THREE TIMES DAILY NEED ED Last Documented On 9 10:11AM By ERIKA CHRISTENSEN ; [facility] Cyclobenzaprine HCl 10MG Ora l Tablet 07/20/2018 - 11/06/2018 Provider: ERIKA CHRISTENSEN Diagnosis: as directed take 1/2- 1 PO TID PRN Last Documented On 9 11:35AM By ERIKA CHRISTENSEN ; [facility] Medrol 4MG Oral Tablet Therapy Pack 07/18/2018 - 08/02/2018 Provider: ERIKA CHRISTENSEN Diagnosis: as directed Last Documented On 9 2:20PM [facility] Ramipril 2.5MG Oral Capsule 07/05/2018 - 01/19/2023 Pr ovider: Diagnosis: Last Documented On 01/19/2023 1:13PM By Cathleen GERARD ; [facility] Furosemide 40MG Oral Tablet 07/05/2018 - 08/19/2020 Pr ovider: Diagnosis: Last Documented On 08/19/2020 1:18PM By Monica GERARD ; [facility] Vitamin D 1000UNIT Oral Tablet 07/05/2018 - 09/15/2020 Provider: Diagnosis: Last Documented On 09/15/2020 1:40PM By Monica GERARD ; [facility] Vitamin B12 1000MCG Oral Tablet 07/05/2018 - 08/24 Provider: Diagnosis: Last Documented On 08/24/2021 3:50PM By Cathleen GERARD ; [facility] Adult Aspirin Regimen 81MG O ral Tablet Delayed Release 07/05/2018 - 08/24/2021 Provider: Diagnosis: Last Documented On 08/24/2021 3:50PM By Cathleen GERARD ; [facility] Viibryd 40MG Oral Tablet 07/05/2018 - 08/24/2021 Provi arvin: Diagnosis: Last Documented On 08/24/2021 3:52PM By Cathleen GERARD ; [facility] Magnesium 500MG Oral Capsule 07/05/2018 - 08/24/2021 P rovider: Diagnosis: Last Documented On 08/24/2021 3:50PM By Cathleen GERARD ; [facility] Synthroid 150MCG Oral Tablet 07/05/2018 - 12/18/2019 P rovider: Diagnosis: Last Documented On 0 1:32PM By Elisa GERARD ; [facility] Medications Administered Includes: Administered Medications in patient's chart Medications Administered Diagnosis Date Pro vider Sodium Chloride (PF) 0.9% IJ SOLN 023 NANDINI AWAN MD Last Documented On 3 1:47PM By Debi Macias RN ; [facility] Xylocaine-MPF 1% IJ SOLN 01/04/2023 CORY AWAN MD Last Documented On 3 1:45PM By Debi Macias RN ; [facility] Euflexxa 20 MG/2ML IX SOSY 01/04/2023 W FELA AWAN MD Last Documented On 3 1:45PM By Debi Macias RN ; [facility] Euflexxa 20 MG/2ML IX SOSY 01/04/2023 W FELA AWAN MD Last Documented On 3 1:44PM By Debi Macias RN ; [facility] Xylocaine 1% IJ SOLN 12/28/2022 NANDINI AWAN MD administered by Dr. Awan for local Last Documented On 3 4:14PM By Nadia Winston RN ; [facility] Sodium Chloride 0.9% IR SOLN 12/28/2022 NANDINI AWAN MD administered by Dr. Awan for local Last Documented On 3 4:15PM By Nadia Winston RN ; [facility] Euflexxa 20 MG/2ML IX SOSY 12/28/2022 W FELA AWAN MD administered by Dr. Awan in right knee Last Documented On 3 4:16PM By Nadia Winston RN ; [facility] Euflexxa 20 MG/2ML IX SOSY 12/28/2022 W FELA AWAN MD administered by Dr. Awan in left knee Last Documented On 3 4:18PM By Nadia Winston RN ; [facility] Euflexxa 20 MG/2ML IX SOSY 12/22/2021 W FELA AWAN MD administered by Dr. Awan Last Documented On 2 1:54PM By Nadia Winston RN ; [facility] Euflexxa 20 MG/2ML IX SOSY 12/22/2021 W FELA AWAN MD administered by Dr. Awan Last Documented On 2 1:52PM By Nadia Winston RN ; [facility] Sodium Chloride 0.9% IJ SOLN 12/22/2021 NANDINI AWAN MD administered by Dr. Awan for local Last Documented On 2 1:49PM By Nadia Winston RN ; [facility] Xylocaine 1% IJ SOLN 12/22/2021 NANDINI AWAN MD administered by Dr. Awan for local Last Documented On 2 1:48PM By Nadia Winston RN ; [facility] Euflexxa 20 MG/2ML IX SOSY 12/21/2022 W FELA AWAN MD administered by Dr. Awan in right knee Last Documented On 3 3:19PM By Nadia Winston RN ; [facility] Sodium Chloride 0.9% IV SOLN 12/21/2022 NANDINI AWAN MD administered by Dr. Awan for local Last Documented On 3 3:19PM By Nadia Winston RN ; [facility] Euflexxa 20 MG/2ML IX SOSY 12/21/2022 W FELA AWAN MD administered by Dr. Awan in left knee Last Documented On 3 3:20PM By Nadia Winston RN ; [facility] Xylocaine 1% IJ SOLN 12/21/2022 NANDINI AWAN MD administered by Dr. Awan for local Last Documented On 3 3:16PM By Nadia Winston RN ; [facility] Xylocaine-MPF 1% IJ SOLN 12/15/2021 CORY AWAN MD Last Documented On 2 1:22PM By Nadia Winston RN ; [facility] Sodium Chloride (PF) 0.9% IJ SOLN 022 NANDINI AWAN MD Last Documented On 2 1:21PM By Nadia Winston RN ; [facility] Euflexxa 20 MG/2ML IX SOSY 12/15/2021 W FELA AWAN MD Last Documented On 2 1:19PM By Nadia Winston RN ; [facility] Euflexxa 20 MG/2ML IX SOSY 12/15/2021 W FELA AWAN MD Last Documented On 2 1:18PM By Nadia Winston RN ; [facility] Euflexxa 20 MG/2ML IX SOSY 12/08/2021 W FELA AWAN MD administered by Dr. Awan in right knee Last Documented On 2 2:06PM By Nadia Winston RN ; [facility] Euflexxa 20 MG/2ML IX SOSY 12/08/2021 W FELA AWAN MD administered by Dr. Awan in left knee Last Documented On 2 2:09PM By Nadia Winston RN ; [facility] Xylocaine 1% IJ SOLN 12/08/2021 NANDINI AWAN MD administered by Dr. Awan for local Last Documented On 2 2:04PM By Nadia Winston RN ; [facility] Sodium Chloride 0.9% IJ SOLN 12/08/2021 NANDINI AWAN MD administered by Dr. Awan for local Last Documented On 2 2:05PM By Nadia iWnston RN ; [facility] Euflexxa 20 MG/2ML IX SOSY 05/26/2021 W FELA AWAN MD administered by Dr. Awan Last Documented On 2 3:23PM By Nadia Winston RN ; [facility] Euflexxa 20 MG/2ML IX SOSY 05/26/2021 W FELA AWAN MD administered by Dr. Awan in right knee Last Documented On 2 3:22PM By Nadia Winston RN ; [facility] Sodium Chloride 0.9% IJ SOLN 05/26/2021 NANDINI AWAN MD administered by Dr. Awan for local Last Documented On 2 3:20PM By Nadia Winston RN ; [facility] Xylocaine 1% IJ SOLN 05/26/2021 NANDINI AWAN MD administered by Dr. Awan for local Last Documented On 2 3:19PM By Nadia Winston RN ; [facility] Xylocaine 1% IJ SOLN 05/12/2021 NANDINI AWAN MD administered by Dr. Awan for loca in gabino ateral knees Last Documented On 2 4:35PM By Nadia Winston RN ; [facility] Euflexxa 20 MG/2ML IX SOSY 05/12/2021 W FELA AWAN MD administered by Dr. Awan in right knee Last Documented On 2 4:44PM By Nadia Winston RN ; [facility] Euflexxa 20 MG/2ML IX SOSY 05/12/2021 W FELA AWAN MD administered by Dr. Awan in left knee Last Documented On 2 4:43PM By Nadia Winston RN ; [facility] Sodium Chloride 0.9% IJ SOLN 05/12/2021 NANDINI AWAN MD administered by Dr. Awan for loca Last Documented On 2 4:41PM By Nadia Winston RN ; [facility] Lidocaine HCl (PF) 1% IJ SOLN 05/05/2021 NANDINI AWAN MD Last Documented On 2 4:34PM By Debi Macias RN ; [facility] Euflexxa 20 MG/2ML IX SOSY 05/05/2021 W FELA AWAN MD Last Documented On 2 4:36PM By Debi Macias RN ; [facility] Sodium Chloride (PF) 0.9% IJ SOLN 022 NANDINI AWAN MD Last Documented On 2 4:32PM By Debi Macias RN ; [facility] Euflexxa 20 MG/2ML IX SOSY 05/05/2021 W FELA AWAN MD Last Documented On 2 4:36PM By Debi Macias RN ; [facility] Vital Signs Includes: Vital Signs from 04/12/2023 through 04/11/2024 Vital Name 07/18/2023 01:54P 04/19/2023 01: 14P Weight (lb) 225 227 Body Mass Index 37.4 37.8 Body Surface Area 2.1 2.1 Pain Level 6 5 Oxygen Saturation (%) 95 91 Blood Pressure Sitting R 114/72 110/80 BP Cuff Size Large Pulse Rate-Sitting (bpm) 91 96 Temp-Temporal 96.9 96.1 Height (in) 65 65 Last Documented: On 07/18/2023 1:56PM ; [facility] On 04/19/2023 1:17PM ; [facility] Results Includes: Results from 04/12/2023 through 04/11/2024 DRUG MONITORING, PANEL 6 WITH CONFIRMATI ON, URINE [employer] Ordered by ERIKA HAWKINS [facility]- on Collected: 12/19/2023 Reported: 12/21/19 24 22:35 Last Documented On 4 10:41PM ; [facility] All test results are final unless otherw ise noted. Amphetamines NEGATIVE ng/mL (<500) None Last Documented On 4 10:41PM ; [facility] Barbiturates NEGATIVE ng/mL (<300) None Last Documented On 4 10:41PM ; [facility] Benzodiazepines NEGATIVE ng/mL (<100) None Last Documented On 4 10:41PM ; [facility] Marijuana Metabolite POSITIVE ng/mL (<20) A (Abnormal) Last Documented On 4 10:41PM ; [facility] Marijuana Metabolite 35 ng/mL (<5) H (High) Last Documented On 4 10:41PM ; [facility] medMATCH Marijuana Metab INCONSISTENT A (Abnormal) Last Documented On 4 10:41PM ; [facility] Cocaine Metabolite NEGATIVE ng/mL (<150) None Last Documented On 4 10:41PM ; [facility] Methadone Metabolite NEGATIVE ng/mL (<100) None Last Documented On 4 10:41PM ; [facility] Opiates POSITIVE ng/mL (<100) A (Abnormal) Last Documented On 4 10:41PM ; [facility] Codeine NEGATIVE ng/mL (<50) None Last Documented On 4 10:41PM ; [facility] Morphine NEGATIVE ng/mL (<50) None Last Documented On 4 10:41PM ; [facility] Hydrocodone 195 ng/mL (<50) H (High) Last Documented On 4 10:41PM ; [facility] medMATCH Hydrocodone CONSISTENT None Last Documented On 4 10:41PM ; [facility] Hydromorphone 69 ng/mL (<50) H (High) Last Documented On 4 10:41PM ; [facility] medMATCH Hydromorphone CONSISTENT None Last Documented On 4 10:41PM ; [facility] Oxycodone NEGATIVE ng/mL (<100) None Last Documented On 4 10:41PM ; [facility] Phencyclidine NEGATIVE ng/mL (<25) None Last Documented On 4 10:41PM ; [facility] Alcohol Metabolites NEGATIVE ng/mL (<500) None Last Documented On 4 10:41PM ; [facility] 6 Acetylmorphine NEGATIVE ng/mL (<10) None Last Documented On 4 10:41PM ; [facility] Specific [place] 1.006 (> or = 1.003) None Last Documented On 4 10:41PM ; [facility] pH 6.0 (4.5-9.0) None Last Documented On 4 10:41PM ; [facility] Creatinine 17.8 mg/dL (> or = 20.0) L (Low) Last Documented On 4 10:41PM ; [facility] Oxidant NEGATIVE mcg/mL (<200) None Last Documented On 4 10:41PM ; [facility] Norhydrocodone 305 ng/mL (<50) H (High) Last Documented On 4 10:41PM ; [facility] medMATCH Norhydrocodone CONSISTENT None Last Documented On 4 10:41PM ; [facility] Marijuana Comments See Note None Last Documented On 12/21/2023 10:41PM ; [facility] Note: See Marijuana Notes, LDT Notes Opiates Comments See Note None Last Documented On 12/21/2023 10:41PM ; [facility] Note: See Opiates Notes, LDT Notes DRUG MONITORING TEMPLATE [employer] Ordered by ERIKA HAWKINS [facility]- on Collected: 12/19/2023 Reported: 12/21/19 24 22:35 Last Documented On 4 10:41PM ; [facility] All test results are final unless otherw ise noted. Notes and Comments See Note None Last Documented On 12/21/2023 10:41PM ; [facility] Note: This drug testing is for medical treatment only.Analysis was performed as non-forensic testing andthese results should be used only by healthcareproviders to render diagnosis or treatment, or tomonitor progress of medical conditions. Marijuana Notes:Marijuana Metabolite detected is consistent with exposure to Marijuana (THC) and/or hemp derived products. Some jurisdictions do not include hemp within the definition of Marijuana. Opiates Notes:Hydrocodone, Norhydrocodone, Hydromorphone detected is consistent with the use of the drug Hydrocodone. Hydromorphone detected is consistent with the use of the drug Hydromorphone. Hydromorphone can be a prescribed drug and is also a metabolite of Hydrocodone. LDT Notes:Confirmation tests were developed and their analytical performance characteristics have been determined by [employer]. It has not been cleared or approved by the FDA. This assay has been validated pursuant to the CLIA regulations and is used for clinical purposes. medMATCH(R) enables providers to identify if drug useis consistent or inconsistent with a correspondingprescribed medication(s) list. Healthcare Providers needing Interpretation assistance, please contact us at [phone] ( ) M-F, 8am to 10pm EST PRESCRIBED DRUGS, medMATCH(R) [employer] Ordered by ERIKA KAMARATopSchoolMIKEL on Collected: 12/19/2023 Reported: 12/21/19 24 22:35 Last Documented On 4 10:41PM ; [facility] All test results are final unless otherw ise noted. medMATCH Summary See Note None Last Documented On 12/21/2023 10:41PM ; [facility] Note: Prescribed Prescribed Not Prescribed Consistent Inconsistent Inconsistent Hydrocodone Marijuana Metabolite Prescribed Drug 1 Hydrocodone None Last Documented On 4 10:41PM ; [facility] Reported Physicians Rory Cabrera [employer]. Ordered by ERIKAEVAN KAMARA-[employer] on Collected: 12/19/2023 Reported: 12/21/19 24 23:37 Last Documented On 4 10:41PM ; [facility] All test results are final unless otherw ise noted. Reported Physicians See Note None Last Documented On 12/21/2023 10:41PM ; [facility] Note: Reported Physicians:Ordering: Erika Hawkins History of Present Illness History of Present Illness not supported for this document type No History of Present Illness Recorded Social History Description Last Updated Tobacco non-user 04/19/2023 Last Documented On 4 1:01PM ; [facility] Current nonsmoker 03/24/2020 Last Documented On 1 5:38PM ; [facility] Non-smoker 07/24/2019 Last Documented On 0 4:12PM ; [facility] Smoking status : Never smoker 01/16/2019 Last Documented On 9 1:15PM ; [facility] Procedures and Surgical History Includes: Procedures from 04/12/2023 through 04/11/2024 Procedures Code Diagnosis Performing Provider Service Location Service Date CLINIC VISIT T1015 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 myelopathy or radiculopathy, lumbar region, Spinal stenosis, lumbosacral region, Bilateral primary osteoarthritis of knee JT 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, 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 TEST ANALYST-BC [facility] 07/18/2023 Last Documented On 4 4:02PM ; [facility] CLINIC VISIT T1015 Spinal stenosis, lumbosacral region, 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 myelopathy or radiculopathy, lumbar region, Unilateral primary osteoarthritis, left knee, 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 04/19/2023 Last Documented On 4 1:01PM ; [facility] Has had no fall in the last 12 months. 0 04/19/2023 Last Documented On 4 1:01PM ; [facility] Reviewed and Unchanged 04/23/2019 Last Documented On 0 8:09AM ; [facility] Currently wearing eyeglasses 07/05/2018 Last Documented On 9 10:21AM ; [facility] Wearing contact lenses 07/05/2018 Last Documented On 9 10:21AM ; [facility] History of arthritis 07/05/2018 Last Documented On 9 10:21AM ; [facility] History of diabetes mellitus 07/05/2018 Last Documented On 9 10:21AM ; [facility] History of hypertension 07/05/2018 Last Documented On 9 10:21AM ; [facility] Reported cardiovascular symptoms 019 Last Documented On 9 10:21AM ; [facility] Family History Includes: Family History in patient's chart No Family History Recorded Review of Systems Review of Systems not supported for this document type No Review of Systems Recorded Mental Status Description No anxiety Functional Status No Functional Status Recorded Physical Exam Physical Exam not supported for this document type No Physical Exam Recorded Allergies Includes: Active, inactive, and resolved Allergies Substance Type Reaction Onset Date Resolved Date Statu s Surgical Tape Allergy Skin Rashes / Eruption of skin 05/12 Active Last Documented On 4 1:54PM ; [facility] Encounters Includes: Encounters from 04/12/2023 through 04/11/2024 Encounter Provider Location Date Check-In Time Check-Out Time Diagnosis PAIN MANAGEMENT FOLLOW UP SIA RAYO [facility] 07/18/19 24 1:20PM 2:39PM Chronic Pain Syndrome,Sacroil iitis,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 Region,Spinal Stenosis Lumbosacral,Oste oarthritis Localized Knee Right,Osteoarthr itis Localized Knee Left,Myalgia,Khari g Term Use of Opiate Analgesic * PHONE CALL SIA RAYO 07/12/19 24 04/19/2023 1:59PM 04/19/2023 11:59PM [facility] 04/19/2023 1:19PM 04/19/2023 11:59PM * [facility] 04/19/2023 11:01AM 04/19/2023 11:59PM Spinal Stenosis Lumbar with Neurogenic Claudication RX ISSUE/REFILL DAWIT RAYOMIKEL 05/31/19 24 04/19/2023 10:21AM 04/19/2023 11:59PM RX ISSUE/REFILL [facility] L [facility] 05/[facility] 24 04/19/2023 1:10PM 04/19/2023 11:59PM * PHONE CALL [facility] L [facility] 05/[facility]/19/2023 4:39PM 04/19/2023 11:59PM PAIN MANAGEMENT FOLLOW UP [facility]KA L [facility] 04/19/19 1:05PM 1:55PM Chronic Pain Syndrome,Sacroil iitis,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 Region,Spinal Stenosis Lumbosacral,Oste oarthritis Localized Knee Right,Osteoarthr itis Localized Knee Left,Myalgia,Khari g Term Use of Opiate Analgesic Insurance Includes: Active Insurance Policies Plan Name Member ID Group # Subscriber Relationship Effect fernando Dates 1 - [facility] [id number] ADRIANA MEYERS Self Clinical Notes Includes: Signed Clinical Notes starting from 02/25/2022 * Progress note Date Encounter Last Documented by 07/18/2023 PAIN MANAGEMENT FOLLOW UP Last d ocumented on 07/18/2023; 2:55 PM, TJ BIRD, [facility]; [facility] Chief Complaint The Chief [...] drug screen appropriate 04/19/2023 Discussion: Patient of Dianadanish: Here for FU after CT lumbar spine [...] overall pain. She had labs done by pipe coverer and insulator including rheumatologic labs, which were abnormal. She is being referred to a phlebotomy support tech, but this has been difficult. Past note: Patient presents in follow up for multiple complaints. She reports not doing well overall. Complains of pain everywhere; her knees, low back, hips and myalgia. History of fibromyalgia that does not appear to be well controlled. She is also anxious regarding recent pulmonary nodules found on imaging. Home Care Music Therapist has not been seen, has f/u soon. [...] undergoing more testing and seeing a machine learning intern. Her knee pain is increased some, but [...] of 3 Euflexxa injections were done in March/May 2021. She failed steroid injections. She is [...] Bilateral SI joint degenerative changes. MRI Brain 08/05?21: Posterior fossa unremakable. Partially empty sella. Brainstem [...] syndrome] Chronic pain syndrome - [Z79.891 - jail (current) use 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] terminal computer operator use 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 Test Conclusions PHQ-9 [...] and for adult impression and score five; [85388] Established outpatient, medically appropriate H&P, moderate level [...] but may be subject to typographical or amphibian crewmember errors. Verify all diagnoses, medications, dosages, and patient instructions with patient and/or the originator of this document. Care Team - ASAD ROLDAN-MIKEL - Pain Management Health Reminders - Assess BMI satisfied 07/18/2023. - Assess Tobacco Use satisfied 07/18/2023. - Depression Screening satisfied 07/18/2023. - Follow up plan for Depression Screening satisfied 07/18/2023. User Defined 7 Moderate risk * Progress note Date Encounter Last Documented by 07/12/2023 * PHONE CALL Last documented on 07/13/2023; 11:37 AM, TJ Hodges THEA WIND OPERATIONS MANAGER-FPA, SENIOR TEST ANALYST-BC; [facility] Chief Complaint Phone Call - Chief Concern: reason for call: Gave pt her CT results tried to schedule f/u wiht [facility] but pt did not want to wait that long. ( she needs afternoon appt and [facility] only has a couple AM appt available until August) She is wanting to know if you would see to get injections ordered. pt phone # for return call: date/initials:07/12/23 CB. Current Medication - Atorvastatin Calcium 40MG Oral Tablet 40 MG One tablet daily 0 days, 0 refills - Baclofen 10 MG Oral Tablet TAKE 1/2 TO 1 (ONE-HALF TO ONE) TABLET BY MOUTH THREE TIMES DAILY NEEDED, 30 days, 0 refills - Baclofen 10 MG Oral Tablet TAKE 1/2 TO 1 (ONE-HALF TO ONE) TABLET BY MOUTH THREE TIMES DAILY NEEDED, 30 days, 2 refills - Chlorthalidone 25 MG Oral Tablet [...] bed time 0 days, 0 refills - Valium 2 MG Oral Tablet take about 1 hour before MRI, 7 days, 0 refills - Vilazodone HCl 40 [...] Reviewed and Unchanged. Social History Tobacco use: Current nonsmoker, non-smoker, and smoking status: Never smoker. Allergies - Surgical Tape Reaction: Skin Rashes / Eruption of skin Plan StartCited - Other Y ORDER/COMMENT schedule her a visit w/ me EndCited Care Team - FERMIN ROLDAN - Pain Management Health Reminders - Assess Need for CT Lung Screen satisfied 07/12/2023. - Assess Tobacco Use satisfied 07/12/2023. * Progress note Date Encounter Last Documented by 06/20/2023 RX ISSUE/REFILL Last documented on 06/20/2023; 4:23 PM, ERIKA CHRISTENSEN; [facility] Chief Complaint Phone Call - Chief Concern: Reason for call:RX REFILL Patient is requesting a refill on HYSINGLA ER 20 ~How is medication taken? DAILY ~How many are left?1 WILL TAKE TONIGHT Risk Assessment Score: MOD ~ILPMP:05/23/23 Last Office Visit: 04/19/23 ~ pt phone # for Return call: ~Last Drug Screen:10/19/22 ~Date/Initials: 06/20/23 CB. Past Medical/Surgical History Reported: Medical: Currently wearing eyeglasses, currently wearing contact lenses, and cardiovascular symptoms. Surgical / Procedural: Prior surgery Pacemaker. Diagnoses: Systemic hypertension. Diabetes mellitus. Arthritis Reviewed and Unchanged. Current Medication - Atorvastatin Calcium 40MG Oral Tablet 40 MG One tablet daily 0 days, 0 refills - Baclofen 10 MG Oral Tablet TAKE 1/2 TO 1 (ONE-HALF TO ONE) TABLET BY MOUTH THREE TIMES DAILY NEEDED, 30 days, 2 refills - Chlorthalidone 25 MG Oral Tablet [...] bed time 0 days, 0 refills - Valium 2 MG Oral Tablet take about 1 hour before MRI, 7 days, 0 refills - Vilazodone HCl 40 MG Oral Tablet One tablet daily 30 days, 0 refills - Vitamin D3 50 MCG (2000 UT) Oral Capsule One tablet three times a day 0 days, 0 refills Social History Tobacco use: Current nonsmoker, non-smoker, and smoking status: Never smoker. Allergies - Surgical Tape Reaction: Skin Rashes / Eruption of skin Plan StartCited - 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 myelopathy or radiculopathy, lumbar region Hysingla ER 20 MG tablet One tablet daily, 30 days, 0 refills EndCited Care Team - FERMIN ROLDAN - Pain Management Health Reminders - Assess Need for CT Lung Screen satisfied 06/20/2023. - Assess Tobacco Use satisfied 06/20/2023. * Progress note Date Encounter Last Documented by 06/05/2023 * PHONE CALL Last documented on 06/13/2023; 8:01 AM, ERIKA CHRISTENSEN; [facility] Chief Complaint Phone Call - Chief Concern: reason for call: Patient calling. [place] is not able to do MRI due to not compatable with pace maker. [place] jami [place] order to go somewhere else. Please advise. pt phone # for return call:[phone] date/initials: 06/05/2023 DOUBLE CUT OFF SAW OPERATOR. Past Medical/Surgical History Reported: Medical: Currently wearing eyeglasses, currently wearing contact lenses, and cardiovascular symptoms. Surgical / Procedural: Prior surgery Pacemaker. Diagnoses: Systemic hypertension. Diabetes mellitus. Arthritis Reviewed and Unchanged. Current Medication - Atorvastatin Calcium 40MG Oral Tablet 40 MG One tablet daily 0 days, 0 refills - Baclofen 10 MG Oral Tablet TAKE 1/2 TO 1 (ONE-HALF TO ONE) TABLET BY MOUTH THREE TIMES DAILY NEEDED, 30 days, 2 refills - Chlorthalidone 25 MG Oral Tablet [...] bed time 0 days, 0 refills - Valium 2 MG Oral Tablet take about 1 hour before MRI, 7 days, 0 refills - Vilazodone HCl 40 MG Oral Tablet One tablet daily 30 days, 0 refills - Vitamin D3 50 MCG (2000 UT) Oral Capsule One tablet three times a day 0 days, 0 refills Social History Tobacco use: Current nonsmoker, non-smoker, and smoking status: Never smoker. Allergies - Surgical Tape Reaction: Skin Rashes / Eruption of skin Assessment - Lumbar stenosis with neurogenic claudication [M48.062 - Spinal stenosis, lumbar region with neurogenic claudication] Plan StartCited - Other PHY ORDER/COMMENT we will order CT scan. Same location? EndCited StartCited - Spinal stenosis, lumbar region with neurogenic claudication Radiology @ other/CT Scan: Lumbar Spine CT w/o contrast Instructions: this replaces MRI order patient has pacemaker EndCited Care Team - ERIKA HAWKINS ANP-BC - Pain Management Health Reminders - Assess Need for CT Lung Screen satisfied 06/05/2023. - Assess Tobacco Use satisfied 06/05/2023. * Progress note Date Encounter Last Documented by 05/31/2023 RX ISSUE/REFILL Last documented on 05/31/2023; 10:36 AM, TJ 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, SENIOR TEST ANALYST-BC; [facility] Chief Complaint Phone Call - Chief Concern: Reason for call:Patient called, she is having an MRI on 06/02/2023. She states that she is costerphobic and would like for Erika to presribe her meds for the procedure. She states that Erika has prescribed them for her in the past. Patient is requesting a refill on ~How is medication taken? ~How many are left? Risk Assessment Score: ~ILPMP: Last Office Visit: ~ pt phone # for Return call: ~Last Drug Screen: ~Date/Initials: 05/31/2023 CP. Current Medication - Atorvastatin Calcium 40MG Oral Tablet 40 MG One tablet daily 0 days, 0 refills - Baclofen 10 MG Oral Tablet TAKE 1/2 TO 1 (ONE-HALF TO ONE) TABLET BY MOUTH THREE TIMES DAILY NEEDED, 30 days, 2 refills - Chlorthalidone 25 MG Oral Tablet [...] 0 refills - Vitamin D3 50 MCG (1999 UT) Oral Capsule One tablet three times [...] Reviewed and Unchanged. Social History Tobacco use: Current nonsmoker, non-smoker, and smoking status: Never smoker. Allergies - Surgical Tape Reaction: Skin Rashes / Eruption of skin Plan StartCited - Other Valium 2 MG tablet take about 1 hour before MRI, 7 days, 0 refills EndCited Care Team - FERMIN ROLDAN - Pain Management Health Reminders - Assess Need for CT Lung Screen satisfied 05/31/2023. - Assess Tobacco Use satisfied 05/31/2023. * Progress note Date Encounter Last Documented by 05/19/2023 RX ISSUE/REFILL Last documented on 05/22/2023; 2:38 PM, ERIKA CHRISTENSEN; [facility] Chief Complaint Phone Call - Chief Concern: Reason for call:REFILL Patient is requesting a refill on HYSINGLA ~How is medication taken? ONCE A DAY ~How many are left?#3 Risk Assessment Score: MOD ~ILPMP:04/21/23 Last Office Visit: 04/19/23 ~ pt phone # for Return call: [phone] ~Last Drug Screen:04/19/23 ~Date/Initials: 05/19/23, KMS PT IS ALSO REQUESTING SOMETHING TO CALM HER NERVES BEFORE SHE HAS MRI DONE. History of Present Illness Pharmacy name:~location:[facility]. Past Medical/Surgical History Reported: Medical: Currently wearing eyeglasses, currently wearing contact lenses, and cardiovascular symptoms. Surgical / Procedural: Prior surgery Pacemaker. Diagnoses: Systemic hypertension. Diabetes mellitus. Arthritis Reviewed and Unchanged. Current Medication - Atorvastatin Calcium 40MG Oral Tablet 40 MG One tablet daily 0 days, 0 refills - Baclofen 10 MG Oral Tablet TAKE 1/2 TO 1 (ONE-HALF TO ONE) TABLET BY MOUTH THREE TIMES DAILY NEEDED, 30 days, 2 refills - Chlorthalidone 25 MG Oral Tablet One tablet daily 90 days, 0 refills - Clopidogrel Bisulfate 75MG Oral Tablet 75 MG One tablet daily 0 days, 0 refills - [facility] Melatonin 10 MG Oral Capsule One tablet at bed time 0 days, 0 refills - Magnesium Oxide 400 [...] times a day 0 days, 0 refills Social History Tobacco use: Current nonsmoker, non-smoker, and smoking status: Never smoker. Allergies - Surgical Tape Reaction: Skin Rashes / Eruption of skin Plan StartCited - 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 myelopathy or radiculopathy, lumbar region Hysingla ER 20 MG tablet One tablet daily, 30 days, 0 refills EndCited Care Team - FERMIN ROLDAN - Pain Management Health Reminders - Assess Need for CT Lung Screen satisfied 05/19/2023. - Assess Tobacco Use satisfied 05/19/2023. * Progress note Date Encounter Last Documented by 05/08/2023 * PHONE CALL Last documented on 05/11/2023; 8:14 AM, ERIKA KAMARA-MIKEL; [facility] Chief Complaint Phone Call - Chief Concern: reason for call:pt lmovm requesting status for injections in her back, hasn't heard anything, i don't see an order pt phone # for return call:[phone] date/initials:05/08/23, kms. Past Medical/Surgical History Reported: Medical: Currently wearing eyeglasses, currently wearing contact lenses, and cardiovascular symptoms. Surgical / Procedural: Prior surgery Pacemaker. Diagnoses: Systemic hypertension. Diabetes mellitus. Arthritis Reviewed and Unchanged. Current Medication - Atorvastatin Calcium 40MG Oral Tablet 40 MG One tablet daily 0 days, 0 refills - Baclofen 10 MG Oral Tablet TAKE 1/2 TO 1 (ONE-HALF TO ONE) TABLET BY MOUTH THREE TIMES DAILY NEEDED, 30 days, 2 refills - Chlorthalidone 25 MG Oral Tablet One tablet daily 90 days, 0 refills - Clopidogrel Bisulfate 75MG Oral Tablet 75 MG One tablet daily 0 days, 0 refills - [facility] Melatonin 10 MG Oral Capsule One tablet at bed time 0 days, 0 refills - Hysingla ER 20 MG Oral Tablet ER 24 Hour Abuse-Deterrent One tablet dailystart 04/21, 30 days, 0 refills - Magnesium Oxide [...] times a day 0 days, 0 refills Social History Tobacco use: Current nonsmoker, non-smoker, and smoking status: Never smoker. Allergies - Surgical Tape Reaction: Skin Rashes / Eruption of skin Plan StartCited - Other PHY ORDER/COMMENT Not sure why the order for MRI was not place, but I need it first. Where does she want to go? EndCited Care Team - FERMIN ROLDAN - Pain Management Health Reminders - Assess Need for CT Lung Screen satisfied 05/08/2023. - Assess Tobacco Use satisfied 05/08/2023. * Progress note Date Encounter Last Documented by 04/19/2023 PAIN MANAGEMENT FOLLOW UP Last d ocumented on 05/10/2023; 1:01 PM, ERIKA KAMARA-BC; [facility] Chief Complaint The Chief Complaint is: 3 MO FU, C/O LOW BACK PAIN THAT RADIATE DOWN BL LEGS TO SIDES OF KNEES WOULD LIKE TO PLAN EUFFLEXA INJECTIONS IN THE FUTURE SINCE THEY HELPED SO MUCH. History of Present Illness - Allergy list reviewed - Problem list reviewed - Medication reconciliation performed - Medication list reviewed with patient - Prescription Drug Monitoring Program website checked. 03/23/23 - How much of the medication are you taking a day? ONCE A DAY - Last dose of medication? LAST NIGHT - Last drug screen appropriate 10/19/22 Discussion: Patient returns in follow-up for medication management. She suffers from chronic knee pain related to osteoarthritis as well as low back pain. She reports 80% relief with Euflexxa injections done 4 months ago. She is able to ambulate with much less pain. She does feel symptoms are starting to worsen just a bit, but overall still tolerable in doing well. Back pain is more bothersome. She describes low back pain with radiating pain to the left lower extremity. She has done physical therapy multiple times in the past, stopped due to increased pain. She attempts at mild stretches, but these often because increased discomfort. We discussed additional imaging for the lumbar spine and will consider treatment options based on findings. Low back pain is worse with walking and standing. Hysingla is used once daily with modest benefit. Medication does allow her to maintain a degree of function and improved overall quality of life. She does feel it is somewhat less effective as of late with the back pain. Prior visit: Patient presents in follow up to euflexxa injection to the bilateral knees. She reports 65-70% overall benefit from this procedure. She can get up and be active with less pain. Prior she was having severe pain anytime she tried getting up to walk. She may benefit from genicular ablation, but this is likely limited by insurance. She takes Hysingla once daily with additional benefit. Medication maintain function levels. She is needing a refill. Past note: Patient presents in follow up on medication. She is doing relatively well. She was seen by ortho who started celebrex, but she stopped this due to side effects. Encouraged her to reach out to ortho. Low back pain is tolerable with current medication regimen. Hysingla is used once daily and she is needing a refill at this time. Medication is helpful and allows her to maintain function levels. Past note: Patient presents in follow up to review imaging. She continues to complain of left knee pain that is severe, that also aggravates her back pain. She did not get relief from steroid injections and viscosupplementation helped to some degree. She likely needs to consult with a surgeon on the knee. She continues hysingla for chronic low back and knee pain. Past note: Patient presents in follow up. [...] overall pain. She had labs done by pipe coverer and insulator including rheumatologic labs, which were abnormal. She is being referred to a phlebotomy support tech, but this has been difficult. Past note: Patient presents in follow up for multiple complaints. She reports not doing well overall. Complains of pain everywhere; her knees, low back, hips and myalgia. History of fibromyalgia that does not appear to be well controlled. She is also anxious regarding recent pulmonary nodules found on imaging. Home Care Music Therapist has not been seen, has f/u soon. [...] undergoing more testing and seeing a machine learning intern. Her knee pain is increased some, but [...] has to go out and do something. Patient is a follow up after a [...] next month related to chronic opioid therapy. Patient presents in follow up to bilateral [...] She is being tested for Cushings' disease. Past note: Patient is here today for history and physical prior to undergoing bilateral L3, L4, and L5 radiofrequency ablation. All questions were answered today. She has been holding her Plavix as instructed. Instructions for presurgical skin prep procedure with Hibiclens given. She has not had any recent illnesses. No recent fever. No open wounds. Feeling well today. Her only adverse reaction to anesthesia in the past has been nausea. Previous Note: Patient presents in follow to repeat bilateral L3, L4, L5 medial branch blocks 1-2 weeks ago. She describes 95% relief lasting 6-8 hours with pain gradually returning by that evening. 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 She had a similar response to the previous medial branch block. Based on response, I recommend progression to RF ablation. This will be done under light sedation. Patient describes increased muscle tightness and spasms in the back and lower extremities. This has been an ongoing problem for her, with intermittent periods of increased symptoms. Last time this was a bigger issue her TSH levels were found to be significantly abnormal. Patient reports recently having lab work and being told labs were abnormal, but is awaiting an appointment with her pipe coverer and insulator. This could be contributing to her muscle pain. I will request recent lab work to review and for upcoming anesthesia.Patient is on Plavix and will need to hold this 7 days prior to procedures. We have already obtained permission to do so. Patient utilizes hydrocodone for symptom control but is not in need of a refill at this time. Medication does help and she would like to continue. Past note: Patient presents in follow to bilateral L3, L4, L5 medial branch blocks. She reports 95-100% pain relief for 8-10 hours with pain gradually returning. She was able to go shopping that day and walk the store,an activity she has not been able to do in years. She slept better and felt she had improved range of motion. Lumbar symptoms have returned at this point. She continues lumbar stretches, but these are minimal due to pain. We discussed repeat MBB and progression to RF ablation based on response. FIRST VISIT: Patient presents in follow-up for [...] Severe medial compartment osteoarthritis with tricompartmental residual. Test Conclusions PHQ-9 Score: 5 Date:04/19/23 BPI Score: Date: MiDAS Score: Date: SOAPP-R Score:12 MOD Date: 04/19/23 PRECIOUS Score:28=56% Date:04/19/23 Past Medical/Surgical History Reported: Medical: Currently wearing eyeglasses, currently wearing contact lenses, and cardiovascular symptoms. Surgical / Procedural: Prior surgery Pacemaker. Physical Trauma: Has had no fall in the last 12 months. and Denies a fear of falling. Diagnoses: Systemic hypertension. Diabetes mellitus. Arthritis Reviewed and Unchanged. Current Medication - Atorvastatin Calcium 40MG Oral [...] bed time 0 days, 0 refills - Magnesium Oxide 400 [...] times a day 0 days, 0 refills Social History Tobacco use: Current nonsmoker, non-smoker, and smoking status: Never smoker. Allergies - Surgical Tape [...] no rash. Physical Findings - Vitals taken 04/19/2023 01:14 pm BP-Sitting R 110/80 mmHg Pulse Rate-Sitting 96 bpm Temp-Temporal 96.1 F Height 65 in Weight 227 lbs Body Mass Index 37.8 kg/m2 Body Surface Area 2.1 m2 Pain Level 5 Pain Level Note KNEES AND BACK Oxygen Saturation 91 % Musculoskeletal System: General/bilateral: Musculoskeletal Scales: Value [...] Value SOAPP-R: total score 12 Assessment - Localized osteoarthritis of right knee [M17.11 - Unilateral primary osteoarthritis, right knee] - Localized osteoarthritis of left knee [M17.12 - Unilateral primary osteoarthritis, left knee] - Sacroiliitis [M46.1 - Sacroiliitis, not elsewhere classified] - Lumbar spondylosis without myelopathy or radiculopathy [M47.816 - Spondylosis without myelopathy or radiculopathy, lumbar region] - Lumbosacral spinal stenosis [M48.07 - Spinal stenosis, lumbosacral region] - Myalgia [M79.18 - Myalgia, other site] - Chronic pain syndrome [G89.4 - Chronic pain syndrome] - jail use 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 [Z79.891 - terminal computer operator (current) use 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] Therapy - Assessment of suicide risk performed Counseling/Education - Pill Count: HYSINGLA - Pill Count: Patient did not bring pain medication to appointment for pill count, per policy. Advised in order to continue to safely prescribe opioids, medication must be brought to each appointment Discussed Will continue chronic opioid therapy. Reports [...] medication properly and to never share medication. Will consider repeat euflexxa injections in future if needed. Continue HEP as tolerated F/U 2 months Plan StartCited - jail (current) use 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 Lab: Drug Monitoring, Panel 6 w/confirmation -Urine [id number] Instructions: HYSINGLA Lab: Prescribed Drugs Medmatch [id number] Instructions: HYSINGLA EndCited StartCited - Spinal stenosis, lumbosacral region Radiology @ other/MRI: MRI Lumbar w/o contrast Baclofen 10 MG tablet TAKE 1/2 TO 1 (ONE-HALF TO ONE) TABLET BY MOUTH THREE TIMES DAILY NEEDED, 30 days, 2 refills EndCited StartCited - 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 myelopathy or radiculopathy, lumbar region Hysingla ER 20 MG tablet One tablet dailystart 04/21, 30 days, 0 refills EndCited Urine sample ordered and sent to lab for testing with confirmation via LCMS when appropriate. Urine drug testing is ordered to monitor opioid use and ongoing candidacy; verify compliant use of controlled substances and monitor for use of illicit substances as these may result in harmful interactions. Practice Management Use of tobacco assessment performed Review of medications documented; Standardized depression screening: positive for symptoms and for adult impression and score five. Results of this interaction were communicated directly [...] but may be subject to typographical or amphibian crewmember errors. Verify all diagnoses, medications, dosages, and patient instructions with patient and/or the originator of this document. Care Team - ASAD ROLDAN- - Pain Management Health Reminders - Assess BMI satisfied 04/19/2023. - Assess Need for CT Lung Screen satisfied 04/19/2023. - Assess Tobacco Use satisfied 04/19/2023. - Depression Screening satisfied 04/20/2023. - Follow up plan for Depression Screening satisfied 04/19/2023. User Defined 7 Moderate risk
--- OUTSIDE RECORDS SUMMARY | 2024-04-11 15:29 | XMS_ITS | Clinical Summary ---
Author Organization [facility] Address [address] [place] [address] Phone Care Team Providers Care Wax Ball Knock Out Worker Name Role Phone GENARO FERMINERIKA Unavailable [phone] VIDA TSANG Primary Care Provider [phone] Reason for Visit and Chief Complaint * PHONE CALL Plan of Treatment Pending Tests Order Diagnosis Results Due Ordering P rovider Pain Management CPT - Epidural Steroid Inj Transforaminal, Lumbar or Sacral 1st level Radiculopathy, lumbar region 08/17/23 SIA RAYO Last Documented On 4 1:55PM ; [facility] Pain Management CPT - Joints and Bursa Inj Major joint/bursa injection w/ U/S Osteoarthritis of knee, unspecified 08/17/23 SIA RAYO Last Documented On 4 9:43AM ; [facility] Assessments Includes: Assessments from this encounter No Assessments Recorded Medical Equipment - Implanted Devices Includes: Current Devices No Medical Equipment Recorded Medications Includes: Medications discussed during this encounter and other current Medications Current Medications (continue as prescribed) Hysingla ER 20 MG Oral Tablet ER 24 Hour Abuse-Deterrent 07/18/2023 Provider: SIA RAYO 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, lumbar region One tablet daily Last Documented On 4 2:34PM By TJ STOVALL ; [facility] Baclofen 10 MG Oral Tablet 07/12/2023 Provider: SIA SCHMITT Diagnosis: Spinal stenosis, lumbosacral region TAKE 1/2 TO 1 (ONE-HALF TO O NE) TABLET BY MOUTH THREE TIMES DAILY NEEDED Last Documented On 4 2:34PM By TJ PASTORMIKEL ; [facility] Synthroid 200 MCG Oral Tablet 12/07/2022 Provider: Diagnosis: Last Documented On 4 2:34PM [facility] ; [facility] Trulicity 1.5 MG/0.5ML Subcutaneous Solution Pen-injec tor 11/28/2022 Provider: Diagnosis: Last Documented On 4 2:34PM By TJ SIDHU [facility] ; [facility] Vitamin D3 50 MCG (1999 [place]) Oral Capsule 08/24/2021 Provider: Diagnosis: Last Documented On 2 10:55AM By TJ SIDHU [facility] ; [facility] Valerian Root 450 MG Oral Capsule 08/24/2021 Provide r: Diagnosis: Last Documented On 2 10:55AM By TJ SIDHU [facility] ; [facility] Tylenol PM Extra Strength 500-25 MG Oral Tablet 2021 Provider: Diagnosis: Last Documented On 2 10:55AM By [facility] ; [facility] Melatonin 10 MG Oral Capsule 08/24/2021 Provider : Diagnosis: Last Documented On 2 10:55AM By TJ SIDHU [facility] ; [facility] Vilazodone HCl 40 MG Oral Tablet 08/18/2021 Provider : Diagnosis: Last Documented On 2 10:55AM By [facility] ; [facility] Pregabalin 150 MG Oral Capsule 08/18/2021 Provider: Diagnosis: Last Documented On 2 10:55AM By TJ SIDHU [facility] ; [facility] Metoprolol Tartrate 50 MG Oral Tablet 08/04/2021 Pro vider: Diagnosis: Last Documented On 2 10:55AM By TJ SIDHU [facility] ; [facility] Magnesium Oxide 400 (240 Mg) MG Oral Tablet 07/27/2021 Provider: Diagnosis: Last Documented On 2 10:55AM By TJ SIDHU [facility] ; [facility] Chlorthalidone 25 MG Oral Tablet 06/07/2021 Provider : Diagnosis: Last Documented On 2 10:55AM By TJ SIDHU [facility] ; [facility] One Touch Ultra 2 Device 07/05/2018 Provider: Diagnosis: Last Documented On 2 10:55AM By TJ [facility] ; [facility] one touch ultra strips Topical Strip 07/05/2018 Prov ider: Diagnosis: Last Documented On 2 10:55AM By TJ [facility] ; [facility] Topiramate 100MG Oral Tablet 07/05/2018 Provider: Diagnosis: Last Documented On 2 10:55AM By TJ [facility] ; [facility] traZODone HCl 100MG Oral Tablet 07/05/2018 Provider: Diagnosis: 2 @ night Last Documented On 2 10:55AM By TJ THEA [facility] ; [facility] Pantoprazole Sodium 40MG Oral Tablet Delayed Release 0 07/05/2018 Provider: Diagnosis: Last Documented On 2 10:55AM By TJ [facility] ; [facility] metFORMIN HCl 500MG Oral Tablet 07/05/2018 Provider: Diagnosis: Last Documented On 2 10:55AM By TJ THEA [facility] ; [facility] Atorvastatin Calcium 40MG Oral Tablet 07/05/2018 Pro vider: Diagnosis: Last Documented On 2 10:55AM By TJ THEA [facility] ; [facility] Clopidogrel Bisulfate 75MG Oral Tablet 07/05/2018 Pr ovider: Diagnosis: Last Documented On 2 10:55AM By TJ THEA [facility] ; [facility] Past Medications on file tiZANidine HCl 2 MG Oral Tablet 04/14/2022 - 05/14/2022 Provider: ERIKA LAM [facility] Diagnosis: Myalgia, other s ite 1-2 bid prn Last Documented On 04/14/2022 1:51PM By JERICA Starks LIBRARY AIDE ; [facility] Medications Administered Includes: Administered Medications from this encounter No Administered Medications Recorded Results Includes: Results discussed during this encounter No Results Recorded For Specified Dates History of Present Illness Includes: History of Present Illness from this encounter No History of Present Illness Recorded Social History Description Last Updated Tobacco non-user 04/19/2023 Last Documented On 4 1:59PM ; [facility] Current nonsmoker 03/24/2020 Last Documented On 4 1:59PM ; [facility] Non-smoker 07/24/2019 Last Documented On 4 1:59PM ; [facility] Smoking status : Never smoker 01/16/2019 Last Documented On 4 1:59PM ; [facility] Procedures and Surgical History Surgical History Last Updated Prior surgery Pacemaker 10/28/2021 Last Documented On 4 1:59PM ; [facility] Medical History Includes: Medical History addressed during this encounter Description Last Updated Denies a fear of falling. 04/19/2023 Last Documented On 4 1:59PM ; [facility] Has had no fall in the last 12 months. 0 04/19/2023 Last Documented On 4 1:59PM ; [facility] Reviewed and Unchanged 04/23/2019 Last Documented On 4 1:59PM ; [facility] Currently wearing eyeglasses 07/05/2018 Last Documented On 4 1:59PM ; [facility] Wearing contact lenses 07/05/2018 Last Documented On 4 1:59PM ; [facility] History of arthritis 07/05/2018 Last Documented On 4 1:59PM ; [facility] History of diabetes mellitus 07/05/2018 Last Documented On 4 1:59PM ; [facility] History of hypertension 07/05/2018 Last Documented On 4 1:59PM ; [facility] Reported cardiovascular symptoms 019 Last Documented On 4 1:59PM ; [facility] Family History Includes: Family History addressed during this encounter No Family History Recorded Review of Systems Includes: Review of Systems from this encounter No Review of Systems Recorded Mental Status Includes: Mental Status from this encounter No Mental Status Recorded Functional Status Includes: Functional Status from this encounter No Functional Status Recorded Physical Exam Includes: Physical Exam from this encounter No Physical Exam Recorded Allergies Includes: Active Allergies Substance Type Reaction Onset Date Resolved Date Statu s Surgical Tape Allergy Skin Rashes / Eruption of skin 05/12 Active Last Documented On 1:54PM ; [facility] Encounters Encounter Provider Location Date Check-In Time Check-Out Time Diagnosis * PHONE CALL SIA RAYO 07/12/2023 1:59PM 11:59PM Insurance Includes: Active Insurance Policies Plan Name Member ID Group # Subscriber Relationship Effect fernando Dates 1 - [facility] [id number] ADRIANA MEYERS Self Clinical Notes Includes: Clinical Notes from this encounter * Progress note Date Encounter Last Documented by 07/12/2023 * PHONE CALL Last documented on 07/13/2023; 11:37 AM, TJ BIRD, SIA; [facility] Chief Complaint Phone Call [...] skin Plan StartCited - Other PHY ORDER/COMMENT schedule her a visit w/ me EndCited Care Team - ASAD ROLDAN- - Pain Management Health Reminders - Assess Need for CT Lung Screen satisfied 07/12/2023. - Assess Tobacco Use satisfied 07/12/2023.
--- OUTSIDE RECORDS SUMMARY | 2024-04-11 15:29 | XMS_ITS | Clinical Summary ---
Author Organization [facility] Address [address] [place] [address] Care Team Providers Care Wine And Spirits Clerk Name Role Phone Lolly Wilson MD Unavailable Allergies Active Allergy Reactions Criticality Noted Date Comments Adhesive Unknown High 06/28/2017 Adhesive Tape-Silicones Unknown High 06/27/2017 Medications spironolactone (ALDACTONE) 25 mg tablet Take 1 tablet (25 mg total) by mouth daily Active atorvastatin (LIPITOR) 40 mg tablet Take 1 tablet (40 mg total) by mouth nightly Active melatonin 10 mg capsule Take 10 mg by mouth nightly Active topiramate (TOPAMAX) 100 mg tablet Take 1 tablet (100 mg total) by mouth 2 (two) times a day Active traZODone (DESYREL) 100 mg tablet Take 2 tablets (200 mg total) by mouth nightly Active valerian root 100 mg capsule Take 1 tablet by mouth nightly Active vilazodone (Viibryd) 40 mg tabletIndicati ons:major depressive disorder Take 1 tablet (40 mg total) by mouth daily Active clopidogreL (PLAVIX) 75 mg tablet Take 1 tablet (75 mg total) by mouth daily 0 Active metFORMIN (GLUCOPHAGE) 500 mg tablet Take 1 tablet (500 mg total) by mouth 2 (two) times a day with meals 0 Active acetaminophen (TYLENOL) 325 mg tablet Take 2 tablets (650 mg total) by mouth every 6 (six) hours as needed for pain 120 tablet 0 Active cyanocobalamin (Vitamin B-12) 1,000 mcg/mL injection INJECT 1 ML SUBCUTANEOUSLY ONCE A WEEK IN THE MORNING Active hydrocortisone -pramoxine (ANALPRAM-HC) 2.5-1 % rectal cream INSERT 1 APPLICATION OF CREAM RECTALLY TWICE DAILY AROUND THE CLOCK Active acyclovir (ZOVIRAX) 800 mg tablet Take 1 tablet 5 times a day by oral route for 10 days. Active baclofen (LIORESAL) 10 mg tablet Take 1 tablet (10 mg total) by mouth 3 (three) times a day 0 Active OneTouch Ultra Test strip USE 1 STRIP TO CHECK GLUCOSE TWICE DAILY BEFORE MEAL(S) 3 Active cephalexin (KEFLEX) 500 mg capsule Take 1 capsule (500 mg total) by mouth 3 (three) times a day Active cholecalcifero l (VITAMIN D-3) 2000 unit capsule 2 Active estradioL (ESTRACE) 0.01 % (0.1 mg/gram) vaginal cream APPLY 2 GRAMS VAGINALLY ONCE DAILY FOR 1 TO 2 WEEKS THEN 1 GRAM VAGINALLY 1 TO 3 TIMES PER WEEK TREAMENT IS CYCLIC (3 WEEKS ON THEN 1 WEEK OFF) Active fluticasone propionate (FLONASE) 50 mcg/actuation nasal spray Aurora 2 sprays every day by intranasal route PRN Active hydrOXYchloroQ UINE (PLAQUENIL) 200 mg tablet 3 Active hydrOXYzine (VISTARIL) 25 mg capsule TK 1 C PO TID PRF ANXIETY/INSOMNIA Active OneTouch Delica Plus Lancet 33 gauge misc USE 1 LANCET TO CHECK GLUCOSE TWICE DAILY BEFORE MEALS 3 Active magnesium oxide (MAG-OX) 400 mg (241.3 mg elemental magnesium) tablet TAKE 1 TABLET BY MOUTH ONCE DAILY IN THE MORNING AND 1 ONCE DAILY IN THE EVENING 3 Active metoprolol XL (TOPROL-XL) 50 mg extended release tablet Take 1 tablet (50 mg total) by mouth daily Active thyroid (ARMOUR THYROID) 120 mg tablet Take 1.375 tablets (165 mg total) by mouth daily Active naproxen (NAPROSYN) 500 mg tablet TAKE 1 TABLET BY MOUTH TWICE DAILY WITH MEALS 60 tablet 3 Active dulaglutide (Trulicity) 1.5 mg/0.5 mL pen injector INJECT 1 SYRINGE SUBCUTANEOUSLY ONCE A WEEK Active metoprolol tartrate (LOPRESSOR) 50 mg immediate release tablet Take 1 tablet (50 mg total) by mouth 2 (two) times a day Active pregabalin (LYRICA) 150 mg capsule Take 1 capsule (150 mg total) by mouth 2 (two) times a day Active losartan-hydro CHLOROthiazide (HYZAAR) 50-12.5 mg per tablet Take 1 tablet by mouth daily 0.5 tablet daily Active HYDROcodone bitartrate (Hysingla ER) 20 mg tablet,oral only,ext.rel.2 4 hr Take by mouth Active levothyroxine (SYNTHROID) 200 mcg tablet Take 1 tablet (200 mcg total) by mouth template worker before breakfast Active Active Problems Problem Noted Date Diagnosed Date Coronary artery disease invo lving [place] coronary artery of [place] heart without angina pectoris 03/19/2024 Essential hypertension 03/18/2024 Cardiac pacemaker 03/18/2024 Severe obesity 03/18/2024 Morbid obesity 06/22/2013 Overview (05/11/2016): MORBID OBESITY Hirsutism 06/22/2013 Overview (05/13/2016): HIRSUTISM Obesity, diabetes, and hypertension syndrome 01/2013 Overview (05/13/2016): DYSMETABOLIC SYNDROME X Hypothyroidism 11/22/2010 Overview (05/13/2016): HYPOTHYROIDISM NOS Vitamin D deficiency 11/22/2010 Overview (05/13/2016): VITAMIN D DEFICIENCY NOS Pure hypercholesterolemia 06/17/2010 Overview (05/11/2016): PURE HYPERCHOLESTEROLEM Anemia 12/10/2009 Overview (05/11/2016): ANEMIA NOS 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 Encounters Date Type Department Care Team Description 04/11/2024 Orders Only [facility] Card[facility] [address] [place] [address] ProviderRachel MD 04/02/2024 Telephone [facility] [address] [place] [id number] Mayco Casey MD 03/18/2024 1:30 PM MEDIA/INSTRUCTIONAL DESIGNER Office Visit [facility] [address] [place] [id number] Mayco Casey MD Pure hypercholesterolemia (Primary Dx); Essential hypertension; Cardiac pacemaker; Severe obesity (HCC); Coronary artery disease involving [place] coronary artery of [place] heart without angina pectoris from Last 3 Months Surgical History Surgery Date Site/Laterality Comments HYSTERECTOMY Hysterectomy APPENDECTOMY Appendectomy CHOLECYSTECTOMY gallbladder removed FOOT SURGERY Left Medical History Medical History Date Comments Disorder of thyroid Thyroid dise ase Hyperlipidemia Hyperlipidemia Hx Other Medical metabolic syndr ome Anemia anemia Coronary artery disease Cardiomyopathy (HCC) Irregular heartbeat GERD (gastroesophageal reflux disease) Hiatal hernia Chronic kidney disease abnormal gfr Type 2 diabetes mellitus (HCC) Arthritis Back pain Family History Medical History Relation Name Comments Heart disease Father Heart disease Mother Coronary artery disease Other 1 Fami ly history of Coronary artery disease; Diabetes type II Other 2 Family hist ory of Diabetes -Type II; Hyperlipidemia Other 3 Family histor y of Hyperlipidemia; Relation Name Status Comments Father Mother Other 1 Other 2 Other 3 Social History Tobacco Use Types Packs/Day Years Used Date Smoking Tobacco: Former Cigarettes Q uit: 2018 Smokeless Tobacco: Never Tobacco Cessation:Counseling Given: Not Answered Alcohol Use Standard Drinks/Week Comments No 0 (1 standard drink = 0.6 oz pur e alcohol) Comments Unknown Sex and Gender Information Value Date Recorded Sex Assigned at Not on file Legal Sex Female 4:58 PM MEDIA/INSTRUCTIONAL DESIGNER Gender Identity Female 09/23/2020 12:41 PM CDT Sexual Orientation Not on file Obstetrics History Last Filed Vital Signs Vital Sign Reading Time Taken Comments Blood Pressure 130/74 03/18/2024 1:30 PM MEDIA/INSTRUCTIONAL DESIGNER Pulse 102 03/18/2024 1:30 PM MEDIA/INSTRUCTIONAL DESIGNER Temperature 36.8 C (98.2 F) 04/12/2019 3:34 AM MEDIA/INSTRUCTIONAL DESIGNER Respiratory Rate 18 04/12/2019 3:34 AM MEDIA/INSTRUCTIONAL DESIGNER Oxygen Saturation 96% 03/18/2024 1:30 PM MEDIA/INSTRUCTIONAL DESIGNER Inhaled Oxygen Concentration - - Weight 105.6 kg (232 lb 11.2 oz) 03/18/2024 1:30 PM MEDIA/INSTRUCTIONAL DESIGNER Height 165.1 cm (5' 5 ) 03/18/2024 1:30 PM MEDIA/INSTRUCTIONAL DESIGNER Body Mass Index 38.72 03/18/2024 1:30 PM MEDIA/INSTRUCTIONAL DESIGNER Plan of Treatment Health Maintenance Due Date Last Done Comments Albumin Creatinine Ratio, Urine 1964 Breast Cancer Screening-Mammogram 1964 Colon Cancer Screening-Colonoscopy 1964 Depression Screening 1964 Hemoglobin A1C 1964 Hepatitis C Screening 1964 Dilated Eye Exam 1964 Foot Exam 1964 DTaP/Tdap/Td Vaccine (1 - Tdap) 10/09/1975 Hepatitis B Screening 1982 Regular Well Visit/Exam 18-64 1982 Pneumococcal vaccine <65 (1 of 2 - PCV) 10/09/1983 Zoster Vaccine (1 of 2) 10/09/1983 eGFR 04/11/2020 04/12/2019 Influenza Vaccine (#1) 2023 Lipid Panel 03/18/2025 03/18/2024 Medical Devices Implanted Type Area Manager File Device Identifier Shelf Expiration Date Model / Serial / Lot [employer] [id number] Solia S 53cm Steroid Elute Bipolar Active Fixation Endocardial - [id number] - [id number] Implanted:Qty: 1 on 04/11/2019 by Lolly Wilson MD at [facility] Lead [employer] [id number] 02/05/2021 [id number] / [id number] / [employer] [id number] Edora 8 Quadripolar Pacemaker Cardiac Hf-T - [id number] - [id number] Implanted:Qty: 1 on 04/11/2019 by Lolly Wilson MD at [facility] Pacemaker [employer] 07/06/2020 [id number] / [id number] / [employer] [id number] Promri Solia S 60cm Lead Pacing Steroid Eluting - [id number] - [id number] Implanted:Qty: 1 on 04/11/2019 by Lolly Wilson MD at [facility] [employer] [id number] 12/07/2019 [id number] / [id number] / [employer] [id number] Sentus Promri Otw Quadripolar Left Ventricular Lead Icd L-85/49 - [id number] Implanted:Qty: 1 on 04/11/2019 by Lolly Wilson MD at [facility] [employer] [facility] 03/08/2021 [id number] / / Procedures Procedure Name Priority Date/Time Associated Diagnosis Comments POCT LIPID PANEL Routine 03/18/2024 2:47 PM MEDIA/INSTRUCTIONAL DESIGNER Pure hypercholesterolemia ELECTROCARDIOGRAM REPORT Routine 03/18/2024 8:22 AM MEDIA/INSTRUCTIONAL DESIGNER Cardiac pacemaker EGFR Routine 04/12/2019 4:48 AM MEDIA/INSTRUCTIONAL DESIGNER from Last 3 Months or Most Recently Relevant to Health Maintenance Results * POCT lipid panel (03/18/2024 2:47 PM MEDIA/INSTRUCTIONAL DESIGNER) Cholesterol, POC 146 mg/dL Comment:GLU = 98 HDL, POC 53 mg/dL Triglycerides, POC 161 mg/dL LDL Cholesterol POC 60 mg/dL Chol/HDL Ratio, POC 1.1 Non-HDL Cholesterol, POC 92 mg/dL Cholesterol Total, POC 146 mg/dL Capillary blood 03/18/2024 2 :47 PM MEDIA/INSTRUCTIONAL DESIGNER us Mayco Casey MD POINT OF CARE TEST O RDERABLES Final Result * Electrocardiogram Report (03/18/2024 8:22 AM MEDIA/INSTRUCTIONAL DESIGNER) us Mayco Casey MD ECG ORDERABLES Uy l Result * eGFR (04/12/2019 4:48 AM MEDIA/INSTRUCTIONAL DESIGNER) eGFR 80 mL/min/1.7 3 m2 [facility] ARTHUR Comment: Interpretive Data Reference Interval Normal >/= 90 mL/min/1.73m2 Mildly decreased* 60 - 89 mL/min/1.73m2 Mildly to moderately decreased 45 - 59 mL/min/1.73m2 Moderately to severely decreased 30 - 44 mL/min/1.73m2 Severely decreased 15 - 29 mL/min/1.73m2 Kidney Failure < 15 mL/min/1.73m2 *Relative to young adult level If -Ghanaian multiply value by 1.16. Estimated glomerular filtration rate is determined by the CKD-EPI equation recommended by the National Kidney Foundation (KDIGO 2012 Clinical Practice Guideline for the Evaluation and Management of Chronic Kidney Disease. Kidney Intnl Suppl Feb 2012;3:1). The CKD-EPI equation should not be used for patients with unstable renal function and has not been validated in children and those over 70. Current interpretive data was last reviewed 2015. Blood specimen (specimen) 04/12/2019 4:48 AM MEDIA/INSTRUCTIONAL DESIGNER 04/12/2019 5:04 AM MEDIA/INSTRUCTIONAL DESIGNER us Amy Lange NP LAB BLOOD ORDERABLES Yu kline Result AZAEL [address] [address] Department [place] [address] from Last 3 Months or Most Recently Relevant to Health Maintenance Insurance [facility] Advance Directives For more information, please contact: [phone] * Full Code (Latest Code Status on File) Date Activated Date Inactivated Comments 04/11/2019 4:58 PM 04/12/2019 4:55 PM Care Teams Wine And Spirits Clerk Relationship Specialty Start Date End Date Lolly Wilson MD [address] [place] [address] Consulting Physician Cardiology 04/12/19
--- OUTSIDE RECORDS SUMMARY | 2024-04-11 15:29 | XMS_ITS | Clinical Summary ---
Author Organization [facility] Address [address] [place] [address] Phone Care Team Providers Care Rolls Mill Operator Name Role Phone GENARO FERMINERIKA Unavailable [phone] VIDA TSANG Primary Care Provider [phone] Reason for Visit and Chief Complaint RX ISSUE/REFILL Plan of Treatment Pending Tests Order Diagnosis Results Due Ordering P rovider Pain Management CPT - Epidural Steroid Inj Transforaminal, Lumbar or Sacral 1st level Radiculopathy, lumbar region 08/17/23 TJ SIDHU APRN-FPLITTLE PaulP-BC Last Documented On 4 1:55PM ; [facility] Pain Management CPT - Joints and Bursa Inj Major joint/bursa injection w/ U/S Osteoarthritis of knee, unspecified 08/17/23 TJ SIDHU APRN-FPBeverly MANAGER CLINICAL APPLICATIONS-BC Last Documented On 4 9:43AM ; [facility] Assessments Includes: Assessments from this encounter No Assessments Recorded Medical Equipment - Implanted Devices Includes: Current Devices No Medical Equipment Recorded Medications Includes: Medications discussed during this encounter and other current Medications Discontinued / Stopped on this date TJ SIDHU APRN-DAWIT STOUT-BC on 05/31/2023 Valium 2 MG Oral Tablet Provider: DAWIT DEVI-BC Diagnosis: Last Documented On 4 2:35PM By TJ STOVALL ; [facility] Current Medications (continue as prescribed) Hysingla ER 20 MG Oral Tablet ER 24 Hour Abuse-Deterrent 07/18/2023 Provider: ANDREY RAYOMIKEL 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, lumbar region One tablet daily Last Documented On 4 2:34PM By TJ STOVALL ; [facility] Baclofen 10 MG Oral Tablet 07/12/2023 Provider: SIA SCHMITT Diagnosis: Spinal stenosis, lumbosacral region TAKE 1/2 TO 1 (ONE-HALF TO O NE) TABLET BY MOUTH THREE TIMES DAILY NEEDED Last Documented On 4 2:34PM By TJ STOVALL ; [facility] Synthroid 200 MCG Oral Tablet 12/07/2022 Provider: Diagnosis: Last Documented On 4 2:34PM By TJ STOVALL ; [facility] Trulicity 1.5 MG/0.5ML Subcutaneous Solution Pen-injec tor 11/28/2022 Provider: Diagnosis: Last Documented On 4 2:34PM By TJ STOVALL ; [facility] Vitamin D3 50 MCG (1999 [place]) Oral Capsule 08/24/2021 Provider: Diagnosis: Last Documented On 2 10:55AM By TJ STOVALL ; [facility] Valerian Root 450 MG Oral Capsule 08/24/2021 Provide r: Diagnosis: Last Documented On 2 10:55AM By TJ STOVALL ; [facility] Tylenol PM Extra Strength 500-25 MG Oral Tablet 2021 Provider: Diagnosis: Last Documented On 2 10:55AM By TJ STOVALL ; [facility] CVS Melatonin 10 MG Oral Capsule 08/24/2021 Provider : Diagnosis: Last Documented On 2 10:55AM By TJ STOVALL ; [facility] Vilazodone HCl 40 MG Oral Tablet 08/18/2021 Provider : Diagnosis: Last Documented On 2 10:55AM By TJ STOVALL ; [facility] Pregabalin 150 MG Oral Capsule 08/18/2021 Provider: Diagnosis: Last Documented On 2 10:55AM By TJ PASTORMIKEL ; [facility] Metoprolol Tartrate 50 MG Oral Tablet 08/04/2021 Pro vider: Diagnosis: Last Documented On 2 10:55AM By TJ FITCHMIKEL ; [facility] Magnesium Oxide 400 (240 Mg) MG Oral Tablet 07/27/2021 Provider: Diagnosis: Last Documented On 2 10:55AM By TJ SIDHU [facility] ; [facility] Chlorthalidone 25 MG Oral Tablet 06/07/2021 Provider : Diagnosis: Last Documented On 2 10:55AM By TJ SIDHU [facility] ; [facility] One Touch Ultra 2 Device 07/05/2018 Provider: Diagnosis: Last Documented On 2 10:55AM By TJ SIDHU [facility] ; [facility] one touch ultra strips Topical Strip 07/05/2018 Prov ider: Diagnosis: Last Documented On 2 10:55AM By TJ SIDHU [facility] ; [facility] Topiramate 100MG Oral Tablet 07/05/2018 Provider: Diagnosis: Last Documented On 2 10:55AM By TJ SIDHU [facility] ; [facility] traZODone HCl 100MG Oral Tablet 07/05/2018 Provider: Diagnosis: 2 @ night Last Documented On 2 10:55AM By TJ SIDHU [facility] ; [facility] Pantoprazole Sodium 40MG Oral Tablet Delayed Release 0 07/05/2018 Provider: Diagnosis: Last Documented On 2 10:55AM By TJ PASTORMIKEL ; [facility] metFORMIN HCl 500MG Oral Tablet 07/05/2018 Provider: Diagnosis: Last Documented On 2 10:55AM By TJ SIDHU [facility] ; [facility] Atorvastatin Calcium 40MG Oral Tablet 07/05/2018 Pro vider: Diagnosis: Last Documented On 2 10:55AM By TJ ISDHU [facility] ; [facility] Clopidogrel Bisulfate 75MG Oral Tablet 07/05/2018 Pr ovider: Diagnosis: Last Documented On 2 10:55AM By TJ SIDHU MANAGER CLINICAL APPLICATIONS-BC ; [facility] Past Medications on file tiZANidine HCl 2 MG Oral Tablet 04/14/2022 - 05/14/2022 Provider: ERIKA LAM [facility]- Diagnosis: Myalgia, other s ite 1-2 bid prn Last Documented On 04/14/2022 1:51PM By JERICA Starks LPN ; [facility] Medications Administered Includes: Administered Medications from this encounter No Administered Medications Recorded Results Includes: Results discussed during this encounter No Results Recorded For Specified Dates History of Present Illness Includes: History of Present Illness from this encounter No History of Present Illness Recorded Social History Description Last Updated Tobacco non-user 04/19/2023 Last Documented On 4 10:20AM ; [facility] Current nonsmoker 03/24/2020 Last Documented On 4 10:20AM ; [facility] Non-smoker 07/24/2019 Last Documented On 4 10:20AM ; [facility] Smoking status : Never smoker 01/16/2019 Last Documented On 4 10:20AM ; [facility] Procedures and Surgical History Surgical History Last Updated Prior surgery Pacemaker 10/28/2021 Last Documented On 4 10:20AM ; [facility] Medical History Includes: Medical History addressed during this encounter Description Last Updated Denies a fear of falling. 04/19/2023 Last Documented On 4 10:20AM ; [facility] Has had no fall in the last 12 months. 0 04/19/2023 Last Documented On 4 10:20AM ; [facility] Reviewed and Unchanged 04/23/2019 Last Documented On 4 10:20AM ; [facility] Currently wearing eyeglasses 07/05/2018 Last Documented On 4 10:20AM ; [facility] Wearing contact lenses 07/05/2018 Last Documented On 4 10:20AM ; [facility] History of arthritis 07/05/2018 Last Documented On 4 10:20AM ; [facility] History of diabetes mellitus 07/05/2018 Last Documented On 4 10:20AM ; [facility] History of hypertension 07/05/2018 Last Documented On 4 10:20AM ; [facility] Reported cardiovascular symptoms 019 Last Documented On 4 10:20AM ; [facility] Family History Includes: Family History addressed during [...] Active Last Documented On 4 1:54PM ; [facility] Encounters Encounter Provider Location Date Check-In Time Check-Out Time Diagnosis RX ISSUE/REFILL TJ BIRD, SIA 05/31/2023 10:21AM 11:59PM Insurance Includes: Active Insurance Policies Plan Name Member ID Group # Subscriber Relationship Effect fernando Dates 1 - [facility] [id number] ADRIANA MEYERS Self Clinical Notes Includes: Clinical Notes from this encounter * Progress note Date Encounter Last Documented by 05/31/2023 RX ISSUE/REFILL Last documented on 05/31/2023; 10:36 AM, TJ BIRD, DAWIT-BC; [facility] Chief Complaint Phone Call - Chief Concern: [...] days, 0 refills EndCited Care Team - ASAD ROLDAN- - Pain Management Health Reminders - Assess Need for CT Lung Screen satisfied 05/31/2023. - Assess Tobacco Use satisfied 05/31/2023.
--- OUTSIDE RECORDS SUMMARY | 2024-04-11 15:29 | XMS_ITS | Encounter Summary ---
Author Organization [facility] Address [address] [place] [address] Care Team Providers Care Crop Nutrition Scientist Name Role Phone Lolly Wilson MD Unavailable [phone] Encounter Details Date Type Department Care Team (Late st Contact Info) Description 04/11/2024 Orders Only [facility] Cardiology [address] [facility] [address] [place] [phone] Provider, MD Rachel [address] [place], [place] [id number] Social History Tobacco Use Types Packs/Day Years Used Date Smoking Tobacco: Former Cigarettes Q uit: 2018 Smokeless Tobacco: Never Alcohol Use Standard Drinks/Week Comments No 0 (1 standard drink = 0.6 oz pur e alcohol) Comments Unknown Sex and Gender Information Value Date Recorded Sex Assigned at Not on file Legal Sex Female 4:58 PM SOLID FIBER PASTER OPERATOR Gender Identity Female 09/23/2020 12:41 PM CDT Sexual Orientation Not on file documented as of this encounter Plan of Treatment Not on file documented as of this encounter Procedures Procedure Name Priority Date/Time Associated Diagnosis Comments CARDIOLOGY DOCUMENT SCAN Routine 04/11/2019 8:17 AM SOLID FIBER PASTER OPERATOR documented in this encounter Results * Cardiology Document Scan (04/11/2019 8:17 AM SOLID FIBER PASTER OPERATOR) Anatomical Region Laterality Modality Other Historical Provider [facility] CHIARA ROBERTSON Final Result documented in this encounter Visit Diagnoses Not on filedocumented in this encounter Care Teams Crop Nutrition Scientist Relationship Specialty Start Date End Date Lolly Wilson MD [address] [place] [address] Consulting Physician Cardiology 04/12/19 documented as of this encounter
--- OUTSIDE RECORDS SUMMARY | 2024-04-11 15:29 | XMS_ITS | Clinical Summary ---
Author Organization [facility] Address [address] [place] [address] Care Team Providers Care Negative Retoucher Name Role Phone Makenzie Chandler ALAINA-SARA Primary Care Provider [phone] Aris Cowan MD Unavailable [phone] Source Comments [facility],non-owned Affiliates and Associated Physician Practices is amultiple site organization consisting of ambulatory clinics and hospital sitesin [place], [place], [place] and [place]. This disclosure is being madepursuant to the Care Everywhere program and may not contain all information available regarding this patient. Last updated 17.[facility] Allergies No known active allergies Medications * [...] 05/25/2021 3:08 PM CDT Plan of Treatment Health Maintenance Due Date Last Done Comments COLOGUARD (AGES 45-75) - COL ON CA SCREENING 1965 COLON MONITORING 1965 COLONOSCOPY - COLON CA SCREENING 1964 CT COLONOGRAPHY - COLON CA SCREENING 1965 Colorectal Cancer Screening 1965 FIT - COLON CA SCREENING 1964 FLEX SIG - COLON CA SCREENING 1965 MAMMOGRAM 1965 PAP SMEAR 1964 HIV SCREENING 10/09/1979 HEPATITIS C SCREENING 10/04/1982 DTAP/TDAP/TD VACCINES (1 - Tdap) 10/09/1983 HEPATITIS B VACCINE (1 of 3 - 19+ 3-dose series) 10/09/1983 PNEUMOCOCCAL VACCINE 50+ (1 of 1 - PCV) 2014 ZOSTER VACCINE (1 of 2) 2014 COVID-19 VACCINE (1 - 2023-2 5 season) 2023 INFLUENZA VACCINE (#1) 2023 SCREENING FOR DIABETES 10/14/2023 10/13/2020 DEPRESSION SCREENING 02/07/2024 HIB VACCINE Aged Out No longer eligi ble based on patient's age to complete this topic HPV VACCINE Aged Out No longer eligi ble based on patient's age to complete this topic MENINGOCOCCAL (Group B) VACCINE Aged Out No longer eligible based on patient's age to complete this topic MENINGOCOCCAL VACCINE Aged Out No jovon austin eligible based on patient's age to complete this topic PNEUMOCOCCAL VACCINE Aged Out No long er eligible based on patient's age to complete this topic Procedures Procedure Name Priority Date/Time Associated Diagnosis [...] Resulting Agency Comment [facility] [address] [facility] [id number] Aris Cowan MD LAB - CHEMISTRY OR DERABLES [facility] INSURANCE BILL [address] [place] [address] from Last 3 Months or Most Recently Relevant to Health Maintenance Care Teams Negative Retoucher Relationship Specialty Start Date End Date Makenzie Chandler APRN-SENIOR CARE MANAGER [address] [facility] [address] [place] [phone] PCP - General 11/07/18 Aris Cowan MD [address] [facility] [address] [place] [address] Rheumatology 07/18/19
--- OUTSIDE RECORDS SUMMARY | 2024-04-11 15:29 | XMS_ITS | Encounter Summary ---
Author Organization [facility] [employer] [facility] Address [address] [facility] [facility] [place] [address] Phone Care Team Providers Care Director Of Design Name Role Phone Reshma Escalera MD Primary Care Provider [phone] Reason for Visit * Reason Comments Med Refill Encounter Details Date Type Department Care Team (Late st Contact Info) Description 08/24/2020 Refill [facility], [address] [place] [address] Steven Krishnan DO [address] [facility] [address] [place] [address] Social History Tobacco Use Types Packs/Day Years Used Date Smoking Tobacco: Never Alcohol Use Standard Drinks/Week Comments No 0 (1 standard drink = 0.6 oz pur e alcohol) Comments Unknown Sex and Gender Information Value Date Recorded Sex Assigned at Not on file Legal Sex Female 2:50 PM EDT Gender Identity Not on file Sexual Orientation Not on file documented as of this encounter Plan of Treatment Upcoming Encounters Date Type Department Care Team (Late Contact Info) Description 07/16/2024 12:30 PM CDT Office Visit [facility], [facility] [address] [facility] [address] [place] [address] Steven Krishnan DO [address] [facility] [address] [place] [address] documented as of this encounter Visit Diagnoses Not on filedocumented in this encounter Care Teams Director Of Design Relationship Specialty Start Date End Date Reshma Escalera MD [address] [place] [address] PCP - General Internal Medicine 07/11/23 documented as of this encounter
--- OUTSIDE RECORDS SUMMARY | 2024-04-11 15:29 | XMS_ITS | Referral Summary ---
Author Organization [facility] Address [address] [place] [address] Care Team Providers Care Distance Learning Program Coordinator Name Role Phone Lolly Wilson MD Unavailable [phone] Encounters Date Type Department Care Team Description 04/11/2024 Orders Only [facility] Medical [facility] Cardiology [address] [place] [phone] ProviderRachel MD 04/02/2024 Telephone [facility] Medical [facility] Cardiology [address] [place] [phone] Mayco Casey MD 03/18/2024 1:30 PM EVENTS ADMINISTRATIVE ASSISTANT Office Visit [facility] Medical [facility] Cardiology [address] [place] [phone] Mayco Casey MD Pure hypercholesterolemia (Primary Dx); Essential hypertension; Cardiac pacemaker; Severe obesity (HCC); 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 from Last 3 Months Allergies Active Allergy Reactions Criticality Noted Date [...] fluticasone propionate (FLONASE) 50 mcg/actuation nasal spray [place] 2 sprays every day by intranasal route [...] 1 tablet (200 mcg total) by mouth hedis analyst before breakfast Active Active Problems Problem Noted Date Diagnosed Date 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 03/19/2024 Essential hypertension [...] 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 Social History Tobacco Use Types Packs/Day Years Used Date Smoking Tobacco: Former Cigarettes Q uit: 2018 Smokeless Tobacco: Never Tobacco Cessation:Counseling Given: Not Answered Alcohol Use Standard Drinks/Week Comments No 0 (1 standard drink = 0.6 oz pur e alcohol) Comments Unknown Sex and Gender Information Value Date Recorded Sex Assigned at Not on file Legal Sex Female 4:58 PM EVENTS ADMINISTRATIVE ASSISTANT Gender Identity Female 09/23/2020 12:41 PM CDT Sexual Orientation Not on file Last Filed Vital Signs Vital Sign Reading Time Taken Comments Blood Pressure 130/74 03/18/2024 1:30 PM EVENTS ADMINISTRATIVE ASSISTANT Pulse 102 03/18/2024 1:30 PM EVENTS ADMINISTRATIVE ASSISTANT Temperature 36.8 C (98.2 F) 04/12/2019 3:34 AM EVENTS ADMINISTRATIVE ASSISTANT Respiratory Rate 18 04/12/2019 3:34 AM EVENTS ADMINISTRATIVE ASSISTANT Oxygen Saturation 96% 03/18/2024 1:30 PM EVENTS ADMINISTRATIVE ASSISTANT Inhaled Oxygen Concentration - - Weight 105.6 kg (232 lb 11.2 oz) 03/18/2024 1:30 PM EVENTS ADMINISTRATIVE ASSISTANT Height 165.1 cm (5' 5 ) 03/18/2024 1:30 PM EVENTS ADMINISTRATIVE ASSISTANT Body Mass Index 38.72 03/18/2024 1:30 PM EVENTS ADMINISTRATIVE ASSISTANT Plan of Treatment Not on file Medical Devices Implanted Type Area Ram Press Operator Device Identifier Shelf Expiration Date Model / Serial / Lot [employer] [id number] Solia S 53cm Steroid Elute Bipolar Active Fixation Endocardial - [id number] - [id number] Implanted:Qty: 1 on 04/11/2019 by Lolly Wilson MD at [facility] [employer] [id number] 02/05/2021 [id number] / [id number] / [employer] [id number] Edora 8 Quadripolar Pacemaker Cardiac Hf-T - [id number] - [id number] Implanted:Qty: 1 on 04/11/2019 by Lolly Wilson MD at [facility] Pacemaker [employer] 07/06/2020 [id number] / [id number] / [employer] [id number] Promri Solia S 60cm Lead Pacing Steroid Eluting - [id number] - [id number] Implanted:Qty: 1 on 04/11/2019 by Lolly Wilson MD at [facility] [employer] [id number] 12/07/2019 [id number] / [id number] / [employer] [id number] Sentus Promri Otw Quadripolar Left Ventricular Lead Icd L-85/49 - [id number] Implanted:Qty: 1 on 04/11/2019 by Lolly Wilson MD at [facility] [employer] 03/08/2021 [id number] / / Procedures Procedure Name Priority Date/Time Associated Diagnosis Comments POCT LIPID PANEL Routine 03/18/2024 2:47 PM EVENTS ADMINISTRATIVE ASSISTANT Pure hypercholesterolemia ELECTROCARDIOGRAM REPORT Routine 03/18/2024 8:22 AM EVENTS ADMINISTRATIVE ASSISTANT Cardiac pacemaker EGFR Routine 04/12/2019 4:48 AM EVENTS ADMINISTRATIVE ASSISTANT from Last 3 Months or Most Recently Relevant to Health Maintenance Results * POCT lipid panel (03/18/2024 2:47 PM EVENTS ADMINISTRATIVE ASSISTANT) Cholesterol, POC 146 mg/dL Comment:GLU = 98 HDL, POC 53 mg/dL Triglycerides, POC 161 mg/dL LDL Cholesterol POC 60 mg/dL Chol/HDL Ratio, POC 1.1 Non-HDL Cholesterol, POC 92 mg/dL Cholesterol Total, POC 146 mg/dL Capillary blood 03/18/2024 2 :47 PM EVENTS ADMINISTRATIVE ASSISTANT Mayco Casey MD POINT OF CARE TEST O RDERABLES Final Result * Electrocardiogram Report (03/18/2024 8:22 AM EVENTS ADMINISTRATIVE ASSISTANT) us Mayco Casey MD ECG ORDERABLES Yu l Result * eGFR (04/12/2019 4:48 AM EVENTS ADMINISTRATIVE ASSISTANT) eGFR 80 mL/min/1.7 3 m2 [facility] ARTHUR Comment: Interpretive Data Reference Interval Normal >/= 90 mL/min/1.73m2 Mildly decreased* 60 - 89 mL/min/1.73m2 Mildly to moderately decreased 45 - 59 mL/min/1.73m2 Moderately to severely decreased 30 - 44 mL/min/1.73m2 Severely decreased 15 - 29 mL/min/1.73m2 Kidney Failure < 15 mL/min/1.73m2 *Relative to young adult level If -Marshallese multiply value by 1.16. Estimated glomerular filtration [...] 2015. Blood specimen (specimen) 04/12/2019 4:48 AM EVENTS ADMINISTRATIVE ASSISTANT 04/12/2019 5:04 AM EVENTS ADMINISTRATIVE ASSISTANT us Amy Lange NP LAB BLOOD ORDERABLES Yu l Result AZAEL [address] [place] [address] from Last 3 Months or Most Recently Relevant to Health Maintenance Insurance [facility] Advance Directives For more information, please contact: [phone] * Full Code (Latest Code Status on File) Date Activated Date Inactivated Comments 04/11/2019 4:58 PM 04/12/2019 4:55 PM Care Teams Distance Learning Program Coordinator Relationship Specialty Start Date End Date Lolly Wilson MD [address] [place] [address] Consulting Physician Cardiology 04/12/19
--- OUTSIDE RECORDS SUMMARY | 2024-04-11 15:29 | XMS_ITS ---
Care Plan - [facility] Created on: April 11, 2024 ADRIANA MEYERS : 1965 Sex: Female Author Organization [facility] Address [address] [place] [phone] Phone Care Team Providers Care Tv Technician Name Role Phone ERIKA RENO Unavailable [phone] VIDA TSANG Primary Care Provider [phone]
--- OUTSIDE RECORDS SUMMARY | 2024-04-11 15:29 | XMS_ITS | Clinical Summary ---
Author Organization [facility] Address [address] [place] [address] Phone Care Team Providers Care Casket Trimmer Name Role Phone GENARO FERMIN ERIKA Morales Unavailable [phone] VIDA TSANG Primary Care Provider [phone] Reason for Visit and Chief Complaint * PHONE CALL Plan of Treatment No Plan of Treatment Recorded Assessments Includes: Assessments from this encounter Findings - Lumbar stenosis with neurogenic claudication [M48.062 - Spinal stenosis, lumbar region with neurogenic claudication] - Last Documented On 06/05/2023 11:22AM ; [facility] Medical Equipment - Implanted Devices Includes: Current Devices No Medical Equipment Recorded Medications Includes: Medications discussed during this encounter and other current Medications Current Medications (continue as prescribed) Hysingla ER 20 MG Oral Tablet ER 24 Hour Abuse-Deterrent 07/18/2023 Provider: SIA RAYO 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, lumbar region One tablet daily Last Documented On 4 2:34PM By TJ STOVALL ; [facility] Baclofen 10 MG Oral Tablet 07/12/2023 Provider: SIA SCHMITT Diagnosis: Spinal stenosis, lumbosacral region TAKE 1/2 TO 1 (ONE-HALF TO O NE) TABLET BY MOUTH THREE TIMES DAILY NEEDED Last Documented On 4 2:34PM By TJ STOVALL ; [facility] Synthroid 200 MCG Oral Tablet 12/07/2022 Provider: Diagnosis: Last Documented On 4 2:34PM By TJ STOVALL ; [facility] Trulicity 1.5 MG/0.5ML Subcutaneous Solution Pen-injec tor 11/28/2022 Provider: Diagnosis: Last Documented On 4 2:34PM By TJ PASTORMIKEL ; [facility] Vitamin D3 50 MCG (2000 UT) Oral Capsule 08/24/2021 Provider: Diagnosis: Last Documented On 2 10:55AM By TJ PASTORMIKEL ; [facility] Valerian Root 450 MG Oral Capsule 08/24/2021 Provide r: Diagnosis: Last Documented On 2 10:55AM By TJ [facility] ; [facility] Tylenol PM Extra Strength 500-25 MG Oral Tablet 2021 Provider: Diagnosis: Last Documented On 2 10:55AM By TJ STOVALL ; [facility] Melatonin 10 MG Oral Capsule 08/24/2021 Provider : Diagnosis: Last Documented On 2 10:55AM By TJ STOVALL ; [facility] Vilazodone HCl 40 MG Oral Tablet 08/18/2021 Provider : Diagnosis: Last Documented On 2 10:55AM By TJ STOVALL ; [facility] Pregabalin 150 MG Oral Capsule 08/18/2021 Provider: Diagnosis: Last Documented On 2 10:55AM By TJ PASTORMIKEL ; [facility] Metoprolol Tartrate 50 MG Oral Tablet 08/04/2021 Pro vider: Diagnosis: Last Documented On 2 10:55AM By TJ FITCHMIKEL ; [facility] Magnesium Oxide 400 (240 Mg) MG Oral Tablet 07/27/2021 Provider: Diagnosis: Last Documented On 2 10:55AM By TJ PASTORMIKEL ; [facility] Chlorthalidone 25 MG Oral Tablet 06/07/2021 Provider : Diagnosis: Last Documented On 2 10:55AM By TJ PASTORMIKEL ; [facility] One Touch Ultra 2 Device 07/05/2018 Provider: Diagnosis: Last Documented On 2 10:55AM By TJ SIDHU [facility] ; [facility] one touch ultra strips Topical Strip 07/05/2018 Prov ider: Diagnosis: Last Documented On 2 10:55AM By TJ SIDHU [facility] ; [facility] Topiramate 100MG Oral Tablet 07/05/2018 Provider: Diagnosis: Last Documented On 2 10:55AM By TJ SIDHU [facility] ; [facility] traZODone HCl 100MG Oral Tablet 07/05/2018 Provider: Diagnosis: 2 @ night Last Documented On 2 10:55AM By TJ THEA [facility] ; [facility] Pantoprazole Sodium 40MG Oral Tablet Delayed Release 0 07/05/2018 Provider: Diagnosis: Last Documented On 2 10:55AM By TJ SIDHU [facility] ; [facility] metFORMIN HCl 500MG Oral Tablet 07/05/2018 Provider: Diagnosis: Last Documented On 2 10:55AM By TJ SIDHU [facility] ; [facility] Atorvastatin Calcium 40MG Oral Tablet 07/05/2018 Pro vider: Diagnosis: Last Documented On 2 10:55AM By TJ SIDHU [facility] ; [facility] Clopidogrel Bisulfate 75MG Oral Tablet 07/05/2018 Pr ovider: Diagnosis: Last Documented On 2 10:55AM By TJ SIDHU [facility] ; [facility] Past Medications on file tiZANidine HCl 2 MG Oral Tablet 04/14/2022 - 05/14/2022 Provider: ERIKA LAM [facility] Diagnosis: Myalgia, other s ite 1-2 bid prn Last Documented On 04/14/2022 1:51PM By JERICA Starks LPN ; [facility] Medications Administered Includes: Administered Medications from this encounter No Administered Medications Recorded Results Includes: Results discussed during this encounter No Results Recorded For Specified Dates History of Present Illness Includes: History of Present Illness from this encounter No History of Present Illness Recorded Social History Description Last Updated Tobacco non-user 04/19/2023 Last Documented On 4 11:00AM ; [facility] Current nonsmoker 03/24/2020 Last Documented On 4 11:00AM ; [facility] Non-smoker 07/24/2019 Last Documented On 4 11:00AM ; [facility] Smoking status : Never smoker 01/16/2019 Last Documented On 4 11:00AM ; [facility] Procedures and Surgical History Surgical History Last Updated Prior surgery Pacemaker 10/28/2021 Last Documented On 4 11:00AM ; [facility] Medical History Includes: Medical History addressed during this encounter Description Last Updated Reviewed and Unchanged 04/23/2019 Last Documented On 4 11:00AM ; [facility] Currently wearing eyeglasses 07/05/2018 Last Documented On 4 11:00AM ; [facility] Wearing contact lenses 07/05/2018 Last Documented On 4 11:00AM ; [facility] History of arthritis 07/05/2018 Last Documented On 4 11:00AM ; [facility] History of diabetes mellitus 07/05/2018 Last Documented On 4 11:00AM ; [facility] History of hypertension 07/05/2018 Last Documented On 4 11:00AM ; [facility] Reported cardiovascular symptoms 019 Last Documented On 4 11:00AM ; [facility] Family History Includes: Family History addressed during [...] Active Last Documented On 4 1:54PM ; [facility] Encounters Encounter Provider Location Date Check-In Time Check-Out Time Diagnosis * PHONE CALL ERIKA CHRISTENSEN 4 11:01AM 11:59PM Spinal Stenosis Lumbar with Neurogenic Claudication Insurance Includes: Active Insurance Policies Plan Name Member ID Group # Subscriber Relationship Effect fernando Dates 1 - [facility] [id number] ADRIANA MEYERS Self Clinical Notes Includes: Clinical Notes from this encounter * Progress note Date Encounter Last Documented by 06/05/2023 * PHONE CALL Last documented on 06/13/2023; 8:01 AM, ERIKA KAMARA-; [facility] Chief Complaint Phone Call - Chief Concern: reason for call: Patient calling. [place] is not able to do MRI due to not compatable with pace maker. [place] to go somewhere else. Please advise. 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 Past Medical/Surgical History Reported: Medical: Currently [...] has pacemaker EndCited Care Team - ERIKA LAM ANP-BC - Pain Management Health Reminders - Assess Need for CT Lung Screen satisfied 06/05/2023. - Assess Tobacco Use satisfied 06/05/2023.
--- OUTSIDE RECORDS SUMMARY | 2024-04-11 15:29 | XMS_ITS | Clinical Summary ---
Author Organization [facility] Address [address] [place] [address] Phone Care Team Providers Care Backer Up Name Role Phone GENARO CHRISTENSEN, ERIKA Morales Unavailable [phone] VIDA TSANG Primary Care Provider [phone] Reason for Visit and Chief Complaint RX ISSUE/REFILL Plan of Treatment No Plan of Treatment Recorded Assessments Includes: Assessments from this encounter No Assessments Recorded Medical Equipment - Implanted Devices Includes: Current Devices No Medical Equipment Recorded Medications Includes: Medications discussed during this encounter and other current Medications New / Renewed during this visit ERIKA CHRISTENSEN on 06/20/2023 Hysingla ER 20 MG Oral Table t ER 24 Hour Abuse-Deterrent Provider: ERIKA CHRISTENSEN 30 day supply: 30 tablet, 0 refills 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, lumbar region One tablet daily Pharmacy: [facility] [address], [address] - Last Documented On 4 2:34PM By TJ STOVALL ; [facility] Current Medications (continue as prescribed) Hysingla ER 20 MG Oral Tablet ER 24 Hour Abuse-Deterrent 07/18/2023 Provider: SIA RAYO 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, lumbar region One tablet daily Last Documented On 4 2:34PM By TJ STOVALL ; [facility] Baclofen 10 MG Oral Tablet 07/12/2023 Provider: TJ DEL ANGELA, [employer] Diagnosis: Spinal stenosis, lumbosacral region TAKE 1/2 TO 1 (ONE-HALF TO O NE) TABLET BY MOUTH THREE TIMES DAILY NEEDED Last Documented On 4 2:34PM By TJ FITCHP-MIKEL ; [facility] Synthroid 200 MCG Oral Tablet 12/07/2022 Provider: Diagnosis: Last Documented On 4 2:34PM By TJ STOVALL ; [facility] Trulicity 1.5 MG/0.5ML Subcutaneous Solution Pen-injec tor 11/28/2022 Provider: Diagnosis: Last Documented On 4 2:34PM By TJ STOVALL ; [facility] Vitamin D3 50 MCG (1999 UT) Oral Capsule 08/24/2021 Provider: Diagnosis: Last Documented On 2 10:55AM By TJ FITCHMIKEL ; [facility] Valerian Root 450 MG Oral Capsule 08/24/2021 Provide r: Diagnosis: Last Documented On 2 10:55AM By TJ FITCHIMKEL ; [facility] Tylenol PM Extra Strength 500-25 MG Oral Tablet 2021 Provider: Diagnosis: Last Documented On 2 10:55AM By TJ STOVALL ; [facility] Melatonin 10 MG Oral Capsule 08/24/2021 Provider : Diagnosis: Last Documented On 2 10:55AM By TJ STOVALL ; [facility] Vilazodone HCl 40 MG Oral Tablet 08/18/2021 Provider : Diagnosis: Last Documented On 2 10:55AM By TJ FITCHMIKEL ; [facility] Pregabalin 150 MG Oral Capsule 08/18/2021 Provider: Diagnosis: Last Documented On 2 10:55AM By TJ PASTORMIKEL ; [facility] Metoprolol Tartrate 50 MG Oral Tablet 08/04/2021 Pro vider: Diagnosis: Last Documented On 2 10:55AM By TJ FITCHMIKEL ; [facility] Magnesium Oxide 400 (240 Mg) MG Oral Tablet 07/27/2021 Provider: Diagnosis: Last Documented On 2 10:55AM By TJ SIDHU [facility] ; [facility] Chlorthalidone 25 MG Oral Tablet 06/07/2021 Provider : Diagnosis: Last Documented On 2 10:55AM By TJ SIDHU [facility] ; [facility] One Touch Ultra 2 Device 07/05/2018 Provider: Diagnosis: Last Documented On 2 10:55AM By TJ SIDHU [facility] ; [facility] one touch ultra strips Topical Strip 07/05/2018 Prov ider: Diagnosis: Last Documented On 2 10:55AM By TJ SIDHU [facility] ; [facility] Topiramate 100MG Oral Tablet 07/05/2018 Provider: Diagnosis: Last Documented On 2 10:55AM By TJ SIDHU [facility] ; [facility] traZODone HCl 100MG Oral Tablet 07/05/2018 Provider: Diagnosis: 2 @ night Last Documented On 2 10:55AM By TJ SIDHU [facility] ; [facility] Pantoprazole Sodium 40MG Oral Tablet Delayed Release 0 07/05/2018 Provider: Diagnosis: Last Documented On 2 10:55AM By TJ SIDHU [facility] ; [facility] metFORMIN HCl 500MG Oral Tablet 07/05/2018 Provider: Diagnosis: Last Documented On 2 10:55AM By TJ SIDHU [facility] ; [facility] Atorvastatin Calcium 40MG Oral Tablet 07/05/2018 Pro vider: Diagnosis: Last Documented On 2 10:55AM By TJ SIDHU [facility] ; [facility] Clopidogrel Bisulfate 75MG Oral Tablet 07/05/2018 Pr ovider: Diagnosis: Last Documented On 2 10:55AM By TJ SIDHU [facility] ; [facility] Past Medications on file tiZANidine HCl 2 MG Oral Tablet 04/14/2022 - 05/14/2022 Provider: ERIKA LAM [facility]- Diagnosis: Myalgia, other s ite 1-2 bid prn Last Documented On 04/14/2022 1:51PM By JERICA Starks LPN ; [facility] Medications Administered Includes: Administered Medications from this encounter No Administered Medications Recorded Results Includes: Results discussed during this encounter No Results Recorded For Specified Dates History of Present Illness Includes: History of Present Illness from this encounter No History of Present Illness Recorded Social History Description Last Updated Tobacco non-user 04/19/2023 Last Documented On 4 1:19PM ; [facility] Current nonsmoker 03/24/2020 Last Documented On 4 1:19PM ; [facility] Non-smoker 07/24/2019 Last Documented On 4 1:19PM ; [facility] Smoking status : Never smoker 01/16/2019 Last Documented On 4 1:19PM ; [facility] Procedures and Surgical History Surgical History Last Updated Prior surgery Pacemaker 10/28/2021 Last Documented On 4 1:19PM ; [facility] Medical History Includes: Medical History addressed during this encounter Description Last Updated Reviewed and Unchanged 04/23/2019 Last Documented On 4 1:19PM ; [facility] Currently wearing eyeglasses 07/05/2018 Last Documented On 4 1:19PM ; [facility] Wearing contact lenses 07/05/2018 Last Documented On 4 1:19PM ; [facility] History of arthritis 07/05/2018 Last Documented On 4 1:19PM ; [facility] History of diabetes mellitus 07/05/2018 Last Documented On 4 1:19PM ; [facility] History of hypertension 07/05/2018 Last Documented On 4 1:19PM ; [facility] Reported cardiovascular symptoms 019 Last Documented On 4 1:19PM ; [facility] Family History Includes: Family History addressed [...] 05/12 Active Last Documented On 1:54PM ; [facility] Encounters Encounter Provider Location Date Check-In Time Check-Out Time Diagnosis RX ISSUE/REFILL ERIKA CHRISTENSEN 06/20/2023 1:19PM 11:59PM Insurance Includes: Active Insurance Policies Plan Name Member ID Group # Subscriber Relationship Effect fernando Dates 1 - [facility] [id number] ADRIANA John Paul MEYERS Self Clinical Notes Includes: Clinical Notes from this encounter * Progress note Date Encounter Last Documented by 06/20/2023 RX ISSUE/REFILL Last documented on 06/20/2023; 4:23 PM, REIKA CHRISTENSEN; [facility] Chief Complaint Phone Call [...]
[2024-04-11 15:49] LABS: Thyroid Stimulating Hormone 0.341 uIU/mL (0.465-4.680)
[2024-04-11 17:08] LABS: Free T4 Free Thyroxine 1.74 ng/dL (0.78-2.19)
== END 2024-04-11 14:09 | disposition home or self-care (01) ==
LOC: ANHLAB 14:10
PROVIDERS: PCP Internal Medicine; Visit Provider Nurse Practitioner Family
DX: E03.8 Other specified hypothyroidism (principal); E06.3 Autoimmune thyroiditis; I10 Essential (primary) hypertension; E78.5 Hyperlipidemia, unspecified
CPT/HCPCS: 36415; 80048; 82306; 82607; 84439; 84443

== ENCOUNTER 2024-10-16 14:07 | Outpatient (CLI) | payer OTHER, SELFPAY ==
--- OUTSIDE RECORDS SUMMARY | 2007-10-24 05:30 | XMS_ITS | Continuity of Care Document ---
Author Organization [facility] Address [address] [place] [address] Phone Care Team Providers Care Fondant Puff Maker Name Role Phone Bailey OD, Huy Unavailable Unavailable Procedures Procedure Date Office/outpatient Visit, Est Eye Exam Established Pt Advance Directives Directive Yes / No Effective Date File Name No Information Encounters Encounter Description Practice Location Reason(s) For Visit Diagnoses Date Provider Providers Copied on Encounter Office/outpat ient Visit, Est [facility], [id number] [place] [address] [address], [place], [place], [id number], tel:[phone] SEC [facility] No Information Sep- 7-200 8 Bailey OD Huy. [address] [facility] , [address], [place], [place], [facility] [place], [place]. tel:[phone] [facility], [address] [place] [address] [address], [place], [place], [id number], tel:[phone] [facility] [place] No Information Sep-1 0-200 8 Bailey OD Huy. [address] [place] , [address], [place], [address], [place]. tel:[phone] Family History Family Member Type Diagnosis Age At Onset No Information Payers Payer name Insurance type Covered alliance party ID Authoriza tion(s) No Information Social History Type Description Quantity Date Captured Comments Sex Female Smoking Status No Information Chief Complaint And Reason For Visit No Information Reason For Referral Reason For Referral No Information History Of Present Illness Encounter Date Complaint History Of Prese nt Illness No Information Functional Status Date Functional Assessmen t No Information Instructions Date Instruction Additional Infor mation No Information Assessments Type Assessment Date No Information Patient Care Teams Name Effective Dates (start - stop) Status Members No Information
[2024-10-16 14:42] LABS: Alanine Aminotransferase 27 U/L (6-35); Albumin Level 4.6 g/dL (3.5-5.1); Alkaline Phosphatase 104 U/L (38-126); Anion Gap 10 mmol/L (4-12); Aspartate Amino Transferase 35 U/L (14-36); Bilirubin,Total 0.5 mg/dL (0.2-1.3); Blood Urea Nitrogen 7 mg/dL (7-17); Calcium 9.1 mg/dL (8.4-10.2); Carbon Dioxide 27 mmol/L (22-30); Chloride 103 mmol/L (98-107); Cholesterol 142 mg/dL (0-200); Estimated Glomerular Filt Rate 57; Glucose 102 mg/dL (65-110); HDL Direct 59 mg/dL; Potassium 3.5 mmol/L (3.4-5.0); Sodium 140 mmol/L (137-145); Total Protein 8.3 g/dL (6.3-8.2); Triglycerides 127 mg/dL (<150)
--- OUTSIDE RECORDS SUMMARY | 2024-10-16 14:44 | XMS_ITS | Clinical Summary ---
Author Organization [facility] Address [address] [place] [address] Care Team Providers Care Tailing Machine Operator Name Role Phone Lolly Wilson MD Unavailable [phone] Jw Justice MD Primary Care Provider Allergies Active Allergy Reactions Criticality Noted Date Comments Adhesive Unknown High 06/28/2017 Adhesive Tape-Silicones Unknown High 06/27/2017 Medications atorvastatin (LIPITOR) 40 mg tablet Take 1 [...] mouth nightly Active vilazodone (Viibryd) 40 mg tabletIndicatio ns:major depressive disorder Take 1 tablet (40 mg [...] needed for pain 120 tablet 0 Active baclofen (LIORESAL) 10 mg tablet Take 1 tablet (10 mg total) by mouth 3 (three) times a day 0 Active OneTouch Ultra Test strip USE 1 STRIP TO CHECK GLUCOSE TWICE DAILY BEFORE MEAL(S) 3 Active cholecalciferol (VITAMIN D-3) 2000 unit capsule 2 Active OneTouch Delica Plus Lancet 33 gauge [...] (50 mg total) by mouth daily Active naproxen (NAPROSYN) 500 mg tablet TAKE 1 TABLET BY MOUTH TWICE DAILY WITH MEALS 60 tablet 3 Active metoprolol tartrate (LOPRESSOR) 50 mg immediate release tablet Take 1 tablet (50 mg total) by mouth 2 (two) times a day Active pregabalin (LYRICA) 150 mg capsule Take 1 capsule (150 mg total) by mouth 2 (two) times a day Active HYDROcodone bitartrate (Hysingla ER) 20 mg tablet,oral only,ext.rel.24 hr Take by mouth Active levothyroxine (SYNTHROID) 200 mcg tablet Take 1 tablet (200 mcg total) by mouth 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 before breakfast Active losartan-hydroC HLOROthiazide (HYZAAR) 50-12.5 mg per tablet Take 1 tablet by mouth daily 60 tablet 5 Active icosapent ethyL (VASCEPA) 1 gram capsule Take 2 capsules (2 g total) by mouth 2 (two) times a day 5 Active Linzess 290 mcg capsule Take 1 capsule (290 mcg total) by mouth daily Active pantoprazole DR (PROTONIX) 40 mg EC tablet Take 1 tablet (40 mg total) by mouth daily 5 Active Trulicity 4.5 mg/0.5 mL pen injector Inject 0.5 mL (4.5 mg total) under the skin once a week Active Active Problems Problem Noted Date Diagnosed Date Coronary artery disease invo [place]ving [place] coronary artery of [place] heart without angina pectoris 03/19/2024 Essential hypertension 03/18/2024 Cardiac pacemaker 03/18/2024 Overview (05/07/2024): Biotronik Bi-V PPM Edora 8 HF-T Dx:Severe symptomatic bradycardia, LBBB DOI: 04/11/2019 Alvinvaitis Severe obesity 03/18/2024 Morbid obesity 06/22/2013 Overview [...] Encounters Date Type Department Care Team Description 09/03/2024 8:15 AM CDT Ancillary Procedure [facility] Cardiology [address] [place] [address] [place] [phone] LBBB (left bundle branch block) [I44.7] (Primary Dx); Cardiac pacemaker; Symptomatic bradycardia 07/17/2024 Telephone [facility] Cardiology [address] [place] [phone] Mayco Casey MD 07/16/2024 9:00 AM CDT Ancillary Procedure [facility] Cardiology [address] [place] [phone] LBBB (left bundle branch block) [I44.7] (Primary Dx); Cardiac pacemaker; Symptomatic bradycardia from Last 3 Months Surgical History Surgery Date Site/Laterality Comments HYSTERECTOMY Hysterectomy APPENDECTOMY Appendectomy CHOLECYSTECTOMY gallbladder removed FOOT SURGERY Left Medical History Medical History Date Comments Disorder of thyroid Thyroid dise ase Hyperlipidemia Hyperlipidemia Hx Other Medical metabolic syndr ome Anemia anemia Coronary artery disease Cardiomyopathy Irregular heartbeat GERD (gastroesophageal reflux disease) Hiatal hernia Chronic kidney disease abnormal gfr Type 2 diabetes mellitus Arthritis Back pain Heart disease 2019 Autoimmune disease 2005 Family History Medical History Relation Name Comments Anemia Father Duarte Euceda Diabetes Father Duarte Euceda Heart disease Father Duarte Euceda Arthritis Mother Duarte Carreon Heart attack Mother Duarte Carreon Heart disease Mother Duarte Carreon Hypertension Mother Duarte Carreon Obesity Mother Duarte Carreon Coronary artery disease Other 1 Fami ly history of Coronary artery disease; Diabetes type II Other 2 Family hist ory of Diabetes -Type II; Hyperlipidemia Other 3 Family histor y of Hyperlipidemia; Relation Name Status Comments Father Duarte Euceda Alive Mother Duarte Carreon Alive Other 1 Other 2 Other 3 Social History Tobacco Use Types Packs/Day Years Used Date Smoking Tobacco: Former Cigarettes Q uit: 2018 Smokeless Tobacco: Never Alcohol Use Standard Drinks/Week Comments No 0 (1 standard drink = 0.6 oz pur e alcohol) Comments Unknown Sex and Gender Information Value Date Recorded Sex Assigned at Not on file Legal Sex Female 4:58 PM WAGE ANALYST Gender Identity Female 09/23/2020 12:41 PM CDT Sexual Orientation Not on file Obstetrics History Last Filed Vital Signs Vital Sign Reading Time Taken Comments Blood Pressure 128/90 07/10/2024 3:31 PM CDT Pulse 90 07/10/2024 3:31 PM CDT Temperature 36.8 C (98.2 F) 04/12/2019 3:34 AM WAGE ANALYST Respiratory Rate 18 04/12/2019 3:34 AM WAGE ANALYST Oxygen Saturation 96% 07/10/2024 3:31 PM CDT Inhaled Oxygen Concentration - - Weight 111.1 kg (245 lb) 07/10/2024 3:31 PM CDT Height 165.1 cm (5' 5) 07/10/2024 3:31 PM CDT Body Mass Index 40.77 07/10/2024 3:31 PM CDT Plan of Treatment Health Maintenance [...] 10/09/1983 eGFR 04/11/2020 04/12/2019 Influenza Vaccine (#1) 2024 Lipid Panel 03/18/2025 03/18/2024 Medical Devices Implanted Type Area Hard Rock Drill Operator Device Identifier Shelf Expiration Date Model / Serial / Lot Biotronik Inc [id number] Solia S 53cm Steroid Elute Bipolar Active Fixation Endocardial - [id number] - [id number] Implanted:Qty: 1 on 04/11/2019 by Lolly Wilson MD at [facility] Lead Biotronik Inc [id number] 02/05/2021 [id number] / [id number] / Biotronik Inc [id number] Edora 8 Quadripolar Pacemaker Cardiac Hf-T - [id number] - [id number] Implanted:Qty: 1 on 04/11/2019 by Lolly Wilson MD at [facility] Pacemaker Biotronik Inc 07/06/2020 [id number] / [id number] / Biotronik Inc [id number] Promri Solia S 60cm Lead Pacing Steroid Eluting - [id number] - [id number] Implanted:Qty: 1 on 04/11/2019 by Lolly Wilson MD at [facility] Bi[employer]ik Inc [id number] 12/07/2019 [id number] / [id number] / Biotronik Inc [id number] Sentus Promri Otw Quadripolar Left Ventricular Lead Icd L-85/49 - [id number] Implanted:Qty: 1 on 04/11/2019 by Lolly Wilson MD at [facility] Biotronik Inc 03/08/2021 [id number] / / Procedures Procedure Name Priority Date/Time Associated Diagnosis Comments DEVICE CHECK - REMOTE Routine 09/03/2024 10:29 AM CDT Cardiac pacemaker Symptomatic bradycardia DEVICE CHECK - REMOTE Routine 07/23/2024 3:15 PM CDT Cardiac pacemaker Symptomatic bradycardia POCT LIPID PANEL Routine 03/18/2024 2:47 PM WAGE ANALYST Pure hypercholesterolemia EGFR Routine 04/12/2019 4:48 AM WAGE ANALYST from Last 3 Months or Most Recently Relevant to Health Maintenance Results * DEVICE CHECK - REMOTE (09/03/2024 10:29 AM CDT) Anatomical Region Laterality Modality Other Narrative 09/13/2024 12:26 PM CDT Biotronik Bi-V PPM Edora 8 HF-T Dx:Severe symptomatic bradycardia, LBBB DOI: 04/11/2019 Kalvaitis . Routine DDD Pacemaker Remote. Transmission attached. Battery status: Ok, 20% remaining battery life to AUBREY. Stable lead impedances, pacing and sensing thresholds. Presenting rhythm: AP BIVP. AP-42%, RVP-100%, BIVP-100%. No AT/AF episodes noted. No Ventricular high rate episodes detected. Medications: Plavix, Toprol-XL. See scanned report. Office pacemaker follow up: 9 months. Biotronik remote f/u 12/10/2024. Alea Garza RN Mayco Casey MD [facility] PROCEDURES Final Result * DEVICE CHECK - REMOTE (07/23/2024 3:15 PM CDT) Anatomical Region Laterality Modality Other Narrative 08/02/2024 1:12 PM CDT Biotronik Bi-V PPM Edora 8 HF-T Dx:Severe symptomatic bradycardia, LBBB DOI: 04/11/2019 Kalvaitis . Routine DDD Pacemaker Remote. Transmission attached. Battery status: Ok, 25% remaining battery life to AUBREY. Stable lead impedances, pacing and sensing thresholds. Presenting rhythm: BIVP. AP-47%, RVP-100%, BIVP-100%. No AT/AF episodes noted. No Ventricular high rate episodes detected. Medications: Plavix, Toprol-XL. See scanned report. Office pacemaker follow up: 9 months. Biotronik remote f/u 09/03/2024. Alea Garza RN Mayco Casey MD [facility] CARDIAC SERVICES PROCEDURES Final Result * POCT lipid panel (03/18/2024 2:47 PM WAGE ANALYST) Cholesterol, POC 146 mg/dL Comment:GLU = 98 HDL, POC 53 mg/dL Triglycerides, POC 161 mg/dL LDL Cholesterol POC 60 mg/dL Chol/HDL Ratio, POC 1.1 Non-HDL Cholesterol, POC 92 mg/dL Cholesterol Total, POC 146 mg/dL Capillary blood 03/18/2024 2 :47 PM WAGE ANALYST Mayco Casey MD POINT OF CARE TEST O RDERABLES Final Result * eGFR (04/12/2019 4:48 AM WAGE ANALYST) eGFR 80 mL/min/1.7 3 m2 [facility] Comment: Interpretive Data Reference Interval Normal >/= 90 mL/min/1.73m2 Mildly decreased* 60 - 89 mL/min/1.73m2 Mildly to moderately decreased 45 - 59 mL/min/1.73m2 Moderately to severely decreased 30 - 44 mL/min/1.73m2 Severely decreased 15 - 29 mL/min/1.73m2 Kidney Failure < 15 mL/min/1.73m2 *Relative to young adult level If -Lithuanian multiply value by 1.16. Estimated glomerular filtration [...] 2015. Blood specimen (specimen) 04/12/2019 4:48 AM WAGE ANALYST 04/12/2019 5:04 AM WAGE ANALYST Amy Lange NP LAB BLOOD ORDERABLES Yu kline Result [facility] [address] Department [place] [address] from Last 3 Months or Most Recently Relevant to Health Maintenance Insurance [facility] [place] [address] [facility] Advance Directives For more information, please contact: [phone] * Full Code (Latest Code Status on File) Date Activated Date Inactivated Comments 04/11/2019 4:58 PM 04/12/2019 4:55 PM Care Teams Tailing Machine Operator Relationship Specialty Start Date End Date Jw Justice MD [address] [place] [place] [address] PCP - General Internal Medicine 06/04/24 Lolly Wilson MD [address] [place] [address] Consulting Physician Cardiology 04/12/19
--- OUTSIDE RECORDS SUMMARY | 2024-10-16 14:44 | XMS_ITS | Encounter Summary ---
Author Organization [facility] Healthcare Address [address] [place] [address] Care Team Providers Care Paper Carrier Name Role Phone Hugo Tovar MD Primary Care Provider [phone] Lolly Wilson MD Unavailable [phone] Makenzie Chandler NP Primary Care Provider [phone] Unknown, Notinfile Primary Care Provider Unavail able Jw Justice MD Primary Care Provider [phone] Encounter Details Date Type Department Care Team (Late st Contact Info) Description 08/04/2020 Telephone [facility] Radiology [address] [place] [address] Greta Hawkins NP [address] [place] [address] Social History Tobacco Use Types Packs/Day Years Used Date Smoking Tobacco: Former Cigarettes Q uit: 2018 Smokeless Tobacco: Never Alcohol Use Standard Drinks/Week Comments No 0 (1 standard drink = 0.6 oz pur e alcohol) Comments Unknown Sex and Gender Information Value Date Recorded Sex Assigned at Not on file 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 Gender Identity Female 09/23/2020 12:41 PM CDT Sexual Orientation Not on file documented as of this encounter Plan of Treatment Not on file documented as of this encounter Visit Diagnoses Not on filedocumented in this encounter Care Teams Paper Carrier Relationship Specialty Start Date End Date Hugo Tovar MD PCP - General 04/11/19 08/04/20 Makenzie Chandler, AYDEE [address] [place] [address] PCP - General 08/05/20 03/03/23 Unknown, Notinfile PCP - General 04/30/24 06/03/24 wJ Justice MD [address] [facility] [place] [id number] PCP - General Internal Medicine 06/04/24 Lolly Wilson MD [address] [place] [address] Consulting Physician Cardiology 04/12/19 documented as of this encounter
--- OUTSIDE RECORDS SUMMARY | 2024-10-16 14:44 | XMS_ITS | Clinical Summary ---
Author Organization [facility] Address [address] [place] [address] Care Team Providers Care Waterproofer Helper Name Role Phone Makenzie Chandler ZOË Primary Care Provider [phone] Aris Cowan MD Unavailable [phone] Source Comments [facility],non-owned Affiliates and Associated Physician Practices is amultiple site organization consisting of ambulatory clinics and hospital sitesin [place], [place], [place] and [place]. This disclosure is being madepursuant to the Care Everywhere program and may not contain all information available regarding this patient. Last updated 17.[facility] Allergies No known active allergies Medications * Be aware that medications may not be up to date on this document. Alwaysverify current medications with the patient. atorvastatin (LIPITOR) 40 MG tablet Take 40 [...] 200 mg by mouth at bedtime Active diphenhydrAMINE-AP AP, sleep, 50-1000 MG/30ML Active VALERIAN ROOT PLUS [...] VITAMIN D PO Active MAGNESIUM PO Active HYDROcodone-acetam inophen (NORCO) 5-325 MG tablet 11/18/19 Active metoprolol tartrate (LOPRESSOR) 50 MG tablet 11/18/19 21 Active pregabalin (LYRICA) 150 MG capsuleIndications :Fibromyalgia,Prim jermaine osteoarthritis of both knees Take 1 (one) capsule by mouth 2 times daily as needed (Knee osteoarthritis and fibromyalgia related pain) 60 capsule 05/26/19 Active Active Problems Problem Noted Date Diagnosed Date Fibromyalgia 05/25/2021 Primary osteoarthritis of both knees 05/25/2021 Social History Tobacco Use Types Packs/Day Years Used Date Smoking Tobacco: Former Cigarettes Q uit: 09/10/2018 Smokeless Tobacco: Never Comments No Sex and Gender Information Value Date Recorded Sex Assigned at Not on file 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 Gender Identity Female 05/20/2021 8:55 PM CDT [...] 3:08 PM CDT Height 165.1 cm (5' 5) 05/25/2021 3:08 PM CDT Body Mass Index 42.27 05/25/2021 3:08 PM CDT Plan of Treatment Upcoming Encounters Date Type Department Care Team (Late st Contact Info) Description 11/26/2024 2:00 PM CDT Office Visit [facility] - Rheumatology [address] [place] [address], [facility] [place] [address] Yvtete Rojo MD [address] [place] [id number] Health Maintenance Due Date Last Done Comments COLOGUARD (AGES 45-75) - COL ON CA SCREENING 1964 COLON MONITORING 1964 COLONOSCOPY - COLON CA SCREENING 1964 CT COLONOGRAPHY - COLON CA SCREENING 1964 Colorectal Cancer Screening 1964 FIT - COLON CA SCREENING 1964 FLEX SIG - COLON CA SCREENING 1964 MAMMOGRAM 1964 HIV SCREENING 10/09/1979 HEPATITIS C SCREENING 10/04/1982 DTAP/TDAP/TD VACCINES (1 - Tdap) 10/09/1983 PAP SMEAR 1985 PNEUMOCOCCAL VACCINE 50+ (1 of 1 - PCV) 2014 ZOSTER VACCINE (1 of 2) 2014 SCREENING FOR DIABETES 10/14/2023 10/13/2020 DEPRESSION SCREENING 02/07/2024 COVID-19 VACCINE (1 - 2023-2 5 season) 2024 INFLUENZA VACCINE (#1) 2024 Respiratory Syncytial Virus (RSV) Vaccine Pt: or over 60 yrs (1 - Risk 60-74 years 1-dose series) 2024 HEPATITIS B VACCINE Aged Out No longe r eligible based on patient's age to complete this topic HIB VACCINE Aged Out No longer eligi ble based on patient's age to complete this topic HPV VACCINE Aged Out No longer eligi ble based on patient's age to complete this topic MENINGOCOCCAL (Group B) VACC INE SHARED DECISION-MAKING Aged Out No longer eligibl e based on patient's age to complete this topic MENINGOCOCCAL GROUPS A/C/Y/W VACCINE Aged Out No longer eligible b ased on patient's age to complete this topic Procedures Procedure Name Priority Date/Time Associated Diagnosis Comments COMPREHENSIVE METABOLIC PANEL Routine 10/13/2020 1:17 PM CDT Rheumatoid arthritis, seropositive, multiple sites High risk medications (not anticoagulants) long-term use [...] Resulting Agency Comment Lab Testing performed at: [facility] [address] [id number] Aris Cowan MD LAB - CHEMISTRY ORDERABLES Final Result [facility] INSURANCE BILL [address] [place] [address] from Last 3 Months or Most Recently Relevant to Health Maintenance Insurance [facility] MEDICAID - OUT OF STATE Care Teams Waterproofer Helper Relationship Specialty Start Date End Date Makenzie Chandler APRN-CNP [address] [facility] [address] [place] [phone] PCP - General 11/07/18 Aris Cowan MD [address] [address] Rheumatology 07/18/19
--- OUTSIDE RECORDS SUMMARY | 2024-10-16 14:44 | XMS_ITS | Encounter Summary ---
Author Organization [facility] [place] , [facility] Address [address] [place] [address] Phone Care Team Providers Care Gallery Host Name Role Phone Reshma Escalera MD Primary Care Provider [phone] Reason for Visit * Reason Comments Med Refill Encounter Details Date Type Department Care Team (Late st Contact Info) Description 08/24/2020 Refill [place] [facility], [facility] [address] [place] [address] 1 [place] [address] Steven Krishnan DO [address] [facility] 1 [place] [address] Social History Tobacco Use Types [...] Department Care Team (Late Contact Info) Description 07/22/2025 12:30 PM CDT Office Visit [place], [facility] [address] [facility] 15 [place] [address] Steven Krishnan DO [address] [facility] 1 [place] [address] documented as of this encounter Visit Diagnoses Not on filedocumented in this encounter Care Teams Gallery Host Relationship Specialty Start Date End Date Reshma Escalera MD [address] [place], [place] [id number] PCP - General Internal Medicine 07/11/23 documented as of this encounter
--- OUTSIDE RECORDS SUMMARY | 2024-10-16 14:44 | XMS_ITS | Clinical Summary ---
Author Organization [facility] Facility Address [address] [place] [address] Care Team Providers Care Trauma Director Name Role Phone Reshma Escalera MD Primary Care Provider [phone] Medications magnesium oxide 400 (240 Mg) MG tablet TAKE 1 TABLET BY MOUTH IN THE MORNING AND 1 IN THE EVENING 180 tablet 04/22/2022 Active losartan-hydroC HLOROthiazide (HYZAAR) 50-12.5 MG per tablet TAKE 1/2 (ONE-HALF) TABLET BY MOUTH IN THE MORNING 90 tablet 12/13/2023 Active Encounters Date Type Department Care Team Description 07/16/2024 12:30 PM CDT Office Visit [facility] [address] [facility] 15 [place] [phone] Steven Krishnan DO Chronic kidney disease, stage 2 (mild) (Primary Dx); Dilated cardiomyopathy (HCC); Coronary artery disease due to calcified coronary lesion; Paroxysmal atrial fibrillation (HCC); Gastroesophageal reflux disease; Fibromyalgia; Hypertensive chronic kidney disease; Pure hypercholesterolemia, not otherwise specified from Last 3 Months Social History Tobacco Use Types Packs/Day Years [...] Sign [place] Time Taken Comments Blood Pressure 120/74 07/16/2024 12:31 PM CDT Pulse 83 07/16/2024 12:31 PM CDT Temperature 36.1 C (97 F) 07/11/2023 12:42 PM CDT Respiratory Rate 20 07/16/2024 12:31 PM CDT Oxygen Saturation 96% 07/16/2024 12:31 PM CDT Inhaled Oxygen Concentration - - Weight 112 kg (247 lb) 07/16/2024 12:31 PM CDT Height 165.1 cm (5' 5) 07/16/2024 12:31 PM CDT Body Mass Index 41.1 07/16/2024 12:31 PM CDT Plan of Treatment Upcoming Encounters Date Type Department Care Team (Late st Contact Info) Description 07/22/2025 12:30 PM CDT Office Visit [facility] [address] [facility] [address] [place] [address] Steven Krishnan DO [address] [facility] 1 [place] [address] Health Maintenance Due Date Last Done Comments Breast Cancer Screening 1964 Pneumococcal Vaccine: 50+ Ye ars (1 of 2 - PCV) 10/09/1983 Colorectal Cancer Screening: Annual FOBT 2013 Colorectal Cancer Screening: Colonoscopy 2013 Colorectal Cancer Screening: Sigmoidoscopy 2013 Diabetes: Hemoglobin A1C 07/02/2020 Diabetes: Ophthalmology Exam 07/02/2020 Diabetes: Pedal Pulse Checked 07/02/2020 Diabetes: Sensory Foot Exam 07/02/2020 Diabetes: Visual Foot Exam 07/02/2020 Influenza Vaccine (#1) 2024 Hepatitis B Vaccine Aged Out No longe r eligible based on patient's age to complete this topic Insurance [place] Medicaid Care Teams Trauma Director Relationship Specialty Start Date End Date Reshma Escalera MD [address] [place] [address] PCP - General Internal Medicine 07/11/23
--- OUTSIDE RECORDS SUMMARY | 2024-10-16 14:44 | XMS_ITS | Clinical Summary ---
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 Gender Identity Not on file Sexual Orientation [...] 3:12 PM CDT Height 165.1 cm (5' 5) 05/12/2020 3:12 PM CDT Body Mass Index 40.62 05/12/2020 3:12 PM CDT Plan of Treatment Health Maintenance Due Date Last Done Comments DTAP/TDAP/TD VACCINES (1 - Tdap) 10/09/1983 HPV/Cotest (21-29) 1985 CERVICAL CANCER SCREENING 1994 HPV/Cotest (30-65) 1994 PAP SMEAR 1994 BREAST CANCER SCREENING 2004 COLORECTAL SCREENING 2009 Colorectal Cancer Screening 2009 FIT-DNA Q 3 years 2009 FIT/FOBT Q 1 year 2009 Flex Sig/CT Colonography Q 5 years 2009 ZOSTER VACCINE (1 of 2) 2014 INFLUENZA VACCINE (#1) 2024 RSV VACCINE (60+ or ) (1 - 1-dose 75+ series) 10/09/2039 HEPATITIS B VACCINES Aged Out No long er eligible based on patient's age to complete this topic Care Teams Organic Section Technical Lead Relationship Specialty Start Date End Date Provider, Abstract NO ADDRESS ON FILE PCP - General 05/12/20
[2024-10-16 15:17] LABS: Thyroid Stimulating Hormone 1.870 uIU/mL (0.465-4.680)
[2024-10-16 15:33] LABS: MALB Creatinine Ratio < 20.1 mg/g (0-30)
[2024-10-16 15:56] LABS: Free T4 Free Thyroxine 1.42 ng/dL (0.78-2.19)
[2024-10-16 16:25] LABS: Vitamin B12 377.0 pg/mL (239-931)
== END 2024-10-16 14:08 | disposition home or self-care (01) ==
LOC: ANHLAB 14:09
PROVIDERS: PCP Internal Medicine; Visit Provider Nurse Practitioner Family
DX: E11.40 Type 2 diabetes mellitus with diabetic neuropathy, unspecified (principal); I10 Essential (primary) hypertension; E03.8 Other specified hypothyroidism; E06.3 Autoimmune thyroiditis; E78.5 Hyperlipidemia, unspecified
CPT/HCPCS: 36415; 80053; 80061; 82043; 82306; 82607; 84439; 84443